=== PATIENT | female | born 1935 | race Caucasian/White ===

== ENCOUNTER 2018-06-03 15:56 | Inpatient (IN) | payer MEDICARE, OTHER ==
[2018-06-03] MEDS ORDERED: SODIUM CHLORIDE 0.9% 1,000 ML IV ONE (17:23)
[2018-06-03] MEDS ORDERED: LEVOFLOXACIN 750MG-D5W PMX 750 MG in DEXTROSE/WATER 1 150ML.BAG IVPB STA (17:23)
[2018-06-03] MEDS ORDERED: VANCOMYCIN IV PER PHARMACY 1 EACH MISC MISCELLANE PRN (17:25)
--- NOTE | 2018-06-03 17:30 | ED ---
Lower Extremity Injury HPI - General Chief Complaint: Extremity Injury, Lower Stated Complaint: L Leg Pain Time Seen by Provider: 06/03/18 17:05 Source: patient, RN notes reviewed, old records reviewed Mode of arrival: wheelchair Limitations: no limitations - History of Present Illness Initial Comments: Patient is an 8-year-old female with history of diabetes, hypertension, heart failure and previous DVT with a left lower extremity. Patient presents emergency department today with chief complaint of increased redness and swelling over the past week over her left leg. Patient was sent by her PCP for concern for overlying cellulitis. Patient reports she's had chills but no specific fever. No recent antibiotic use. Patient reports that she has a wound developing over the lateral aspect of the lower extremity, and has had increased drainage from the entire leg. Patient reports that she has had no chest pain or shortness breath. She denies any abdominal pain or changes in appetite. - Related Data Home Medications Medication Instructions Recorded Confirmed Cholecalciferol [Vitamin D3] 1,000 unit PO DAILY 06/03/18 06/03/18 Furosemide [Lasix] 20 mg PO BID 06/03/18 06/03/18 Lactulose [Constulose] 10 gm PO Q12HR 06/03/18 06/03/18 SILVER sulfADIAZINE CREAM 1 dose TOPICAL DAILY 06/03/18 06/03/18 [Silvadene Cream] Triamcinolone 0.1% Ointment 1 applic TOPICAL DAILY 06/03/18 06/03/18 [Kenalog 0.1% Ointment] Warfarin [Coumadin] 5 mg PO DAILY 06/03/18 06/03/18 Allergies Allergy/AdvReac Type Severity Reaction Status Date / Time cephalexin [From Keflex] Allergy Rash/Hives Verified 06/03/18 17:34 Penicillins Allergy Rash/Hives Verified 06/03/18 17:34 sulfamethoxazole Allergy Rash/Hives Verified 06/03/18 17:34 [From Bactrim] trimethoprim [From Bactrim] Allergy Rash/Hives Verified 06/03/18 17:34 Review of Systems ROS Statement: Those systems with pertinent positive or pertinent negative responses have been documented in the HPI. ROS Other: All systems not noted in ROS Statement are negative. Past Medical History Past Medical History: Diabetes Mellitus, Deep Vein Thrombosis (DVT), Renal Disease History of Any Multi-Drug Resistant Organisms: None Reported Past Surgical History: Appendectomy, Orthopedic Surgery Additional Past Surgical History / Comment(s): venous ligation of the left leg, right ear surgery. 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 Past Psychological History: No Psychological Hx Reported Smoking Status: Former smoker Past Alcohol Use History: None Reported Past Drug Use History: None Reported General Exam - General Exam Comments Initial Comments: Patient is an 82-year-old female. Patient appears somewhat weak. Limitations: no limitations General appearance: alert, in no apparent distress Head exam: Present: atraumatic, normocephalic, normal inspection Eye exam: Present: normal appearance, PERRL, EOMI. Absent: scleral icterus, conjunctival injection, periorbital swelling ENT exam: Present: normal exam, mucous membranes moist Neck exam: Present: normal inspection. Absent: tenderness, meningismus, lymphadenopathy Respiratory exam: Present: normal lung sounds bilaterally. Absent: respiratory distress, wheezes, rales, rhonchi, stridor Cardiovascular Exam: Present: regular rate, normal rhythm, normal heart sounds. Absent: systolic murmur, diastolic murmur, rubs, gallop, clicks GI/Abdominal exam: Present: soft, normal bowel sounds. Absent: distended, tenderness, guarding, rebound, rigid Extremities exam: Present: full ROM, normal capillary refill, other (normal dorsalis pedis pulse ). Absent: normal inspection, tenderness, pedal edema, joint swelling, calf tenderness Left Lower Leg exam: Present: full ROM, tenderness, swelling (4+ pitting edema and overlying erythema over the lower cavity. Evidence of a wound measuring 5 cm x 6 cm over the lateral aspect of the lower extremity above the lateral malleolus. ). Absent: normal inspection Ankle exam: Present: full ROM, tenderness, swelling, erythema. Absent: normal inspection Foot/Toe exam: Present: normal inspection, full ROM Gait: observed and limited by pain Back exam: Present: normal inspection Neurological exam: Present: alert, oriented X3, CN II-XII intact Psychiatric exam: Present: normal affect, normal mood Course Vital Signs 06/03/18 06/03/18 16:10 19:18 Temperature 98.2 F 98.2 F Pulse Rate 105 H 119 H Respiratory 20 18 Rate Blood Pressure 166/76 187/93 O2 Sat by Pulse 99 97 Oximetry Medical Decision Making - Medical Decision Making Ensure female with coronary disease presents emergency room today with significant cellulitis over the left larger main ulceration over the lateral aspect of the leg. Wound culture was obtained. Patient was started on IV fluids and antibiotics, will Levaquin and vancomycin. Levaquin due to patient' s ALLERGIES. We did obtain an aerobic wound culture. Patient's ultrasound at this time is negative for DVT. Blood work was relatively unremarkable. At this time we will admit the Patient for continued IV antibiotics, consult to infectious disease. - Lab Data Result diagrams: 06/03/18 17:45 06/03/18 17:45 Lab Results 06/03/18 06/03/18 06/03/18 Range/Units 17:45 17:45 17:45 WBC 9.6 (3.8-10.6) k/uL RBC 3.69 L (3.80-5.40) m/uL Hgb 11.0 L (11.4-16.0) gm/dL Hct 34.5 (34.0-46.0) % MCV 93.6 (80.0-100.0) fL MCH 30.0 (25.0-35.0) pg MCHC 32.0 (31.0-37.0) g/dL RDW 14.3 (11.5-15.5) % Plt Count 255 (150-450) k/uL Neutrophils % 75 % Lymphocytes % 14 % Monocytes % 5 % Eosinophils % 1 % Basophils % 1 % Neutrophils # 7.2 (1.3-7.7) k/uL Lymphocytes # 1.4 (1.0-4.8) k/uL Monocytes # 0.5 (0-1.0) k/uL Eosinophils # 0.1 (0-0.7) k/uL Basophils # 0.1 (0-0.2) k/uL PT (9.0-12.0) sec INR (<1.2) APTT (22.0-30.0) sec Sodium 140 (137-145) mmol/L Potassium 4.6 (3.5-5.1) mmol/L Chloride 106 (98-107) mmol/L Carbon Dioxide 25 (22-30) mmol/L Anion Gap 9 mmol/L BUN 34 H (7-17) mg/dL Creatinine 1.35 H (0.52-1.04) mg/dL Est GFR (CKD-EPI)AfAm 42 (>60 ml/min/1.73 sqM) Est GFR (CKD-EPI)NonAf 37 (>60 ml/min/1.73 sqM) Glucose 110 H (74-99) mg/dL Plasma Lactic Acid Zoran 1.1 (0.7-2.0) mmol/L Calcium 9.4 (8.4-10.2) mg/dL Total Bilirubin 0.4 (0.2-1.3) mg/dL AST 23 (14-36) U/L ALT 22 (9-52) U/L Alkaline Phosphatase 112 (38-126) U/L C-Reactive Protein 17.5 H (<10.0) mg/L NT-Pro-B Natriuret Pep pg/mL Total Protein 7.9 (6.3-8.2) g/dL Albumin 4.0 (3.5-5.0) g/dL 06/03/18 06/03/18 Range/Units 17:45 17:45 WBC (3.8-10.6) k/uL RBC (3.80-5.40) m/uL Hgb (11.4-16.0) gm/dL Hct (34.0-46.0) % MCV (80.0-100.0) fL MCH (25.0-35.0) pg MCHC (31.0-37.0) g/dL RDW (11.5-15.5) % Plt Count (150-450) k/uL Neutrophils % % Lymphocytes % % Monocytes % % Eosinophils % % Basophils % % Neutrophils # (1.3-7.7) k/uL Lymphocytes # (1.0-4.8) k/uL Monocytes # (0-1.0) k/uL Eosinophils # (0-0.7) k/uL Basophils # (0-0.2) k/uL PT 17.4 H (9.0-12.0) sec INR 1.9 H (<1.2) APTT 30.3 H (22.0-30.0) sec Sodium (137-145) mmol/L Potassium (3.5-5.1) mmol/L Chloride (98-107) mmol/L Carbon Dioxide (22-30) mmol/L Anion Gap mmol/L BUN (7-17) mg/dL Creatinine (0.52-1.04) mg/dL Est GFR (CKD-EPI)AfAm (>60 ml/min/1.73 sqM) Est GFR (CKD-EPI)NonAf (>60 ml/min/1.73 sqM) Glucose (74-99) mg/dL Plasma Lactic Acid Zoran (0.7-2.0) mmol/L Calcium (8.4-10.2) mg/dL Total Bilirubin (0.2-1.3) mg/dL AST (14-36) U/L ALT (9-52) U/L Alkaline Phosphatase (38-126) U/L C-Reactive Protein (<10.0) mg/L NT-Pro-B Natriuret Pep 239 pg/mL Total Protein (6.3-8.2) g/dL Albumin (3.5-5.0) g/dL 06/03/18 18:05 EKG shows sinus tachycardia, anterior infarct age undetermined. Ventricular rate of [address] interval is 176 ms. QRS duration is 74 ms. QT QTc is 3:30 /446 ms. - Radiology Data Radiology results: report reviewed Ultrasound is negative for DVT. Limited compression due to pitting edema. Some decreased flow in the distal femoral vein. Chest x-ray shows mild cardiac megaly. No active cardio menses. Clearing of most atelectasis at the lung bases compared old exam. Disposition Clinical Impression: Left leg cellulitis, Diabetes, Leg ulcer, left, HTN (hypertension) Disposition: ADMITTED IP TO THIS HOSP Condition: Stable Is patient prescribed a controlled substance at d/c from ED?: No Referrals: Darin Castro DO [Primary Care Provider] - 1-2 days Time of Disposition: 19:54
[2018-06-03] MEDS ORDERED: VANCOMYCIN 1,500 MG in SODIUM CHLORIDE 0.9% 250 ML IVPB ONE (18:00)
[2018-06-03] MEDS: SODIUM CHLORIDE 0.9% 1,000 ML IV SCH (18:02)
[2018-06-03 18:03] LABS: Basophils # (A) 0.1 k/uL (0-0.2); Basophils % (A) 1 %; Eosinophils # (A) 0.1 k/uL (0-0.7); Eosinophils % (A) 1 %; HCT 34.5 % (34.0-46.0); Lymphocytes # (A) 1.4 k/uL (1.0-4.8); Lymphocytes % (A) 14 %; MCV 93.6 fL (80.0-100.0); Mean Platelet Volume 6.5; Monocytes # (A) 0.5 k/uL (0-1.0); Monocytes % (A) 5 %; Neutrophils # (A) 7.2 k/uL (1.3-7.7); Neutrophils % (A) 75 %; Platelet Count 255 k/uL (150-450); RBC 3.69 m/uL (3.80-5.40); RDW 14.3 % (11.5-15.5); WBC 9.6 k/uL (3.8-10.6)
[2018-06-03 18:13] LABS: INR 1.9 (<1.2); Partial Thromboplastin Time 30.3 sec (22.0-30.0); Prothrombin Time 17.4 sec (9.0-12.0)
[2018-06-03 18:15] LABS: C Reactive Protein 17.5 mg/L (<10.0); Calcium 9.4 mg/dL (8.4-10.2); Potassium 4.6 mmol/L (3.5-5.1); Total Bilirubin 0.4 mg/dL (0.2-1.3); Total Protein 7.9 g/dL (6.3-8.2)
[2018-06-03] MEDS ORDERED: MORPHINE SULFATE 4 MG/ML SYRINGE IVP STA (18:19)
--- NOTE | 2018-06-03 18:28 | XR ---
EXAMINATION TYPE: XR chest 2V DATE OF EXAM: 06/03/2018 COMPARISON: 06/02/1713 HISTORY: Cough. Chest pain TECHNIQUE: Frontal and lateral views of the chest are obtained. FINDINGS: There is no heart failure nor confluent pneumonic infiltrate. Costophrenic angles are pdamini r. There is thoracolumbar kyphotic deformity. I see no acute fracture. There is no pleural effusion. IMPRESSION: Mild cardiomegaly. No active cardiopulmonary disease. There is clearing of most of the a telectasis at the lung bases compared to old exam.
--- NOTE | 2018-06-03 19:35 | US ---
EXAMINATION TYPE: US venous doppler duplex LE LT DATE OF EXAM: 06/03/2018 7:12 PM COMPARISON: NONE CLINICAL HISTORY: Pain. Left leg pain and swelling. Patient on blood thinners. SIDE PERFORMED: Left TECHNIQUE: The lower extremity deep venous system is examined utilizing real time linear array sonog tawana with graded compression, doppler sonography and color-flow sonography. VESSELS IMAGED: External Iliac Vein (EIV) Common Femoral Vein Deep Femoral Vein Greater Saphenous Vein * Femoral Vein Popliteal Vein Small Saphenous Vein * Proximal Calf Veins (* superficial vessels) Left Leg: Appears negative for DVT. Limitations of compression due to pitting edema. Some decreased flow in distal femoral vein. IMPRESSION: Exam fails to show evidence of deep venous thrombosis in the left leg.
[2018-06-03] MEDS ORDERED: NALOXONE 0.4 MG/ML 1 ML VIAL IV PRN (19:55)
[2018-06-03] MEDS ORDERED: HYDROmorphone 1 MG/ML 1 ML SYRINGE IVP PRN (19:55)
[2018-06-03] MEDS ORDERED: IBUPROFEN 400 MG TAB PO PRN (19:55)
[2018-06-03] MEDS ORDERED: ACETAMINOPHEN TAB 325 MG TAB PO PRN (19:55)
[2018-06-03] MEDS ORDERED: ONDANSETRON 4 MG/2 ML VIAL IVP PRN (19:55)
--- NOTE | 2018-06-03 20:52 | XR ---
EXAMINATION TYPE: XR tibia fibula LT DATE OF EXAM: 06/03/2018 COMPARISON: 05/10/2011 HISTORY: Multiple nonhealing wounds TECHNIQUE: 4 views FINDINGS: There is some subcutaneous edema around the left lower leg. The tibia and fibula appear int act. I see no fracture. I see no bony destructive process. IMPRESSION: Subcutaneous edema that is increased compared to old exam. No evidence of osteomyelitis.
[2018-06-03] MEDS ORDERED: ALPRAZolam 0.25 MG TAB PO PRN (21:26)
[2018-06-03] MEDS ORDERED: MELATONIN 3 MG TABLET PO PRN (21:26)
[2018-06-03] MEDS: LACTULOSE 20 GM/30 ML CUP PO SCH (21:32)
[2018-06-03 21:37] LABS: Glucose,Whole Blood 112 mg/dL (75-99)
[2018-06-03] MEDS ORDERED: IPRATROPIUM-ALBUTEROL 3 ML NEB INHALATION PRN (22:14)
--- NOTE | 2018-06-03 22:46 | HP ---
HISTORY AND PHYSICAL CHIEF COMPLAINTS: Pain and swelling of the left leg. HISTORY OF PRESENT ILLNESS: This 82-year-old woman with a past medical history of multiple medical problems, including history of DVT, history of diabetes mellitus, type 2, history of renal disease, being followed by Dr. Castro in the outpatient setting, was noted to have redness and swelling of the left leg for some time. The patient apparently did not seek any medical attention at that point, but her daughter took the patient to Dr. Castro today and the patient was sent for direct admission at this time. A repeat ultrasound did not show any evidence of DVT. Creatinine is 1.35. There is no history of any fever, rigor or chills. No history of headache, loss of consciousness, seizures. PAST MEDICAL HISTORY: 1. History of DVT. 2. History of diabetes mellitus, type 2. 3. History of appendectomy. HOME MEDICATIONS: 1. Kenalog 0.1 ointment one topically daily. 2. Silvadene 1 dose daily. 3. Lasix 20 mg b.i.d. 4. Lactulose 10 grams b.i.d. 5. Vitamin D3 1000 daily. 6. Coumadin 5 mg p.o. daily. ALLERGIES: 1. KEFLEX. 2. PENICILLIN. 3. BACTRIM. FAMILY HISTORY: No history of heart disease or strokes in the family. SOCIAL HISTORY: Previous history of smoking. REVIEW OF SYSTEMS: ENT: No diminished hearing. No diminished vision. CARDIOVASCULAR SYSTEM: No angina, palpitations. RESPIRATORY SYSTEM: No cough, hemoptysis. GI: No nausea, vomiting. : No dysuria or retention. NERVOUS SYSTEM: No numbness, weakness. ALLERGY/IMMUNOLOGY: No asthma, hayfever. MUSCULOSKELETAL: As mentioned earlier. HEMATOLOGY/ONCOLOGY: As mentioned earlier. ENDOCRINE: Diabetes mellitus CONSTITUTIONAL: As mentioned earlier. DERMATOLOGY: Negative. RHEUMATOLOGY: Negative. PSYCHIATRY: As mentioned earlier. PHYSICAL EXAMINATION: Patient alert and oriented x3. Pulse is 110, blood pressure 150/90, respiration 19, temperature 97.7, pulse ox 99% on room air. HEENT: Conjunctivae normal. Oral mucosa moist. NECK: No jugular venous distention. No carotid bruit. No lymph node enlargement. CARDIOVASCULAR SYSTEM: S1, S2 muffled. RESPIRATORY SYSTEM: Breath sounds diminished at the bases. A few scattered rhonchi and crackles. ABDOMEN: Soft, non-tender. No mass palpable. LEGS: Left leg erythema and cellulitis present. NERVOUS SYSTEM: Higher functions as mentioned earlier. Moves all 4 limbs. No focal motor or sensory deficit. LYMPHATICS: No lymph node palpable in neck, axillae or groin. SKIN: No ulcer, rash, bleeding. LABS: WBC 9.6, hemoglobin 11. INR is 1.9. Creatinine is 1.35. ASSESSMENT: 1. Acute left leg cellulitis. 2. History of deep vein thrombosis. 3. Increased creatinine; chronic kidney disease, stage III. 4. History of diabetes mellitus, type 2. 5. Appendectomy. 6. History of degenerative joint disease. 7. Remote history of nicotine dependence. RECOMMENDATIONS AND DISCUSSION: In this 82-year-old woman who presented with multiple complex medical issues, we will monitor the patient closely, continue the current medications, continue symptomatic treatment. We will initiate IV antibiotics. Will also consult Infectious Disease. Local treatment. Guarded prognosis because of multiple complex medical issues.. Will monitor blood sugars closely. Further recommendations to follow. A copy of this dictation is being forwarded to Dr. Castro, who is the primary physician. Resume the home medications. MMODL / IJN: [id number] / MTDParisa
[2018-06-03] MEDS: LORATADINE 10 MG TAB PO SCH (23:05)
[2018-06-03] MEDS: methylPREDNISolone SOD SUCCI 40 MG/ML 1 ML VIAL IV SCH (23:42)
[2018-06-04] MEDS: SODIUM CHLORIDE 0.9% 1,000 ML IV SCH ×2 (03:32→14:31)
[2018-06-04] MEDS: MORPHINE SULFATE 4 MG/ML SYRINGE IV PRN ×2 (05:47→16:32)
[2018-06-04] MEDS: IPRATROPIUM-ALBUTEROL 3 ML NEB INHALATION SCH ×4 (07:04→19:39)
[2018-06-04 07:31] LABS: Glucose,Whole Blood 131 mg/dL (75-99)
[2018-06-04] MEDS: INSULIN ASPART 100 UNIT/ML 1 ML 10 ML VIAL SQ SCH ×4 (07:33→21:11)
[2018-06-04] MEDS: LACTULOSE 20 GM/30 ML CUP PO SCH ×2 (07:37→21:15)
[2018-06-04] MEDS: FUROSEMIDE 20 MG TAB PO SCH ×2 (07:37→15:27)
[2018-06-04] MEDS: CHOLECALCIFEROL 1,000 UNIT TAB PO SCH (07:38)
[2018-06-04] MEDS: methylPREDNISolone SOD SUCCI 40 MG/ML 1 ML VIAL IV SCH ×2 (07:43→15:27)
[2018-06-04] MEDS ORDERED: TRIAMCINOLONE 0.1% TOPICAL SCH (09:00)
[2018-06-04 09:14] LABS: Amorphous Sediment,Urine Rare /hpf; Appearance,Urine Cloudy (Clear); Bacteria,Urine Many /hpf; Bilirubin,Urine Negative (Negative); Blood,Urine Negative (Negative); Color,Urine Light Yellow; Glucose,Urine (UA) Negative (Negative); Ketones,Urine Negative (Negative); Leukocyte Esterase,Urine Large (Negative); Mucus,Urine Rare /hpf; Nitrite,Urine Positive (Negative); Protein,Urine Negative (Negative); RBC,Urine 8 /hpf (0-5); Specific Gravity,Urine 1.013 (1.001-1.035); Squamous Epithelial Cell,Urine 3 /hpf (0-4); Urobilinogen,Urine <2.0 mg/dL (<2.0); WBC,Urine 46 /hpf (0-5)
[2018-06-04 10:27] LABS: Basophils % (A) 1 %; Eosinophils # (A) 0.1 k/uL (0-0.7); Eosinophils % (A) 1 %; HCT 30.9 % (34.0-46.0); HGB 9.9 gm/dL (11.4-16.0); Lymphocytes # (A) 0.9 k/uL (1.0-4.8); Lymphocytes % (A) 14 %; MCH 30.3 pg (25.0-35.0); MCHC 32.1 g/dL (31.0-37.0); MCV 94.3 fL (80.0-100.0); Mean Platelet Volume 7.4; Monocytes # (A) 0.3 k/uL (0-1.0); Monocytes % (A) 5 %; Neutrophils # (A) 4.9 k/uL (1.3-7.7); Neutrophils % (A) 78 %; Platelet Count 206 k/uL (150-450); RBC 3.28 m/uL (3.80-5.40); RDW 14.4 % (11.5-15.5); WBC 6.3 k/uL (3.8-10.6)
[2018-06-04 10:38] LABS: INR 2.5 (<1.2); Prothrombin Time 22.3 sec (9.0-12.0)
[2018-06-04 10:49] LABS: Calcium 8.8 mg/dL (8.4-10.2); Potassium 4.8 mmol/L (3.5-5.1)
[2018-06-04 10:54] LABS: Vancomycin,Random 7.1 ug/mL
[2018-06-04 11:53] LABS: Glucose,Whole Blood 143 mg/dL (75-99)
[2018-06-04 12:27] VITALS: BMI 31.1
[2018-06-04] MEDS ORDERED: VANCOMYCIN 1,500 MG in SODIUM CHLORIDE 0.9% 250 ML IVPB SCH (14:00)
[2018-06-04 17:08] LABS: Glucose,Whole Blood 114 mg/dL (75-99)
[2018-06-04] MEDS: WARFARIN 5 MG TAB PO SCH (17:31)
[2018-06-04 20:35] LABS: Glucose,Whole Blood 117 mg/dL (75-99)
--- NOTE | 2018-06-04 23:45 | PN ---
PROGRESS NOTE DATE OF SERVICE: 06/04/2018 This 88-year-old woman was admitted after bilateral leg swelling and cellulitis. Also, history of DVT. No chest pain. No palpitations. No fever. Patient on broad spectrum IV antibiotics. EXAM: Alert and oriented. Pulse 95, blood pressure 150/70, respiration 18, temperature 97.1, pulse ox 100 on room air. HEENT: Conjunctivae normal. Oral mucosa. NECK: No jugular venous distention. No lymph node enlargement. CARDIOVASCULAR: S1, S2. RESPIRATORY: Diminished breath sounds at the bases. No rhonchi, no crackles. ABDOMEN: Soft, nontender. LEGS: Left leg cellulitis. NERVOUS SYSTEM: No focal deficits. LABS: WBC 6.9, hemoglobin 9.3, INR 2.5, creatinine 1.16. UA noted possibly UTI. ASSESSMENT: 1. Acute left leg cellulitis. 2. Acute urinary tract infection. 3. History of deep vein thrombosis. 4. Increased creatinine, chronic kidney disease stage III. 5. History of diabetes type 2. 6. History of appendectomy. 7. History of degenerative joint disease. 8. Remote history of nicotine dependence. RECOMMENDATIONS AND DISCUSSION: Continue current medications, management and symptomatic treatment. Otherwise, at this time the patient is on IV daptomycin. Infectious Disease has been consulted. Continue to monitor. Guarded prognosis. Further recommendations to follow. MMODL / IJN: [id number] /
[2018-06-05] MEDS: SODIUM CHLORIDE 0.9% 1,000 ML IV SCH ×2 (06:28→10:44)
[2018-06-05] MEDS: IPRATROPIUM-ALBUTEROL 3 ML NEB INHALATION SCH ×4 (06:53→18:59)
[2018-06-05 07:22] LABS: Glucose,Whole Blood 116 mg/dL (75-99)
[2018-06-05] MEDS: INSULIN ASPART 100 UNIT/ML 1 ML 10 ML VIAL SQ SCH ×4 (07:55→21:25)
[2018-06-05] MEDS: LACTULOSE 20 GM/30 ML CUP PO SCH ×2 (07:56→21:25)
[2018-06-05] MEDS: FUROSEMIDE 20 MG TAB PO SCH ×2 (07:56→16:06)
[2018-06-05] MEDS: LORATADINE 10 MG TAB PO SCH ×2 (07:56→11:48)
[2018-06-05] MEDS: CHOLECALCIFEROL 1,000 UNIT TAB PO SCH (07:56)
[2018-06-05 09:48] LABS: Basophils % (A) 0 %; Eosinophils # (A) 0.2 k/uL (0-0.7); Eosinophils % (A) 2 %; HCT 29.2 % (34.0-46.0); HGB 9.2 gm/dL (11.4-16.0); Hypochromasia Slight; Lymphocytes # (A) 0.9 k/uL (1.0-4.8); Lymphocytes % (A) 11 %; MCH 30.7 pg (25.0-35.0); MCHC 31.4 g/dL (31.0-37.0); MCV 97.9 fL (80.0-100.0); Mean Platelet Volume 6.7; Monocytes # (A) 0.3 k/uL (0-1.0); Monocytes % (A) 4 %; Neutrophils # (A) 6.2 k/uL (1.3-7.7); Neutrophils % (A) 80 %; Platelet Count 204 k/uL (150-450); RBC 2.99 m/uL (3.80-5.40); RDW 14.3 % (11.5-15.5); WBC 7.7 k/uL (3.8-10.6)
[2018-06-05 09:58] LABS: INR 2.8 (<1.2); Prothrombin Time 24.9 sec (9.0-12.0)
[2018-06-05] MEDS: MORPHINE SULFATE 4 MG/ML SYRINGE IV PRN ×2 (09:58→23:18)
[2018-06-05 10:06] LABS: Calcium 8.5 mg/dL (8.4-10.2); Potassium 4.1 mmol/L (3.5-5.1)
--- NOTE | 2018-06-05 11:13 | CONS ---
CONSULTATION DATE OF SERVICE: 06/04/2018. REASON FOR CONSULTATION: Bilateral lower extremity wound and cellulitis. HISTORY OF PRESENT ILLNESS: The patient is an 82-year-old, female presenting to the ER at [facility] with increasing pain, swelling, redness to her legs, left more than right leg. The patient's symptom have been going on for 2-3 days before presenting to the hospital. She did notice more swelling and redness especially to the left leg for the last few days that has been progressively getting worse. The pain described to be more of a throbbing in nature, 6 to 7/10, and no radiation. She did have some but no drainage from it. The patient complaining of some chills. The patient does have MULTIPLE ANTIBIOTIC ALLERGIES TO AMOXICILLIN WELL KEFLEX. She was advised vancomycin by the ER physician last night however the dose. Apparently the patient's sinuses were closed she could not breathe and she refused any further IV vancomycin. Hence, Infectious Disease was consulted for further recommendations regarding antibiotic therapy. REVIEW OF SYSTEMS: CONSTITUTIONAL: Positive for weakness and chills. EYES no complaint. ENT no complaint. Respiratory no complaint. Cardiovascular: No complaint. Genitourinary no complaint. Gastrointestinal: No complaint. Musculoskeletal no complaint. Integumentary as per HPI. Psychological no complaint. Endocrine no complaint. Neurologic no complaint. PAST MEDICAL HISTORY: Diabetes mellitus, DVT, renal insufficiency, venous stasis ulcer. 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 SOCIAL HISTORY: Remote history of smoking. No drinking or drug use. FAMILY HISTORY: No pertinent findings noticed. ALLERGIES: TO PENICILLIN, CEPHALEXIN, SULFAMETHOXAZOLE. MEDICATIONS: The patient is currently on Tylenol, DuoNeb, Xanax, vitamin D3, Lasix, Dilaudid, Motrin, NovoLog, lactulose, Claritin, melatonin, Narcan, Zofran, and Coumadin. EXAMINATION: Blood pressure is 166/72, with a pulse of 100, temperature is 97.3. She is 99% on 2 L nasal cannula. General description is an elderly female lying in bed in no distress. No tachypnea or accessory muscles of respiration use. HEENT: Shows pallor. No scleral icterus. Oral mucous membranes dry. No pharyngeal erythema or thrush. Neck: Trachea central. No thyromegaly. Lungs unlabored breathing. Clear to auscultation anteriorly. No wheeze or crackles. Heart S1, S2. Regular rate and rhythm. ABDOMEN: Soft, no tenderness. No guarding or rigidity. Extremities with a significant swelling and redness mostly on the left leg, did have some venous stasis ulcer. Minimal purulence was noticed, which was cultured. NEUROLOGICAL: Patient is awake, alert, oriented x3. Mood and affect normal. LABS: Hemoglobin is 9.9, white count 6.3, BUN of 24, creatinine is 1.16. UA has been positive and 7.1. Left leg culture currently showing group D Enterococcus. DIAGNOSTIC IMPRESSION AND PLAN: 1. Patient with left leg venous stasis ulcer with secondary cellulitis likely from a gram-positive such as Staph and strep, less likely gram-negative infection. 2. The patient does have MULTIPLE ANTIBIOTIC ALLERGIES that limit the number of antibiotics that could be safely used. PLAN: 1. The patient was started on daptomycin 4 mg/kg. 2. Aquacel Silver dressing to the open wound followed by an Aly wrap from just above to below the knee. 3. Crow the area of redness. 4. We will follow up on clinical condition and culture to further adjust medication if needed. Thank you for this consultation. We will follow this patient along with you. MMODL / IJN: [id number] /
[2018-06-05 11:58] LABS: Glucose,Whole Blood 123 mg/dL (75-99)
[2018-06-05 17:19] LABS: Glucose,Whole Blood 149 mg/dL (75-99)
--- NOTE | 2018-06-05 17:25 | PN ---
PROGRESS NOTE DATE OF SERVICE: 06/05/2018 This 82-year-old woman who was admitted with diffuse cellulitis is on IV antibiotics. The cultures are showing gram-negative bacilli and group D enterococcus. No chest pain. No palpitations. No fever. The patient is also complaining of allergy symptoms. On exam, alert and oriented x3. Pulse is 95, blood pressure 127/63, respiration 18, temperature 97.2, pulse ox 98% on room air. HEENT: Conjunctivae normal. Oral mucosa moist. NECK: No jugular venous distention. No carotid bruit. No lymph node enlargement. CARDIOVASCULAR SYSTEM: S1, S2 muffled. RESPIRATORY SYSTEM: Breath sounds diminished at the bases. A few scattered rhonchi and crackles. ABDOMEN: Soft, non-tender. LEGS: Left leg cellulitis. NERVOUS SYSTEM: No focal deficit. LABS: WBC 7.6, hemoglobin 9.2, INR 2.3. Creatinine is 1.5. Accu-Cheks are noted. ASSESSMENT: 1. Acute left leg cellulitis with possibly gram-negative bacilli and group D enterococcus. 2. Acute urinary tract infection. 3. History of deep venous thrombosis. 4. Increased creatinine; chronic kidney disease, stage III. 5. History of diabetes mellitus, type 2. 6. History of appendectomy. 7. History of degenerative joint disease. 8. Remote history of nicotine dependence. RECOMMENDATIONS AND DISCUSSION: I recommend to continue current medications, continue the IV antibiotics. We will continue to monitor the identification of the organisms. Continue the current antibiotics. Closely follow with Infectious Disease. Guarded prognosis. Further recommendations to follow. MMODL / IJN: [id number] /
[2018-06-05] MEDS: WARFARIN 5 MG TAB PO SCH (17:56)
[2018-06-05 20:37] LABS: Glucose,Whole Blood 125 mg/dL (75-99)
[2018-06-06] MEDS: SODIUM CHLORIDE 0.9% 1,000 ML IV SCH ×3 (00:48→16:09)
--- NOTE | 2018-06-06 02:28 | PN ---
PROGRESS NOTE DATE OF SERVICE: 06/05/2018. REASON FOR FOLLOWUP: Left leg venous stasis ulcer and cellulitis. INTERVAL HISTORY: The patient is currently afebrile. She has been breathing comfortably. Denies having any chest pain, cough. No abdominal pain or any worsening pain in the left leg area. EXAMINATION: Blood pressure 164/74 with a pulse of 99, temperature 98.3. She is 96% on room air. General description is an elderly female lying in bed in no distress. Respiratory system: Unlabored breathing, clear to auscultation anteriorly. Heart S1, S2 regular rate and rhythm. Abdomen is soft. No tenderness. Left leg swelling and redness mildly decreased. Still has slight drainage on the dressing. LABS: Hemoglobin is 9.2 with white count 7.7, BUN of 19, creatinine is 1.14. DIAGNOSTIC IMPRESSION AND PLAN: Patient with left leg venous stasis ulcer and cellulitis. Culture showed Enterococcus. The patient did have MULTIPLE ANTIBIOTIC ALLERGIES TO PENICILLIN, CEPHALEXIN AND VANCO. Currently on daptomycin. will continue to continue with Aquacel Silver dressing and Aly wrap and we will reevaluate the wound tomorrow. Continue supportive care. MMODL / IJN: [id number] /
[2018-06-06] MEDS: MORPHINE SULFATE 4 MG/ML SYRINGE IV PRN ×3 (04:13→22:15)
[2018-06-06 06:59] LABS: Glucose,Whole Blood 106 mg/dL (75-99)
[2018-06-06] MEDS: IPRATROPIUM-ALBUTEROL 3 ML NEB INHALATION SCH ×4 (08:18→19:50)
[2018-06-06] MEDS: LORATADINE 10 MG TAB PO SCH (08:39)
[2018-06-06] MEDS: FUROSEMIDE 20 MG TAB PO SCH ×2 (08:39→18:07)
[2018-06-06] MEDS: INSULIN ASPART 100 UNIT/ML 1 ML 10 ML VIAL SQ SCH ×4 (08:40→22:20)
[2018-06-06] MEDS: CHOLECALCIFEROL 1,000 UNIT TAB PO SCH (08:40)
[2018-06-06] MEDS: LACTULOSE 20 GM/30 ML CUP PO SCH ×2 (08:40→22:15)
[2018-06-06] MEDS ORDERED: AZTREONAM 2 GM in SODIUM CHLORIDE 0.9% 100 ML IVPB SCH (09:00)
[2018-06-06 10:02] LABS: INR 2.9 (<1.2); Prothrombin Time 25.7 sec (9.0-12.0)
[2018-06-06 10:05] LABS: Basophils % (A) 0 %; Eosinophils # (A) 0.2 k/uL (0-0.7); Eosinophils % (A) 3 %; HCT 29.6 % (34.0-46.0); HGB 9.6 gm/dL (11.4-16.0); Lymphocytes # (A) 1.2 k/uL (1.0-4.8); Lymphocytes % (A) 21 %; MCH 30.2 pg (25.0-35.0); MCHC 32.3 g/dL (31.0-37.0); MCV 93.7 fL (80.0-100.0); Mean Platelet Volume 6.8; Monocytes # (A) 0.3 k/uL (0-1.0); Monocytes % (A) 5 %; Neutrophils # (A) 3.9 k/uL (1.3-7.7); Neutrophils % (A) 69 %; Platelet Count 182 k/uL (150-450); RBC 3.16 m/uL (3.80-5.40); RDW 14.4 % (11.5-15.5); WBC 5.6 k/uL (3.8-10.6)
[2018-06-06 10:34] LABS: Calcium 8.5 mg/dL (8.4-10.2); Potassium 3.6 mmol/L (3.5-5.1)
[2018-06-06 12:13] LABS: Glucose,Whole Blood 164 mg/dL (75-99)
--- NOTE | 2018-06-06 16:26 | PN ---
PROGRESS NOTE DATE OF SERVICE: 06/06/2018 This 82-year-old woman was admitted with significant cellulitis on IV antibiotics. The patient has group D Enterococcus and as well as gram-negative bacilli grown from the culture. No chest pain. No palpitations. No fever. Dr. Diego is following the patient closely. EXAM: Alert and oriented x3. Pulse 84, blood pressure 138/70, respiration 16, temperature 97 degrees, pulse ox 98% on room air. HEENT: Conjunctivae normal. Oral mucosa is moist. Neck is no jugular venous distention. No carotid bruit. No lymph node enlargement. CARDIOVASCULAR: S1, S2. RESPIRATORY: Breath sounds diminished in the bases. No rhonchi, no crackles. ABDOMEN: Soft, nontender. LEGS: cellulitis. NERVOUS SYSTEM: No focal deficits. LAB STUDIES: WBC 5.6, hemoglobin 9.6. INR is 2.9. ASSESSMENT: 1. Acute left leg cellulitis with possibly gram-negative bacilli and as well as group D Enterococcus. 2. Acute urinary tract infection. 3. History of deep vein thrombosis. 4. Increased creatinine, chronic kidney stage III. 5. History of diabetes mellitus type 2. 6. History of appendectomy. 7. History of degenerative joint disease. 8. Remote history of nicotine dependence. RECOMMENDATIONS AND DISCUSSION: I recommend to continue current management, continue monitoring and symptomatic treatment. Continue with the antibiotics, local treatment. Closely monitor. Increase ambulation. Further recommendations to follow. MMODL / IJN: [id number] / MTDD
[2018-06-06 17:35] LABS: Glucose,Whole Blood 203 mg/dL (75-99)
[2018-06-06] MEDS: WARFARIN 5 MG TAB PO SCH (18:07)
[2018-06-06 20:12] LABS: Glucose,Whole Blood 136 mg/dL (75-99)
[2018-06-06] MEDS: AZTREONAM 1 GM in SODIUM CHLORIDE 0.9% 50 ML IVPB SCH (22:15)
[2018-06-07] MEDS: SODIUM CHLORIDE 0.9% 1,000 ML IV SCH ×3 (03:05→21:27)
[2018-06-07] MEDS: MORPHINE SULFATE 4 MG/ML SYRINGE IV PRN ×2 (06:26→15:36)
--- NOTE | 2018-06-07 07:00 | PN ---
PROGRESS NOTE DATE OF SERVICE: 06/06/2018 REASON FOR FOLLOWUP: Left leg venostasis ulcer with secondary cellulitis. INTERVAL HISTORY: The patient is currently afebrile. She is breathing comfortably. Denies having any chest pain, shortness of breath or cough. No abdominal pain. Pain to the left leg is currently controlled. EXAMINATION: Blood pressure 147/75 with a pulse of 106, temperature 98.4. She is 97% on room air. General description is an elderly female lying in bed in no distress. Respiratory System: Unlabored breathing, clear to auscultation anteriorly. Heart: S1, S2. Regular rate and rhythm. Extremities: Left leg swelling and redness has improved. The lateral leg with mostly ( ) tissue. LABS: Hemoglobin 9.2, white count 4.6, BUN of 17, creatinine 1.11. DIAGNOSTIC IMPRESSION AND PLAN: Patient with left leg venostasis ulcer with secondary cellulitis. Wound culture now showing Pseudomonas Enterococcus faecalis. Patient is currently covered with Azactam and daptomycin. The patient currently refuses to go to [facility] for IV antibiotic therapy. ( ) multiple antibiotic allergies. We will discuss further with correctional casework specialist tomorrow. Local wound care to the left lateral leg wound will be changed to Medihoney. Continue with Aquacel Silver dressing to the medial wound. Continue supportive care. MMODL / IJN: [id number] /
[2018-06-07] MEDS: IPRATROPIUM-ALBUTEROL 3 ML NEB INHALATION SCH ×4 (07:20→22:31)
[2018-06-07 07:32] LABS: Glucose,Whole Blood 173 mg/dL (75-99)
[2018-06-07] MEDS: CHOLECALCIFEROL 1,000 UNIT TAB PO SCH (08:55)
[2018-06-07] MEDS: LACTULOSE 20 GM/30 ML CUP PO SCH ×2 (08:55→21:27)
[2018-06-07] MEDS: FUROSEMIDE 20 MG TAB PO SCH ×2 (08:55→16:54)
[2018-06-07] MEDS: AZTREONAM 1 GM in SODIUM CHLORIDE 0.9% 50 ML IVPB SCH ×2 (08:56→21:26)
[2018-06-07] MEDS: LORATADINE 10 MG TAB PO SCH (08:56)
[2018-06-07] MEDS: INSULIN ASPART 100 UNIT/ML 1 ML 10 ML VIAL SQ SCH ×4 (08:57→21:26)
[2018-06-07 09:02] LABS: Basophils % (A) 1 %; Eosinophils # (A) 0.2 k/uL (0-0.7); Eosinophils % (A) 3 %; HCT 29.9 % (34.0-46.0); HGB 9.6 gm/dL (11.4-16.0); Lymphocytes # (A) 1.3 k/uL (1.0-4.8); Lymphocytes % (A) 19 %; MCH 30.3 pg (25.0-35.0); MCHC 32.2 g/dL (31.0-37.0); MCV 94.1 fL (80.0-100.0); Mean Platelet Volume 6.8; Monocytes # (A) 0.4 k/uL (0-1.0); Monocytes % (A) 6 %; Neutrophils # (A) 4.9 k/uL (1.3-7.7); Neutrophils % (A) 68 %; Platelet Count 210 k/uL (150-450); RBC 3.18 m/uL (3.80-5.40); RDW 14.1 % (11.5-15.5); WBC 7.1 k/uL (3.8-10.6)
[2018-06-07 09:06] LABS: INR 3.9 (<1.2); Prothrombin Time 35.3 sec (9.0-12.0)
[2018-06-07 09:19] LABS: Calcium 8.6 mg/dL (8.4-10.2); Potassium 4.3 mmol/L (3.5-5.1)
[2018-06-07 11:48] LABS: Glucose,Whole Blood 133 mg/dL (75-99)
[2018-06-07 17:21] LABS: Glucose,Whole Blood 179 mg/dL (75-99)
[2018-06-07] MEDS: WARFARIN 5 MG TAB PO SCH (18:08)
--- NOTE | 2018-06-07 19:09 | PN ---
PROGRESS NOTE DATE OF SERVICE: 06/07/2018 This 82-year-old woman who was admitted with multiple medical issues including acute left leg cellulitis also had Pseudomonas grown from the culture. The patient had Group D enterococcus and anaerobic gram positive also. Infectious Disease following the patient closely. The patient is on aztreonam at this time. PAST MEDICAL HISTORY: Reviewed. REVIEW OF SYSTEMS: CARDIOVASCULAR: No angina or palpitations. Respirations: As mentioned earlier. GI: No nausea or vomiting. no dysuria. Nervous System: No numbness or weakness. CURRENT MEDICATIONS ARE: Reviewed and include: 1. Tylenol p.r.n. 2. DuoNeb q.i.d. and p.r.n. 3. Xanax 0.5 t.i.d. 4. Aztreonam 1 g IV b.i.d. 5. Vitamin D3 daily. 6. Daptomycin 300 mg b.i.d. 7. Lasix 20 mg b.i.d. 8. Dilaudid. 9. Motrin. 10.NovoLog. 11.Cephulac. 12.Melatonin. 13.Morphine sulfate p.r.n. 14.Zofran. 15.Silvadene. 16.Coumadin daily. PHYSICAL EXAM: Patient is alert, oriented times three. Pulse is 96, blood pressure 150/82, respirations 16, temperature 98.4, pulse ox 94% on room air. HEENT: Conjunctivae normal. Oral mucosa moist. Neck is no jugular venous distention. No carotid bruit. No lymph node enlargement. Cardiovascular: S1, S2 muffled. Respirations: Breath sounds diminished in the bases. A few scattered rhonchi and crackles. ABDOMEN: Soft, nontender. Legs: Significant infection of the left leg. Exam of the left leg pain significant ulceration present on the lateral part. LABORATORY DATA: Cultures growing anaerobic gram negative bacilli, Group D Enterococcus and Pseudomonas aeruginosa on multiple cultures, which is positive. Other labs are WBC 7.2, hemoglobin 9.2, INR is 3.9. ASSESSMENT: 1. Acute left leg cellulitis with Pseudomonas and as well as group D Enterococcus. 2. Group D Enterococcus which is vancomycin sensitive. 3. Acute urinary tract infection. 4. History of deep vein thrombosis. 5. Coumadin coagulopathy. 6. Coumadin monitoring. 7. Increased creatinine, chronic kidney disease stage III. 8. Diabetes mellitus type 2. 9. Appendectomy. 10.Gait dysfunction. 11.Degenerative joint disease. 12.Remote history of nicotine dependence. RECOMMENDATIONS AND DISCUSSION: In this 82-year-old woman who presented with multiple complex medical issues, we will monitor the patient closely, continue the current medications, management and symptomatic treatment. Patient is on a combination of aztreonam, daptomycin, continue to monitor. The patient has severe infection of the wound. We will continue to monitor with Infectious Disease. Increase ambulation. PT, OT evaluation, possible ECF rehab. Hold the Coumadin today and monitor PT, INR, and repeat labs will be ordered. Guarded prognosis. Further recommendations to follow. MMODL / IJN: [id number] /
[2018-06-07 21:10] LABS: Glucose,Whole Blood 101 mg/dL (75-99)
--- NOTE | 2018-06-08 | PN ---
PROGRESS NOTE DATE OF SERVICE: 06/07/2018. REASON FOR FOLLOWUP: Left leg venous stasis ulcer and cellulitis. INTERVAL HISTORY: The patient is afebrile. She is breathing comfortably. Denies significant chest pain. No shortness of breath, cough or abdominal pain. Pain to the left leg slightly decreased intensity with some drainage. EXAMINATION: Blood pressure 158/78 with a pulse of 90, temperature of 98.6. She is 98% on room air. General description is an elderly female lying in bed in no distress. Respiratory system: Unlabored breathing. Clear to auscultation anteriorly. Heart S1, S2. Regular rate and rhythm. Abdomen soft, no tenderness. LABS: Hemoglobin 9.3, white count 7.1. BUN of 12, creatinine 1.4. DIAGNOSTIC IMPRESSION AND PLAN: Patient with left leg venous stasis ulcer secondary to cellulitis. Culture positive Coxsackie faecalis and Pseudomonas aeruginosa. The patient has been switched to penicillin and cephalexin and vancomycin, currently being covered with daptomycin, and Azactam. Plan to finish therapy with daptomycin for a week with oral Cipro. Local care with Medihoney to the and Aquacel silver to the right-side and follow [facility] 1 week. Continue supportive care. MMODL / IJN: [id number] /
[2018-06-08] MEDS: MORPHINE SULFATE 4 MG/ML SYRINGE IV PRN ×4 (01:55→23:34)
[2018-06-08 07:00] LABS: Glucose,Whole Blood 168 mg/dL (75-99)
[2018-06-08] MEDS: LACTULOSE 20 GM/30 ML CUP PO SCH ×2 (07:58→19:49)
[2018-06-08] MEDS: AZTREONAM 1 GM in SODIUM CHLORIDE 0.9% 50 ML IVPB SCH ×2 (07:58→21:13)
[2018-06-08] MEDS: FUROSEMIDE 20 MG TAB PO SCH ×2 (07:59→15:23)
[2018-06-08] MEDS: CHOLECALCIFEROL 1,000 UNIT TAB PO SCH (07:59)
[2018-06-08] MEDS: LORATADINE 10 MG TAB PO SCH (07:59)
[2018-06-08] MEDS: INSULIN ASPART 100 UNIT/ML 1 ML 10 ML VIAL SQ SCH ×4 (08:06→22:03)
[2018-06-08] MEDS: SODIUM CHLORIDE 0.9% 1,000 ML IV SCH ×2 (08:09→17:10)
[2018-06-08] MEDS: IPRATROPIUM-ALBUTEROL 3 ML NEB INHALATION SCH ×4 (08:17→21:24)
[2018-06-08 09:34] LABS: Basophils % (A) 0 %; Eosinophils # (A) 0.2 k/uL (0-0.7); Eosinophils % (A) 3 %; HCT 32.1 % (34.0-46.0); HGB 10.7 gm/dL (11.4-16.0); Lymphocytes # (A) 0.9 k/uL (1.0-4.8); Lymphocytes % (A) 13 %; MCH 31.2 pg (25.0-35.0); MCHC 33.5 g/dL (31.0-37.0); MCV 93.2 fL (80.0-100.0); Mean Platelet Volume 6.7; Monocytes # (A) 0.3 k/uL (0-1.0); Monocytes % (A) 4 %; Neutrophils # (A) 5.3 k/uL (1.3-7.7); Neutrophils % (A) 76 %; Platelet Count 212 k/uL (150-450); RBC 3.44 m/uL (3.80-5.40); RDW 14.3 % (11.5-15.5)
[2018-06-08 09:38] LABS: INR 3.4 (<1.2); Prothrombin Time 30.2 sec (9.0-12.0)
[2018-06-08 09:48] LABS: Calcium 8.9 mg/dL (8.4-10.2)
[2018-06-08 09:51] LABS: Potassium 3.8 mmol/L (3.5-5.1)
[2018-06-08 12:06] LABS: Glucose,Whole Blood 119 mg/dL (75-99)
[2018-06-08 16:41] LABS: Glucose,Whole Blood 112 mg/dL (75-99)
[2018-06-08] MEDS: WARFARIN 5 MG TAB PO SCH (17:11)
[2018-06-08] MEDS ORDERED: WARFARIN 1 MG TAB PO ONE (18:00)
[2018-06-08 21:13] LABS: Glucose,Whole Blood 178 mg/dL (75-99)
--- NOTE | 2018-06-08 21:15 | PN ---
PROGRESS NOTE DATE OF SERVICE: 06/08/2018. REASON FOR FOLLOWUP: Left leg venous stasis ulcer and secondary cellulitis. INTERVAL HISTORY: The patient is afebrile. She has been breathing comfortably. Denies having any chest pain, shortness of breath or cough. No abdominal pain and worsening pain in the left leg area. EXAMINATION: Blood pressure 139/60 with a pulse of 96, temperature 98.4. She is 97% on room air. General description is an elderly female, lying in bed in no distress. Respiratory system unlabored breathing. Clear to auscultation anteriorly. Heart S1, S2. Regular rate and rhythm. Abdomen soft, no tenderness. The left leg lateral leg slough has resolved. Redness has decreased. LABS: Hemoglobin is 10.7, white count 7.0, BUN of 11, creatinine 0.98. DIAGNOSTIC IMPRESSION AND PLAN: Patient with left leg venous stasis ulcer secondary to cellulitis, culture positive for . Patient is currently covered with daptomycin because of multiple antibiotic allergy and Fortaz. Plan for daptomycin and Cipro on discharge. Local wound care with Aquacel Silver dressing to the wound followed by an Aly wrap and follow up in the [facility] next week. Prescription has been been sent for the patient awaiting midline placement. Continue supportive care. MMODL / IJN: [id number] /
[2018-06-09] MEDS: SODIUM CHLORIDE 0.9% 1,000 ML IV SCH ×2 (04:22→14:44)
--- NOTE | 2018-06-09 06:26 | PN ---
PROGRESS NOTE DATE OF SERVICE: 06/08/2018 PRESENTING COMPLAINT: Left leg wound. INTERVAL HISTORY: This patient was seen by me yesterday on 06/08/2018. On IV antibiotics. Tolerating a diet. Did have a bowel movement yesterday in bed. No new issues. REVIEW OF SYSTEMS: Done for constitutional, cardiovascular, GI, pulmonary; relevant findings as above. CURRENT MEDICATIONS: Current medications are reviewed that include IV aztreonam, IV daptomycin, IV fluids. PHYSICAL EXAMINATION: On examination, temperature 98.4, pulse 96, respirations 16, blood pressure 139/68, pulse ox 97% on room air. GENERAL APPEARANCE: BMI 31.1. Lying in bed, awake. EYES: Pupils equal. Conjunctivae normal. HENT: External appearance of nose and ears normal. Oral cavity normal. NECK: JVD unable to assess. RESPIRATORY: Effort normal. LUNGS: Fair entry. CARDIOVASCULAR: First and second sounds normal. No edema. ABDOMEN: Soft, nontender. Liver and spleen not palpable. PSYCHIATRY: Alert and oriented x3. Mood and affect normal. Left leg in a dressing. INVESTIGATIONS: White count 7, hemoglobin 10.7. Potassium 3.8. INR 3.4. ASSESSMENT: 1. Left leg venous ulcers with cultures positive with multiple organisms. 2. Acute renal failure likely prerenal with creatinine normalized. The patient probably does not have chronic kidney disease. 3. Obesity, body mass index 31.1. 4. Coumadin monitoring. 5. Chronic deep venous thrombosis for which patient is on Coumadin. 6. Chronic normocytic anemia, cause unknown. PLAN: Current antibiotics as per Dr. Diego. Other medications are to continue. Care was discussed with the patient. Will follow. MMODL / IJN: [id number] /
[2018-06-09] MEDS: IPRATROPIUM-ALBUTEROL 3 ML NEB INHALATION SCH ×4 (07:06→20:08)
[2018-06-09 07:33] LABS: Glucose,Whole Blood 167 mg/dL (75-99)
[2018-06-09] MEDS: AZTREONAM 1 GM in SODIUM CHLORIDE 0.9% 50 ML IVPB SCH ×2 (08:06→19:48)
[2018-06-09] MEDS: INSULIN ASPART 100 UNIT/ML 1 ML 10 ML VIAL SQ SCH ×4 (08:06→21:18)
[2018-06-09] MEDS: CHOLECALCIFEROL 1,000 UNIT TAB PO SCH (08:07)
[2018-06-09] MEDS: FUROSEMIDE 20 MG TAB PO SCH ×2 (08:07→15:42)
[2018-06-09] MEDS: LACTULOSE 20 GM/30 ML CUP PO SCH ×2 (08:07→19:48)
[2018-06-09] MEDS: LORATADINE 10 MG TAB PO SCH (08:08)
[2018-06-09 08:55] LABS: Prothrombin Time 26.7 sec (9.0-12.0)
[2018-06-09 09:00] LABS: Basophils % (A) 1 %; Eosinophils # (A) 0.3 k/uL (0-0.7); Eosinophils % (A) 5 %; HCT 28.4 % (34.0-46.0); Lymphocytes # (A) 1.1 k/uL (1.0-4.8); Lymphocytes % (A) 20 %; MCH 30.1 pg (25.0-35.0); MCHC 32.3 g/dL (31.0-37.0); MCV 93.1 fL (80.0-100.0); Mean Platelet Volume 6.9; Monocytes # (A) 0.2 k/uL (0-1.0); Monocytes % (A) 3 %; Neutrophils % (A) 68 %; Platelet Count 209 k/uL (150-450); RBC 3.05 m/uL (3.80-5.40); RDW 14.1 % (11.5-15.5); WBC 5.8 k/uL (3.8-10.6)
[2018-06-09 09:08] LABS: HGB 9.2 gm/dL (11.4-16.0)
[2018-06-09 10:50] LABS: Calcium 8.5 mg/dL (8.4-10.2)
[2018-06-09] MEDS: MORPHINE SULFATE 4 MG/ML SYRINGE IV PRN ×3 (11:26→23:56)
[2018-06-09 12:11] LABS: Glucose,Whole Blood 109 mg/dL (75-99)
[2018-06-09 17:10] LABS: Glucose,Whole Blood 260 mg/dL (75-99)
[2018-06-09] MEDS ORDERED: WARFARIN 1 MG TAB PO ONE (18:00)
[2018-06-09 21:01] LABS: Glucose,Whole Blood 82 mg/dL (75-99)
--- NOTE | 2018-06-09 23:47 | PN ---
PROGRESS NOTE DATE OF SERVICE: 06/09/2018. PRESENTING COMPLAINT: Left leg wound. INTERVAL HISTORY: This is a patient presented with left leg venous ulcer with positive cultures, on IV antibiotics. Tolerating a diet. Had a bowel movement. Did sit up in a chair. Family at the bedside. Getting IV antibiotics. Wound dressing in place. REVIEW OF SYSTEMS: Done for constitutional, cardiovascular, GI, pulmonary; relevant findings as above. CURRENT MEDICATIONS: Reviewed, that include IV aztreonam, IV daptomycin. PHYSICAL EXAMINATION: Temperature 98.8, pulse 87, respiratory rate 18, blood pressure 133/79, pulse ox 99% on room air. GENERAL APPEARANCE: Lying in bed, awake. EYES: Pupils equal. Conjunctivae normal. NECK: JVD unable to assess. Has got a collar in place. Respiratory effort normal. LUNGS: Fair air entry. CARDIOVASCULAR: First and second sounds normal. No edema. ABDOMEN: Soft, nontender. Liver and spleen not palpable. PSYCHIATRY: Alert, oriented x3. Mood and affect normal. EXTREMITIES: Left leg in a dressing. INVESTIGATIONS: White count 5.8, hemoglobin 9.2, INR 3, potassium 4, BUN 13, creatinine 1.12. ASSESSMENT: 1. Left leg venous ulcer with cultures positive for multiple organisms. 2. Acute renal failure, prerenal, with creatinine normalized. 3. Patient probably does not have chronic kidney disease. 4. Obesity; BMI 31.1. 5. Coumadin monitoring. 6. Chronic deep venous thrombosis for which patient takes Coumadin. 7. Chronic normocytic anemia, cause unclear. PLAN: Continue current medication and treatment plan. Care was discussed with the patient and family at the bedside. Antibiotics per Dr. Diego. MMODL / IJN: [id number] /
--- NOTE | 2018-06-10 00:02 | PN ---
PROGRESS NOTE DATE OF SERVICE: 06/09/2018 REASON FOR FOLLOWUP: Left leg venostasis ulcer with secondary cellulitis. INTERVAL HISTORY: The patient is currently afebrile. She is waiting for placement. Denies having any chest pain or shortness of breath or cough. No abdominal pain or any worsening pain in the left leg area. PHYSICAL EXAMINATION: Blood pressure 133/79 with a pulse of 87, temperature 98.8. She is 99% on room air. General description is an elderly female lying in bed in no distress. RESPIRATORY SYSTEM: Unlabored breathing. Clear to auscultation anteriorly. HEART: S1, S2. Regular rate and rhythm. ABDOMEN: Soft. No tenderness. Left leg dressed up. Minimal drainage on the dressing. LABS: Hemoglobin 9.2, white count 5.8 with a BUN of 13, creatinine 1.12. DIAGNOSTIC IMPRESSION AND PLAN: Patient with left leg venostasis ulcer with secondary cellulitis. Cultures are positive for gram-negative cocci with Pseudomonas aeruginosa. Patient at this time is on Azactam and the daptomycin because of multiple antibiotic allergies. She will continue on daptomycin as outpatient for about a week along with oral Cipro, monitoring her INR closely. Local care to continue with Aquacel Silver dressing. Continue with supportive care. MMODL / IJN: [id number] /
[2018-06-10] MEDS: MORPHINE SULFATE 4 MG/ML SYRINGE IV PRN ×4 (05:26→22:28)
[2018-06-10] MEDS: SODIUM CHLORIDE 0.9% 1,000 ML IV SCH ×3 (05:27→20:28)
[2018-06-10 07:03] LABS: Glucose,Whole Blood 132 mg/dL (75-99)
[2018-06-10] MEDS: IPRATROPIUM-ALBUTEROL 3 ML NEB INHALATION SCH ×4 (07:05→19:27)
[2018-06-10] MEDS: INSULIN ASPART 100 UNIT/ML 1 ML 10 ML VIAL SQ SCH ×4 (07:39→21:41)
[2018-06-10] MEDS: AZTREONAM 1 GM in SODIUM CHLORIDE 0.9% 50 ML IVPB SCH ×2 (07:39→20:26)
[2018-06-10] MEDS: FUROSEMIDE 20 MG TAB PO SCH ×2 (07:40→17:07)
[2018-06-10] MEDS: CHOLECALCIFEROL 1,000 UNIT TAB PO SCH (07:40)
[2018-06-10] MEDS: LORATADINE 10 MG TAB PO SCH (07:40)
[2018-06-10 09:00] LABS: Basophils % (A) 1 %; Eosinophils # (A) 0.3 k/uL (0-0.7); Eosinophils % (A) 4 %; HCT 28.7 % (34.0-46.0); HGB 9.4 gm/dL (11.4-16.0); INR 1.8 (<1.2); Lymphocytes % (A) 17 %; MCH 30.8 pg (25.0-35.0); MCHC 32.8 g/dL (31.0-37.0); MCV 93.7 fL (80.0-100.0); Mean Platelet Volume 6.9; Monocytes # (A) 0.2 k/uL (0-1.0); Monocytes % (A) 4 %; Neutrophils # (A) 4.1 k/uL (1.3-7.7); Neutrophils % (A) 70 %; Platelet Count 222 k/uL (150-450); Prothrombin Time 16.1 sec (9.0-12.0); RBC 3.06 m/uL (3.80-5.40); RDW 14.1 % (11.5-15.5); WBC 5.9 k/uL (3.8-10.6)
[2018-06-10 09:12] LABS: Calcium 8.6 mg/dL (8.4-10.2); Potassium 4.3 mmol/L (3.5-5.1)
[2018-06-10] MEDS: LACTULOSE 20 GM/30 ML CUP PO SCH ×2 (10:35→20:25)
[2018-06-10 11:44] LABS: Glucose,Whole Blood 164 mg/dL (75-99)
[2018-06-10 17:24] LABS: Glucose,Whole Blood 106 mg/dL (75-99)
--- NOTE | 2018-06-10 17:57 | PN ---
PROGRESS NOTE DATE OF SERVICE: 06/10/2018. REASON FOR FOLLOWUP: Left leg venous status ulcer with secondary cellulitis. INTERVAL HISTORY: The patient is currently afebrile. She is waiting for discharge and outpatient antibiotic arrangement. Denies any chest pain. No shortness of breath. No cough. No abdominal pain. No diarrhea. EXAMINATION: Blood pressure 135/57, pulse of 82, temperature 99.3. She is 98% on room air. General description is an elderly female, lying in bed in no distress. Respiratory system: Unlabored breathing. Clear to auscultation anteriorly. Heart S1, S2. Regular rate and rhythm. Abdomen soft. No tenderness. Left leg is , redness decreased. Minimal drainage on the dressing. LABS: Hemoglobin 9.4, white count 5.9, BUN 15, creatinine 1.14. DIAGNOSTIC IMPRESSION AND PLAN: Patient with left leg venous stasis ulcer secondary to cellulitis, aeruginosa in this patient who has been ALLERGIC TO PENICILLIN AND CEFAZOLIN and BACTRIM WELL VANCO. She is on daptomycin 3 mg daily in addition to the that will be transition to oral Cipro for about a week. Local wound care with Aquacel silver dressing. Will follow up in the [facility]. INR needs to be monitored closely while the patient is on antibiotic. Continue supportive care. MMODL / IJN: [id number] /
[2018-06-10] MEDS ORDERED: WARFARIN 5 MG TAB PO ONE (18:00)
[2018-06-10 20:52] LABS: Glucose,Whole Blood 167 mg/dL (75-99)
--- NOTE | 2018-06-10 21:18 | PN ---
PROGRESS NOTE DATE OF SERVICE: 06/10/2018. PRESENTING COMPLAINT: Left leg wound. INTERVAL HISTORY: The patient presented with left leg venous ulcer with positive cultures, on IV antibiotics. Tolerating a diet. Had a bowel movement. No new issues. The patient has got a midline in place. Plan was the patient to go home today with home IV antibiotics. Patient's sister will give the antibiotics. REVIEW OF SYSTEMS: Done for constitutional, cardiovascular, GI, pulmonary and relevant findings as above. CURRENT MEDICATIONS: Reviewed that include IV daptomycin. PHYSICAL EXAMINATION: VITAL SIGNS: Temperature 99.7, pulse 87, respiratory 18, blood pressure 139/68, pulse ox 99% on room air. GENERAL APPEARANCE: Propped up in bed, awake, comfortable. EYES: Pupils equal. Conjunctivae normal. NECK: JVD unable to assess. Mass not palpable. RESPIRATORY: Effort normal. LUNGS: Fair air entry. CARDIOVASCULAR: First and second sounds normal. No edema. ABDOMEN: Soft, nontender. Liver and spleen not palpable. PSYCHIATRY: Alert and oriented times three. Mood and affect normal. EXTREMITIES: Left leg in a dressing. INVESTIGATIONS: White count 5.9, hemoglobin 9.4, INR 1.8, potassium 4.3, BUN 15, creatinine 1.14. ASSESSMENT: 1. Left leg venous ulcers with cultures positive for multiple organism clinically improving. 2. Acute renal failure, prerenal with creatinine normalized. 3. The patient probably does not have chronic kidney disease. 4. Obesity; BMI 31.1. 5. Coumadin monitoring. 6. Chronic deep venous thrombosis for which patient takes Coumadin. 7. Chronic normocytic anemia, cause unclear. PLAN: I spoke to the director of casework, Dionna. The patient all set to go home with IV antibiotics. Also spoke to Dr. Diego from Infectious Disease. Later I got a call from the floor that the patient wanted to contest the discharge. I told the nurse to get hold of the social services director and hold the patient back. In the meantime, continue current medication and treatment plan. Otherwise, patient appears to be medically stable to be discharged. MMODL / IJN: [id number] /
[2018-06-10] MEDS: CIPROFLOXACIN HCL 500 MG TAB PO SCH (21:41)
--- NOTE | 2018-06-11 06:34 | P.CONS ---
History of Present Illness - Chief Complaint Debility - History of Present Illness I had the opportunity to see patient for inpatient rehab consultation with regard to medical debility. She was admitted to [facility] June 03 left leg cellulitis. Chest x-ray demonstrates only mild cardiomegaly and atelectasis. Left leg Doppler negative for DVT. Left leg tib-fib with subacute edema but negative for osteomyelitis. PT reports minimal assistance for bed mobility and sitting. OT reports supervision for upper dressing and toileting and minimal assistance for lower dressing, bathing and transfers. Previous functional history as elicited from patient: 82-year-old ambidextrous but right more than left white female who is lives in a first-floor apartment alone. Retired. Daughter does the laundry and driving. Patient independent with her own cooking, sponge bath and mobility with roller walker or wheelchair. Dr. Castro is regular doctor. Denies tobacco or alcohol. Family history mother with cancer. Review of Systems Review of systems: ENT: Denies sneezes or discharge. Eyes: Denies discharge or photophobia. Cardiac: Denies chest pain or palpitation. Pulmonary: Denies cough or shortness of breath. Breast: Denies discharge or lumps. Gastrointestinal: Denies nausea, emesis, constipation, diarrhea. Genitourinary: Denies discharge or frequency. Musculoskeletal: Discomfort and legs with attempts to examine. Neurologic: Reports leg weakness of 5 months. Endocrine: Denies shakes or sweats. Oncology: Denies cancers. Dermatologic: Denies rash, itching, pruritus. ALLERGY/immunology: Denies sneezes, rashes. Past Medical History Past Medical History: Diabetes Mellitus, Deep Vein Thrombosis (DVT), Renal Disease History of Any Multi-Drug Resistant Organisms: None Reported Past Surgical History: Appendectomy, Orthopedic Surgery Additional Past Surgical History / Comment(s): venous ligation of the left leg, right ear surgery. 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 Additional Past Anesthesia/Blood Transfusion Reaction / Comm: extra sensative and hard to awakens Past Psychological History: No Psychological Hx Reported Smoking Status: Never smoker Past Alcohol Use History: None Reported Past Drug Use History: None Reported - Past Family History Mother Family Medical History: Cancer, Diabetes Mellitus, Eye Disorder Medications and Allergies Home Medications Medication Instructions Recorded Confirmed Type Cholecalciferol [Vitamin D3] 1,000 unit PO DAILY 06/03/18 06/03/18 History Furosemide [Lasix] 20 mg PO BID 06/03/18 06/03/18 History Lactulose [Constulose] 10 gm PO Q12HR 06/03/18 06/03/18 History Triamcinolone 0.1% Ointment 1 applic TOPICAL DAILY 06/03/18 06/03/18 History [Kenalog 0.1% Ointment] Warfarin [Coumadin] 5 mg PO DAILY 06/03/18 06/03/18 History Ciprofloxacin HCl [Cipro] 500 mg PO Q12HR #14 tablet 06/08/18 Rx DAPTOmycin [Daptomycin] 300 mg IV DAILY #7 vial 06/08/18 Rx Allergies Allergy/AdvReac Type Severity Reaction Status Date / Time cephalexin [From Keflex] Allergy Rash/Hives Verified 06/03/18 17:34 Penicillins Allergy Rash/Hives Verified 06/03/18 17:34 sulfamethoxazole Allergy Rash/Hives Verified 06/03/18 17:34 [From Bactrim] trimethoprim [From Bactrim] Allergy Rash/Hives Verified 06/03/18 17:34 vancomycin Allergy Dyspnea Verified 06/04/18 14:16 Physical Exam Vitals: Vital Signs Temp Pulse Resp BP Pulse Ox 06/10/18 23:00 98.4 F 84 18 114/64 97 06/10/18 14:57 99.3 F 82 17 135/57 98 06/10/18 12:44 99.7 F H 87 18 139/68 99 Intake and Output 06/10/18 06/10/18 06/11/18 14:59 22:59 06:59 Intake Total 850 Balance 850 Intake: Oral 850 Other: Voiding Method Incontinent # Voids 1 3 2 Skin: Atrophic, intact. General: Medium build and comfortable appearance. Head: Normocephalic, atraumatic. Eyes: Symmetric. Pupils equal round. Ears: Symmetric. Hearing within normal limits. Mouth: Clear. Neck: Supple. Carotid without bruit. Cardiac: Regular rate and rhythm. Lungs: Clear anteriorly and posteriorly. Abdomen: Soft active nontender. Extremities: Normal tone. Neurological: Mental status: Alert, cooperative, pleasant. Cranial nerves: Symmetric facial tone and trapezius. Motor: Elevate arms off the bed but not legs. Sensation: Intact throughout. DTRs: Symmetric and equal throughout. Mobility: Minimal assistance for bed mobility but is uncomfortable to her. Results CBC & Chem 7: 06/10/18 08:21 06/10/18 08:21 Labs: Abnormal Lab Results - Last 24 Hours (Table) 06/10/18 06/10/18 06/10/18 Range/Units 07:00 08:21 08:21 RBC 3.06 L (3.80-5.40) m/uL Hgb 9.4 L (11.4-16.0) gm/dL Hct 28.7 L (34.0-46.0) % PT 16.1 H (9.0-12.0) sec INR 1.8 H (<1.2) Carbon Dioxide (22-30) mmol/L Creatinine (0.52-1.04) mg/dL Glucose (74-99) mg/dL POC Glucose (mg/dL) 132 H (75-99) mg/dL 06/10/18 06/10/18 06/10/18 Range/Units 08:21 11:41 17:22 RBC (3.80-5.40) m/uL Hgb (11.4-16.0) gm/dL Hct (34.0-46.0) % PT (9.0-12.0) sec INR (<1.2) Carbon Dioxide 31 H (22-30) mmol/L Creatinine 1.14 H (0.52-1.04) mg/dL Glucose 162 H (74-99) mg/dL POC Glucose (mg/dL) 164 H 106 H (75-99) mg/dL 06/10/18 Range/Units 20:50 RBC (3.80-5.40) m/uL Hgb (11.4-16.0) gm/dL Hct (34.0-46.0) % PT (9.0-12.0) sec INR (<1.2) Carbon Dioxide (22-30) mmol/L Creatinine (0.52-1.04) mg/dL Glucose (74-99) mg/dL POC Glucose (mg/dL) 167 H (75-99) mg/dL Assessment and Plan (1) Left leg cellulitis Current Visit: Yes Status: Acute Code(s): L03.116 - CELLULITIS OF LEFT LOWER LIMB SNOMED Code(s): 111743368 Plan: Impression: 1. Medical debility. 2. Left leg cellulitis. 3. Diabetes. 4. Hypertension. 5. Chronic kidney disease. Comments and plan: Patient decline therapy yesterday but participated with therapy today before. Safety concerns noted. Must determine patient and daughter discharge plan and goals for possible inpatient rehab admission.
[2018-06-11 07:02] LABS: Glucose,Whole Blood 97 mg/dL (75-99)
[2018-06-11] MEDS: IPRATROPIUM-ALBUTEROL 3 ML NEB INHALATION SCH ×4 (07:16→20:52)
[2018-06-11] MEDS: INSULIN ASPART 100 UNIT/ML 1 ML 10 ML VIAL SQ SCH ×4 (07:29→21:14)
[2018-06-11] MEDS: LORATADINE 10 MG TAB PO SCH (08:49)
[2018-06-11] MEDS: CHOLECALCIFEROL 1,000 UNIT TAB PO SCH (08:49)
[2018-06-11] MEDS: CIPROFLOXACIN HCL 500 MG TAB PO SCH ×2 (08:50→19:49)
[2018-06-11] MEDS: LACTULOSE 20 GM/30 ML CUP PO SCH ×2 (08:50→19:49)
[2018-06-11] MEDS: FUROSEMIDE 20 MG TAB PO SCH ×2 (08:50→16:29)
[2018-06-11] MEDS: MORPHINE SULFATE 4 MG/ML SYRINGE IV PRN ×3 (08:58→21:14)
[2018-06-11 10:41] LABS: INR 1.5 (<1.2); Prothrombin Time 14.2 sec (9.0-12.0)
[2018-06-11 12:21] LABS: Glucose,Whole Blood 126 mg/dL (75-99)
[2018-06-11 17:25] LABS: Glucose,Whole Blood 165 mg/dL (75-99)
--- NOTE | 2018-06-11 17:43 | PN ---
PROGRESS NOTE DATE OF SERVICE: 06/11/2018 REASON FOR FOLLOWUP: Left leg venostasis ulcer with secondary cellulitis. INTERVAL HISTORY: The patient is currently afebrile. She is breathing comfortably. Denies having any chest pain. No shortness of breath or cough. No abdominal pain or worsening pain in the left leg area. PHYSICAL EXAMINATION: Her blood pressure is 136/76, pulse of 78, temperature 98.8. She is 96% on room air. General description is an elderly female lying in bed in no distress. RESPIRATORY SYSTEM: Unlabored breathing. Clear to auscultation anteriorly. HEART: S1, S2. Regular rate and rhythm. ABDOMEN: Soft. Left leg is currently dressed up. Swelling has decreased. No drainage. LABS: Creatinine is 1.14. DIAGNOSTIC IMPRESSION AND PLAN: Patient with left leg wound with secondary cellulitis, culture positive for Enterococcus faecalis and Pseudomonas aeruginosa in this patient who has multiple antibiotic allergies. The patient is currently covered with Fortaz and the daptomycin. That will be transitioned to daptomycin and oral Cipro for one week. Local wound care with Aquacel Silver dressing and close outpatient followup. MMODL / IJN: [id number] /
[2018-06-11] MEDS ORDERED: WARFARIN 5 MG TAB PO ONE (18:00)
[2018-06-11 20:38] LABS: Glucose,Whole Blood 182 mg/dL (75-99)
--- NOTE | 2018-06-11 23:34 | PN ---
PROGRESS NOTE DATE OF SERVICE: 06/11/2018 PRESENT COMPLAINT: Left leg wound. INTERVAL HISTORY: Patient presented with left leg venous ulcers with positive cultures on IV antibiotics. Tolerating a diet, comfortable. The patient did do Medicare refusal of discharge contesting the discharge. Daughter at the bedside. Pain is controlled. The patient wants to stay in the hospital until antibiotics are done. REVIEW OF SYSTEMS: Done for constitutional, cardiovascular, GI, pulmonary, dermatological; relevant findings as above. CURRENT MEDICATIONS: Reviewed that include IV daptomycin and Cipro. PHYSICAL EXAMINATION: VITAL SIGNS: Temperature 97.9, pulse 98, respiratory rate 16, blood pressure 130/88, pulse ox 99% on room air. GENERAL APPEARANCE: Lying in bed, comfortable, awake. EYES: Pupils equal. Conjunctivae normal. NECK: JVD not raised. Mass not palpable. RESPIRATORY: Effort normal. LUNGS are clear. CARDIOVASCULAR: 1st and 2nd sounds, no edema. ABDOMEN: Soft, nontender. Liver and spleen not palpable. PSYCHIATRY: Alert and oriented times three. Mood and affect normal. EXTREMITIES: Left leg in a dressing. INVESTIGATIONS: INR 1.5. ASSESSMENT: 1. Left leg venous ulcers with cultures positive for multiple organisms. Clinically stable. 2. Acute renal failure prerenal with creatinine normalized. 3. Patient does not have chronic kidney disease. 4. Obesity; BMI 31.1. 5. Coumadin monitoring. 6. Chronic deep venous thrombosis for which patient takes Coumadin. 7. Chronic normocytic anemia, cause unclear. PLAN: Continue current medication and treatment plan. management accounts manager/ social sciences instructor is involved in discharge planning. MMODL / IJN: [id number] /
[2018-06-12] MEDS: MORPHINE SULFATE 4 MG/ML SYRINGE IV PRN (04:46)
[2018-06-12 07:15] LABS: Glucose,Whole Blood 116 mg/dL (75-99)
[2018-06-12] MEDS: INSULIN ASPART 100 UNIT/ML 1 ML 10 ML VIAL SQ SCH ×4 (07:19→23:10)
[2018-06-12] MEDS: IPRATROPIUM-ALBUTEROL 3 ML NEB INHALATION SCH ×4 (07:46→19:20)
[2018-06-12] MEDS: LACTULOSE 20 GM/30 ML CUP PO SCH ×2 (07:51→20:07)
[2018-06-12] MEDS: FUROSEMIDE 20 MG TAB PO SCH ×2 (07:52→15:18)
[2018-06-12] MEDS: CIPROFLOXACIN HCL 500 MG TAB PO SCH ×2 (07:52→20:02)
[2018-06-12] MEDS: LORATADINE 10 MG TAB PO SCH (07:52)
[2018-06-12] MEDS: CHOLECALCIFEROL 1,000 UNIT TAB PO SCH (07:52)
[2018-06-12 09:41] LABS: INR 1.5 (<1.2); Prothrombin Time 13.9 sec (9.0-12.0)
[2018-06-12 12:45] LABS: Glucose,Whole Blood 95 mg/dL (75-99)
[2018-06-12 17:07] LABS: Glucose,Whole Blood 104 mg/dL (75-99)
[2018-06-12] MEDS: NAPROXEN 250 MG TAB PO SCH ×2 (17:20→20:02)
[2018-06-12] MEDS ORDERED: WARFARIN 7.5 MG TAB PO ONE (18:00)
[2018-06-12] MEDS: FAMOTIDINE 20 MG TAB PO SCH (20:13)
[2018-06-12 20:41] LABS: Glucose,Whole Blood 172 mg/dL (75-99)
--- NOTE | 2018-06-12 23:23 | PN ---
PROGRESS NOTE DATE OF SERVICE: 06/12/2018 REASON FOR FOLLOWUP: Left leg venostasis ulcer with skin cellulitis. INTERVAL HISTORY: The patient is afebrile. She has been breathing comfortably. Denies having any chest pain, shortness of breath, cough, abdominal pain, or any worsening pain in the left leg area. EXAMINATION: Blood pressure is 145/65 with a pulse of 80, temperature 98.1, she is 96% on room air. GENERAL DESCRIPTION: An elderly female, lying in bed in no distress. RESPIRATORY SYSTEM: Unlabored breathing. Clear to auscultation anteriorly. HEART: S1, S2. Regular rate and rhythm. ABDOMEN: Soft, no tenderness. EXTREMITIES: Left leg swelling and redness has decreased, no drainage. LABS: No new labs have been obtained today. DIAGNOSTIC IMPRESSION AND PLAN: Patient with left leg venostasis ulcer with secondary cellulitis. The patient does have multiple antibiotic allergies. The patient is currently on daptomycin and Fortaz and is finishing therapy with daptomycin and Cipro for a week. Local care to continue with Aquacel Silver dressing. Close outpatient followup. MMODL / IJN: [id number] /
--- NOTE | 2018-06-13 01:14 | PN ---
PROGRESS NOTE DATE OF SERVICE: June 12, 2018. PRESENTING COMPLAINT: Left leg wound. INTERVAL HISTORY: The patient presented with left leg venous ulcers with positive cultures on IV antibiotics. The patient is tolerating a diet. Otherwise comfortable. Pain is controlled. Started on NSAIDs. No indication for Dilaudid. Had a talk with the patient about the same. REVIEW OF SYSTEMS: Done for constitutional, cardiovascular, GI, pulmonary; relevant findings as above. CURRENT MEDICATIONS: Include IV daptomycin, ciprofloxacin. PHYSICAL EXAMINATION: VITAL SIGNS: Temperature 98.1, pulse 88, respiration 20, blood pressure 145/65, pulse ox 99% on room air. GENERAL APPEARANCE: Lying in bed comfortable. EYES: Pupils equal. Conjunctivae normal. NECK: JVD not raised. Mass not palpable. RESPIRATORY: Effort normal. LUNGS are fair. CARDIOVASCULAR: 1st and 2nd sounds normal. No edema. ABDOMEN: Soft, nontender. Liver and spleen not palpable. PSYCHIATRY: Alert and oriented x3. Mood and affect normal. INVESTIGATIONS: Accu-Cheks are noted. ASSESSMENT: 1. Left leg venous ulcers with cultures positive multiple organism, stable. 2. Acute renal failure prerenal with creatinine normalized. 3. The patient does not have chronic kidney disease. 4. Obesity; BMI 31.1. 5. Coumadin monitoring. 6. Chronic deep venous thrombosis for which patient takes Coumadin. 7. Chronic normocytic anemia, cause unclear. PLAN: Patient will be put on naproxen. Care was discussed with the patient. tannery worker is dealing with discharge planning. Follow. MMODL / IJN: [id number] /
[2018-06-13] MEDS: IPRATROPIUM-ALBUTEROL 3 ML NEB INHALATION SCH ×2 (07:08→21:04)
[2018-06-13 07:12] LABS: Glucose,Whole Blood 117 mg/dL (75-99)
[2018-06-13] MEDS: INSULIN ASPART 100 UNIT/ML 1 ML 10 ML VIAL SQ SCH ×4 (07:13→22:19)
[2018-06-13] MEDS: FUROSEMIDE 20 MG TAB PO SCH ×2 (07:39→15:34)
[2018-06-13] MEDS: LORATADINE 10 MG TAB PO SCH (07:40)
[2018-06-13] MEDS: LACTULOSE 20 GM/30 ML CUP PO SCH ×2 (07:40→22:40)
[2018-06-13] MEDS: CHOLECALCIFEROL 1,000 UNIT TAB PO SCH (07:40)
[2018-06-13] MEDS: CIPROFLOXACIN HCL 500 MG TAB PO SCH ×2 (07:40→22:18)
[2018-06-13] MEDS: NAPROXEN 250 MG TAB PO SCH ×2 (07:40→22:18)
[2018-06-13 08:11] LABS: INR 1.7 (<1.2); Prothrombin Time 15.7 sec (9.0-12.0)
[2018-06-13 11:42] LABS: Glucose,Whole Blood 124 mg/dL (75-99)
[2018-06-13 16:58] LABS: Glucose,Whole Blood 148 mg/dL (75-99)
[2018-06-13] MEDS ORDERED: WARFARIN 7.5 MG TAB PO ONE (18:00)
[2018-06-13 21:39] LABS: Glucose,Whole Blood 155 mg/dL (75-99)
[2018-06-13] MEDS: FAMOTIDINE 20 MG TAB PO SCH (22:18)
[2018-06-14] MEDS: CHOLECALCIFEROL 1,000 UNIT TAB PO SCH (07:30)
[2018-06-14] MEDS: LORATADINE 10 MG TAB PO SCH (07:30)
[2018-06-14] MEDS: CIPROFLOXACIN HCL 500 MG TAB PO SCH ×2 (07:30→22:47)
[2018-06-14] MEDS: NAPROXEN 250 MG TAB PO SCH ×2 (07:30→22:44)
[2018-06-14] MEDS: LACTULOSE 20 GM/30 ML CUP PO SCH ×2 (07:31→22:46)
[2018-06-14] MEDS: FUROSEMIDE 20 MG TAB PO SCH ×2 (07:31→15:31)
[2018-06-14 07:35] LABS: Glucose,Whole Blood 107 mg/dL (75-99)
[2018-06-14] MEDS: INSULIN ASPART 100 UNIT/ML 1 ML 10 ML VIAL SQ SCH ×4 (07:35→22:47)
[2018-06-14 08:22] LABS: Prothrombin Time 17.9 sec (9.0-12.0)
[2018-06-14 11:50] LABS: Glucose,Whole Blood 121 mg/dL (75-99)
[2018-06-14 17:06] LABS: Glucose,Whole Blood 126 mg/dL (75-99)
[2018-06-14] MEDS ORDERED: WARFARIN 5 MG TAB PO SCH (18:00)
[2018-06-14 21:31] LABS: Glucose,Whole Blood 131 mg/dL (75-99)
--- NOTE | 2018-06-14 22:04 | PN ---
PROGRESS NOTE DATE OF SERVICE: 06/14/2018. PRESENTING COMPLAINT: Left leg wound. INTERVAL HISTORY: Patient with left leg venous ulcer with positive cultures on IV antibiotics. Healing well. Pain is controlled. Tolerating a diet. No new issues. REVIEW OF SYSTEMS: Done for constitutional, cardiovascular, GI, pulmonary; relevant findings as above. CURRENT MEDICATIONS: Reviewed include IV daptomycin and ciprofloxacin. PHYSICAL EXAMINATION: Temperature 97.3, pulse 62, respirations 20, blood pressure 120/64, pulse ox 98% on room air. GENERAL APPEARANCE: Lying in bed comfortable. EYES: Pupils are equal. Conjunctivae normal. NECK: JVD not raised. Mass not palpable. Respiratory effort normal. LUNGS: Clear. CARDIOVASCULAR: 1st and 2nd heart sounds. No edema. ABDOMEN: Soft, nontender. Liver and spleen not palpable. PSYCHIATRY: Alert and oriented x3. Mood and affect normal. INVESTIGATIONS: INR 2. Accu-Cheks are noted. ASSESSMENT: 1. Left leg venous ulcers with cultures positive multiple organisms. Continues to improve well. 2. Acute renal failure, prerenal, resolved. 3. The patient does not have chronic kidney disease. 4. Obesity; BMI 31.1. 5. Coumadin monitoring. 6. Chronic deep venous thrombosis for which patient takes Coumadin. 7. Chronic normocytic anemia, cause unknown. PLAN: Discussed with Dr. Diego from ID. The patient will get antibiotic tomorrow and that can be discontinued. egg factory worker is dealing with the discharge planning. MMODL / IJN: [id number] /
--- NOTE | 2018-06-14 22:04 | PN ---
PROGRESS NOTE DATE OF SERVICE: 06/13/2018 PRESENTING COMPLAINT: Left leg wound. INTERVAL HISTORY: This patient was seen by me yesterday on 06/13/2018. Left leg venous ulcer with positive cultures, IV antibiotics. The patient has lost appeal to Medicare and made a 2nd appeal today where she was supposed to go home and hence patient has been staying back. The patient is comfortable, tolerating a diet. Pain is controlled. No new issues. REVIEW OF SYSTEMS: Done for constitutional, cardiovascular, GI, pulmonary relevant findings as above. CURRENT MEDICATIONS: Reviewed that include IV daptomycin and ciprofloxacin. PHYSICAL EXAMINATION: VITAL SIGNS: Temperature 98.7, pulse 79, respiratory rate 16, blood pressure 106/58, pulse ox 96% on room air. GENERAL APPEARANCE: Lying in bed, comfortable. EYES: Pupils equal. Conjunctivae normal. NECK: JVD not raised. Mass not palpable. RESPIRATORY: Effort. LUNGS are clear. CARDIOVASCULAR: 1st and 2nd sounds normal. No edema. ABDOMEN: Soft and nontender. Liver and spleen not palpable. PSYCHIATRY: Alert and oriented times three. Mood and affect normal. INVESTIGATIONS: INR 1.7. ASSESSMENT: 1. Left leg venous ulcers. Cultures positive for multiple organisms, improving well. 2. Acute renal failure, prerenal with creatinine normalized. 3. Patient does not have chronic kidney disease. 4. Obesity; BMI 31.1. 5. Coumadin monitoring. 6. Chronic deep venous thrombosis for which patient takes Coumadin. 7. Chronic normocytic anemia, cause unclear. PLAN: Patient is again contesting the Medicare decision. Hence patient is going to stay back in the hospital. Continue with antibiotics. family service caseworker is involved. MMODL / IJN: [id number] /
--- NOTE | 2018-06-14 22:28 | PN ---
PROGRESS NOTE DATE OF SERVICE: 06/14/2018. REASON FOR FOLLOWUP: Left leg venous stasis ulcers and cellulitis. INTERVAL HISTORY: The patient is currently afebrile. She has been breathing comfortably. The patient denies having any chest pain. No cough. No abdominal pain or any pain to the left leg area. EXAMINATION: Blood pressure 111/56, pulse of 73, temperature 98.8. She is 98% on room air. General description is an elderly female lying in bed in no distress. Respiratory system: Unlabored breathing. Clear to auscultation anteriorly. Heart S1, S2. Regular rate and rhythm. Abdomen soft, no tenderness. Left leg swelling that is much improved with no slough tissue. LABS: No new labs have been obtained today. DIAGNOSTIC IMPRESSION AND PLAN: Patient with left leg venous stasis ulcer with cellulitis. Culture positive for Enterococcus and Pseudomonas aeruginosa. The patient did have MULTIPLE ANTIBIOTIC ALLERGIES. Currently on daptomycin and Cipro, underlying cellulitis has been adequately treated. Recommended antibiotic after tomorrow's dose and local wound care with Aquacel Silver dressing and an Aly wrap and continue supportive care. Plan of care discussed with the admitting physician. MMODL / IJN: [id number] /
[2018-06-14] MEDS: FAMOTIDINE 20 MG TAB PO SCH (22:46)
[2018-06-15 06:57] LABS: Glucose,Whole Blood 108 mg/dL (75-99)
[2018-06-15] MEDS: INSULIN ASPART 100 UNIT/ML 1 ML 10 ML VIAL SQ SCH ×2 (09:37→12:28)
[2018-06-15] MEDS: CHOLECALCIFEROL 1,000 UNIT TAB PO SCH (09:40)
[2018-06-15] MEDS: LORATADINE 10 MG TAB PO SCH (09:40)
[2018-06-15] MEDS: CIPROFLOXACIN HCL 500 MG TAB PO SCH (09:40)
[2018-06-15] MEDS: FUROSEMIDE 20 MG TAB PO SCH ×2 (09:40→15:42)
[2018-06-15] MEDS: NAPROXEN 250 MG TAB PO SCH (09:40)
[2018-06-15] MEDS: LACTULOSE 20 GM/30 ML CUP PO SCH (09:40)
[2018-06-15 11:29] LABS: INR 2.3 (<1.2); Prothrombin Time 20.9 sec (9.0-12.0)
[2018-06-15 12:23] LABS: Glucose,Whole Blood 100 mg/dL (75-99)
[2018-06-15 14:06] VITALS: BP 131/65; PULSE 66; RESP 16; TEMP 98.2
--- NOTE | 2018-06-15 20:07 | PN ---
PROGRESS NOTE DATE OF SERVICE: 06/15/2018. REASON FOR FOLLOWUP: Left leg wound and cellulitis. INTERVAL HISTORY: The patient is currently afebrile. She is breathing comfortably. Denies having any chest pain or shortness of breath. No cough. No abdominal pain or any worsening pain in the left leg area. EXAMINATION: Blood pressure 131/65, pulse of 66, temperature 98.2. She is 97% on room air. General description is an elderly female lying in bed in no distress. RESPIRATORY SYSTEM: Unlabored breathing. Clear to auscultation anteriorly. HEART: S1, S2. Regular rate and rhythm. ABDOMEN: Soft, no tenderness. LEFT LEG: Swelling and redness has improved. No drainage. DIAGNOSTIC IMPRESSION AND PLAN: Patient with left leg wound with secondary cellulitis. The patient has received adequate antibiotic therapy of about 12 days and that should be more than for the cellulitis. Recommend to discontinue antibiotics after today's dose. Local wound care to continue with Aquacel Silver dressing and mild compression dressing and [facility]. Continue supportive care. MMODL / IJN: [id number] /
--- NOTE | 2018-06-16 06:27 | DS ---
DISCHARGE SUMMARY DATE OF ADMISSION: 06/03/2018 DATE OF DISCHARGE: 06/15/2018 FINAL DIAGNOSES: 1. Left leg venous ulcer with cultures positive for multiple organisms, completed course of antibiotic. 2. Acute renal failure, prerenal, resolved. 3. The patient does not have chronic kidney disease. 4. Obesity; body mass index 31.1. 5. Coumadin monitoring. 6. Chronic deep venous thrombosis for which patient takes Coumadin. 7. Chronic normocytic anemia, cause unknown. HOSPITAL COURSE: This is a patient who presented with venous ulcer infected growing multiple organisms, was treated with IV antibiotics including daptomycin and Cipro. The patient did finish a course of antibiotics here in the hospital. Discussed with Dr. Diego. PHYSICAL EXAMINATION: On examination, temperature 98.2, pulse 66, respirations 16, blood pressure 131/65, pulse ox 97% on room air. Left leg wound is healing well. INVESTIGATIONS: INR is 2.3. CONSULTATION: Dr. Diego from Infectious Disease; Dr. De La Cruz from inpatient rehab. DISCHARGE MEDICATIONS: 1. Vitamin D3, 1000 units p.o. daily. 2. Lasix 20 mg p.o. b.i.d. 3. Lactulose 10 grams p.o. q.12. 4. Kenalog 0.1% topical daily. 5. Coumadin 5 mg p.o. daily. 6. Pepcid 20 mg b.i.d. 7. Naproxen 250 mg b.i.d. p.r.n. Follow up with Dr. Castro in 2 days. Follow up with Dr. Diego on 06/22/2018. [facility] to follow. TheraHoney sheet to the left leg wounds, change daily. Care was discussed with the patient and family at the bedside. MMODL / IJN: [id number] /
--- NOTE | 2018-06-16 13:41 | CDI ---
Last Revision, June 2017 Documentation Clarification Form Date: 06/16/2018 1:07:18 PM From: Sybil Leyva Phone: If you have a question about this query, please contact Emily Vaca Club Room Attendant at [phone] between 8am and 5pm. Admit Date: 06/03/2018 7:54:00 PM Patient Name: Patrizia Davalos Visit Number: [id number] Discharge Date:06/15/18 ATTENTION: The Clinical Documentation Specialists (CDI) and [facility] Coding Staff appreciate your assistance in clarifying documentation. Please respond to the clarification below the line at the bottom and electronically sign. The CDI & [facility] Coding staff will review the response and follow-up if needed. Please note: Queries are made part of the Legal Health Record. If you have any questions, please contact the author of this message via ITS. Porfirio Galindo MD Your patient has the documented diagnosis of stasis left leg ulcer, cellulitis and diabetes Type II, throughout chart. A relationship between diagnoses cannot be assumed unless documented as such by the attending physician. In order to capture the severity of condition; please document the relationship, if any, between these diagnoses. Diabetes Type II Venous lt. leg ulcer with multiple organisms Cellulitis History/Risk Factors: history of DVT, DM, swelling and redness of left leg for some Treatment: IV abx., Consult ID for local treatment and monitor blood sugars closely Please clarify if there is a link between the diabetes, leg ulcers and secondary cellulitis. Other explanation of clinical findings (please specify) Unable to determine (no explanation for clinical findings) __left leg venous ulcers from venous insifficieny with cellulitis. MTDD
== END 2018-06-15 16:53 | disposition home health service (06) | DRG 603 ==
LOC: EC 15:56 → 4MS4W 19:54
PROVIDERS: ADMIT Hospitalist; ATTEND Hospitalist
PROC: 05HC33Z Insertion of Infusion Device into Left Basilic Vein, Percutaneous Approach (ICD-10-PCS; principal; 2018-06-08 12:50)
PROC: 3E03329 Introduction of Other Anti-infective into Peripheral Vein, Percutaneous Approach (ICD-10-PCS; principal; 2018-06-08 12:50)
PROC: B54NZZA Ultrasonography of Left Upper Extremity Veins, Guidance (ICD-10-PCS; principal; 2018-06-08 12:50)
DX: L03.116 Cellulitis of left lower limb (principal); N17.9 Acute kidney failure, unspecified; J98.11 Atelectasis; L97.929 Non-pressure chronic ulcer of unspecified part of left lower leg with unspecified severity; N39.0 Urinary tract infection, site not specified; I87.8 Other specified disorders of veins; I87.2 Venous insufficiency (chronic) (peripheral); B95.2 Enterococcus as the cause of diseases classified elsewhere; B96.5 Pseudomonas (aeruginosa) (mallei) (pseudomallei) as the cause of diseases classified elsewhere; I11.0 Hypertensive heart disease with heart failure; I50.9 Heart failure, unspecified; M19.90 Unspecified osteoarthritis, unspecified site; R79.1 Abnormal coagulation profile; T45.515A Adverse effect of anticoagulants, initial encounter; E66.9 Obesity, unspecified; Z68.31 Body mass index [BMI] 31.0-31.9, adult; D64.9 Anemia, unspecified; Z79.01 Long term (current) use of anticoagulants; Z80.9 Family history of malignant neoplasm, unspecified; Z83.3 Family history of diabetes mellitus; Z86.718 Personal history of other venous thrombosis and embolism; Z87.891 Personal history of nicotine dependence; Z88.0 Allergy status to penicillin; Z88.1 Allergy status to other antibiotic agents; Z88.2 Allergy status to sulfonamides; Z90.49 Acquired absence of other specified parts of digestive tract; Z60.2 Problems related to living alone; Z96.7 Presence of other bone and tendon implants
CPT/HCPCS: 36415; 36569; 71046; 76937; 80048; 80053; 80202; 81001; 83036; 83605; 83880; 85025; 85610; 85730; 86140; 87040; 87070; 87075; 87077; 87086; 87186; 87205; 93005; 94640; 94760; 96365; 96366; 96367; 96375; 99285

== ENCOUNTER 2018-10-06 11:45 | Emergency (ER) | payer MEDICARE, OTHER ==
[2018-10-06 11:59] VITALS: RESP 18; TEMP 98.4
--- NOTE | 2018-10-06 12:26 | ED ---
General Adult HPI - General Chief complaint: Fall Stated complaint: Fell/arm hip injury Time Seen by Provider: 10/06/18 11:53 Source: patient, EMS, RN notes reviewed Mode of arrival: EMS Limitations: no limitations - History of Present Illness Initial comments: Patient is a pleasant 83-year-old female presenting to the emergency Department with complaints of fall. Fall occurred just prior to arrival. Patient was getting up out of her wheelchair when it slipped and collapsed on her. Patient did not strike her head. Patient complains of some discomfort of her right elbow, more so of the left hip region. Patient was able to crawl around however had difficulty attempting to walk. Patient normally is only able to walk a couple of steps even with assistance. This is secondary to chronic neck problems including previous left trochanteric fracture. 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 Patient does have history of DVT and is on Coumadin. - Related Data Home Medications Medication Instructions Recorded Confirmed Cholecalciferol [Vitamin D3] 1,000 unit PO DAILY 06/03/18 10/06/18 Furosemide [Lasix] 20 mg PO BID 06/03/18 10/06/18 Warfarin [Coumadin] 5 mg PO MOTUWEFR 06/03/18 10/06/18 Loratadine [Claritin] 10 mg PO BID 10/06/18 10/06/18 Warfarin [Coumadin] 7.5 mg PO SUTHSA 10/06/18 10/06/18 Previous Rx's Medication Instructions Recorded Famotidine [Pepcid] 20 mg PO BID #60 tab 06/13/18 Allergies Allergy/AdvReac Type Severity Reaction Status Date / Time cephalexin [From Keflex] Allergy Rash/Hives Verified 10/06/18 12:12 Penicillins Allergy Rash/Hives Verified 10/06/18 12:12 sulfamethoxazole Allergy Rash/Hives Verified 10/06/18 12:12 [From Bactrim] trimethoprim [From Bactrim] Allergy Rash/Hives Verified 10/06/18 12:12 vancomycin Allergy Dyspnea Verified 10/06/18 12:12 Review of Systems ROS Statement: Those systems with pertinent positive or pertinent negative responses have been documented in the HPI. ROS Other: All systems not noted in ROS Statement are negative. Constitutional: Denies: fever Eyes: Denies: eye pain ENT: Denies: ear pain Respiratory: Denies: cough Cardiovascular: Denies: chest pain Endocrine: Denies: fatigue Gastrointestinal: Denies: abdominal pain Genitourinary: Denies: dysuria Musculoskeletal: Denies: back pain Skin: Denies: rash Neurological: Denies: headache, weakness, confusion Past Medical History Past Medical History: Deep Vein Thrombosis (DVT), Renal Disease History of Any Multi-Drug Resistant Organisms: None Reported Past Surgical History: Adenoidectomy, Appendectomy, Orthopedic Surgery, Tonsillectomy Additional Past Surgical History / Comment(s): venous ligation of the left leg, right ear surgery. 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 Additional Past Anesthesia/Blood Transfusion Reaction / Comment(s): extra sensative and hard to awakens Past Psychological History: No Psychological Hx Reported Smoking Status: Former smoker Past Alcohol Use History: None Reported Past Drug Use History: None Reported - Past Family History Mother Family Medical History: Cancer, Diabetes Mellitus, Eye Disorder General Exam Limitations: no limitations General appearance: alert, in no apparent distress Head exam: Present: atraumatic Eye exam: Present: normal appearance, PERRL ENT exam: Present: normal oropharynx Neck exam: Present: normal inspection. Absent: tenderness Respiratory exam: Present: normal lung sounds bilaterally Cardiovascular Exam: Present: regular rate, normal rhythm Expanded Peripheral pulses: 2+: Dorsalis Pedis (R), Dorsalis Pedis (L) GI/Abdominal exam: Present: soft. Absent: tenderness Extremities exam: Present: tenderness (tenderness left anterior hip. Slight decreased range of motion secondary to discomfort. Distally extremity is neurovascular intact. Patient has mild tenderness with ecchymosis right elbow. Full range of motion and distally neurovascularly intact.), other (Left leg edema which patient states has been chronic for over a year.) Back exam: Present: normal inspection. Absent: vertebral tenderness Neurological exam: Present: alert, CN II-XII intact. Absent: motor sensory deficit Psychiatric exam: Present: normal affect, normal mood Skin exam: Present: other (Right elbow ecchymosis) Course Vital Signs 10/06/18 11:54 Temperature 98.4 F Pulse Rate 71 Respiratory 18 Rate Blood Pressure 127/91 O2 Sat by Pulse 98 Oximetry - Reevaluation(s) Reevaluation #1: 10/06/18 12:19 Patient refuses pain medication at this time Medical Decision Making - Medical Decision Making Patient reevaluated and resting comfortably in bed. Patient and family updated on results. Patient states had problems are chronic and she does seem Dr. Craft for this. - Radiology Data Radiology results: image reviewed (Right elbow x-ray reveals no acute process. Left hip and pelvis x-ray shows no acute fracture or dislocation. Severe left femoral acetabular arthropathy.) Disposition Clinical Impression: Fall, Contusion, hip Disposition: HOME SELF-CARE Condition: Stable Instructions (If sedation given, give patient instructions): Fall Prevention for Older Adults (ED), Hip Contusion (ED) Additional Instructions: Please follow-up with primary care physician as well as Dr. Craft in the next couple days for recheck. Return for increased pain, worsening or change in symptoms, or any other concerns. Is patient prescribed a controlled substance at d/c from ED?: No Referrals: Darin Castro DO [Primary Care Provider] - 1-2 days Paul Craft DO [Doctor of Osteopathic Medicine] - 1-2 days Time of Disposition: 14:23
--- NOTE | 2018-10-06 13:35 | XR ---
EXAMINATION TYPE: XR elbow complete RT DATE OF EXAM: 10/06/2018 COMPARISON: NONE HISTORY: Pain FINDINGS: Three views of the elbow demonstrate no pathologic joint effusion. The osseous structures are intact . There is no acute fracture or dislocation. Mild diffuse osteopenia. IMPRESSION: 1. No acute fracture or dislocation. If symptoms persist follow-up study in 7 to 10 days could be ob tained.
--- NOTE | 2018-10-06 13:39 | XR ---
EXAMINATION TYPE: XR Hip LT and AP Pelvis DATE OF EXAM: 10/06/2018 COMPARISON: NONE HISTORY: Left hip pain and pelvic pain. TECHNIQUE: A single AP view of the pelvis is obtained. Two views of the left hip are obtained. FINDINGS: There is flattening of the left femoral head and subchondral collapse with serpiginous area s of lucency and sclerosis. There is [id number] articulation of the left femur with the superior ac etabulum and remodeling of the acetabulum. Marginal osteophytes are also seen. Right femoral arthropl asty is present. Surgical clips overlie the left para midline pelvis. No dilated bowel. No acute frac ture or malalignment in the pelvis. Sacroiliac joint spaces are symmetric. IMPRESSION: There is no acute fracture or dislocation in the pelvis or left hip. However there is se arcelia left femoral acetabular arthropathy with subchondral collapse of the left femoral head and findi ngs that could also relate to avascular necrosis. This could be further evaluated with MRI.
[2018-10-06] MEDS ORDERED: NAPROXEN 250 MG TAB PO STA (14:21)
[2018-10-06 17:11] VITALS: BP 189/82; PULSE 99
== END 2018-10-06 17:11 | disposition home or self-care (01) ==
LOC: EC 11:45
DX: S70.02XA Contusion of left hip, initial encounter (principal); M12.852 Other specific arthropathies, not elsewhere classified, left hip; S50.01XA Contusion of right elbow, initial encounter; R60.0 Localized edema; Z87.891 Personal history of nicotine dependence; Z88.0 Allergy status to penicillin; Z88.1 Allergy status to other antibiotic agents; Z88.2 Allergy status to sulfonamides; Z79.01 Long term (current) use of anticoagulants; Z79.899 Other long term (current) drug therapy; Z86.718 Personal history of other venous thrombosis and embolism; Z96.641 Presence of right artificial hip joint; W01.0XXA Fall on same level from slipping, tripping and stumbling without subsequent striking against object, initial encounter; Y93.89 Activity, other specified; Y92.009 Unspecified place in unspecified non-institutional (private) residence as the place of occurrence of the external cause
CPT/HCPCS: 73502; 99284

== ENCOUNTER 2019-05-13 14:20 | Inpatient (IN) | payer MEDICARE, OTHER ==
[2019-05-13] MEDS ORDERED: SODIUM CHLORIDE 0.9% 1,000 ML IV STA (14:56)
[2019-05-13] MEDS ORDERED: PANTOPRAZOLE 40 MG/10 ML VIAL IVP STA (14:56)
[2019-05-13] MEDS ORDERED: POTASSIUM CHLORIDE ER 20 MEQ TAB.ER PO STA (14:57)
[2019-05-13] MEDS ORDERED: Potassium Replacement Protocol 1 EACH MISC MISCELLANE PRN (14:58)
[2019-05-13 15:18] LABS: Basophils % (A) 0 %; Eosinophils # (A) 0.1 k/uL (0-0.7); Eosinophils % (A) 1 %; HCT 23.1 % (34.0-46.0); HGB 7.8 gm/dL (11.4-16.0); Lymphocytes # (A) 1.7 k/uL (1.0-4.8); Lymphocytes % (A) 23 %; MCH 30.7 pg (25.0-35.0); MCHC 33.5 g/dL (31.0-37.0); MCV 91.5 fL (80.0-100.0); Mean Platelet Volume 6.5; Monocytes # (A) 0.2 k/uL (0-1.0); Monocytes % (A) 3 %; Neutrophils # (A) 4.9 k/uL (1.3-7.7); Neutrophils % (A) 69 %; Platelet Count 257 k/uL (150-450); RBC 2.53 m/uL (3.80-5.40); RDW 15.5 % (11.5-15.5); WBC 7.1 k/uL (3.8-10.6)
[2019-05-13 15:23] LABS: INR 2.9 (<1.2); Prothrombin Time 27.8 sec (9.0-12.0)
[2019-05-13 15:28] LABS: Albumin 2.7 g/dL (3.5-5.0); Calcium 7.7 mg/dL (8.4-10.2); Total Bilirubin 0.2 mg/dL (0.2-1.3); Total Protein 5.6 g/dL (6.3-8.2)
--- NOTE | 2019-05-13 15:40 | ED ---
General Adult HPI - General Chief complaint: Recheck/Abnormal Lab/Rx Stated complaint: ABNORMAL LABS Time Seen by Provider: 05/13/19 14:28 Source: patient, EMS, RN notes reviewed, old records reviewed Mode of arrival: EMS Limitations: no limitations - History of Present Illness Initial comments: Patient is a 83-year-old female presents risk from [facility] for [facility]. She was hospitalized at [facility] for urinary tract infection and sepsis. She was then placed on doxycycline and Levaquin. She's been taking his antibiotics. She reports that last night she had episodes of nausea and vomiting and has been having some diarrhea. She reports that the stool is now more formed than previously. She had some labs obtained today that she was not feeling well. There is critical value communicated with a low hemoglobin of 6.7 a low potassium of 2.9. She denies any bloody dark tarry stools. Patient states that she has no significant pain at this time. She is passing gas normally. Has had no further vomiting. Patient states that she's had no specific fevers or chills. - Related Data Home Medications Medication Instructions Recorded Confirmed Furosemide [Lasix] 20 mg PO DAILY 06/03/18 05/13/19 Warfarin [Coumadin] 5 mg PO HS 06/03/18 05/13/19 Cetirizine HCl [Zyrtec] 10 mg PO DAILY PRN 05/13/19 05/13/19 Doxycycline Monohydrate [Monodox] 100 mg PO BID 05/13/19 05/13/19 Famotidine [Pepcid] 20 mg PO HS 05/13/19 05/13/19 Nystatin 100,000Unit/gm Cream 1 applic TOPICAL BID 05/13/19 05/13/19 [Mycostatin Cream] traMADol HCL 25 mg PO Q6H PRN 05/13/19 05/13/19 Allergies Allergy/AdvReac Type Severity Reaction Status Date / Time acetaminophen [From Tylenol] Allergy Unknown Verified 05/13/19 14:43 aspirin Allergy Unknown Verified 05/13/19 14:43 cephalexin [From Keflex] Allergy Rash/Hives Verified 05/13/19 14:43 codeine Allergy Unknown Verified 05/13/19 14:43 iodine Allergy Unknown Verified 05/13/19 14:43 iron Allergy Unknown Verified 05/13/19 14:43 lanolin Allergy Unknown Verified 05/13/19 14:43 latex Allergy Unknown Verified 05/13/19 14:43 Penicillins Allergy Rash/Hives Verified 05/13/19 14:43 propoxyphene [From Darvon] Allergy Unknown Verified 05/13/19 14:43 silicone Allergy Unknown Verified 05/13/19 14:43 Ndvqbcy-[id number]-Sdq Reductase Allergy Unknown Verified 05/13/19 14:43 Inhibitor sulfamethoxazole Allergy Rash/Hives Verified 05/13/19 14:43 [From Bactrim] trimethoprim [From Bactrim] Allergy Rash/Hives Verified 05/13/19 14:43 vancomycin AdvReac Dyspnea Verified 05/13/19 14:43 LAC BOVIS Allergy Unknown Uncoded 05/13/19 14:43 Review of Systems ROS Statement: Those systems with pertinent positive or pertinent negative responses have been documented in the HPI. ROS Other: All systems not noted in ROS Statement are negative. Past Medical History Past Medical History: Deep Vein Thrombosis (DVT), Renal Disease Additional Past Medical History / Comment(s): dvt to jonathan legs History of Any Multi-Drug Resistant Organisms: None Reported Past Surgical History: Adenoidectomy, Appendectomy, Orthopedic Surgery, Tonsillectomy Additional Past Surgical History / Comment(s): venous ligation of the left leg, right ear surgery. 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 Additional Past Anesthesia/Blood Transfusion Reaction / Comment(s): extra sensative and hard to awakens Past Psychological History: No Psychological Hx Reported Smoking Status: Former smoker Past Alcohol Use History: None Reported Past Drug Use History: None Reported - Past Family History Mother Family Medical History: Cancer, Diabetes Mellitus, Eye Disorder General Exam - General Exam Comments Initial Comments: 83 year old female. Alert and oriented 3. No significant distress. General: Well appearing, well nourished, in no distress. Oriented x 3, normal mood and affect . Ambulating without difficulty. Skin: Good turgor, no rash, unusual bruising or prominent lesions Hair: Normal texture and distribution. HEENT: Head: Normocephalic, atraumatic, no visible or palpable masses, depressions, or scaring. Mouth: Mucous membranes dry. Teeth/Gums: No obvious caries or periodontal disease. No gingival inflammation or significant resorption. Pharynx: Mucosa non-inflamed, no tonsillar hypertrophy or exudate Neck: Supple, without lesions, bruits, or adenopathy, thyroid non-enlarged and non-tender Heart: No cardiomegaly or thrills; regular rate and rhythm, no murmur or gallop Lungs: Clear to auscultation and percussion Abdomen: Bowel sounds normal, no tenderness, organomegaly, masses, or hernia Extremities: No amputations or deformities. erythema of bilateral lower extremity. Patient has ulcer that is dressed on L leg. Family reports that it is doing well and healing. Musculoskeletal: Normal gait and station. No misalignment, asymmetry, crepitation, defects, tenderness, masses, effusions, decreased range of motion, instability, atrophy or abnormal strength or tone in the head, neck, spine, ribs, pelvis or extremities. Neurologic: CN 2-12 normal. Sensation to pain, touch, and proprioception normal. DTRs normal in upper and lower extremities. No pathologic reflexes. Psychiatric: Oriented X3, intact recent and remote memory, judgment and insight, normal mood and affect. Rectal: Normal sphincter tone, positive hemorrhoids. Limitations: no limitations Course Vital Signs 05/13/19 05/13/19 05/13/19 14:22 15:03 15:47 Temperature 99.1 F Pulse Rate 85 82 82 Respiratory 16 18 18 Rate Blood Pressure 125/68 125/68 142/76 O2 Sat by Pulse 99 99 97 Oximetry Medical Decision Making - Medical Decision Making 83-year-old female presents today for abnormal lab values from F. She was found have a low hemoglobin low potassium. She had some episodes of nausea and vomiting today. No abdominal tenderness or complaints of pain at this time. Patient had lab values 3 obtained. Hemoglobin is stable at 7.8 this is a drop from previous. Her occult is positive however no gross blood noted on exam. She's had no stools while in the ED. Patient was given potassium replacement of oral K-Dur 40 mg and IV potassium. Magnesium was found to be low as well as magnesium sulfate ordered. Patient's case was discussed with Dr. Godinez who will admit the Patient to Dr. galindo. We'll repeat CBCs every 6 hours to ensure no further drops in hemoglobin. She was given IV Protonix. - Lab Data Result diagrams: 05/13/19 15:00 05/13/19 15:00 Lab Results 05/13/19 05/13/19 05/13/19 Range/Units 15:00 15:00 15:00 WBC 7.1 (3.8-10.6) k/uL RBC 2.53 L (3.80-5.40) m/uL Hgb 7.8 L (11.4-16.0) gm/dL Hct 23.1 L (34.0-46.0) % MCV 91.5 (80.0-100.0) fL MCH 30.7 (25.0-35.0) pg MCHC 33.5 (31.0-37.0) g/dL RDW 15.5 (11.5-15.5) % Plt Count 257 (150-450) k/uL Neutrophils % 69 % Lymphocytes % 23 % Monocytes % 3 % Eosinophils % 1 % Basophils % 0 % Neutrophils # 4.9 (1.3-7.7) k/uL Lymphocytes # 1.7 (1.0-4.8) k/uL Monocytes # 0.2 (0-1.0) k/uL Eosinophils # 0.1 (0-0.7) k/uL Basophils # 0.0 (0-0.2) k/uL PT 27.8 H (9.0-12.0) sec INR 2.9 H (<1.2) APTT 40.0 H (22.0-30.0) sec Sodium 140 (137-145) mmol/L Potassium 3.0 L (3.5-5.1) mmol/L Chloride 109 H (98-107) mmol/L Carbon Dioxide 23 (22-30) mmol/L Anion Gap 8 mmol/L BUN 20 H (7-17) mg/dL Creatinine 1.08 H (0.52-1.04) mg/dL Est GFR (CKD-EPI)AfAm 55 (>60 ml/min/1.73 sqM) Est GFR (CKD-EPI)NonAf 48 (>60 ml/min/1.73 sqM) Glucose 171 H (74-99) mg/dL Calcium 7.7 L (8.4-10.2) mg/dL Magnesium (1.6-2.3) mg/dL Total Bilirubin 0.2 (0.2-1.3) mg/dL AST 31 (14-36) U/L ALT 31 (9-52) U/L Alkaline Phosphatase 73 (38-126) U/L Total Protein 5.6 L (6.3-8.2) g/dL Albumin 2.7 L (3.5-5.0) g/dL Amylase 71 (30-110) U/L Lipase 243 (23-300) U/L Urine Color Urine Appearance (Clear) Urine pH (5.0-8.0) Ur Specific [place] (1.001-1.035) Urine Protein (Negative) Urine Glucose (UA) (Negative) Urine Ketones (Negative) Urine Blood (Negative) Urine Nitrite (Negative) Urine Bilirubin (Negative) Urine Urobilinogen (<2.0) mg/dL Ur Leukocyte Esterase (Negative) Urine RBC (0-5) /hpf Urine WBC (0-5) /hpf Urine Mucus (None) /hpf Stool Occult Blood (Negative) Blood Type Blood Type Confirm Blood Type Recheck Bld Type Recheck Status Antibody Screen Spec Expiration Date 05/13/19 05/13/19 05/13/19 Range/Units 15:00 15:00 15:05 WBC (3.8-10.6) k/uL RBC (3.80-5.40) m/uL Hgb (11.4-16.0) gm/dL Hct (34.0-46.0) % MCV (80.0-100.0) fL MCH (25.0-35.0) pg MCHC (31.0-37.0) g/dL RDW (11.5-15.5) % Plt Count (150-450) k/uL Neutrophils % % Lymphocytes % % Monocytes % % Eosinophils % % Basophils % % Neutrophils # (1.3-7.7) k/uL Lymphocytes # (1.0-4.8) k/uL Monocytes # (0-1.0) k/uL Eosinophils # (0-0.7) k/uL Basophils # (0-0.2) k/uL PT (9.0-12.0) sec INR (<1.2) APTT (22.0-30.0) sec Sodium (137-145) mmol/L Potassium (3.5-5.1) mmol/L Chloride (98-107) mmol/L Carbon Dioxide (22-30) mmol/L Anion Gap mmol/L BUN (7-17) mg/dL Creatinine (0.52-1.04) mg/dL Est GFR (CKD-EPI)AfAm (>60 ml/min/1.73 sqM) Est GFR (CKD-EPI)NonAf (>60 ml/min/1.73 sqM) Glucose (74-99) mg/dL Calcium (8.4-10.2) mg/dL Magnesium 1.3 L (1.6-2.3) mg/dL Total Bilirubin (0.2-1.3) mg/dL AST (14-36) U/L ALT (9-52) U/L Alkaline Phosphatase (38-126) U/L Total Protein (6.3-8.2) g/dL Albumin (3.5-5.0) g/dL Amylase (30-110) U/L Lipase (23-300) U/L Urine Color Urine Appearance (Clear) Urine pH (5.0-8.0) Ur Specific [place] (1.001-1.035) Urine Protein (Negative) Urine Glucose (UA) (Negative) Urine Ketones (Negative) Urine Blood (Negative) Urine Nitrite (Negative) Urine Bilirubin (Negative) Urine Urobilinogen (<2.0) mg/dL Ur Leukocyte Esterase (Negative) Urine RBC (0-5) /hpf Urine WBC (0-5) /hpf Urine Mucus (None) /hpf Stool Occult Blood (Negative) Blood Type O Positive Blood Type Confirm O Positive Blood Type Recheck No Previous Record Bld Type Recheck Status CABO Indicated Antibody Screen NEGATIVE Spec Expiration Date 05/16/2019 - 229905/13/19 05/13/19 Range/Units 15:41 16:05 WBC (3.8-10.6) k/uL RBC (3.80-5.40) m/uL Hgb (11.4-16.0) gm/dL Hct (34.0-46.0) % MCV (80.0-100.0) fL MCH (25.0-35.0) pg MCHC (31.0-37.0) g/dL RDW (11.5-15.5) % Plt Count (150-450) k/uL Neutrophils % % Lymphocytes % % Monocytes % % Eosinophils % % Basophils % % Neutrophils # (1.3-7.7) k/uL Lymphocytes # (1.0-4.8) k/uL Monocytes # (0-1.0) k/uL Eosinophils # (0-0.7) k/uL Basophils # (0-0.2) k/uL PT (9.0-12.0) sec INR (<1.2) APTT (22.0-30.0) sec Sodium (137-145) mmol/L Potassium (3.5-5.1) mmol/L Chloride (98-107) mmol/L Carbon Dioxide (22-30) mmol/L Anion Gap mmol/L BUN (7-17) mg/dL Creatinine (0.52-1.04) mg/dL Est GFR (CKD-EPI)AfAm (>60 ml/min/1.73 sqM) Est GFR (CKD-EPI)NonAf (>60 ml/min/1.73 sqM) Glucose (74-99) mg/dL Calcium (8.4-10.2) mg/dL Magnesium (1.6-2.3) mg/dL Total Bilirubin (0.2-1.3) mg/dL AST (14-36) U/L ALT (9-52) U/L Alkaline Phosphatase (38-126) U/L Total Protein (6.3-8.2) g/dL Albumin (3.5-5.0) g/dL Amylase (30-110) U/L Lipase (23-300) U/L Urine Color Yellow Urine Appearance Clear (Clear) Urine pH 5.5 (5.0-8.0) Ur Specific [place] 1.017 (1.001-1.035) Urine Protein Trace H (Negative) Urine Glucose (UA) Negative (Negative) Urine Ketones Negative (Negative) Urine Blood Trace H (Negative) Urine Nitrite Negative (Negative) Urine Bilirubin Negative (Negative) Urine Urobilinogen <2.0 (<2.0) mg/dL Ur Leukocyte Esterase Trace H (Negative) Urine RBC 15 H (0-5) /hpf Urine WBC 5 (0-5) /hpf Urine Mucus Rare H (None) /hpf Stool Occult Blood Positive H (Negative) Blood Type Blood Type Confirm Blood Type Recheck Bld Type Recheck Status Antibody Screen Spec Expiration Date - Radiology Data Radiology results: report reviewed EKG shows sinus rhythm with premature supraventricular complex is. Otherwise normal EKG. Ventricular rate of 82 bpm. AL interval is 160 ms. QS duration is 72 ms. QT QTc is 382/446 ms. Disposition Clinical Impression: Hypomagnesemia, Nausea & vomiting, Hypokalemia, Fecal occult blood test positive Disposition: ADMITTED IP TO THIS HOSP Condition: Stable Is patient prescribed a controlled substance at d/c from ED?: No Referrals: Darin Castro DO [Primary Care Provider] - 1-2 days Time of Disposition: 17:23
[2019-05-13 16:12] LABS: Appearance,Urine Clear (Clear); Bilirubin,Urine Negative (Negative); Blood,Urine Trace (Negative); Color,Urine Yellow; Glucose,Urine (UA) Negative (Negative); Ketones,Urine Negative (Negative); Leukocyte Esterase,Urine Trace (Negative); Mucus,Urine Rare /hpf; Nitrite,Urine Negative (Negative); PH, Urine 5.5 (5.0-8.0); Protein,Urine Trace (Negative); RBC,Urine 15 /hpf (0-5); Specific Gravity,Urine 1.017 (1.001-1.035); Urobilinogen,Urine <2.0 mg/dL (<2.0)
[2019-05-13] MEDS ORDERED: MAGNESIUM SULFATE-D5W PMX 1 GM in DEXTROSE/WATER 1 100ML.BAG IVPB ONE (16:42)
--- NOTE | 2019-05-13 17:11 | XR ---
EXAMINATION TYPE: XR KUB DATE OF EXAM: 05/13/2019 COMPARISON: NONE HISTORY: Nausea and vomiting TECHNIQUE: 2 views supine FINDINGS: There is right hip prosthesis. 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 There is no sign of intestinal obstruction or pneumoperitoneum. Fecal pattern is normal. There are no pathologic calcifications over the kidneys. IMPRESSION: Nonacute abdomen.
--- NOTE | 2019-05-13 17:12 | XR ---
EXAMINATION TYPE: XR chest 2V DATE OF EXAM: 05/13/2019 COMPARISON: 06/03/2018 HISTORY: Chest pain TECHNIQUE: Frontal and lateral views of the chest are obtained. FINDINGS: Heart is enlarged. There is no heart failure. There is coarse linear density at the lung b ases. There is some blunting of the costophrenic angles more on the right side. There are chest leads . IMPRESSION: Cardiomegaly. Scarring or atelectasis at the lung bases. There is increased pleural thic kening right lung base compared to old exam. No heart failure seen.
[2019-05-13] MEDS: POTASSIUM CHLORIDE 10 MEQ in WATER FOR INJECTION 1 100ML.BAG IVPB SCH ×3 (17:14→18:54)
[2019-05-13] MEDS ORDERED: ACETAMINOPHEN TAB 325 MG TAB PO PRN (17:23)
[2019-05-13] MEDS ORDERED: ONDANSETRON 4 MG/2 ML VIAL IVP PRN (17:23)
[2019-05-13] MEDS ORDERED: MORPHINE SULFATE 4 MG/ML SYRINGE IV PRN (17:23)
[2019-05-13] MEDS ORDERED: NALOXONE 0.4 MG/ML 1 ML VIAL IV PRN (17:23)
[2019-05-13] MEDS ORDERED: IBUPROFEN 400 MG TAB PO PRN (17:23)
[2019-05-13] MEDS ORDERED: traMADol 50 MG TAB PO PRN (17:25)
[2019-05-13] MEDS ORDERED: LORATADINE 10 MG TAB PO PRN (17:25)
[2019-05-13] MEDS: SODIUM CHLORIDE 0.9% 1,000 ML IV SCH (18:56)
[2019-05-13] MEDS ORDERED: DOXYCYCLINE 100 MG CAP PO SCH (21:00)
[2019-05-13] MEDS ORDERED: WARFARIN 5 MG TAB PO SCH (21:00)
[2019-05-13] MEDS: NYSTATIN 100,000UNIT/GM CREAM 30 GM TUBE TOPICAL SCH (22:00)
[2019-05-13] MEDS: FAMOTIDINE 20 MG TAB PO SCH (22:00)
[2019-05-13 22:47] LABS: HCT 21.5 % (34.0-46.0); HGB 7.1 gm/dL (11.4-16.0); Hypochromasia Slight; MCH 30.6 pg (25.0-35.0); MCHC 32.9 g/dL (31.0-37.0); MCV 93.1 fL (80.0-100.0); Mean Platelet Volume 6.1; Platelet Count 253 k/uL (150-450); RBC 2.31 m/uL (3.80-5.40); RDW 15.7 % (11.5-15.5); WBC 5.7 k/uL (3.8-10.6)
[2019-05-13 23:50] LABS: Band Neutrophils % 3 %; Eosinophils # (M) 0.06 k/uL (0-0.7); Lymphocytes # (M) 1.54 k/uL (1.0-4.8); Monocytes # (M) 0.11 k/uL (0-1.0); Neutrophils % (M) 67 %; Nucleated Red Blood Cells 0 /100 WBC (0-0); Total Cells Counted 100
[2019-05-13 23:51] LABS: Anisocytosis (M) Present; Polychromasia Present
[2019-05-13 23:52] LABS: Poikilocytosis (M) Present
[2019-05-14] MEDS: DOXYCYCLINE 100 MG CAP PO SCH ×2 (06:12→17:25)
[2019-05-14 08:05] LABS: HCT 20.9 % (34.0-46.0); MCH 30.3 pg (25.0-35.0); MCHC 33.6 g/dL (31.0-37.0); Mean Platelet Volume 7.2; Platelet Count 252 k/uL (150-450); RBC 2.32 m/uL (3.80-5.40); WBC 5.1 k/uL (3.8-10.6)
[2019-05-14 08:14] LABS: Calcium 7.5 mg/dL (8.4-10.2); Magnesium 1.7 mg/dL (1.6-2.3); Potassium 3.4 mmol/L (3.5-5.1)
[2019-05-14 08:47] LABS: Eosinophils # (M) 0.15 k/uL (0-0.7); Lymphocytes # (M) 1.12 k/uL (1.0-4.8); Neutrophils % (M) 71 %; Nucleated Red Blood Cells 0 /100 WBC (0-0); Total Cells Counted 100
[2019-05-14 08:50] LABS: Poikilocytosis (M) Present
[2019-05-14] MEDS ORDERED: PANTOPRAZOLE 40 MG/10 ML VIAL IV SCH (09:00)
[2019-05-14] MEDS ORDERED: FUROSEMIDE 20 MG TAB PO SCH (09:00)
[2019-05-14] MEDS ORDERED: Potassium Replacement Protocol 1 EACH MISC MISCELLANE PRN (09:54)
[2019-05-14] MEDS ORDERED: Magnesium Replacement Protocol 1 EACH MISC MISCELLANE PRN (09:57)
[2019-05-14] MEDS: MAGNESIUM SULFATE-D5W PMX 1 GM in DEXTROSE/WATER 1 100ML.BAG IVPB SCH ×2 (11:00→11:01)
[2019-05-14 11:21] VITALS: BMI 32.5
[2019-05-14] MEDS: NYSTATIN 100,000UNIT/GM CREAM 30 GM TUBE TOPICAL SCH ×2 (11:51→20:26)
[2019-05-14] MEDS: POTASSIUM CHLORIDE ER 20 MEQ TAB.ER PO SCH ×3 (11:54→12:03)
[2019-05-14] MEDS: MAGNESIUM OXIDE 400 MG TAB PO SCH ×2 (11:54→20:24)
[2019-05-14] MEDS: PSYLLIUM HUSK 100% 6 GM PACKET PO SCH (11:55)
[2019-05-14] MEDS: SODIUM CHLORIDE 0.9% 1,000 ML IV SCH (12:19)
--- NOTE | 2019-05-14 18:26 | P.HPIM ---
History of Present Illness H&P Date: 05/14/19 Chief Complaint: Nausea vomiting diarrhea History of presenting complaint: This is a 83-year-old patient of Dr. Castro, who is a resident of [facility] off [facility]. She was recently admitted to [facility] for UTI and sepsis. She was on doxycycline and Levaquin. Evening prior to presentation here she started having nausea vomiting and had been having some loose stools. Started feeling weak tired rundown. The labs done at the rehab place showed a potassium of 2.9, hemoglobin of 6.7. No fever no chills. No DOC stools. No blood. Patient has been incontinent of urine for some time. I'll recently she began having about 2 bowel movements a day rather loose. Appetite is not good. Weak tired rundown. Had been using a walker. Afraid more tired since using a wheelchair. Review of systems: GEN.: Weak tired decreased appetite EYES: None HEENT: None NECK: None RESPIRATORY: None CARDIOVASCULAR: None GASTROINTESTINAL: As above GENITOURINARY: Urinary incontinence MUSCULOSKELETAL: [Joint pains LYMPHATICS: None HEMATOLOGICAL: None PSYCHIATRY: None NEUROLOGICAL: None Past medical history to include: DVT, hypertension, osteoarthritis, brain tumor removed several years ago with metal plates, urinary incontinence, chronic pain, constipation, GERD with esophagitis. Social history: Patient does smoke in the past. No alcohol. Currently a resident of [facility] off [address] Physical examination: VITAL SIGNS: 100, 72, 16, 100/89, 98% room air GENERAL: BMI 32.6, sitting up in a chair a bit tired. EYES: [Pupils equal. Conjunctiva pale l. HEENT: External appearance of nose and ears normal, oral cavity grossly normal. NECK: JVD not raised; masses not palpable. HEART: First and second heart sounds are normal; no edema. LUNGS: Respiratory rate normal; clear to auscultation. ABDOMEN: Soft, nontender, liver spleen not palpable, no masses palpable. PSYCH: [Alert and oriented x3; mood and affect tired. NEUROLOGICAL: Cranial nerves grossly intact; no facial asymmetry, power and sensation grossly intact. LYMPHATICS: No lymph nodes palpable in the axilla and neck MUSCULOSKELETAL: Evidence of OA especially in the hands INVESTIGATIONS, reviewed in the clinical context: White count 7.1 hemoglobin 7. 8 repeat 7 platelets 257 Potassium 3 repeat 3.4 BUN 20 creatinine 1.08 albumin 2.7 UA showing trace leukoesterase Assessment: -Symptomatic anemia. Patient's hemoglobin is 7. Patient is weak tired rundown. Will need unit of blood. -Antibiotic associated diarrhea -Obesity BMI 32.6 -Essential hypertension -Primary osteoarthritis -Chronic urinary stress incontinence severe - GERD -Chronic gait dysfunction uses a walker at baseline -Medical debility now using a wheelchair for last 2 weeks -Hypokalemia -Clinical dehydration -White protein calorie malnutrition from decreased oral intake Plan: -Care was discussed at length with the patient. Patient is put on a clear liquid diet. Gastritis tolerated. Patient is rather weak tired at hemoglobin of 7 which is borderline has forgotten give unit of blood. Other home medi cations are renewed. Getting IV fluids. Past Medical History Past Medical History: Deep Vein Thrombosis (DVT), Hypertension, Osteoarthritis (OA), Renal Disease Additional Past Medical History / Comment(s): DVT to bilateral legs in past,. 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 Additional Past Anesthesia/Blood Transfusion Reaction / Comment(s): Extra sensative and hard to awakens Past Psychological History: No Psychological Hx Reported Additional Psychological History / Comment(s): Patient lives at [facility] not [facility]. [facility]. Patient was walking with a walker but hasn't been able to and has been W/C bound. Smoking Status: Former smoker Past Alcohol Use History: None Reported Past Drug Use History: None Reported - Past Family History Mother Family Medical History: Cancer, Diabetes Mellitus, Eye Disorder Medications and Allergies Home Medications Medication Instructions Recorded Confirmed Type Furosemide [Lasix] 20 mg PO DAILY 06/03/18 05/13/19 History Warfarin [Coumadin] 5 mg PO HS 06/03/18 05/13/19 History Cetirizine HCl [Zyrtec] 10 mg PO DAILY PRN 05/13/19 05/13/19 History Doxycycline Monohydrate [Monodox] 100 mg PO BID 05/13/19 05/13/19 History Famotidine [Pepcid] 20 mg PO HS 05/13/19 05/13/19 History Nystatin 100,000Unit/gm Cream 1 applic TOPICAL BID 05/13/19 05/13/19 History [Mycostatin Cream] traMADol HCL 25 mg PO Q6H PRN 05/13/19 05/13/19 History Allergies Allergy/AdvReac Type Severity Reaction Status Date / Time latex Allergy Severe Rash/Hives Verified 05/13/19 22:38 propoxyphene [From Darvon] Allergy Severe Nausea & Verified 05/13/19 22:38 Vomiting aspirin Allergy Unknown Verified 05/13/19 14:43 cephalexin [From Keflex] Allergy Rash/Hives Verified 05/13/19 14:43 Penicillins Allergy Rash/Hives Verified 05/13/19 22:38 Iabtnnu-Ixd-Sha Reductase Allergy Unknown Verified 05/13/19 14:43 Inhibitor sulfamethoxazole Allergy Rash/Hives Verified 05/13/19 14:43 [From Bactrim] trimethoprim [From Bactrim] Allergy Rash/Hives Verified 05/13/19 14:43 acetaminophen [From Tylenol] AdvReac Mild Nausea & Verified 05/13/19 22:38 Vomiting codeine AdvReac Mild Nausea & Verified 05/13/19 22:38 Vomiting iodine AdvReac Mild Nausea & Verified 05/13/19 22:38 Vomiting iron AdvReac Mild Nausea & Verified 05/13/19 22:38 Vomiting silicone AdvReac Mild Itching Verified 05/13/19 22:38 vancomycin AdvReac Dyspnea Verified 05/13/19 14:43 LAC BOVIS Allergy Unknown Uncoded 05/13/19 14:43 Physical Exam Vitals: Vital Signs Temp Pulse Pulse Pulse Pulse Resp BP 05/14/19 07:45 64 14 05/14/19 07:04 98.2 F 82 16 05/14/19 05:06 98.2 F 74 18 05/13/19 22:04 97.1 F L 84 16 05/13/19 19:00 99.9 F H 72 18 137/58 05/13/19 18:00 74 18 140/64 05/13/19 17:00 100.0 F H 72 16 100/89 05/13/19 15:47 82 18 142/76 05/13/19 15:03 82 18 125/68 05/13/19 14:22 99.1 F 85 16 125/68 BP Pulse Ox 05/14/19 07:45 05/14/19 07:04 121/59 99 05/14/19 05:06 105/53 97 05/13/19 22:04 130/61 97 05/13/19 19:00 98 05/13/19 18:00 98 05/13/19 17:00 98 05/13/19 15:47 97 05/13/19 15:03 99 05/13/19 14:22 99 Intake and Output 05/13/19 05/14/19 05/14/19 22:59 06:59 14:59 Intake Total 560 Balance 560 Intake: Intake, IV Titration 80 Amount Sodium Chloride 0.9% 1, 80 000 ml @ 20 mls/hr IV . Q24H [facility] Rx#:[id number] Oral 480 Other: Voiding Method Diaper Bedpan Incontinent Diaper # Voids 1 2 # Bowel Movements 1 1 Results CBC & Chem 7: 05/14/19 07:03 05/14/19 07:03 Labs: Abnormal Lab Results - Last 24 Hours (Table) 05/13/19 05/13/19 05/13/19 Range/Units 15:00 15:00 15:00 RBC 2.53 L (3.80-5.40) m/uL Hgb 7.8 L (11.4-16.0) gm/dL Hct 23.1 L (34.0-46.0) % RDW (11.5-15.5) % PT 27.8 H (9.0-12.0) sec INR 2.9 H (<1.2) APTT 40.0 H (22.0-30.0) sec Potassium 3.0 L (3.5-5.1) mmol/L Chloride 109 H (98-107) mmol/L BUN 20 H (7-17) mg/dL Creatinine 1.08 H (0.52-1.04) mg/dL Glucose 171 H (74-99) mg/dL Calcium 7.7 L (8.4-10.2) mg/dL Magnesium (1.6-2.3) mg/dL Total Protein 5.6 L (6.3-8.2) g/dL Albumin 2.7 L (3.5-5.0) g/dL Urine Protein (Negative) Urine Blood (Negative) Ur Leukocyte Esterase (Negative) Urine RBC (0-5) /hpf Urine Mucus (None) /hpf Stool Occult Blood (Negative) 05/13/19 05/13/19 05/13/19 Range/Units 15:00 15:41 16:05 RBC (3.80-5.40) m/uL Hgb (11.4-16.0) gm/dL Hct (34.0-46.0) % RDW (11.5-15.5) % PT (9.0-12.0) sec INR (<1.2) APTT (22.0-30.0) sec Potassium (3.5-5.1) mmol/L Chloride (98-107) mmol/L BUN (7-17) mg/dL Creatinine (0.52-1.04) mg/dL Glucose (74-99) mg/dL Calcium (8.4-10.2) mg/dL Magnesium 1.3 L (1.6-2.3) mg/dL Total Protein (6.3-8.2) g/dL Albumin (3.5-5.0) g/dL Urine Protein Trace H (Negative) Urine Blood Trace H (Negative) Ur Leukocyte Esterase Trace H (Negative) Urine RBC 15 H (0-5) /hpf Urine Mucus Rare H (None) /hpf Stool Occult Blood Positive H (Negative) 05/13/19 05/14/19 05/14/19 Range/Units 22:11 07:03 07:03 RBC 2.31 L 2.32 L (3.80-5.40) m/uL Hgb 7.1 L 7.0 L (11.4-16.0) gm/dL Hct 21.5 L 20.9 L (34.0-46.0) % RDW 15.7 H 16.0 H (11.5-15.5) % PT (9.0-12.0) sec INR (<1.2) APTT (22.0-30.0) sec Potassium 3.4 L (3.5-5.1) mmol/L Chloride 113 H (98-107) mmol/L BUN (7-17) mg/dL Creatinine (0.52-1.04) mg/dL Glucose 101 H (74-99) mg/dL Calcium 7.5 L (8.4-10.2) mg/dL Magnesium (1.6-2.3) mg/dL Total Protein (6.3-8.2) g/dL Albumin (3.5-5.0) g/dL Urine Protein (Negative) Urine Blood (Negative) Ur Leukocyte Esterase (Negative) Urine RBC (0-5) /hpf Urine Mucus (None) /hpf Stool Occult Blood (Negative) Microbiology - Last 24 Hours (Table) 05/13/19 16:05 Urine Culture - Preliminary Urine,Clean Catch Thrombosis Risk Factor Assmnt - Choose All That Apply Each Factor Represents 1 point: Obesity (BMI >25) Other Risk Factors: Yes Each Risk Factor Represents 3 Points: Age 75 years or older, History of DVT/PE Other congenital or acquired thrombophilia - If yes, enter type in comment: No Thrombosis Risk Factor Assessment Total Risk Factor Score: 7 Thrombosis Risk Factor Assessment Level: High Risk
[2019-05-14] MEDS: FAMOTIDINE 20 MG TAB PO SCH (20:24)
[2019-05-14] MEDS: ENOXAPARIN 40 MG/0.4 ML SYRINGE SQ SCH ×2 (20:25→20:29)
[2019-05-15 05:39] VITALS: RESP 16; TEMP 97.9
[2019-05-15] MEDS: DOXYCYCLINE 100 MG CAP PO SCH (06:04)
[2019-05-15] MEDS: ENOXAPARIN 40 MG/0.4 ML SYRINGE SQ SCH (07:53)
[2019-05-15] MEDS: PSYLLIUM HUSK 100% 6 GM PACKET PO SCH (07:54)
[2019-05-15] MEDS: MAGNESIUM OXIDE 400 MG TAB PO SCH (07:57)
[2019-05-15] MEDS: NYSTATIN 100,000UNIT/GM CREAM 30 GM TUBE TOPICAL SCH (07:57)
[2019-05-15 11:35] LABS: Calcium 7.8 mg/dL (8.4-10.2)
[2019-05-15 11:44] LABS: Anisocytosis Slight; HGB 7.7 gm/dL (11.4-16.0); Hypochromasia Slight; MCHC 31.8 g/dL (31.0-37.0); MCV 94.3 fL (80.0-100.0); Platelet Count 279 k/uL (150-450); RBC 2.55 m/uL (3.80-5.40); RDW 16.2 % (11.5-15.5); WBC 5.3 k/uL (3.8-10.6)
[2019-05-15 12:09] VITALS: BP 135/61; PULSE 59
[2019-05-15] MEDS ORDERED: POTASSIUM CHLORIDE ER 20 MEQ TAB.ER PO STA (12:14)
--- NOTE | 2019-05-15 12:14 | P.DS ---
Providers Date of admission: 05/13/19 17:42 Expected date of discharge: 05/15/19 Attending physician: Porfirio Lemus Primary care physician: Darin Castro [facility] Course: Chief Complaint: Nausea vomiting diarrhea Hospital course: This is a 83-year-old patient of Dr. Castro, who is a resident of [facility]. She was recently admitted to [facility] for UTI and sepsis. She was on doxycycline and Levaquin. Evening prior to presentation here she started having nausea vomiting and had been having some loose stools. Started feeling weak tired rundown. The labs done at the rehab place showed a potassium of 2.9, hemoglobin of 6.7. No fever no chills. No blood in stools. Patient has been incontinent of urine for some time. recently she began having about 2 bowel movements a day rather loose. Appetite is not good. Weak tired rundown. Had been using a walker. Afraid more tired since using a wheelchair. Issues. Symptomatic anemia. Hemoglobin was 7. Discussed with the patient at length about blood transfusion. She does not want to take blood products. And was pretty firm of the same.. Her wishes were respected. Did well with IV fluids. Doing much better. Tolerating a diet. No further diarrhea. Today potassium is being replaced. Physical examination: VITAL SIGNS: 97.9, 59, 16, 135/61, 97% room air GENERAL: Laying in bed, comfortable smiling EYES: [Pupils equal. Conjunctiva pale HEENT: External appearance of nose and ears normal, oral cavity grossly normal. NECK: JVD not raised; masses not palpable. HEART: First and second heart sounds are normal; no edema. LUNGS: Respiratory rate normal; clear to auscultation. ABDOMEN: Soft, nontender, liver spleen not palpable, no masses palpable. PSYCH: Alert and oriented x3; mood and affect normal MUSCULOSKELETAL: Evidence of OA especially in the hands INVESTIGATIONS, reviewed in the clinical context: Hemoglobin 7.7 potassium 3 crit 1.13 Previous testing White count 7.1 hemoglobin 7. 8 repeat 7 platelets 257 Potassium 3 repeat 3.4 BUN 20 creatinine 1.08 albumin 2.7 UA showing trace leukoesterase Assessment: -Symptomatic anemia. Patient's hemoglobin is 7. Patient is weak tired rundown. Patient is declining any blood transfusion.. -Antibiotic associated diarrhea, improved -Obesity BMI 32.6 -Essential hypertension -Primary osteoarthritis -Chronic urinary stress incontinence severe - GERD -Chronic gait dysfunction uses a walker at baseline -Medical debility now using a wheelchair for last 2 weeks -Hypokalemia -Clinical dehydration -Mild protein calorie malnutrition from decreased oral intake Disposition: [facility] [address] Patient Condition at Discharge: Stable Plan - Discharge Summary Discharge Rx Participant: No New Discharge Prescriptions: No Action Furosemide [Lasix] 20 mg PO DAILY Warfarin [Coumadin] 5 mg PO HS Famotidine [Pepcid] 20 mg PO HS Doxycycline Monohydrate [Monodox] 100 mg PO BID Nystatin 100,000Unit/gm Cream [Mycostatin Cream] 1 applic TOPICAL BID traMADol HCL 25 mg PO Q6H PRN PRN Reason: Pain Cetirizine HCl [Zyrtec] 10 mg PO DAILY PRN PRN Reason: Allergic Reaction Discharge Medication List Furosemide [Lasix] 20 mg PO DAILY 06/03/18 [History] Warfarin [Coumadin] 5 mg PO HS 06/03/18 [History] Cetirizine HCl [Zyrtec] 10 mg PO DAILY PRN 05/13/19 [History] Doxycycline Monohydrate [Monodox] 100 mg PO BID 05/13/19 [History] Famotidine [Pepcid] 20 mg PO HS 05/13/19 [History] Nystatin 100,000Unit/gm Cream [Mycostatin Cream] 1 applic TOPICAL BID 05/13/19 [History] traMADol HCL 25 mg PO Q6H PRN 05/13/19 [History] Follow up Appointment(s)/Referral(s): Darin Castro DO [Primary Care Provider] - 1-2 days
== END 2019-05-15 15:31 | DRG 641 ==
LOC: EC 14:20 → 3NMEDONC 17:42
PROVIDERS: ADMIT Hospitalist; ATTEND Hospitalist
DX: E87.6 Hypokalemia (principal); E44.1 Mild protein-calorie malnutrition; K52.1 Toxic gastroenteritis and colitis; D64.9 Anemia, unspecified; E66.9 Obesity, unspecified; E83.42 Hypomagnesemia; E86.0 Dehydration; I12.9 Hypertensive chronic kidney disease with stage 1 through stage 4 chronic kidney disease, or unspecified chronic kidney disease; K21.9 Gastro-esophageal reflux disease without esophagitis; M19.91 Primary osteoarthritis, unspecified site; N18.3 Chronic kidney disease, stage 3 (moderate); N39.3 Stress incontinence (female) (male); T36.95XA Adverse effect of unspecified systemic antibiotic, initial encounter; Z68.32 Body mass index [BMI] 32.0-32.9, adult; Z79.01 Long term (current) use of anticoagulants; Z79.899 Other long term (current) drug therapy; Z83.3 Family history of diabetes mellitus; Z87.891 Personal history of nicotine dependence; Z96.651 Presence of right artificial knee joint; Z88.6 Allergy status to analgesic agent; Z88.1 Allergy status to other antibiotic agents; Z88.5 Allergy status to narcotic agent; Z88.0 Allergy status to penicillin; Z88.8 Allergy status to other drugs, medicaments and biological substances; Z91.048 Other nonmedicinal substance allergy status
CPT/HCPCS: 36415; 71046; 74018; 80048; 80053; 81001; 82150; 82272; 83690; 83735; 85025; 85027; 85610; 85730; 86850; 86900; 86901; 86920; 87040; 87086; 93005; 96361; 96365; 96366; 96368; 96375; 99285

== ENCOUNTER 2019-11-05 14:02 | Inpatient (IN) | payer MEDICARE ==
[2019-11-05] MEDS ORDERED: SODIUM CHLORIDE 0.9% 1,000 ML IV STA ×4 (15:13→16:57)
[2019-11-05 15:34] LABS: Anisocytosis Slight; Basophils % (A) 0 %; Eosinophils % (A) 0 %; HCT 35.2 % (34.0-46.0); HGB 11.4 gm/dL (11.4-16.0); Lymphocytes # (A) 0.5 k/uL (1.0-4.8); Lymphocytes % (A) 3 %; MCH 28.1 pg (25.0-35.0); MCHC 32.4 g/dL (31.0-37.0); MCV 86.7 fL (80.0-100.0); Mean Platelet Volume 7.2; Monocytes # (A) 1.2 k/uL (0-1.0); Monocytes % (A) 6 %; Neutrophils # (A) 19.6 k/uL (1.3-7.7); Neutrophils % (A) 91 %; Platelet Count 416 k/uL (150-450); RBC 4.07 m/uL (3.80-5.40); RDW 17.6 % (11.5-15.5); WBC 21.6 k/uL (3.8-10.6)
[2019-11-05 16:08] LABS: Prothrombin Time >130.0 sec (9.0-12.0)
[2019-11-05 16:10] LABS: INR >10.0 (<1.2); Partial Thromboplastin Time 86.4 sec (22.0-30.0)
[2019-11-05 16:11] LABS: C Reactive Protein 85.7 mg/L (<10.0); Total Bilirubin 0.7 mg/dL (0.2-1.3); Total Protein 7.9 g/dL (6.3-8.2)
[2019-11-05 16:22] LABS: Potassium 6.6 mmol/L (3.5-5.1)
[2019-11-05] MEDS ORDERED: LEVOFLOXACIN 750MG-D5W PMX 750 MG in DEXTROSE/WATER 1 150ML.BAG IVPB STA (16:27)
[2019-11-05] MEDS ORDERED: DEXTROSE 50% SYRINGE 50 ML IVP ONE (16:33)
[2019-11-05] MEDS ORDERED: SODIUM BICARB 8.4% 50 ML SYR (1 MEQ/ML) IV ONE (16:33)
[2019-11-05] MEDS ORDERED: INSULIN REGULAR 100 UNIT/ML VIAL IV ONE (16:33)
[2019-11-05] MEDS ORDERED: ALBUTEROL NEB (CONC) 2.5 MG/0.5 ML INHALATION ONE (16:33)
--- NOTE | 2019-11-05 16:48 | ED ---
Nausea/Vomiting/Diarrhea HPI - General Source: patient Mode of arrival: EMS Limitations: no limitations <Sarah Garza - Last Filed: 11/05/19 18:20> <Donte Boyd - Last Filed: 11/05/19 22:12> - General Chief complaint: Nausea/Vomiting/Diarrhea Stated complaint: nausea/vomiting Time Seen by Provider: 11/05/19 14:55 - History of Present Illness Initial comments: Patient is an 84-year-old female, with history of DVT, hypertension, kidney disease, presenting to the emergency Department with complaints of nausea and vomiting 1 week as well as bilateral lower leg soreness. Patient's daughter is here with her now. Patient lives alone. The daughter states that she went to visit her today and noticed she was hunched over and states she had been vomiting for the past few days. She also noticed that her legs looked infected. Patient states she has not been eating or drinking very much. She is complaining of pain in her left lower leg. She denies having a fever, chills, cough, shortness of breath. Denies dysuria. She has no other complaints at this time. On arrival to the ER, temperature is 96.2, pulse is 15, BP is 113/50, 98% on room air. (Sarah Garza) - Related Data Home Medications Medication Instructions Recorded Confirmed Cholecalciferol [Vitamin D3 (25 1,000 unit PO DAILY 11/05/19 11/05/19 Mcg = 1000 Iu)] Furosemide [Lasix] 20 mg PO DAILY 11/05/19 11/05/19 Loratadine [Claritin] 10 mg PO DAILY 11/05/19 11/05/19 Naproxen Sodium [Aleve] 220 mg PO DAILY PRN 11/05/19 11/05/19 Warfarin [Coumadin] 2.5 mg PO DAILY 11/05/19 11/05/19 hydrOXYzine HCL 10 mg PO TID PRN 11/05/19 11/05/19 Allergies Allergy/AdvReac Type Severity Reaction Status Date / Time latex Allergy Severe Rash/Hives Verified 11/05/19 18:13 propoxyphene [From Darvon] Allergy Severe Nausea & Verified 11/05/19 18:13 Vomiting aspirin Allergy Unknown Verified 11/05/19 18:13 cephalexin [From Keflex] Allergy Rash/Hives Verified 11/05/19 18:13 Penicillins Allergy Rash/Hives Verified 11/05/19 18:13 Cabyksh-Ucs-Pnl Reductase Allergy Unknown Verified 11/05/19 18:13 Inhibitor sulfamethoxazole Allergy Rash/Hives Verified 11/05/19 18:13 [From Bactrim] trimethoprim [From Bactrim] Allergy Rash/Hives Verified 11/05/19 18:13 acetaminophen [From Tylenol] AdvReac Mild Nausea & Verified 11/05/19 18:13 Vomiting codeine AdvReac Mild Nausea & Verified 11/05/19 18:13 Vomiting iodine AdvReac Mild Nausea & Verified 11/05/19 18:13 Vomiting iron AdvReac Mild Nausea & Verified 11/05/19 18:13 Vomiting silicone AdvReac Mild Itching Verified 11/05/19 18:13 vancomycin AdvReac Dyspnea Verified 11/05/19 18:13 LAC BOVIS Allergy Unknown Uncoded 05/13/19 14:43 Review of Systems ROS Other: All systems not noted in ROS Statement are negative. <Sarah Garza - Last Filed: 11/05/19 18:20> ROS Other: All systems not noted in ROS Statement are negative. <Donte Boyd - Last Filed: 11/05/19 22:12> ROS Statement: Those systems with pertinent positive or pertinent negative responses have been documented in the HPI. Past Medical History Past Medical History: Deep Vein Thrombosis (DVT), Hypertension, Osteoarthritis (OA), Renal Disease Additional Past Medical History / Comment(s): DVT to bilateral legs in past,. 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 Additional Past Anesthesia/Blood Transfusion Reaction / Comment(s): Extra sensative and hard to awakens Past Psychological History: No Psychological Hx Reported Smoking Status: Former smoker Past Alcohol Use History: None Reported Past Drug Use History: None Reported - Past Family History Mother Family Medical History: Cancer, Diabetes Mellitus, Eye Disorder <KaylaSarah Christian - Last Filed: 11/05/19 18:20> General Exam Limitations: no limitations <Sarah Garza - Last Filed: 11/05/19 18:20> - General Exam Comments Initial Comments: GENERAL: Looks fatigued, dry, in no acute distress. HEAD: Atraumatic, normocephalic. EYES: Pupils equal round and reactive to light, extraocular movements intact, sclera anicteric, conjunctiva are normal. ENT: TMs normal, nares patent, oropharynx clear without exudates. Dry mucous membranes. NECK: Normal range of motion, supple without lymphadenopathy or JVD. LUNGS: Breath sounds clear to auscultation bilaterally and equal. No wheezes rales or rhonchi. HEART: Slightly tachycardia rate and rhythm without murmurs, rubs or gallops. ABDOMEN: Soft, nontender, normoactive bowel sounds. No guarding, no rebound. No masses appreciated. : Deferred EXTREMITIES: Bilateral lower leg edema, worse on the left lower leg with pitting edema. Left leg has open weeping sores on the lower leg. Bilateral dorsal pedis pulse are normal, equal, confirmed with Doppler. NEUROLOGICAL: Cranial nerves II through XII grossly intact. Normal speech PSYCH: Normal mood, normal affect. SKIN: Warm, Dry, normal turgor, no rashes or lesions noted. (Sarah Garza) Course Vital Signs 11/05/19 11/05/19 11/05/19 14:13 14:38 16:14 Temperature 95.8 F L 96.2 F L 96.9 F L Pulse Rate 105 H 107 H Respiratory 18 18 Rate Blood Pressure 113/50 116/59 O2 Sat by Pulse 98 100 Oximetry 11/05/19 11/05/19 11/05/19 17:14 17:51 17:59 Temperature Pulse Rate 88 123 H 122 H Respiratory 18 Rate Blood Pressure 111/53 O2 Sat by Pulse 98 Oximetry 11/05/19 11/05/19 11/05/19 18:33 19:30 20:00 Temperature Pulse Rate 122 H 118 H 120 H Respiratory 18 18 18 Rate Blood Pressure 101/60 93/58 94/50 O2 Sat by Pulse 99 99 100 Oximetry 11/05/19 20:30 Temperature Pulse Rate 115 H Respiratory 18 Rate Blood Pressure 94/60 O2 Sat by Pulse 96 Oximetry Medical Decision Making - Lab Data Result diagrams: 11/05/19 15:18 11/05/19 15:18 <Sarah Garza - Last Filed: 11/05/19 18:20> - Lab Data Result diagrams: 11/05/19 15:18 11/05/19 17:50 <Donte Boyd - Last Filed: 11/05/19 22:12> - Lab Data Lab Results 11/05/19 11/05/19 11/05/19 Range/Units 15:18 15:18 15:18 WBC 21.6 H (3.8-10.6) k/uL RBC 4.07 (3.80-5.40) m/uL Hgb 11.4 (11.4-16.0) gm/dL Hct 35.2 (34.0-46.0) % MCV 86.7 (80.0-100.0) fL MCH 28.1 (25.0-35.0) pg MCHC 32.4 (31.0-37.0) g/dL RDW 17.6 H (11.5-15.5) % Plt Count 416 (150-450) k/uL Neutrophils % 91 % Lymphocytes % 3 % Monocytes % 6 % Eosinophils % 0 % Basophils % 0 % Neutrophils # 19.6 H (1.3-7.7) k/uL Lymphocytes # 0.5 L (1.0-4.8) k/uL Monocytes # 1.2 H (0-1.0) k/uL Eosinophils # 0.0 (0-0.7) k/uL Basophils # 0.0 (0-0.2) k/uL Anisocytosis Slight ESR (0-20) mm/hr PT >130.0 H (9.0-12.0) sec INR >10.0 H* (<1.2) APTT 86.4 H (22.0-30.0) sec VBG pH (7.31-7.41) VBG pCO2 (37-51) mmHg VBG HCO3 (24-28) mmol/L Sodium 129 L (137-145) mmol/L Potassium 6.6 H* (3.5-5.1) mmol/L Chloride 91 L (98-107) mmol/L Carbon Dioxide 10 L (22-30) mmol/L Anion Gap 28 mmol/L BUN 149 H* (7-17) mg/dL Creatinine 10.21 H* (0.52-1.04) mg/dL Est GFR (CKD-EPI)AfAm 4 (>60 ml/min/1.73 sqM) Est GFR (CKD-EPI)NonAf 3 (>60 ml/min/1.73 sqM) Glucose 158 H (74-99) mg/dL POC Glucose (mg/dL) (75-99) mg/dL POC Glu Optician ID Osmolality (280-301) mosm/kg Plasma Lactic Acid Zoran (0.7-2.0) mmol/L Calcium 9.0 (8.4-10.2) mg/dL Phosphorus (2.5-4.5) mg/dL Magnesium (1.6-2.3) mg/dL Total Bilirubin 0.7 (0.2-1.3) mg/dL AST 78 H (14-36) U/L ALT 24 (4-34) U/L Alkaline Phosphatase 119 (38-126) U/L C-Reactive Protein 85.7 H (<10.0) mg/L Total Protein 7.9 (6.3-8.2) g/dL Albumin 4.0 (3.5-5.0) g/dL Urine Color Urine Appearance (Clear) Urine pH (5.0-8.0) Ur Specific Grandin (1.001-1.035) Urine Protein (Negative) Urine Glucose (UA) (Negative) Urine Ketones (Negative) Urine Blood (Negative) Urine Nitrite (Negative) Urine Bilirubin (Negative) Urine Urobilinogen (<2.0) mg/dL Ur Leukocyte Esterase (Negative) Urine RBC (0-5) /hpf Urine WBC (0-5) /hpf Urine WBC Clumps (None) /hpf Ur Squamous Epith Cells (0-4) /hpf Amorphous Sediment (None) /hpf Urine Bacteria (None) /hpf Urine Osmolality (50-1400) mosm/kg Salicylates mg/dL Acetaminophen ug/mL Coronavirus (PCR) (Not Detectd) 04/24/20 04/24/20 04/24/20 Range/Units 15:18 15:59 17:20 WBC (3.8-10.6) k/uL RBC (3.80-5.40) m/uL Hgb (11.4-16.0) gm/dL Hct (34.0-46.0) % MCV (80.0-100.0) fL MCH (25.0-35.0) pg MCHC (31.0-37.0) g/dL RDW (11.5-15.5) % Plt Count (150-450) k/uL Neutrophils % % Lymphocytes % % Monocytes % % Eosinophils % % Basophils % % Neutrophils # (1.3-7.7) k/uL Lymphocytes # (1.0-4.8) k/uL Monocytes # (0-1.0) k/uL Eosinophils # (0-0.7) k/uL Basophils # (0-0.2) k/uL Anisocytosis ESR 106 H (0-20) mm/hr PT (9.0-12.0) sec INR (<1.2) APTT (22.0-30.0) sec VBG pH (7.31-7.41) VBG pCO2 (37-51) mmHg VBG HCO3 (24-28) mmol/L Sodium (137-145) mmol/L Potassium (3.5-5.1) mmol/L Chloride (98-107) mmol/L Carbon Dioxide (22-30) mmol/L Anion Gap mmol/L BUN (7-17) mg/dL Creatinine (0.52-1.04) mg/dL Est GFR (CKD-EPI)AfAm (>60 ml/min/1.73 sqM) Est GFR (CKD-EPI)NonAf (>60 ml/min/1.73 sqM) Glucose (74-99) mg/dL POC Glucose (mg/dL) (75-99) mg/dL POC Glu Optician ID Osmolality (280-301) mosm/kg Plasma Lactic Acid Zoran 1.7 (0.7-2.0) mmol/L Calcium (8.4-10.2) mg/dL Phosphorus (2.5-4.5) mg/dL Magnesium (1.6-2.3) mg/dL Total Bilirubin (0.2-1.3) mg/dL AST (14-36) U/L ALT (4-34) U/L Alkaline Phosphatase (38-126) U/L C-Reactive Protein (<10.0) mg/L Total Protein (6.3-8.2) g/dL Albumin (3.5-5.0) g/dL Urine Color Urine Appearance (Clear) Urine pH (5.0-8.0) Ur Specific Grandin (1.001-1.035) Urine Protein (Negative) Urine Glucose (UA) (Negative) Urine Ketones (Negative) Urine Blood (Negative) Urine Nitrite (Negative) Urine Bilirubin (Negative) Urine Urobilinogen (<2.0) mg/dL Ur Leukocyte Esterase (Negative) Urine RBC (0-5) /hpf Urine WBC (0-5) /hpf Urine WBC Clumps (None) /hpf Ur Squamous Epith Cells (0-4) /hpf Amorphous Sediment (None) /hpf Urine Bacteria (None) /hpf Urine Osmolality 357 (50-1400) mosm/kg Salicylates mg/dL Acetaminophen ug/mL Coronavirus (PCR) (Not Detectd) 11/05/19 11/05/19 11/05/19 Range/Units 17:20 17:21 17:50 WBC (3.8-10.6) k/uL RBC (3.80-5.40) m/uL Hgb (11.4-16.0) gm/dL Hct (34.0-46.0) % MCV (80.0-100.0) fL MCH (25.0-35.0) pg MCHC (31.0-37.0) g/dL RDW (11.5-15.5) % Plt Count (150-450) k/uL Neutrophils % % Lymphocytes % % Monocytes % % Eosinophils % % Basophils % % Neutrophils # (1.3-7.7) k/uL Lymphocytes # (1.0-4.8) k/uL Monocytes # (0-1.0) k/uL Eosinophils # (0-0.7) k/uL Basophils # (0-0.2) k/uL Anisocytosis ESR (0-20) mm/hr PT (9.0-12.0) sec INR (<1.2) APTT (22.0-30.0) sec VBG pH 7.29 L (7.31-7.41) VBG pCO2 25 L (37-51) mmHg VBG HCO3 12 L (24-28) mmol/L Sodium (137-145) mmol/L Potassium (3.5-5.1) mmol/L Chloride (98-107) mmol/L Carbon Dioxide (22-30) mmol/L Anion Gap mmol/L BUN (7-17) mg/dL Creatinine (0.52-1.04) mg/dL Est GFR (CKD-EPI)AfAm (>60 ml/min/1.73 sqM) Est GFR (CKD-EPI)NonAf (>60 ml/min/1.73 sqM) Glucose (74-99) mg/dL POC Glucose (mg/dL) 152 H (75-99) mg/dL POC Glu Optician ID Abby Hyman Osmolality (280-301) mosm/kg Plasma Lactic Acid Zoran (0.7-2.0) mmol/L Calcium (8.4-10.2) mg/dL Phosphorus (2.5-4.5) mg/dL Magnesium (1.6-2.3) mg/dL Total Bilirubin (0.2-1.3) mg/dL AST (14-36) U/L ALT (4-34) U/L Alkaline Phosphatase (38-126) U/L C-Reactive Protein (<10.0) mg/L Total Protein (6.3-8.2) g/dL Albumin (3.5-5.0) g/dL Urine Color Light Venus Urine Appearance Turbid H (Clear) Urine pH 7.5 (5.0-8.0) Ur Specific Grandin >1.050 H (1.001-1.035) Urine Protein 3+ H (Negative) Urine Glucose (UA) Negative (Negative) Urine Ketones Trace H (Negative) Urine Blood Large (Negative) Urine Nitrite Negative (Negative) Urine Bilirubin Negative (Negative) Urine Urobilinogen <2.0 (<2.0) mg/dL Ur Leukocyte Esterase Large (Negative) Urine RBC >182 H (0-5) /hpf Urine WBC >182 H (0-5) /hpf Urine WBC Clumps Moderate H (None) /hpf Ur Squamous Epith Cells 2 (0-4) /hpf Amorphous Sediment Many H (None) /hpf Urine Bacteria Many H (None) /hpf Urine Osmolality (50-1400) mosm/kg Salicylates mg/dL Acetaminophen ug/mL Coronavirus (PCR) (Not Detectd) 11/05/19 11/05/19 11/05/19 Range/Units 17:50 18:00 18:29 WBC (3.8-10.6) k/uL RBC (3.80-5.40) m/uL Hgb (11.4-16.0) gm/dL Hct (34.0-46.0) % MCV (80.0-100.0) fL MCH (25.0-35.0) pg MCHC (31.0-37.0) g/dL RDW (11.5-15.5) % Plt Count (150-450) k/uL Neutrophils % % Lymphocytes % % Monocytes % % Eosinophils % % Basophils % % Neutrophils # (1.3-7.7) k/uL Lymphocytes # (1.0-4.8) k/uL Monocytes # (0-1.0) k/uL Eosinophils # (0-0.7) k/uL Basophils # (0-0.2) k/uL Anisocytosis ESR (0-20) mm/hr PT (9.0-12.0) sec INR (<1.2) APTT (22.0-30.0) sec VBG pH (7.31-7.41) VBG pCO2 (37-51) mmHg VBG HCO3 (24-28) mmol/L Sodium 129 L (137-145) mmol/L Potassium 5.2 H (3.5-5.1) mmol/L Chloride 100 (98-107) mmol/L Carbon Dioxide 11 L (22-30) mmol/L Anion Gap 18 mmol/L BUN 137 H* (7-17) mg/dL Creatinine 8.85 H* (0.52-1.04) mg/dL Est GFR (CKD-EPI)AfAm 4 (>60 ml/min/1.73 sqM) Est GFR (CKD-EPI)NonAf 4 (>60 ml/min/1.73 sqM) Glucose 272 H (74-99) mg/dL POC Glucose (mg/dL) 238 H (75-99) mg/dL POC Glu Optician ID Abby Hyman Osmolality 334 H* (280-301) mosm/kg Plasma Lactic Acid Zoran (0.7-2.0) mmol/L Calcium 8.2 L (8.4-10.2) mg/dL Phosphorus 9.3 H* (2.5-4.5) mg/dL Magnesium 2.2 (1.6-2.3) mg/dL Total Bilirubin (0.2-1.3) mg/dL AST (14-36) U/L ALT (4-34) U/L Alkaline Phosphatase (38-126) U/L C-Reactive Protein (<10.0) mg/L Total Protein (6.3-8.2) g/dL Albumin (3.5-5.0) g/dL Urine Color Urine Appearance (Clear) Urine pH (5.0-8.0) Ur Specific Grandin (1.001-1.035) Urine Protein (Negative) Urine Glucose (UA) (Negative) Urine Ketones (Negative) Urine Blood (Negative) Urine Nitrite (Negative) Urine Bilirubin (Negative) Urine Urobilinogen (<2.0) mg/dL Ur Leukocyte Esterase (Negative) Urine RBC (0-5) /hpf Urine WBC (0-5) /hpf Urine WBC Clumps (None) /hpf Ur Squamous Epith Cells (0-4) /hpf Amorphous Sediment (None) /hpf Urine Bacteria (None) /hpf Urine Osmolality (50-1400) mosm/kg Salicylates <1.0 mg/dL Acetaminophen <10.0 ug/mL Coronavirus (PCR) Not Detected (Not Detectd) - EKG Data EKG Comments: Ventricular rate 108, P are notable 174, QTC 458. Sinus tachycardia, no signs of acute ischemia. Similar to previous EKG on 05/13/2019. (Sarah Garza) Critical Care Time Critical Care Time: Yes Total Critical Care Time: 35 (Patient presented with nausea and vomiting times one week. Time was used to assess the patient, lab review which showed hyperkalemia 6.6, BUN and creatinine elevated at 149, 10.21. Sodium is 129, INR is elevated at greater than 10. Leukocytosis at 21 with left shift. Patient was started on standard hyperkalemia treatment, antibiotics for bilateral lower leg cellulitis and fluid resuscitation for kidney failure.) <Sarah Garza - Last Filed: 11/05/19 18:20> Disposition <Sarah Garza - Last Filed: 11/05/19 18:20> Is patient prescribed a controlled substance at d/c from ED?: No <Donte Boyd - Last Filed: 11/05/19 22:12> Clinical Impression: Dehydration, Left leg cellulitis, Diabetes, Nausea & vomiting, UTI (urinary tract infection), ARF (acute renal failure), Hypokalemia Disposition: ADMITTED IP TO THIS HOSP Condition: Serious Referrals: Darin Castro DO [Primary Care Provider] - 1-2 days
[2019-11-05] MEDS ORDERED: PHYTONADIONE ORAL 5 MG/5 ML ORAL.SYRG PO STA (16:51)
[2019-11-05] MEDS ORDERED: CALCIUM GLUCONATE 1 GM in SODIUM CHLORIDE 0.9% 100 ML IVPB ONE (17:00)
[2019-11-05] MEDS ORDERED: SODIUM POLYSTYRENE SULFONATE 15 GM/60 ML BOTTLE PO STA (17:03)
[2019-11-05 17:22] LABS: Glucose,Whole Blood 152 mg/dL (75-99)
[2019-11-05 18:02] LABS: Appearance,Urine Turbid (Clear); Color,Urine Light Orange; PH, Urine 7.5 (5.0-8.0); Protein,Urine 3+ (Negative); Specific Gravity,Urine >1.050 (1.001-1.035)
[2019-11-05 18:03] LABS: Bilirubin,Urine Negative (Negative); Blood,Urine Large (Negative); Glucose,Urine (UA) Negative (Negative); Ketones,Urine Trace (Negative); Leukocyte Esterase,Urine Large (Negative); Nitrite,Urine Negative (Negative); Urobilinogen,Urine <2.0 mg/dL (<2.0)
[2019-11-05 18:04] LABS: RBC,Urine >182 /hpf (0-5); WBC,Urine >182 /hpf (0-5)
[2019-11-05 18:05] LABS: VBG PH 7.29 (7.31-7.41)
[2019-11-05 18:05] LABS: Amorphous Sediment,Urine Many /hpf; Bacteria,Urine Many /hpf; Squamous Epithelial Cell,Urine 2 /hpf (0-4)
[2019-11-05 18:30] LABS: Glucose,Whole Blood 238 mg/dL (75-99)
--- NOTE | 2019-11-05 18:38 | XR ---
EXAMINATION TYPE: XR chest 2V DATE OF EXAM: 11/05/2019 COMPARISON: 05/13/2019 INDICATION: Sepsis nausea vomiting 4 weeks TECHNIQUE: Frontal and lateral views of the chest are obtained. FINDINGS: The heart size is normal. The pulmonary vasculature is normal. There is hyperinflation flattening the diaphragms compatible with COPD. Findings appear stable from t he comparison study. IMPRESSION: 1. COPD. 2. No acute pulmonary process.
[2019-11-05 18:50] LABS: Acetaminophen <10.0 ug/mL; Anion Gap 18 mmol/L; Calcium 8.2 mg/dL (8.4-10.2); Carbon Dioxide 11 mmol/L (22-30); Chloride 100 mmol/L (98-107); Glucose 272 mg/dL (74-99); Magnesium 2.2 mg/dL (1.6-2.3); Potassium 5.2 mmol/L (3.5-5.1); Salicylate <1.0 mg/dL; Sodium 129 mmol/L (137-145)
[2019-11-05 18:54] LABS: African American GFR (CKD) 4 (>60 ml/min/1.73 sqM); Non-African American GFR(CKD) 4 (>60 ml/min/1.73 sqM)
[2019-11-05 19:01] LABS: Blood Urea Nitrogen 137 mg/dL (7-17); Phosphorus 9.3 mg/dL (2.5-4.5)
[2019-11-05] MEDS ORDERED: IPRATROPIUM-ALBUTEROL 3 ML NEB INHALATION PRN (22:09)
[2019-11-05] MEDS ORDERED: NALOXONE 0.4 MG/ML 1 ML VIAL IV PRN (22:09)
[2019-11-05] MEDS: DEXTROSE 5% IN WATER 1,000 ML with SODIUM BICARB (1 MEQ/ML) 150 ML IV SCH (23:38)
[2019-11-06 00:03] LABS: Glucose,Whole Blood 143 mg/dL (75-99)
[2019-11-06 00:52] LABS: Anisocytosis Slight; Basophils % (A) 0 %; Eosinophils % (A) 0 %; HCT 28.8 % (34.0-46.0); Lymphocytes # (A) 0.5 k/uL (1.0-4.8); Lymphocytes % (A) 3 %; MCHC 32.8 g/dL (31.0-37.0); MCV 88.4 fL (80.0-100.0); Mean Platelet Volume 7.3; Monocytes # (A) 0.8 k/uL (0-1.0); Monocytes % (A) 5 %; Neutrophils % (A) 91 %; Platelet Count 335 k/uL (150-450); RBC 3.25 m/uL (3.80-5.40); RDW 17.9 % (11.5-15.5); WBC 16.6 k/uL (3.8-10.6)
[2019-11-06 00:58] LABS: HGB 9.4 gm/dL (11.4-16.0)
[2019-11-06 01:13] LABS: Calcium 7.7 mg/dL (8.4-10.2); Magnesium 1.9 mg/dL (1.6-2.3); Prothrombin Time >130.0 sec (9.0-12.0); Total Bilirubin 0.5 mg/dL (0.2-1.3); Total Protein 6.1 g/dL (6.3-8.2)
[2019-11-06 01:15] LABS: INR >10.0 (<1.2)
[2019-11-06] MEDS: SODIUM CHLORIDE 0.9% 1,000 ML IV SCH ×3 (02:00→18:02)
[2019-11-06] MEDS ORDERED: HYDROmorphone 1 MG/ML 1 ML SYRINGE IVP PRN (02:10)
[2019-11-06] MEDS ORDERED: PHYTONADIONE 10 MG in SODIUM CHLORIDE 0.9% 50 ML IVPB STA (02:21)
[2019-11-06 04:31] LABS: Anisocytosis Slight; Basophils % (A) 0 %; Eosinophils # (A) 0.1 k/uL (0-0.7); Eosinophils % (A) 0 %; HGB 8.1 gm/dL (11.4-16.0); Hypochromasia Slight; Lymphocytes # (A) 0.5 k/uL (1.0-4.8); Lymphocytes % (A) 3 %; MCH 29.1 pg (25.0-35.0); MCHC 32.6 g/dL (31.0-37.0); MCV 89.1 fL (80.0-100.0); Mean Platelet Volume 7.4; Monocytes # (A) 0.7 k/uL (0-1.0); Monocytes % (A) 5 %; Neutrophils # (A) 13.4 k/uL (1.3-7.7); Neutrophils % (A) 90 %; Platelet Count 280 k/uL (150-450); RDW 17.8 % (11.5-15.5); WBC 14.8 k/uL (3.8-10.6)
[2019-11-06 04:47] LABS: Albumin 2.5 g/dL (3.5-5.0); Calcium 7.2 mg/dL (8.4-10.2); Magnesium 1.9 mg/dL (1.6-2.3); Phosphorus 7.9 mg/dL (2.5-4.5); Potassium 4.6 mmol/L (3.5-5.1); Total Bilirubin 0.5 mg/dL (0.2-1.3); Total Protein 5.4 g/dL (6.3-8.2)
[2019-11-06 04:50] LABS: Prothrombin Time 93.1 sec (9.0-12.0)
[2019-11-06 04:54] LABS: INR 8.9 (<1.2)
[2019-11-06] MEDS ORDERED: FUROSEMIDE 10 MG/ML 10 ML VIAL IV STA (06:02)
[2019-11-06 06:45] LABS: Glucose,Whole Blood 187 mg/dL (75-99)
--- NOTE | 2019-11-06 06:56 | XR ---
EXAMINATION TYPE: XR chest 1V DATE OF EXAM: 11/06/2019 HISTORY: SOB. REFERENCE: Previous study dated 11/05/2019. FINDINGS: Unfortunately, the patient's head projects over the upper chest. The patient has taken a poor aspiration. Heart size is obscured. There is vascular congestion withou t nixon edema. I could not exclude small, bilateral effusions. There is platelike atelectasis at the left lung base. IMPRESSION: 1. WORSENING APPEARANCE OF THE CHEST. CORRELATE TO EXCLUDE EARLY EDEMA. 2. DEVELOPING ATELECTASIS, BOTH LUNG BASES. 3. I SUSPECT SMALL, BILATERAL EFFUSIONS, GREATER ON THE LEFT THAN THE RIGHT.
[2019-11-06] MEDS: PANTOPRAZOLE 40 MG TABLET PO SCH (08:03)
[2019-11-06] MEDS ORDERED: ENOXAPARIN 40 MG/0.4 ML SYRINGE SQ SCH (09:00)
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
[2019-11-06] MEDS: DEXTROSE 5% IN WATER 1,000 ML with SODIUM BICARB (1 MEQ/ML) 150 ML IV SCH ×2 (10:52→23:39)
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
--- NOTE | 2019-11-06 13:19 | CONS ---
CONSULTATION REASON FOR CONSULT: Renal failure. HISTORY OF PRESENT ILLNESS: Patient is an 84-year-old female who was admitted to the hospital with nausea, vomiting, increased weakness, increased redness and pain in her left foot and lower leg. The patient did not have any fevers. Her blood pressure was on the lower side. When she came in, she was found to have a serum creatinine of 10.2 mg/dL. CO2 was 10. The patient had a previous creatinine of 1.24 on 05/20/2019. MMODL / IJN: [id number] /
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
[2019-11-06 13:59] LABS: Prothrombin Time 19.8 sec (9.0-12.0)
--- NOTE | 2019-11-06 14:44 | CT ---
EXAMINATION TYPE: CT brain wo con DATE OF EXAM: 11/06/2019 COMPARISON: 05/10/2011 HISTORY: 84-year-old female Encephalopathy, coagulopathy. TECHNIQUE: Examination was done in axial plane without intravenous contrast. Coronal and sagittal r econstructions performed. CT DLP: 1060.4 mGycm Automated exposure control for dose reduction was used. FINDINGS: There is no evidence of acute intracranial hemorrhage, acute ischemic changes, mass, mass-effect, or extra-axial fluid collection. There is no effacement of cerebral sulci or basal subarachnoid cister ns. There is no midline shift. Prieto-white matter distinction is preserved. Moderate generalized supratentorial volume loss with secondary mild ventricular prominence slightly p rogressed from 2011. Moderate patchy and confluent white matter hypodensities in both cerebral hemisp heres also progressed from 2011. Atherosclerotic calcifications within the carotid siphons. Partially empty sella. Visualized paranasal sinuses show moderate mucosal thickening with some frothy opacification left sph enoid sinus. Prior right-sided mastoidectomy. There is some opacification of the residual right-sided mastoid air cells noted. This appearance is unchanged from 2011. IMPRESSION: 1. As compared to 2011, slight progression in generalized cerebral atrophy and progressive moderate c hanges of chronic small vessel ischemic disease. No acute intracranial body seen. 2. Correlate for possible acute on chronic left sphenoid sinusitis. 3. Prior right-sided mastoidectomy redemonstrated. There is similar opacification of the residual rig ht-sided mastoid air cells as compared to 2011, possibly chronic. Correlate for any mastoid pain to e xclude mastoiditis.
[2019-11-06] MEDS ORDERED: HEPARIN SODIUM,PORCINE 5,000 UNIT/ML 1 ML VIAL ONE (16:00)
[2019-11-06] MEDS ORDERED: LIDOCAINE 1% INJ 10MG/ML (20 ML MDV) ONE (16:00)
[2019-11-06 17:05] LABS: Glucose,Whole Blood 140 mg/dL (75-99)
[2019-11-06] MEDS: MIDODRINE 5 MG TAB PO PRN (18:03)
--- NOTE | 2019-11-06 18:31 | PCN ---
PROCEDURE NOTE PREOP: Acute chronic renal failure. PROCEDURE: Ultrasound-guided triple-lumen dialysis catheter placed in the right femoral approach. DESCRIPTION OF PROCEDURE: The patient was seen in the intensive care unit. Right groin was prepped and draped in a sterile manner. 1% lidocaine infiltrated in the groin area. Ultrasound-guided micropuncture introduced right femoral vein. After micropuncture guidewire was passed and 4-Irish sheath was advanced on top of the guidewire. Then through the sheath we passed a regular guidewire without any resistance. After that dilator was advanced on top of the guidewire. Then we placed the triple-lumen catheter on top of the guidewire, flushed with heparin saline and hep-locked. Secured with 3-0 nylon. Dressing applied. Patient tolerated the procedure well. MMODL / VANDANAN: [id number] /
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
[2019-11-06 20:48] LABS: Glucose,Whole Blood 122 mg/dL (75-99)
[2019-11-06 23:37] LABS: Hepatitis B Surface AB- Quant 3.5 mIU/mL; Hepatitis B Surface Antibody Non-Reactive (Non-Reactive); Hepatitis B Surface Antigen Non-Reactive (Non-Reactive)
[2019-11-07] MEDS: SODIUM CHLORIDE 0.9% 1,000 ML IV SCH ×2 (01:47→08:49)
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
[2019-11-07 05:38] LABS: Anisocytosis Slight; Basophils % (A) 0 %; Eosinophils % (A) 1 %; Lymphocytes # (A) 0.5 k/uL (1.0-4.8); Lymphocytes % (A) 7 %; MCHC 33.5 g/dL (31.0-37.0); Monocytes # (A) 0.5 k/uL (0-1.0); Monocytes % (A) 6 %; Neutrophils # (A) 6.7 k/uL (1.3-7.7); Neutrophils % (A) 86 %; Platelet Count 211 k/uL (150-450); RBC 2.37 m/uL (3.80-5.40); RDW 17.8 % (11.5-15.5); WBC 7.9 k/uL (3.8-10.6)
[2019-11-07 05:45] LABS: HGB 6.7 gm/dL (11.4-16.0); MCV 83.6 fL (80.0-100.0)
[2019-11-07 05:48] LABS: HCT 19.9 % (34.0-46.0)
[2019-11-07 05:52] LABS: Potassium 3.5 mmol/L (3.5-5.1)
[2019-11-07 06:03] LABS: Calcium 6.4 mg/dL (8.4-10.2)
[2019-11-07 06:49] LABS: Glucose,Whole Blood 223 mg/dL (75-99)
[2019-11-07] MEDS ORDERED: CALCIUM CHLORIDE 100 MG/ML 10 ML SYRINGE IVP ONE (06:52)
[2019-11-07] MEDS ORDERED: LEVOFLOXACIN 250MG-D5W PMX 250 MG in DEXTROSE/WATER 1 50ML.BAG IVPB SCH (08:15)
[2019-11-07] MEDS: PANTOPRAZOLE 40 MG TABLET PO SCH (08:48)
[2019-11-07] MEDS: MIDODRINE 5 MG TAB PO PRN (08:48)
[2019-11-07] MEDS: HYDROmorphone 0.5 MG/0.5 ML SYRINGE IVP PRN (08:48)
[2019-11-07] MEDS: ENOXAPARIN 30 MG/0.3 ML SYRINGE SQ SCH (08:49)
--- NOTE | 2019-11-07 11:19 | PN ---
PROGRESS NOTE Patient is seen for followup for acute kidney injury. She was admitted with serum creatinine of about 10.2 mg/dL. Initially, patient did have some urine output and her creatinine had gone down to around 8.6, but then her urine output dropped to about 5 mL an hour for pretty much the whole day yesterday and therefore patient was started on dialysis. She had her first treatment yesterday. Blood pressure had dropped. We actually gave fluids. The serum creatinine today is down to 4.02. Patient remains oliguric with the urine output 5-10 mL an hour. Occasionally 10, mostly 5. The patient is currently maintained on aggressive IV hydration. She was volume depleted on admission with underlying urinary tract infection and left lower extremity cellulitis. PHYSICAL EXAMINATION: This morning, patient is awake. She is comfortable, not in any acute distress. Blood pressure was 116/83, heart rate 89 per minute, patient is afebrile. Examination shows patient is awake, alert, not in any acute distress. Breath sounds are heard. ABDOMEN: Soft, nontender. Examination of lower extremities shows left lower extremity cellulitis with chronic skin changes bilateral legs with scaling of the skin noted as well. BLOW MOLD TECHNICIAN exam grossly intact. LABS: Hemoglobin 6.7, sodium 134, potassium 3.5, BUN 55, creatinine 4.02, calcium 6.4. ASSESSMENT: 1. Acute kidney injury acute tubular necrosis secondary to NSAIDs, sepsis and hypotension and hypovolemia currently oliguric, started on dialysis. Patient has had one treatment yesterday. We will be plan to do another session of dialysis tomorrow if her urine output does not order picker/assembler. 2. Anion gap metabolic acidosis associated with renal failure, status post IV bicarb. 3. Hyponatremia associated with renal failure now improved. 4. Left lower extremity cellulitis, started on antibiotics. 5. Coagulopathy with supratherapeutic INR. 6. Chronic kidney disease. Previous creatinine 1.24. Etiology likely nephrosclerosis. 7. Anemia. No active bleeding noted. Hemoglobin dropped to 6.7 today. Recheck stool for occult blood. PLAN: Continue antibiotics. Continue IV fluids. DC bicarb drip add midodrine and hemodialysis in a.m. if patient remains oliguric. MMODL / IJN: [id number] /
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
[2019-11-07 12:26] LABS: Glucose,Whole Blood 129 mg/dL (75-99)
[2019-11-07 12:49] LABS: INR 1.4 (<1.2); Prothrombin Time 14.4 sec (9.0-12.0)
[2019-11-07] MEDS: MIDODRINE 5 MG TAB PO SCH ×2 (13:39→16:33)
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
[2019-11-07 16:58] LABS: Glucose,Whole Blood 113 mg/dL (75-99)
[2019-11-07] MEDS ORDERED: LEVOFLOXACIN 500MG-D5W PMX 500 MG in DEXTROSE/WATER 1 100ML.BAG IVPB SCH (17:00)
[2019-11-07 17:15] LABS: Glucose,Whole Blood 81 mg/dL (75-99)
--- NOTE | 2019-11-07 23:21 | PN ---
PROGRESS NOTE DATE OF SERVICE: 11/07/2019 REASON FOR FOLLOWUP: Left lower extremity cellulitis. INTERVAL HISTORY: The patient is currently afebrile. The patient is breathing comfortably. Denies having any chest pain or cough. No nausea, vomiting, abdominal pain, or any worsening pain to the left leg area. PHYSICAL EXAMINATION: Blood pressure 100/82 with a pulse of 63, temperature 98.5. She is 96% on room air. General description is an elderly female lying in bed in no distress. RESPIRATORY SYSTEM: Unlabored breathing, clear to auscultation anteriorly. HEART: S1, S2. Regular rate and rhythm. ABDOMEN: Soft, no tenderness. Left leg is currently dressed up. No obvious drainage on the dressing. LABS: Hemoglobin 6.7, white count 7.9, BUN of 55, creatinine 4.02. Left leg wound culture showing Enterococcus and gram-negative bacilli. Urine with Klebsiella. DIAGNOSTIC IMPRESSION AND PLAN: Patient with left lower extremity cellulitis. Culture now showing a gram- negative in addition to the Enterococcus. Patient is covered daptomycin. We will levaquin to cover for the gram-negative and monitor clinical course closely. MMODL / IJN: [id number] / MTDParisa
[2019-11-08 04:43] LABS: Calcium 6.8 mg/dL (8.4-10.2); INR 1.2 (<1.2); Prothrombin Time 12.5 sec (9.0-12.0)
[2019-11-08 04:51] LABS: Anisocytosis Slight; Basophils % (A) 0 %; Eosinophils # (A) 0.1 k/uL (0-0.7); Eosinophils % (A) 2 %; HCT 24.9 % (34.0-46.0); Hypochromasia Moderate; Lymphocytes # (A) 0.9 k/uL (1.0-4.8); Lymphocytes % (A) 11 %; MCH 28.8 pg (25.0-35.0); MCHC 32.2 g/dL (31.0-37.0); Mean Platelet Volume 7.8; Monocytes # (A) 0.5 k/uL (0-1.0); Monocytes % (A) 6 %; Neutrophils # (A) 6.4 k/uL (1.3-7.7); Neutrophils % (A) 79 %; Platelet Count 216 k/uL (150-450); RBC 2.79 m/uL (3.80-5.40); RDW 17.3 % (11.5-15.5); WBC 8.1 k/uL (3.8-10.6)
[2019-11-08 04:58] LABS: MCV 89.5 fL (80.0-100.0)
[2019-11-08] MEDS: SODIUM CHLORIDE 0.9% 1,000 ML IV SCH ×4 (05:00→20:07)
[2019-11-08 07:02] LABS: Glucose,Whole Blood 127 mg/dL (75-99)
[2019-11-08] MEDS: MIDODRINE 5 MG TAB PO SCH ×3 (08:25→19:19)
[2019-11-08] MEDS: ENOXAPARIN 30 MG/0.3 ML SYRINGE SQ SCH (08:25)
[2019-11-08] MEDS: PANTOPRAZOLE 40 MG TABLET PO SCH (08:25)
--- NOTE | 2019-11-08 09:09 | P.PN ---
Subjective Patient is seen in follow for acute kidney injury on chronic kidney disease. Started on hemodialysis on November 05. No significant improvement in renal function. She is receiving IV fluids. Urine output 5-10 mL an hour. Off vasopressors. Maintain on midodrine 3 times daily. Vital signs are stable. General: The patient appeared well nourished and normally developed. HEENT: Head exam is unremarkable. Neck is without jugular venous distension. LUNGS: Lungs are clear to auscultation and percussion. Breath sounds decreased. HEART: Rate and Rhythm are regular. ABDOMEN: Nontender nondistended. EXTREMITITES: 1+ edema. Erythema noted. Tender to touch. Objective - Vital Signs Vital signs: Vital Signs Temp 98.2 F 11/08/19 04:00 Pulse 62 11/08/19 06:00 Resp 17 11/08/19 06:00 BP 106/51 11/08/19 06:00 Pulse Ox 100 11/08/19 06:00 Intake & Output 11/07/19 11/08/19 11/08/19 18:59 06:59 18:59 Intake Total 2310 2030 Output Total 75 85 Balance 2235 1945 Weight 80.2 kg Intake: IV 1460 1560 0.9 NaCl- 1260 1560 Sodium Bicarbonate in D5W 200 Oral 240 470 Blood Product 610 Rc As-1 Unit 310 [id number] Output: Urine 75 85 Other: Voiding Method Indwelling Catheter Indwelling Catheter Indwelling Catheter - Labs CBC & Chem 7: 11/08/19 03:41 11/08/19 03:41 Labs: Abnormal Lab Results - Last 24 Hours (Table) 11/07/19 11/07/19 11/07/19 Range/Units 07:11 07:11 12:24 RBC (3.80-5.40) m/uL Hgb (11.4-16.0) gm/dL Hct (34.0-46.0) % RDW (11.5-15.5) % Lymphocytes # (1.0-4.8) k/uL PT 14.4 H (9.0-12.0) sec INR 1.4 H (<1.2) Sodium (137-145) mmol/L BUN (7-17) mg/dL Creatinine (0.52-1.04) mg/dL Glucose (74-99) mg/dL POC Glucose (mg/dL) 129 H (75-99) mg/dL Calcium (8.4-10.2) mg/dL Crossmatch See Detail 11/07/19 11/08/19 11/08/19 Range/Units 16:56 03:41 03:41 RBC 2.79 L (3.80-5.40) m/uL Hgb 8.0 L (11.4-16.0) gm/dL Hct 24.9 L (34.0-46.0) % RDW 17.3 H (11.5-15.5) % Lymphocytes # 0.9 L (1.0-4.8) k/uL PT (9.0-12.0) sec INR (<1.2) Sodium 132 L (137-145) mmol/L BUN 58 H (7-17) mg/dL Creatinine 4.14 H (0.52-1.04) mg/dL Glucose 152 H (74-99) mg/dL POC Glucose (mg/dL) 113 H (75-99) mg/dL Calcium 6.8 L (8.4-10.2) mg/dL Crossmatch 11/08/19 11/08/19 Range/Units 03:41 07:01 RBC (3.80-5.40) m/uL Hgb (11.4-16.0) gm/dL Hct (34.0-46.0) % RDW (11.5-15.5) % Lymphocytes # (1.0-4.8) k/uL PT 12.5 H (9.0-12.0) sec INR 1.2 H (<1.2) Sodium (137-145) mmol/L BUN (7-17) mg/dL Creatinine (0.52-1.04) mg/dL Glucose (74-99) mg/dL POC Glucose (mg/dL) 127 H (75-99) mg/dL Calcium (8.4-10.2) mg/dL Crossmatch Microbiology - Last 24 Hours (Table) 11/05/19 15:18 Blood Culture - Preliminary Blood No Growth after 48 hours 11/05/19 17:20 Urine Culture - Final Urine,Voided Klebsiella oxytoca 11/06/19 10:58 Gram Stain - Preliminary Leg - Left Wound Culture - Preliminary Gram Neg Bacilli Group D Enterococcus Assessment and Plan Plan: Assessment: 1. Acute kidney injury secondary to ATN secondary to sepsis and nonsteroidal use. Currently hemodialysis dependent. 2. Metabolic acidosis status post IV bicarb. Better. 3. Lower extremity cellulitis maintained on antibiotics. 4. Hyponatremia secondary to acute kidney injury. 5. UTI with urine culture positive for Klebsiella. 6. Hypotension maintained on midodrine. 7. Chronic kidney disease stage III with baseline creatinine in the range of 1- 1.3. Plan: Maintain normal saline at 75 mL an hour. Maintain midodrine. Second treatment of hemodialysis today. Continue to monitor renal function and urine output closely. Encouraged oral intake.
[2019-11-08 10:47] LABS: Folate, Serum 7.8 ng/mL
[2019-11-08 11:03] LABS: % Iron Saturation 26.95 (12.00-45.00); Ferritin 494.7 ng/mL (10.0-291.0)
[2019-11-08 11:27] LABS: Glucose,Whole Blood 124 mg/dL (75-99)
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
[2019-11-08 16:50] LABS: Glucose,Whole Blood 155 mg/dL (75-99)
--- NOTE | 2019-11-08 18:31 | P.PN ---
Progress Note - Text Progress Note Date: 11/08/19 Presenting complaint: Nausea vomiting Hospital course: This is a 84-year-old patient of Dr. Castro, who is a resident of [facility] [address]. Admitted with-acute UTI, bilateral lower extremity cellulitis more on the left side, severe sepsis, metabolic encephalopathy from above and, Coumadin co agulopathy,. Also acute kidney injury -felt to be from NSAIDs. Started on hemodialysis. Patient's underlying chronic kidney disease with a previous creatinine of 1.24. Today-feeling a bit tired. Getting hemodialysis. Oral intake limited. Review of systems: Was done for constitutional, cardiovascular, GI, pulmonary. relevant finding as above Active Medications Albuterol/Ipratropium (Duoneb 0.5 Mg-3 Mg/3 Ml Soln) 3 ml INHALATION RT-Q4H PRN PRN Reason: Shortness Of Breath Or Wheezing Enoxaparin Sodium (Lovenox) 30 mg SQ DAILY [facility] Last Admin: 11/08/19 08:25 Dose: 30 mg Documented by: Hydromorphone HCl (Dilaudid) 1 mg IVP Q2HR PRN PRN Reason: Pain Scale 6 to 7 Last Admin: 11/06/19 02:41 Dose: 1 mg Documented by: Hydromorphone HCl (Dilaudid) 0.5 mg IVP Q2HR PRN PRN Reason: Pain Last Admin: 11/07/19 08:48 Dose: 0.5 mg Documented by: Sodium Chloride (Saline 0.9%) 1,000 mls @ 75 mls/hr IV .[id number] [facility] Last Admin: 11/08/19 08:33 Dose: 75 mls/hr Documented by: Daptomycin 250 mg/ Sodium (Chloride) 50 mls @ 100 mls/hr IVPB Q48H [facility]; Protocol Last Admin: 11/08/19 07:18 Dose: 100 mls/hr Documented by: Levofloxacin 500 mg/ IV (Solution) 100 mls @ 100 mls/hr IVPB Q48H [facility] Last Admin: 11/07/19 16:32 Dose: 100 mls/hr Documented by: Midodrine (Proamatine) 10 mg PO DAILY PRN PRN Reason: Hypotension Last Admin: 11/07/19 08:48 Dose: 10 mg Documented by: Midodrine (Proamatine) 10 mg PO AC-TID [facility] Last Admin: 11/08/19 13:30 Dose: 10 mg Documented by: Naloxone HCl (Narcan) 0.2 mg IV Q2M PRN PRN Reason: Opioid Reversal Pantoprazole Sodium (Protonix) 40 mg PO AC-BRKFST [facility] Last Admin: 11/08/19 08:25 Dose: 40 mg Documented by: Physical examination: VITAL SIGNS: 97.9, 74, 16, 1506, 98% on room air GENERAL: Laying in bed, awake EYES: [Pupils equal. Conjunctiva pale HEENT: External appearance of nose and ears normal, oral cavity grossly normal. NECK: JVD not raised; masses not palpable. HEART: First and second heart sounds are normal; no edema. LUNGS: Respiratory rate normal; clear to auscultation. ABDOMEN: Soft, nontender, liver spleen not palpable, no masses palpable. PSYCH: Alert and oriented x3; mood and affect normal MUSCULOSKELETAL: Evidence of OA especially in the hands EXTREMITIES: Dressing over the left leg wound INVESTIGATIONS, reviewed in the clinical context: White count 8.1 hemoglobin 8 platelets 216 progression for bun 58 creatinine 4.14 Assessment: -Acute kidney injury, from acute tubular necrosis from underlying infection and also secondary to NSAIDs. Taking naproxen at home. -Anion gap metabolic acidosis from renal failure status post bicarbonate drip -Baseline chronic kidney disease stage III with a previous creatinine of 1.24 -Anemia possibly chronic kidney disease -Obesity BMI 32.6 -Essential hypertension -Primary osteoarthritis -Chronic urinary stress incontinence severe -GERD -Medical debility -using wheelchair -Hyponatremia likely from fluid overload -Left lower extremity cellulitis and wound with cultures growing enterococcus group D and Morganella morganii -Acute UTI from cystitis from Klebsiella oxytoca Plan: Patient was hemodialyzed today-second treatment.. Encourage oral intake.-On IV fluids and 75 mL an hour.
[2019-11-08 20:48] LABS: Glucose,Whole Blood 148 mg/dL (75-99)
--- NOTE | 2019-11-08 22:18 | PN ---
PROGRESS NOTE DATE OF SERVICE: 11/08/2019 REASON FOR FOLLOWUP: Left lower extremity cellulitis and UTI. INTERVAL HISTORY: The patient is currently afebrile. The patient is breathing comfortably. Denies having any chest pain or shortness of breath or cough. No nausea. No vomiting. No abdominal pain. Some pain to the left leg; no worsening. PHYSICAL EXAMINATION: Blood pressure 108/54, pulse of 74, temperature 98.3. She is 99% on room air. General description is an elderly female lying in bed in no distress. RESPIRATORY SYSTEM: Unlabored breathing. Clear to auscultation anteriorly. No wheeze or crackle. HEART: S1, S2. Regular rate and rhythm. ABDOMEN: Soft. No tenderness. Left leg is currently dressed up. Minimal drainage on the dressing. LABS: Hemoglobin 8, white count 8.1. BUN of 58, creatinine 4.14. DIAGNOSTIC IMPRESSION AND PLAN: Patient with left leg wound with secondary cellulitis. Culture with group D Enterococcus and Morganella which seem to have a [id number] pattern, though urine is sensitive pathogen. We will keep the patient on daptomycin and Invanz to cover for the Morganella. Local care to continue as ordered and monitor her clinical course closely. MMODL / IJN: [id number] / GUNNAR
[2019-11-09] MEDS: HYDROmorphone 0.5 MG/0.5 ML SYRINGE IVP PRN (01:19)
[2019-11-09] MEDS: SODIUM CHLORIDE 0.9% 1,000 ML IV SCH ×2 (05:35→20:09)
[2019-11-09 06:59] LABS: Glucose,Whole Blood 103 mg/dL (75-99)
[2019-11-09 07:30] LABS: Calcium 7.1 mg/dL (8.4-10.2); Magnesium 1.5 mg/dL (1.6-2.3); Phosphorus 2.8 mg/dL (2.5-4.5); Potassium 3.7 mmol/L (3.5-5.1)
[2019-11-09 07:45] LABS: Anisocytosis Slight; Basophils % (A) 0 %; Eosinophils # (A) 0.2 k/uL (0-0.7); Eosinophils % (A) 2 %; HCT 27.2 % (34.0-46.0); HGB 8.6 gm/dL (11.4-16.0); Hypochromasia Slight; Lymphocytes # (A) 1.3 k/uL (1.0-4.8); Lymphocytes % (A) 15 %; MCH 28.2 pg (25.0-35.0); MCHC 31.8 g/dL (31.0-37.0); MCV 88.5 fL (80.0-100.0); Mean Platelet Volume 7.8; Monocytes # (A) 0.5 k/uL (0-1.0); Monocytes % (A) 6 %; Neutrophils # (A) 6.4 k/uL (1.3-7.7); Neutrophils % (A) 75 %; Platelet Count 163 k/uL (150-450); RBC 3.07 m/uL (3.80-5.40); RDW 17.4 % (11.5-15.5); WBC 8.6 k/uL (3.8-10.6)
--- NOTE | 2019-11-09 09:07 | P.PN ---
Subjective Patient is seen in follow for acute kidney injury on chronic kidney disease. Started on hemodialysis on November 05. Last treatment November 07. Oral intake is fair. She has been voiding but accurate I's and O's are not documented. Vital signs are stable. General: The patient appeared well nourished and normally developed. HEENT: Head exam is unremarkable. Neck is without jugular venous distension. LUNGS: Lungs are clear to auscultation and percussion. Breath sounds decreased. HEART: Rate and Rhythm are regular. ABDOMEN: Nontender nondistended. EXTREMITITES: 1+ edema. Erythema noted. Tender to touch. Objective - Vital Signs Vital signs: Vital Signs Temp 98.2 F 11/09/19 07:00 Pulse 74 11/09/19 08:00 Resp 15 11/09/19 08:00 BP 100/52 11/09/19 07:00 Pulse Ox 99 11/09/19 07:00 Intake & Output 11/08/19 11/09/19 11/09/19 18:59 06:59 18:59 Intake Total 940 712.5 Output Total 1450 225 Balance -510 712.5 -225 Intake: Intake, IV Titration 600 712.5 Amount Sodium Chloride 0.9% 1, 600 712.5 000 ml @ 75 mls/hr IV . [id number] [facility] Rx#:[id number] Oral 340 Output: Urine 450 225 Hemodialysis 1000 Other: Voiding Method Indwelling Catheter Indwelling Catheter Indwelling Catheter - Labs CBC & Chem 7: 11/09/19 06:37 11/09/19 06:37 Labs: Abnormal Lab Results - Last 24 Hours (Table) 11/07/19 11/08/19 11/08/19 Range/Units 04:31 11:26 16:48 RBC (3.80-5.40) m/uL Hgb (11.4-16.0) gm/dL Hct (34.0-46.0) % RDW (11.5-15.5) % Sodium (137-145) mmol/L BUN (7-17) mg/dL Creatinine (0.52-1.04) mg/dL POC Glucose (mg/dL) 124 H 155 H (75-99) mg/dL Calcium (8.4-10.2) mg/dL Magnesium (1.6-2.3) mg/dL Iron 45 L (50-170) ug/dL TIBC 167 L (228-460) ug/dL Ferritin 494.7 H (10.0-291.0) ng/mL 11/08/19 11/09/19 11/09/19 Range/Units 20:47 06:37 06:37 RBC 3.07 L (3.80-5.40) m/uL Hgb 8.6 L (11.4-16.0) gm/dL Hct 27.2 L (34.0-46.0) % RDW 17.4 H (11.5-15.5) % Sodium 132 L (137-145) mmol/L BUN 36 H (7-17) mg/dL Creatinine 3.10 H (0.52-1.04) mg/dL POC Glucose (mg/dL) 148 H (75-99) mg/dL Calcium 7.1 L (8.4-10.2) mg/dL Magnesium 1.5 L (1.6-2.3) mg/dL Iron (50-170) ug/dL TIBC (228-460) ug/dL Ferritin (10.0-291.0) ng/mL 11/09/19 Range/Units 06:58 RBC (3.80-5.40) m/uL Hgb (11.4-16.0) gm/dL Hct (34.0-46.0) % RDW (11.5-15.5) % Sodium (137-145) mmol/L BUN (7-17) mg/dL Creatinine (0.52-1.04) mg/dL POC Glucose (mg/dL) 103 H (75-99) mg/dL Calcium (8.4-10.2) mg/dL Magnesium (1.6-2.3) mg/dL Iron (50-170) ug/dL TIBC (228-460) ug/dL Ferritin (10.0-291.0) ng/mL Microbiology - Last 24 Hours (Table) 11/05/19 15:18 Blood Culture - Preliminary Blood No Growth after 72 hours 11/06/19 10:58 Gram Stain - Preliminary Leg - Left Wound Culture - Preliminary Morganella morganii Group D Enterococcus Assessment and Plan Plan: Assessment: 1. Acute kidney injury secondary to ATN secondary to sepsis and nonsteroidal use. Currently hemodialysis dependent. 2. Metabolic acidosis status post IV bicarb. Better. 3. Lower extremity cellulitis maintained on antibiotics. 4. Hyponatremia secondary to acute kidney injury. 5. UTI with urine culture positive for Klebsiella. 6. Hypotension maintained on midodrine. 7. Chronic kidney disease stage III with baseline creatinine in the range of 1- 1.3. Plan: Decreased rate of IV fluids to 50 mL an hour. Maintain midodrine. Continue to monitor renal function and urine output closely. Encouraged oral intake. Hold hemodialysis today. Continue to assess on daily basis.
[2019-11-09] MEDS: PANTOPRAZOLE 40 MG TABLET PO SCH (09:27)
[2019-11-09] MEDS: MIDODRINE 5 MG TAB PO SCH ×3 (09:27→18:21)
[2019-11-09] MEDS: ENOXAPARIN 30 MG/0.3 ML SYRINGE SQ SCH (09:28)
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
[2019-11-09 12:03] LABS: Glucose,Whole Blood 117 mg/dL (75-99)
[2019-11-09] MEDS: ERTAPENEM 0.5 GM in SODIUM CHLORIDE 0.9% 50 ML IVPB SCH (13:36)
[2019-11-09 16:50] LABS: Glucose,Whole Blood 136 mg/dL (75-99)
--- NOTE | 2019-11-09 19:38 | P.PN ---
Progress Note - Text Progress Note Date: 11/09/19 Presenting complaint: Nausea vomiting Hospital course: This is a 84-year-old patient of Dr. Castro, [facility] [place]. Admitted with-acute UTI, bilateral lower extremity cellulitis more on the left side, severe sepsis, metabolic encephalopathy from above and, Coumadin coa gulopathy,. Also acute kidney injury -felt to be from NSAIDs. Started on hemodialysis. Patient's underlying chronic kidney disease with a previous creatinine of 1.24. Today-no new issues. Not eating too much. No hemodialysis today. IV fluids decreased to 50 mL an hour. Review of systems: Was done for constitutional, cardiovascular, GI, pulmonary. relevant finding as above Active Medications Albuterol/Ipratropium (Duoneb 0.5 Mg-3 Mg/3 Ml Soln) 3 ml INHALATION RT-Q4H PRN PRN Reason: Shortness Of Breath Or Wheezing Enoxaparin Sodium (Lovenox) 30 mg SQ DAILY FLY Last Admin: 11/09/19 09:28 Dose: 30 mg Documented by: Hydromorphone HCl (Dilaudid) 1 mg IVP Q2HR PRN PRN Reason: Pain Scale 6 to 7 Last Admin: 11/06/19 02:41 Dose: 1 mg Documented by: Hydromorphone HCl (Dilaudid) 0.5 mg IVP Q2HR PRN PRN Reason: Pain Last Admin: 11/09/19 01:19 Dose: 0.5 mg Documented by: Sodium Chloride (Saline 0.9%) 1,000 mls @ 50 mls/hr IV .Q20H FLY Last Admin: 11/09/19 05:35 Dose: Not Given Documented by: Daptomycin 250 mg/ Sodium (Chloride) 50 mls @ 100 mls/hr IVPB Q48H FLY; Protocol Last Admin: 11/08/19 07:18 Dose: 100 mls/hr Documented by: Ertapenem 0.5 gm/ Sodium (Chloride) 50 mls @ 100 mls/hr IVPB DAILY FLY; Protocol Last Admin: 11/09/19 13:36 Dose: 100 mls/hr Documented by: Midodrine (Proamatine) 10 mg PO DAILY PRN PRN Reason: Hypotension Last Admin: 11/07/19 08:48 Dose: 10 mg Documented by: Midodrine (Proamatine) 10 mg PO AC-TID [facility] Last Admin: 11/09/19 18:21 Dose: 10 mg Documented by: Naloxone HCl (Narcan) 0.2 mg IV Q2M PRN PRN Reason: Opioid Reversal Pantoprazole Sodium (Protonix) 40 mg PO AC-BRKFST [facility] Last Admin: 11/09/19 09:27 Dose: 40 mg Documented by: Physical examination: VITAL SIGNS: 98.4, 70, 17, 134/64, 99% on room air GENERAL: Sitting up,, awake EYES: [Pupils equal. Conjunctiva pale HEENT: External appearance of nose and ears normal, oral cavity grossly normal. NECK: JVD not raised; masses not palpable. HEART: First and second heart sounds are normal; some edema. LUNGS: Respiratory rate normal; clear to auscultation. ABDOMEN: Soft, nontender, liver spleen not palpable, no masses palpable. PSYCH: Alert and oriented x3; mood and affect normal MUSCULOSKELETAL: Evidence of OA especially in the hands EXTREMITIES: Dressing over the left leg wound INVESTIGATIONS, reviewed in the clinical context: White count 8.6 hemoglobin 8.6 platelets 163 bun 26 creatinine 3.10 Assessment: -Acute kidney injury, from acute tubular necrosis from underlying infection and also secondary to NSAIDs. Taking naproxen at home. -Anion gap metabolic acidosis from renal failure status post bicarbonate drip -Baseline chronic kidney disease stage III with a previous creatinine of 1.24 -Anemia possibly chronic kidney disease -Obesity BMI 32.6 -Essential hypertension -Primary osteoarthritis -Chronic urinary stress incontinence severe -GERD -Medical debility -using wheelchair -Hyponatremia likely from fluid overload -Left lower extremity cellulitis and wound with cultures growing enterococcus group D and Morganella morganii -Acute UTI from cystitis from Klebsiella oxytoca Plan: No hemodialysis today. IV fluids decreased to 50 mL hour. Other medications to continue. On IV daptomycin and IV ertapenem. Discussed the patient.
[2019-11-09 20:55] LABS: Glucose,Whole Blood 113 mg/dL (75-99)
--- NOTE | 2019-11-09 23:37 | PN ---
PROGRESS NOTE DATE OF SERVICE: 11/09/2019 REASON FOR FOLLOWUP: Left lower extremity wound and cellulitis and UTI. INTERVAL HISTORY: The patient is currently afebrile. The patient is breathing comfortably. The patient denies having any chest pain or shortness of breath or cough. No nausea, no vomiting. Left leg with some discomfort, but improving. Did have slight drainage. PHYSICAL EXAMINATION: Blood pressure 134/64 with a pulse of 70, temperature 98.4. She is 99% on room air. General description is an elderly female up in the chair in no distress. RESPIRATORY SYSTEM: Unlabored breathing, clear to auscultation anteriorly. HEART: S1, S2. Regular rate and rhythm. ABDOMEN: Soft, no tenderness. Left leg wound is currently dressed up. Minimal drainage on the dressing. LABS: Hemoglobin 8.6, white count 8.6, BUN of 36, creatinine 3.10. DIAGNOSTIC IMPRESSION AND PLAN: Patient with acute left lower extremity cellulitis. Culture has been positive with Morganella, Enterococcus also showing anaerobes. Patient is currently covered with Invanz and daptomycin because of multiple antibiotic allergies. To continue local wound care with dry Aquacel Silver dressing and monitor clinical course closely. MMODL / IJN: [id number] /
[2019-11-10 07:04] LABS: Glucose,Whole Blood 107 mg/dL (75-99)
[2019-11-10 08:02] LABS: Calcium 7.1 mg/dL (8.4-10.2); Magnesium 1.4 mg/dL (1.6-2.3); Potassium 3.7 mmol/L (3.5-5.1)
[2019-11-10] MEDS: ENOXAPARIN 30 MG/0.3 ML SYRINGE SQ SCH (08:12)
[2019-11-10] MEDS: ERTAPENEM 0.5 GM in SODIUM CHLORIDE 0.9% 50 ML IVPB SCH (08:12)
[2019-11-10] MEDS: MIDODRINE 5 MG TAB PO SCH ×3 (08:13→16:12)
[2019-11-10] MEDS: PANTOPRAZOLE 40 MG TABLET PO SCH (08:13)
[2019-11-10] MEDS ORDERED: FUROSEMIDE 10 MG/ML 10 ML VIAL IV STA (09:26)
--- NOTE | 2019-11-10 09:27 | P.PN ---
Subjective Patient is seen in follow for acute kidney injury on chronic kidney disease. Started on hemodialysis on November 05. Last treatment November 07. Urine output 300 mL overnight and about 580 mL in the last 24 hours. Currently resting in bed. Oral intake fair. Vital signs are stable. General: The patient appeared well nourished and normally developed. HEENT: Head exam is unremarkable. Neck is without jugular venous distension. LUNGS: Lungs are clear to auscultation and percussion. Breath sounds decreased. HEART: Rate and Rhythm are regular. ABDOMEN: Nontender nondistended. EXTREMITITES: 1+ edema. Erythema noted. Tender to touch. Objective - Vital Signs Vital signs: Vital Signs Temp 98.9 F 11/10/19 07:00 Pulse 70 11/10/19 07:00 Resp 18 11/10/19 07:00 BP 118/54 11/10/19 07:00 Pulse Ox 98 11/10/19 07:00 Intake & Output 11/09/19 11/10/19 11/10/19 18:59 06:59 18:59 Intake Total 680 700 Output Total 485 730 Balance 195 -30 Intake: Intake, IV Titration 200 700 Amount Sodium Chloride 0.9% 1, 200 700 000 ml @ 50 mls/hr IV . Q20H [facility] Rx#:[id number] Oral 480 Output: Urine 485 730 Uretheral (Slade) 300 Other: Voiding Method Indwelling Catheter Indwelling Catheter # Voids 1 # Bowel Movements 1 - Labs CBC & Chem 7: 11/09/19 06:37 11/10/19 07:18 Labs: Abnormal Lab Results - Last 24 Hours (Table) 11/09/19 11/09/19 11/09/19 Range/Units 12:02 16:46 20:54 Sodium (137-145) mmol/L Carbon Dioxide (22-30) mmol/L BUN (7-17) mg/dL Creatinine (0.52-1.04) mg/dL POC Glucose (mg/dL) 117 H 136 H 113 H (75-99) mg/dL Calcium (8.4-10.2) mg/dL Magnesium (1.6-2.3) mg/dL 11/10/19 11/10/19 Range/Units 07:02 07:18 Sodium 133 L (137-145) mmol/L Carbon Dioxide 21 L (22-30) mmol/L BUN 40 H (7-17) mg/dL Creatinine 3.44 H (0.52-1.04) mg/dL POC Glucose (mg/dL) 107 H (75-99) mg/dL Calcium 7.1 L (8.4-10.2) mg/dL Magnesium 1.4 L (1.6-2.3) mg/dL Microbiology - Last 24 Hours (Table) 11/05/19 15:18 Blood Culture - Preliminary Blood No Growth after 96 hours 11/06/19 10:58 Anaerobic Culture - Final Leg - Left Anaerobic Gm Negative Bacilli Anaerobic Gm Negative Bacilli#2 11/06/19 10:58 Gram Stain - Final Leg - Left Wound Culture - Final Morganella morganii Enterococcus faecalis Assessment and Plan Plan: Assessment: 1. Acute kidney injury secondary to ATN secondary to sepsis and nonsteroidal use. Currently hemodialysis dependent. Last hemodialysis November 07. Creatinine 3.44 today. 2. Metabolic acidosis secondary to acute kidney injury status post IV bicarb. 3. Lower extremity cellulitis maintained on antibiotics. 4. Hyponatremia secondary to acute kidney injury. 5. UTI with urine culture positive for Klebsiella. 6. Hypotension maintained on midodrine. Stable. 7. Chronic kidney disease stage III with baseline creatinine in the range of 1- 1.3. 8. Hypomagnesemia from poor oral intake. Plan: Maintain normal saline at 50 mL an hour. Lasix 80 mg IV once today. Maintain midodrine. Continue to monitor renal function and urine output closely. Encouraged oral intake. Hold hemodialysis today. Continue to assess on daily basis. Replace magnesium. 2 g IV today.
[2019-11-10] MEDS: MAGNESIUM SULFATE-D5W PMX 1 GM in DEXTROSE/WATER 1 100ML.BAG IVPB SCH ×2 (10:19→11:48)
[2019-11-10] MEDS: MAGNESIUM OXIDE 400 MG TAB PO SCH ×2 (11:47→20:44)
[2019-11-10 12:03] LABS: Glucose,Whole Blood 168 mg/dL (75-99)
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
[2019-11-10] MEDS: SODIUM CHLORIDE 0.9% 1,000 ML IV SCH (16:09)
[2019-11-10 16:58] LABS: Glucose,Whole Blood 132 mg/dL (75-99)
--- NOTE | 2019-11-10 17:13 | P.PN ---
Progress Note - Text Progress Note Date: 11/10/19 Presenting complaint: Nausea vomiting Hospital course: This is a 84-year-old patient of Dr. Castro, [facility] [place] Admitted with-acute UTI, bilateral lower extremity cellulitis more on the left side, severe sepsis, metabolic encephalopathy from above and, Coumadin coa gulopathy,. Also acute kidney injury -felt to be from NSAIDs. Started on hemodialysis. Patient's underlying chronic kidney disease with a previous creatinine of 1.24. Today-Feeling a bit better. Eating some. No hemodialysis today. IV fluids decreased to 50 mL an hour. Given a dose of IV Lasix per nephrology. Review of systems: Was done for constitutional, cardiovascular, GI, pulmonary. relevant finding as above Active Medications Albuterol/Ipratropium (Duoneb 0.5 Mg-3 Mg/3 Ml Soln) 3 ml INHALATION RT-Q4H PRN PRN Reason: Shortness Of Breath Or Wheezing Enoxaparin Sodium (Lovenox) 30 mg SQ DAILY [facility] Last Admin: 11/10/19 08:12 Dose: 30 mg Documented by: Hydromorphone HCl (Dilaudid) 1 mg IVP Q2HR PRN PRN Reason: Pain Scale 6 to 7 Last Admin: 11/06/19 02:41 Dose: 1 mg Documented by: Hydromorphone HCl (Dilaudid) 0.5 mg IVP Q2HR PRN PRN Reason: Pain Last Admin: 11/09/19 01:19 Dose: 0.5 mg Documented by: Sodium Chloride (Saline 0.9%) 1,000 mls @ 50 mls/hr IV .Q20H [facility] Last Admin: 11/10/19 16:09 Dose: 50 mls/hr Documented by: Daptomycin 250 mg/ Sodium (Chloride) 50 mls @ 100 mls/hr IVPB Q48H [facility]; Protocol Last Admin: 11/10/19 04:50 Dose: 100 mls/hr Documented by: Ertapenem 0.5 gm/ Sodium (Chloride) 50 mls @ 100 mls/hr IVPB DAILY [facility]; Protocol Last Admin: 11/10/19 08:12 Dose: 100 mls/hr Documented by: Magnesium Oxide (Mag-Ox) 400 mg PO BID [facility] Last Admin: 11/10/19 11:47 Dose: 400 mg Documented by: Midodrine (Proamatine) 10 mg PO DAILY PRN PRN Reason: Hypotension Last Admin: 11/07/19 08:48 Dose: 10 mg Documented by: Midodrine (Proamatine) 10 mg PO AC-TID [facility] Last Admin: 11/10/19 16:12 Dose: 10 mg Documented by: Naloxone HCl (Narcan) 0.2 mg IV Q2M PRN PRN Reason: Opioid Reversal Pantoprazole Sodium (Protonix) 40 mg PO AC-BRKFST [facility] Last Admin: 11/10/19 08:13 Dose: 40 mg Documented by: Physical examination: VITAL SIGNS: 98.9, 70, 18, 118/54, 98% on room air GENERAL: Sitting up,, awake EYES: [Pupils equal. Conjunctiva pale HEENT: External appearance of nose and ears normal, oral cavity grossly normal. NECK: JVD not raised; masses not palpable. HEART: First and second heart sounds are normal; some edema. LUNGS: Respiratory rate normal; clear to auscultation. ABDOMEN: Soft, nontender, liver spleen not palpable, no masses palpable. PSYCH: Alert and oriented x3; mood and affect normal MUSCULOSKELETAL: Evidence of OA especially in the hands EXTREMITIES: Dressing over the left leg wound INVESTIGATIONS, reviewed in the clinical context: Potassium 3.7 bun 40 creatinine 3.44 magnesium 1.4 Assessment: -Acute kidney injury, from acute tubular necrosis from underlying infection and also secondary to NSAIDs. Taking naproxen at home.-On renal replacement therapy -Anion gap metabolic acidosis from renal failure status post bicarbonate drip -Baseline chronic kidney disease stage III with a previous creatinine of 1.24 -Anemia possibly chronic kidney disease -Obesity BMI 32.6 -Essential hypertension -Primary osteoarthritis -Chronic urinary stress incontinence severe -GERD -Medical debility -using wheelchair -Hyponatremia likely from fluid overload -Left lower extremity cellulitis and wound with cultures growing enterococcus group D and Morganella morganii -Acute UTI from cystitis from Klebsiella oxytoca Plan: No hemodialysis today. IV fluids-50 mL hour. Other medications to continue. On IV daptomycin and IV ertapenem. Discussed the patient.
--- NOTE | 2019-11-11 02:24 | PN ---
PROGRESS NOTE DATE OF SERVICE: 11/10/2019. REASON FOR FOLLOW UP: Left leg wound cellulitis and UTI. INTERVAL HISTORY: The patient is currently afebrile. The patient was slightly sleepy and lethargic today. Did not provide any history. No vomiting or diarrhea has been reported. PHYSICAL EXAMINATION: Blood pressure 119/59 with a pulse of 59. Temperature 98. She is 99% on room air. General description: The patient is an elderly female up in the chair in no distress. Respiratory system: Unlabored breathing. Clear to auscultation. HEART: S1, S2. Regular rate and rhythm. ABDOMEN: Soft. No tenderness. Left leg wound is currently dressed. Minimal drainage on the dressing. No foul smelling. Redness has improved. LABS: BUN of 40, creatinine 3.44. DIAGNOSTIC IMPRESSION AND PLAN: Patient with left leg wound. Blood culture positive for multiple pathogens with Morganella Enterococcus faecalis and anaerobes. The patient is covered with daptomycin and in view of MULTIPLE ALLERGIES should cover her Klebsiella urinary tract infection as well local wound care to continue with dry Aquacel dressing. Monitor clinical course closely. MMODL / IJN: [id number] /
[2019-11-11] MEDS: HYDROmorphone 0.5 MG/0.5 ML SYRINGE IVP PRN ×2 (03:22→20:38)
[2019-11-11 06:49] LABS: Glucose,Whole Blood 172 mg/dL (75-99)
[2019-11-11] MEDS: MIDODRINE 5 MG TAB PO SCH ×3 (08:14→17:15)
[2019-11-11] MEDS: MAGNESIUM OXIDE 400 MG TAB PO SCH ×2 (08:14→20:38)
[2019-11-11] MEDS: ERTAPENEM 0.5 GM in SODIUM CHLORIDE 0.9% 50 ML IVPB SCH (08:14)
[2019-11-11] MEDS: ENOXAPARIN 30 MG/0.3 ML SYRINGE SQ SCH (08:14)
[2019-11-11] MEDS: PANTOPRAZOLE 40 MG TABLET PO SCH (08:14)
--- NOTE | 2019-11-11 09:17 | P.PN ---
Subjective Patient is seen in follow for acute kidney injury on chronic kidney disease. Started on hemodialysis on November 05. Last treatment November 07. She received a dose of 80 mg IV Lasix yesterday. Urine output over 1 L in the last 24 hours. Oral intake fair. No vomiting or diarrhea. Vital signs are stable. General: The patient appeared well nourished and normally developed. HEENT: Head exam is unremarkable. Neck is without jugular venous distension. LUNGS: Lungs are clear to auscultation and percussion. Breath sounds decreased. HEART: Rate and Rhythm are regular. ABDOMEN: Nontender nondistended. EXTREMITITES: 1+ edema. Erythema noted. Tender to touch. Objective - Vital Signs Vital signs: Vital Signs Temp 98.4 F 11/11/19 07:00 Pulse 80 11/11/19 07:00 Resp 16 11/11/19 07:00 BP 113/58 11/11/19 07:00 Pulse Ox 99 11/11/19 07:00 Intake & Output 11/10/19 11/11/19 11/11/19 18:59 06:59 18:59 Intake Total 350 Output Total 750 900 Balance -750 -550 Intake: Intake, IV Titration 150 Amount Sodium Chloride 0.9% 1, 150 000 ml @ 50 mls/hr IV . Q20H [facility] Rx#:[id number] Oral 200 Output: Urine 750 900 Other: Voiding Method Indwelling Catheter Indwelling Catheter Indwelling Catheter - Labs CBC & Chem 7: 11/09/19 06:37 11/10/19 07:18 Labs: Abnormal Lab Results - Last 24 Hours (Table) 11/10/19 11/10/19 11/11/19 Range/Units 12:01 16:54 06:47 POC Glucose (mg/dL) 168 H 132 H 172 H (75-99) mg/dL Microbiology - Last 24 Hours (Table) 11/05/19 15:18 Blood Culture - Preliminary Blood No Growth after 120 hours Assessment and Plan Plan: Assessment: 1. Acute kidney injury secondary to ATN secondary to sepsis and nonsteroidal use. Currently hemodialysis dependent. Last hemodialysis November 07. Creatinine 3.44 as of yesterday. Morning labs pending. 2. Metabolic acidosis secondary to acute kidney injury status post IV bicarb. 3. Lower extremity cellulitis maintained on antibiotics. 4. Hyponatremia secondary to acute kidney injury. 5. UTI with urine culture positive for Klebsiella. 6. Hypotension maintained on midodrine. Stable. 7. Chronic kidney disease stage III with baseline creatinine in the range of 1- 1.3. 8. Hypomagnesemia from poor oral intake. Status post replacement. Plan: Hep-Lock IV fluids. Add Lasix 60 mg IV twice daily. Maintain midodrine. Continue to monitor renal function and urine output closely. Encouraged oral intake. Follow-up morning labs. Continue to assess daily for further need for renal replacement therapy.
[2019-11-11 09:52] LABS: Calcium 7.5 mg/dL (8.4-10.2); Magnesium 1.9 mg/dL (1.6-2.3); Phosphorus 2.7 mg/dL (2.5-4.5); Potassium 3.8 mmol/L (3.5-5.1)
[2019-11-11] MEDS: SODIUM CHLORIDE 0.9% 1,000 ML IV SCH (11:19)
[2019-11-11 11:48] LABS: Glucose,Whole Blood 148 mg/dL (75-99)
[2019-11-11] MEDS: FUROSEMIDE 10 MG/ML 10 ML VIAL IV SCH ×2 (15:03→20:38)
--- NOTE | 2019-11-11 18:24 | PN ---
PROGRESS NOTE DATE OF SERVICE: 11/11/2019 REASON FOR FOLLOWUP: Left lower extremity wound and cellulitis and UTI. INTERVAL HISTORY: The patient is currently afebrile. The patient is breathing comfortably. Denies having any chest pain or cough. No nausea, no vomiting. No abdominal pain or any worsening pain in the left leg. PHYSICAL EXAMINATION: Blood pressure 131/68 with a pulse of 89, temperature 98.4. She is 100% on room air. General description is an elderly female up in the chair in no distress. RESPIRATORY SYSTEM: Unlabored breathing. Clear to auscultation anteriorly. HEART: S1, S2. Regular rate and rhythm. ABDOMEN: Soft. No tenderness. Left leg swelling and redness slightly decreased. LABS: BUN of 39, creatinine 3.38. White count 8.6. DIAGNOSTIC IMPRESSION AND PLAN: Patient with a left leg wound with secondary cellulitis in this patient who has MULTIPLE ANTIBIOTIC ALLERGIES; currently covered with daptomycin and Invanz; to continue for a short course, for which the patient may need a midline. Local wound care to continue with dry Aquacel Silver dressing. Continue with supportive care. MMODL / IJN: [id number] /
--- NOTE | 2019-11-11 20:44 | P.PN ---
Progress Note - Text Progress Note Date: 11/11/19 Presenting complaint: Nausea vomiting Hospital course: This is a 84-year-old patient of Dr. Castro, [facility] [place]. Admitted with-acute UTI, bilateral lower extremity cellulitis more on the left side, severe sepsis, metabolic encephalopathy from above and, Coumadin coa gulopathy,. Also acute kidney injury -felt to be from NSAIDs. Started on hemodialysis. Patient's underlying chronic kidney disease with a previous creatinine of 1.24. Today-tolerated diet. Edema present. IV was discontinued. IV Lasix increased per nephrology. Currently dialysis being held. Review of systems: Was done for constitutional, cardiovascular, GI, pulmonary. relevant finding as above Active Medications Albuterol/Ipratropium (Duoneb 0.5 Mg-3 Mg/3 Ml Soln) 3 ml INHALATION RT-Q4H PRN PRN Reason: Shortness Of Breath Or Wheezing Enoxaparin Sodium (Lovenox) 30 mg SQ DAILY [facility] Last Admin: 11/11/19 08:14 Dose: 30 mg Documented by: Furosemide (Lasix) 60 mg IV Q12HR [facility] Last Admin: 11/11/19 20:38 Dose: 60 mg Documented by: Hydromorphone HCl (Dilaudid) 1 mg IVP Q2HR PRN PRN Reason: Pain Scale 6 to 7 Last Admin: 11/06/19 02:41 Dose: 1 mg Documented by: Hydromorphone HCl (Dilaudid) 0.5 mg IVP Q2HR PRN PRN Reason: Pain Last Admin: 11/11/19 20:38 Dose: 0.5 mg Documented by: Daptomycin 250 mg/ Sodium (Chloride) 50 mls @ 100 mls/hr IVPB Q48H [facility]; Protocol Last Admin: 11/10/19 04:50 Dose: 100 mls/hr Documented by: Ertapenem 0.5 gm/ Sodium (Chloride) 50 mls @ 100 mls/hr IVPB DAILY [facility]; Protocol Last Admin: 11/11/19 08:14 Dose: 100 mls/hr Documented by: Magnesium Oxide (Mag-Ox) 400 mg PO BID [facility] Last Admin: 11/11/19 20:38 Dose: 400 mg Documented by: Midodrine (Proamatine) 10 mg PO DAILY PRN PRN Reason: Hypotension Last Admin: 11/07/19 08:48 Dose: 10 mg Documented by: Midodrine (Proamatine) 10 mg PO AC-TID [facility] Last Admin: 11/11/19 17:15 Dose: 10 mg Documented by: Naloxone HCl (Narcan) 0.2 mg IV Q2M PRN PRN Reason: Opioid Reversal Pantoprazole Sodium (Protonix) 40 mg PO AC-BRKFST [facility] Last Admin: 11/11/19 08:14 Dose: 40 mg Documented by: Physical examination: VITAL SIGNS: 98.4, 80, 16, 113/58, 99% on room air GENERAL: Sitting up, on chair, tired EYES: [Pupils equal. Conjunctiva pale HEENT: External appearance of nose and ears normal, oral cavity grossly normal. NECK: JVD not raised; masses not palpable. HEART: First and second heart sounds are normal; edema present LUNGS: Respiratory rate normal; clear to auscultation. ABDOMEN: Soft, nontender, liver spleen not palpable, no masses palpable. PSYCH: Alert and oriented x3; mood and affect normal MUSCULOSKELETAL: Evidence of OA especially in the hands EXTREMITIES: Dressing over the left leg wound INVESTIGATIONS, reviewed in the clinical context: Potassium 3.8 bun 39 creatinine 3.38 Assessment: -Acute kidney injury, from acute tubular necrosis from underlying infection and also secondary to NSAIDs. Taking naproxen at home.-On renal replacement therapy -Anion gap metabolic acidosis from renal failure status post bicarbonate drip -Baseline chronic kidney disease stage III with a previous creatinine of 1.24 -Anemia possibly chronic kidney disease -Obesity BMI 32.6 -Essential hypertension -Primary osteoarthritis -Chronic urinary stress incontinence severe -GERD -Medical debility -using wheelchair -Hyponatremia likely from fluid overload -Left lower extremity cellulitis and wound with cultures growing enterococcus group D and Morganella morganii -Acute UTI from cystitis from Klebsiella oxytoca Plan: IV fluids discontinued. Hemodialysis has been held. Patient put on Lasix 60 mg every 12 per nephrology. Continue with IV ertapenem and daptomycin. Aly wraps lower extremity ordered.
[2019-11-12 07:53] LABS: Glucose,Whole Blood 116 mg/dL (75-99)
[2019-11-12 07:54] LABS: Glucose,Whole Blood 135 mg/dL (75-99)
[2019-11-12 07:54] LABS: Glucose,Whole Blood 125 mg/dL (75-99)
[2019-11-12 09:01] LABS: Calcium 7.8 mg/dL (8.4-10.2); Magnesium 1.9 mg/dL (1.6-2.3); Potassium 3.8 mmol/L (3.5-5.1)
[2019-11-12] MEDS: PANTOPRAZOLE 40 MG TABLET PO SCH (09:25)
[2019-11-12] MEDS: ERTAPENEM 0.5 GM in SODIUM CHLORIDE 0.9% 50 ML IVPB SCH (09:25)
[2019-11-12] MEDS: ENOXAPARIN 30 MG/0.3 ML SYRINGE SQ SCH (09:25)
[2019-11-12] MEDS: FUROSEMIDE 10 MG/ML 10 ML VIAL IV SCH (09:25)
[2019-11-12] MEDS: MIDODRINE 5 MG TAB PO SCH ×3 (09:25→17:58)
[2019-11-12] MEDS: MAGNESIUM OXIDE 400 MG TAB PO SCH ×2 (09:26→21:27)
[2019-11-12 11:24] LABS: Glucose,Whole Blood 158 mg/dL (75-99)
[2019-11-12 11:34] VITALS: BMI 32.3
--- NOTE | 2019-11-12 12:34 | P.PN ---
Subjective Patient is seen in follow for acute kidney injury on chronic kidney disease. Started on hemodialysis on November 05. Last treatment November 07. She is currently maintained on IV Lasix 60 mg twice daily. Urine output over 1 L in the last 24 hours. Oral intake fair. No vomiting or diarrhea. Vital signs are stable. General: The patient appeared well nourished and normally developed. HEENT: Head exam is unremarkable. Neck is without jugular venous distension. LUNGS: Lungs are clear to auscultation and percussion. Breath sounds decreased. HEART: Rate and Rhythm are regular. ABDOMEN: Nontender nondistended. EXTREMITITES: 1+ edema. Erythema noted. Tender to touch. Objective - Vital Signs Vital signs: Vital Signs Temp 98.3 F 11/12/19 07:00 Pulse 74 11/12/19 07:51 Resp 18 11/12/19 07:51 BP 118/63 11/12/19 07:00 Pulse Ox 98 11/12/19 07:00 Intake & Output 11/11/19 11/12/19 11/12/19 18:59 06:59 18:59 Intake Total 175 Output Total 950 1200 1200 Balance -950 -1025 -1200 Weight 80.2 kg Intake: Intake, IV Titration 175 Amount Sodium Chloride 0.9% 1, 175 000 ml @ 50 mls/hr IV . Q20H [facility] Rx#:[id number] Output: Urine 950 1200 1200 Other: Voiding Method Indwelling Catheter Indwelling Catheter Indwelling Catheter # Voids 1 # Bowel Movements 1 - Labs CBC & Chem 7: 11/09/19 06:37 11/12/19 07:27 Labs: Abnormal Lab Results - Last 24 Hours (Table) 11/11/19 11/11/19 11/12/19 Range/Units 16:43 20:29 07:02 Sodium (137-145) mmol/L BUN (7-17) mg/dL Creatinine (0.52-1.04) mg/dL Glucose (74-99) mg/dL POC Glucose (mg/dL) 135 H 125 H 116 H (75-99) mg/dL Calcium (8.4-10.2) mg/dL 11/12/19 11/12/19 Range/Units 07:27 11:22 Sodium 135 L (137-145) mmol/L BUN 40 H (7-17) mg/dL Creatinine 3.39 H (0.52-1.04) mg/dL Glucose 114 H (74-99) mg/dL POC Glucose (mg/dL) 158 H (75-99) mg/dL Calcium 7.8 L (8.4-10.2) mg/dL Microbiology - Last 24 Hours (Table) 11/05/19 15:18 Blood Culture - Final Blood No Growth after 144 hours Assessment and Plan Plan: Assessment: 1. Acute kidney injury secondary to ATN secondary to sepsis and nonsteroidal use. Currently hemodialysis dependent. Last hemodialysis November 07. Renal function is starting to stabilize. Creatinine 3.39 today. 2. Metabolic acidosis secondary to acute kidney injury status post IV bicarb. 3. Lower extremity cellulitis maintained on antibiotics. 4. Hyponatremia secondary to acute kidney injury. Better. 5. UTI with urine culture positive for Klebsiella. 6. Hypotension maintained on midodrine. Stable. 7. Chronic kidney disease stage III with baseline creatinine in the range of 1- 1.3. 8. Hypomagnesemia from poor oral intake. Status post replacement. Better. Plan: Maintain Lasix 60 mg IV twice daily. Maintain midodrine. Continue to monitor renal function and urine output closely. Encouraged oral intake. Continue to hold off on dialysis. If renal function remained stable the next 24-48 hours, will discontinue femoral catheter.
[2019-11-12] MEDS: FUROSEMIDE 100 MG in SODIUM CHLORIDE 0.9% 90 ML IV SCH ×2 (13:08→21:27)
[2019-11-12 16:28] LABS: Glucose,Whole Blood 191 mg/dL (75-99)
--- NOTE | 2019-11-12 17:54 | P.PN ---
Progress Note - Text Progress Note Date: 11/12/19 Presenting complaint: Nausea vomiting Hospital course: This is a 84-year-old patient of Dr. Castro, [facility] [place] Admitted with-acute UTI, bilateral lower extremity cellulitis more on the left side, severe sepsis, metabolic encephalopathy from above and, Coumadin coa gulopathy,. Also acute kidney injury -felt to be from NSAIDs. Started on hemodialysis. Patient's underlying chronic kidney disease with a previous creatinine of 1.24. Today-Has been on IV Lasix 60 mg every 12. Breathing slowly improving. Diuresing. Edema still present. Aly wraps on lower extremity. Review of systems: Was done for constitutional, cardiovascular, GI, pulmonary. relevant finding as above Active Medications Albuterol/Ipratropium (Duoneb 0.5 Mg-3 Mg/3 Ml Soln) 3 ml INHALATION RT-Q4H PRN PRN Reason: Shortness Of Breath Or Wheezing Enoxaparin Sodium (Lovenox) 30 mg SQ DAILY [facility] Last Admin: 11/12/19 09:25 Dose: 30 mg Documented by: Hydromorphone HCl (Dilaudid) 1 mg IVP Q2HR PRN PRN Reason: Pain Scale 6 to 7 Last Admin: 11/06/19 02:41 Dose: 1 mg Documented by: Hydromorphone HCl (Dilaudid) 0.5 mg IVP Q2HR PRN PRN Reason: Pain Last Admin: 11/11/19 20:38 Dose: 0.5 mg Documented by: Daptomycin 250 mg/ Sodium (Chloride) 50 mls @ 100 mls/hr IVPB Q48H [facility]; Protocol Last Admin: 11/12/19 03:32 Dose: 100 mls/hr Documented by: Ertapenem 0.5 gm/ Sodium (Chloride) 50 mls @ 100 mls/hr IVPB DAILY [facility]; Protocol Last Admin: 11/12/19 09:25 Dose: 100 mls/hr Documented by: Furosemide 100 mg/ Sodium (Chloride) 100 mls @ 10 mls/hr IV .Q10H [facility] Last Admin: 11/12/19 13:08 Dose: 10 mg/hr, 10 mls/hr Documented by: Magnesium Oxide (Mag-Ox) 400 mg PO BID [facility] Last Admin: 11/12/19 09:26 Dose: 400 mg Documented by: Midodrine (Proamatine) 10 mg PO DAILY PRN PRN Reason: Hypotension Last Admin: 11/07/19 08:48 Dose: 10 mg Documented by: Midodrine (Proamatine) 10 mg PO AC-TID [facility] Last Admin: 11/12/19 12:50 Dose: 10 mg Documented by: Naloxone HCl (Narcan) 0.2 mg IV Q2M PRN PRN Reason: Opioid Reversal Pantoprazole Sodium (Protonix) 40 mg PO AC-BRKFST [facility] Last Admin: 11/12/19 09:25 Dose: 40 mg Documented by: Physical examination: VITAL SIGNS: 98.3, 74, 72, 18, 20314, 98% on room air GENERAL: Sitting upon a chair, awake EYES: [Pupils equal. Conjunctiva pale HEENT: External appearance of nose and ears normal, oral cavity grossly normal. NECK: JVD not raised; masses not palpable. HEART: First and second heart sounds are normal; edema present LUNGS: Respiratory rate normal; clear to auscultation. ABDOMEN: Soft, nontender, liver spleen not palpable, no masses palpable. PSYCH: Alert and oriented x3; mood and affect normal MUSCULOSKELETAL: Evidence of OA especially in the hands EXTREMITIES: Dressing over the left leg wound INVESTIGATIONS, reviewed in the clinical context: Potassium 3.8 creatinine 3.39 Assessment: -Acute kidney injury, from acute tubular necrosis from underlying infection and also secondary to NSAIDs. Taking naproxen at home.-On renal replacement therapy-currently on hold -Acute fluid overload-uncontrolled -Anion gap metabolic acidosis from renal failure status post bicarbonate drip -Baseline chronic kidney disease stage III with a previous creatinine of 1.24 -Anemia possibly chronic kidney disease -Obesity BMI 32.6 -Essential hypertension -Primary osteoarthritis -Chronic urinary stress incontinence severe -GERD -Medical debility -using wheelchair -Hyponatremia likely from fluid overload -Left lower extremity cellulitis and wound with cultures growing enterococcus group D and Morganella morganii -Acute UTI from cystitis from Klebsiella oxytoca Plan: Discussed with Dr. Ibarra from nephrology. We'll start the patient on Lasix drip. Strict I's and O's. Continue with wound care. Antibiotics to continue. Follow renal function closely.
[2019-11-12 19:53] LABS: Glucose,Whole Blood 152 mg/dL (75-99)
--- NOTE | 2019-11-13 03:03 | PN ---
PROGRESS NOTE DATE OF SERVICE: 11/12/2019 REASON FOR FOLLOWUP: Left leg wound and cellulitis, UTI. INTERVAL HISTORY: The patient was seen on rounds this afternoon. The patient was afebrile. She was ( ) lethargic though denies having any chest pain. No shortness of breath or cough. No abdominal pain or any worsening pain to the left leg area. PHYSICAL EXAMINATION: Blood pressure 135/63 with a pulse of 58, temperature of 98.5. She is 97% on room air. General description is an elderly female up in the chair in no distress. Respiratory system: Unlabored breathing, decreased breath sounds at the bases, no wheeze. Heart S1, S2. Regular rate and rhythm. Abdomen soft, no tenderness. LABS: BUN of 40, creatinine 3.39. DIAGNOSTIC IMPRESSION AND PLAN: Patient with left leg wound with multiple pathogens including Morganella, Enterococcus faecalis and anaerobes in this patient who did have multiple antibiotic allergies. All of the pathogen will be covered with Invanz which will be continued. Daptomycin discontinued and will monitor clinical course closely. Continue local wound care with Aquacel dressing and continue supportive care. MMODL / IJN: [id number] /
[2019-11-13 06:42] LABS: Glucose,Whole Blood 126 mg/dL (75-99)
[2019-11-13] MEDS: MIDODRINE 5 MG TAB PO SCH ×3 (08:06→17:23)
[2019-11-13] MEDS: ERTAPENEM 0.5 GM in SODIUM CHLORIDE 0.9% 50 ML IVPB SCH (08:06)
[2019-11-13] MEDS: ENOXAPARIN 30 MG/0.3 ML SYRINGE SQ SCH (08:07)
[2019-11-13] MEDS: MAGNESIUM OXIDE 400 MG TAB PO SCH ×2 (08:07→21:41)
[2019-11-13] MEDS: PANTOPRAZOLE 40 MG TABLET PO SCH (08:07)
[2019-11-13] MEDS: FUROSEMIDE 100 MG in SODIUM CHLORIDE 0.9% 90 ML IV SCH ×2 (08:41→19:30)
[2019-11-13 11:33] LABS: Glucose,Whole Blood 139 mg/dL (75-99)
--- NOTE | 2019-11-13 12:56 | P.PN ---
Subjective Progress Note Date: 11/13/19 Follow-up for acute kidney injury. Objective - Vital Signs Vital signs: Vital Signs Temp 98.6 F 11/13/19 07:00 Pulse 87 11/13/19 07:00 Resp 16 11/13/19 07:00 BP 113/63 11/13/19 07:00 Pulse Ox 98 11/13/19 07:00 Intake & Output 11/12/19 11/13/19 11/13/19 18:59 06:59 18:59 Intake Total 83.167 100 Output Total 2700 1900 Balance -2700 -1816.833 100 Weight 80.2 kg Intake: Intake, IV Titration 83.167 100 Amount Furosemide 100 mg In 83.167 100 Sodium Chloride 0.9% 90 ml @ 10 MG/HR 10 mls/hr IV .Q10H [facility] Rx#: [id number] Output: Urine 2700 1900 Other: Voiding Method Indwelling Catheter Indwelling Catheter Indwelling Catheter # Voids 1 # Bowel Movements 1 - Exam No acute distress Sitting comfortable Edema - Labs CBC & Chem 7: 11/09/19 06:37 11/12/19 07:27 Labs: Abnormal Lab Results - Last 24 Hours (Table) 11/12/19 11/12/19 11/13/19 Range/Units 16:26 19:52 06:41 POC Glucose (mg/dL) 191 H 152 H 126 H (75-99) mg/dL 11/13/19 Range/Units 11:32 POC Glucose (mg/dL) 139 H (75-99) mg/dL Assessment and Plan Assessment: #1 nonoliguric acute kidney injury secondary to ischemic ATN and NSAID use status post hemodialysis with last treatment on 11/08/2019. #2 chronic kidney disease stage III baseline 1.1-1.3 MG per DL. #3 volume overload on Lasix drip #4 lower extremity cellulitis on antibiotics #5 metabolic acidosis secondary to acute kidney injury, resolved. #6 hypertension with chronic kidney disease Plan: #1 renal function stable. On Lasix drip. #2 check labs in the morning. #3 monitor ins and outs.
[2019-11-13 13:00] LABS: Calcium 7.9 mg/dL (8.4-10.2); Potassium 3.5 mmol/L (3.5-5.1)
[2019-11-13 16:40] LABS: Glucose,Whole Blood 161 mg/dL (75-99)
--- NOTE | 2019-11-13 17:05 | P.PN ---
Progress Note - Text Progress Note Date: 11/13/19 Presenting complaint: Nausea vomiting Hospital course: This is a 84-year-old patient of Dr. Castro, who [facility] [place]. Admitted with-acute UTI, bilateral lower extremity cellulitis more on the left side, severe sepsis, metabolic encephalopathy from above and, Coumadin coa gulopathy,. Also acute kidney injury -felt to be from NSAIDs. Started on hemodialysis. Patient's underlying chronic kidney disease with a previous creatinine of 1.24. Today-started on Lasix drip yesterday. There is a rather well. Edema started to come down.. Over 3 L in negative fluid balance. Oral intake fluctuates Review of systems: Was done for constitutional, cardiovascular, GI, pulmonary. relevant finding as above Active Medications Albuterol/Ipratropium (Duoneb 0.5 Mg-3 Mg/3 Ml Soln) 3 ml INHALATION RT-Q4H PRN PRN Reason: Shortness Of Breath Or Wheezing Enoxaparin Sodium (Lovenox) 30 mg SQ DAILY [facility] Last Admin: 11/13/19 08:07 Dose: 30 mg Documented by: Hydromorphone HCl (Dilaudid) 1 mg IVP Q2HR PRN PRN Reason: Pain Scale 6 to 7 Last Admin: 11/06/19 02:41 Dose: 1 mg Documented by: Hydromorphone HCl (Dilaudid) 0.5 mg IVP Q2HR PRN PRN Reason: Pain Last Admin: 11/11/19 20:38 Dose: 0.5 mg Documented by: Ertapenem 0.5 gm/ Sodium (Chloride) 50 mls @ 100 mls/hr IVPB DAILY [facility]; Protocol Last Admin: 11/13/19 08:06 Dose: 100 mls/hr Documented by: Furosemide 100 mg/ Sodium (Chloride) 100 mls @ 10 mls/hr IV .Q10H [facility] Last Admin: 11/13/19 08:41 Dose: 10 mg/hr, 10 mls/hr Documented by: Magnesium Oxide (Mag-Ox) 400 mg PO BID [facility] Last Admin: 11/13/19 08:07 Dose: 400 mg Documented by: Midodrine (Proamatine) 10 mg PO DAILY PRN PRN Reason: Hypotension Last Admin: 11/07/19 08:48 Dose: 10 mg Documented by: Midodrine (Proamatine) 10 mg PO AC-TID [facility] Last Admin: 11/13/19 12:23 Dose: 10 mg Documented by: Naloxone HCl (Narcan) 0.2 mg IV Q2M PRN PRN Reason: Opioid Reversal Pantoprazole Sodium (Protonix) 40 mg PO AC-BRKFST [facility] Last Admin: 11/13/19 08:07 Dose: 40 mg Documented by: Physical examination: VITAL SIGNS: 98.6, 87, 16, 130/63, 98% on room air GENERAL: Sitting upon a chair, awake EYES: [Pupils equal. Conjunctiva pale HEENT: External appearance of nose and ears normal, oral cavity grossly normal. NECK: JVD not raised; masses not palpable. HEART: First and second heart sounds are normal; edema present LUNGS: Respiratory rate normal; clear to auscultation. ABDOMEN: Soft, nontender, liver spleen not palpable, no masses palpable. PSYCH: Alert and oriented x3; mood and affect normal MUSCULOSKELETAL: Evidence of OA especially in the hands EXTREMITIES: Dressing over the left leg wound INVESTIGATIONS, reviewed in the clinical context: Potassium 3.5 bun 41 and creatinine 3.25 Previous testing Potassium 3.8 creatinine 3.39 Assessment: -Acute kidney injury, from acute tubular necrosis from underlying infection and also secondary to NSAIDs. Taking naproxen at home.-On renal replacement therapy-currently on hold -Acute fluid overload-uncontrolled, on IV Lasix drip -Anion gap metabolic acidosis from renal failure status post bicarbonate drip -Baseline chronic kidney disease stage III with a previous creatinine of 1.24 -Anemia possibly chronic kidney disease -Obesity BMI 32.6 -Essential hypertension -Primary osteoarthritis -Chronic urinary stress incontinence severe -GERD -Medical debility -using wheelchair -Hyponatremia likely from fluid overload -Left lower extremity cellulitis and wound with cultures growing enterococcus group D and Morganella morganii -Acute UTI from cystitis from Klebsiella oxytoca Plan: -Patient diuresing well on IV Lasix drip. Over 3 L in negative fluid balance. Continue the same. Other medications to continue. Follow with nephrology. Discussed with patient. Encouraged oral intake.
[2019-11-13 20:10] LABS: Glucose,Whole Blood 156 mg/dL (75-99)
--- NOTE | 2019-11-13 22:07 | PN ---
PROGRESS NOTE DATE OF SERVICE: 11/13/2019 REASON FOR FOLLOWUP: Left leg wound cellulitis and UTI. INTERVAL HISTORY: The patient is currently afebrile. The patient is breathing comfortably. She denies having any chest pain or cough. Some abdominal discomfort but no vomiting and no pain to the left leg. PHYSICAL EXAMINATION: Blood pressure 126/62 with a pulse of 71, temperature 98.5. She is 96% on room air. General description: The patient is an elderly female lying in bed in no distress. Respiratory system: Unlabored breathing. Clear to auscultation anteriorly. Heart S1, S2. Regular rate and rhythm. Abdomen soft, no tenderness. Left legs are currently wrapped up. No obvious drainage on the dressing. LABS: BUN of 41, creatinine 3.25. DIAGNOSTIC IMPRESSION AND PLAN: Patient with left leg wound with secondary cellulitis, culture with multiple pathogens. Patient has multiple antibiotic allergies. She is covered with Invanz to continue local care with dry Aquacel Silver dressing. Monitor clinical course closely. MMODL / IJN: [id number] /
[2019-11-14] MEDS: FUROSEMIDE 100 MG in SODIUM CHLORIDE 0.9% 90 ML IV SCH ×2 (05:42→16:28)
[2019-11-14 06:48] LABS: Glucose,Whole Blood 154 mg/dL (75-99)
[2019-11-14 07:12] LABS: Calcium 7.7 mg/dL (8.4-10.2); Potassium 3.3 mmol/L (3.5-5.1)
[2019-11-14] MEDS: MIDODRINE 5 MG TAB PO SCH ×3 (07:46→16:28)
[2019-11-14] MEDS: ERTAPENEM 0.5 GM in SODIUM CHLORIDE 0.9% 50 ML IVPB SCH (07:46)
[2019-11-14] MEDS: PANTOPRAZOLE 40 MG TABLET PO SCH (07:46)
[2019-11-14] MEDS: ENOXAPARIN 30 MG/0.3 ML SYRINGE SQ SCH (07:46)
[2019-11-14] MEDS: MAGNESIUM OXIDE 400 MG TAB PO SCH ×2 (07:46→19:45)
[2019-11-14 12:05] LABS: Glucose,Whole Blood 141 mg/dL (75-99)
--- NOTE | 2019-11-14 13:55 | P.PN ---
Subjective Progress Note Date: 11/14/19 Follow-up for acute kidney injury. Objective - Vital Signs Vital signs: Vital Signs Temp 98.0 F 11/14/19 07:00 Pulse 94 11/14/19 07:00 Resp 16 11/14/19 07:00 BP 98/51 11/14/19 07:00 Pulse Ox 98 11/14/19 07:00 Intake & Output 11/13/19 11/14/19 11/14/19 18:59 06:59 18:59 Intake Total 100 200 Output Total 1000 1050 Balance -900 -850 Intake: Intake, IV Titration 100 200 Amount Furosemide 100 mg In 100 200 Sodium Chloride 0.9% 90 ml @ 10 MG/HR 10 mls/hr IV .Q10H [facility] Rx#: [id number] Output: Urine 1000 1050 Other: Voiding Method Indwelling Catheter Indwelling Catheter Indwelling Catheter # Voids 2 - Exam No acute distress Sitting comfortable Edema - Labs CBC & Chem 7: 11/09/19 06:37 11/14/19 06:12 Labs: Abnormal Lab Results - Last 24 Hours (Table) 11/13/19 11/13/19 11/14/19 Range/Units 16:38 20:07 06:12 Sodium 135 L (137-145) mmol/L Potassium 3.3 L (3.5-5.1) mmol/L Chloride 97 L (98-107) mmol/L Carbon Dioxide 31 H (22-30) mmol/L BUN 44 H (7-17) mg/dL Creatinine 3.16 H (0.52-1.04) mg/dL Glucose 118 H (74-99) mg/dL POC Glucose (mg/dL) 161 H 156 H (75-99) mg/dL Calcium 7.7 L (8.4-10.2) mg/dL 11/14/19 11/14/19 Range/Units 06:47 12:04 Sodium (137-145) mmol/L Potassium (3.5-5.1) mmol/L Chloride (98-107) mmol/L Carbon Dioxide (22-30) mmol/L BUN (7-17) mg/dL Creatinine (0.52-1.04) mg/dL Glucose (74-99) mg/dL POC Glucose (mg/dL) 154 H 141 H (75-99) mg/dL Calcium (8.4-10.2) mg/dL Assessment and Plan Assessment: #1 nonoliguric acute kidney injury secondary to ischemic ATN and NSAID use status post hemodialysis with last treatment on 11/08/2019. #2 chronic kidney disease stage III baseline 1.1-1.3 MG per DL. #3 volume overload on Lasix drip #4 lower extremity cellulitis on antibiotics #5 metabolic acidosis secondary to acute kidney injury, resolved. #6 hypertension with chronic kidney disease Plan: #1 renal function stable. On Lasix drip. #2 check labs in the morning. #3 monitor ins and outs.
[2019-11-14 16:43] LABS: Glucose,Whole Blood 132 mg/dL (75-99)
[2019-11-14] MEDS ORDERED: Potassium Replacement Protocol 1 EACH MISC MISCELLANE PRN (17:15)
[2019-11-14] MEDS: POTASSIUM CHLORIDE ER 20 MEQ TAB.ER PO SCH ×2 (17:40→19:45)
--- NOTE | 2019-11-14 19:15 | P.PN ---
Progress Note - Text Progress Note Date: 11/14/19 Presenting complaint: Nausea vomiting Hospital course: This is a 84-year-old patient of Dr. Castro, who is a resident of [facility] [place]. Admitted with-acute UTI, bilateral lower extremity cellulitis more on the left side, severe sepsis, metabolic encephalopathy from above and, Coumadin coa gulopathy,. Also acute kidney injury -felt to be from NSAIDs. Started on hemodialysis. Patient's underlying chronic kidney disease with a previous creatinine of 1.24. Started on Lasix drip. Currently 9 L in negative fluid balance Today-been on IV Lasix drip. About 9 L in negative fluid balance. Feels better. Edema going down. Eating some. Tired Review of systems: Was done for constitutional, cardiovascular, GI, pulmonary. relevant finding as above Active Medications Albuterol/Ipratropium (Duoneb 0.5 Mg-3 Mg/3 Ml Soln) 3 ml INHALATION RT-Q4H PRN PRN Reason: Shortness Of Breath Or Wheezing Enoxaparin Sodium (Lovenox) 30 mg SQ DAILY [facility] Last Admin: 11/14/19 07:46 Dose: 30 mg Documented by: Hydromorphone HCl (Dilaudid) 1 mg IVP Q2HR PRN PRN Reason: Pain Scale 6 to 7 Last Admin: 11/06/19 02:41 Dose: 1 mg Documented by: Hydromorphone HCl (Dilaudid) 0.5 mg IVP Q2HR PRN PRN Reason: Pain Last Admin: 11/11/19 20:38 Dose: 0.5 mg Documented by: Ertapenem 0.5 gm/ Sodium (Chloride) 50 mls @ 100 mls/hr IVPB DAILY [facility]; Protocol Last Admin: 11/14/19 07:46 Dose: 100 mls/hr Documented by: Furosemide 100 mg/ Sodium (Chloride) 100 mls @ 10 mls/hr IV .Q10H [facility] Last Admin: 11/14/19 16:28 Dose: 10 mg/hr, 10 mls/hr Documented by: Magnesium Oxide (Mag-Ox) 400 mg PO BID [facility] Last Admin: 11/14/19 07:46 Dose: 400 mg Documented by: Midodrine (Proamatine) 10 mg PO DAILY PRN PRN Reason: Hypotension Last Admin: 11/07/19 08:48 Dose: 10 mg Documented by: Midodrine (Proamatine) 10 mg PO AC-TID [facility] Last Admin: 11/14/19 16:28 Dose: 10 mg Documented by: Miscellaneous Information (Potassium Per Protocol) 1 each MISCELLANE DAILY PRN; Protocol PRN Reason: Per Protocol Naloxone HCl (Narcan) 0.2 mg IV Q2M PRN PRN Reason: Opioid Reversal Pantoprazole Sodium (Protonix) 40 mg PO AC-BRKFST [facility] Last Admin: 11/14/19 07:46 Dose: 40 mg Documented by: Physical examination: VITAL SIGNS: 98, 94, 16, 98/51, 98% on room air GENERAL: Sitting upon a chair, awake EYES: [Pupils equal. Conjunctiva pale HEENT: External appearance of nose and ears normal, oral cavity grossly normal. NECK: JVD not raised; masses not palpable. HEART: First and second heart sounds are normal; edema present LUNGS: Respiratory rate normal; clear to auscultation. ABDOMEN: Soft, nontender, liver spleen not palpable, no masses palpable. PSYCH: Alert and oriented x3; mood and affect normal MUSCULOSKELETAL: Evidence of OA especially in the hands EXTREMITIES: Dressing over the left leg wound INVESTIGATIONS, reviewed in the clinical context: Potassium 3.3 bun 44 creatinine 3.16 Previous testing Potassium 3.8 creatinine 3.39 Assessment: -Acute kidney injury, from acute tubular necrosis from underlying infection and also secondary to NSAIDs. Taking naproxen at home.-On renal replacement therapy-currently on hold -Acute fluid overload-uncontrolled, on IV Lasix drip-about 9 L negative fluid balance. -Anion gap metabolic acidosis from renal failure status post bicarbonate drip -Baseline chronic kidney disease stage III with a previous creatinine of 1.24 -Anemia possibly chronic kidney disease -Obesity BMI 32.6 -Essential hypertension -Primary osteoarthritis -Chronic urinary stress incontinence severe -GERD -Medical debility -using wheelchair -Hyponatremia likely from fluid overload -Left lower extremity cellulitis and wound with cultures growing enterococcus group D and Morganella morganii -Acute UTI from cystitis from Klebsiella oxytoca Plan: -Diuresing well on Lasix drip. About 9 L in negative fluid balance. We'll switch over to IV Lasix 80 every 12 starting tomorrow morning. Discussed with patient. Antibiotics to continue.
[2019-11-14 20:12] LABS: Glucose,Whole Blood 173 mg/dL (75-99)
--- NOTE | 2019-11-14 23:34 | PN ---
PROGRESS NOTE DATE OF SERVICE: 11/14/2019 REASON FOR FOLLOWUP: Left lower extremity cellulitis. INTERVAL HISTORY: The patient is currently afebrile. Patient is breathing comfortably. The patient denies having any chest pain or any cough and no pain to the left lower extremity. PHYSICAL EXAMINATION: On examination, her blood pressure is 132/66, pulse of 76 temperature 99.8. She is 97% on room air. General description is an elderly female up in the chair in no distress. RESPIRATORY SYSTEM: Unlabored breathing, clear to auscultation anteriorly. HEART: S1, S2. Regular rate and rhythm. ABDOMEN: Soft, no tenderness. Legs are currently wrapped up. No drainage on the dressing. LABS: BUN of 44, creatinine is 3.16. DIAGNOSTIC IMPRESSION AND PLAN: Patient with left leg wound with secondary cellulitis, culture with multiple pathogen. Patient is covered with Invanz to continue. May need a Midline to continue with the Invanz for short course in outpatient setting. Monitor clinical course closely. Local care with dry Aquacel Silver dressing and Aly wrap. MMINGRID / VANDANAN: [id number] /
[2019-11-15] MEDS: FUROSEMIDE 100 MG in SODIUM CHLORIDE 0.9% 90 ML IV SCH (02:17)
[2019-11-15] MEDS: HYDROmorphone 0.5 MG/0.5 ML SYRINGE IVP PRN (05:11)
[2019-11-15 06:37] LABS: Glucose,Whole Blood 163 mg/dL (75-99)
[2019-11-15 08:11] LABS: Calcium 7.7 mg/dL (8.4-10.2)
[2019-11-15] MEDS ORDERED: POTASSIUM CHLORIDE ER 20 MEQ TAB.ER PO STA (08:24)
[2019-11-15] MEDS: MIDODRINE 5 MG TAB PO SCH ×3 (08:27→17:41)
[2019-11-15] MEDS: FUROSEMIDE 10 MG/ML 10 ML VIAL IV SCH ×2 (08:27→20:36)
[2019-11-15] MEDS: PANTOPRAZOLE 40 MG TABLET PO SCH (08:27)
[2019-11-15] MEDS: ENOXAPARIN 30 MG/0.3 ML SYRINGE SQ SCH (08:27)
[2019-11-15] MEDS: MAGNESIUM OXIDE 400 MG TAB PO SCH ×2 (08:27→20:36)
[2019-11-15] MEDS: ERTAPENEM 0.5 GM in SODIUM CHLORIDE 0.9% 50 ML IVPB SCH (08:27)
[2019-11-15 11:33] LABS: Glucose,Whole Blood 174 mg/dL (75-99)
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
[2019-11-15 16:30] LABS: Glucose,Whole Blood 125 mg/dL (75-99)
--- NOTE | 2019-11-15 16:38 | PN ---
PROGRESS NOTE Patient is seen for followup for acute kidney injury. Patient was admitted with a creatinine of about 10.2 on initial admission. She did get dialyzed initially. Currently she has been off of dialysis. She has had good urine output. She has an indwelling Slade catheter with 24-hour urine output of about 2 L. PHYSICAL EXAMINATION: On examination today, blood pressure was 124/60, heart rate 105 per minute. She is afebrile. Examination shows bilateral lower extremity edema. Slade catheter is in place. Right femoral dialysis catheter also in place. Abdomen is Soft, obese, non- tender. [employer] exam grossly intact. LABS: Sodium 134, potassium 4.0, chloride 95, CO2 33, BUN 49, creatinine 2.96. ASSESSMENT: 1. Acute kidney injury, acute tubular necrosis on initial admission, currently improved. Patient is off of dialysis. 2. Volume overload, status post Lasix drip, maintained on IV push Lasix currently with good urine output. Weight is about the same for the last 3 readings. 3. Chronic kidney disease, stage III. Baseline creatinine 1.1 to 1.3. PLAN: Continue with IV Lasix. We can discontinue the femoral dialysis catheter tomorrow. Patient will need close followup as outpatient for adjustment of diuretics. MMODL / IJN: [id number] /
--- NOTE | 2019-11-15 19:08 | PN ---
PROGRESS NOTE DATE OF SERVICE: 11/15/2019 REASON FOR FOLLOWUP: Left leg wound and cellulitis. INTERVAL HISTORY: The patient is currently afebrile. The patient is breathing comfortably. Slightly lethargic. No chest pain or cough. No abdominal pain. Left leg mentioned; tender to touch. No other pain. PHYSICAL EXAMINATION: Blood pressure 116/63 with a pulse of 80, temperature 98.9. She is 94% on room air. General description is an elderly female in the bed in no distress. RESPIRATORY SYSTEM: Unlabored breathing. Clear to auscultation anteriorly. HEART: S1, S2. Regular rate and rhythm. ABDOMEN: Soft. No tenderness. Left leg is currently wrapped up. No obvious drainage on the dressing. LABS: BUN of 49, creatinine 2.96. DIAGNOSTIC IMPRESSION AND PLAN: Patient with left leg wound with secondary cellulitis. Culture has grown multiple pathogens. Patient is covered with Invanz; to continue for a short course. Local care with dry Aquacel Silver dressing and continue with supportive care. MMODL / IJN: [id number] /
--- NOTE | 2019-11-15 20:19 | P.PN ---
Progress Note - Text Progress Note Date: 11/15/19 Presenting complaint: Nausea vomiting Hospital course: This is a 84-year-old patient of Dr. Castro, who is a resident of [facility] [place]. Admitted with-acute UTI, bilateral lower extremity cellulitis more on the left side, severe sepsis, metabolic encephalopathy from above and, Coumadin coa gulopathy,. Also acute kidney injury -felt to be from NSAIDs. Started on hemodialysis. Patient's underlying chronic kidney disease with a previous creatinine of 1.24. Started on Lasix drip. Currently 9 L in negative fluid balance Today-patient started on IV Lasix bolus today. Make urine. Tolerating some diet. Tired. Review of systems: Was done for constitutional, cardiovascular, GI, pulmonary. relevant finding as above Active Medications Albuterol/Ipratropium (Duoneb 0.5 Mg-3 Mg/3 Ml Soln) 3 ml INHALATION RT-Q4H PRN PRN Reason: Shortness Of Breath Or Wheezing Enoxaparin Sodium (Lovenox) 30 mg SQ DAILY [facility] Last Admin: 11/15/19 08:27 Dose: 30 mg Documented by: Furosemide (Lasix) 60 mg IV Q12HR [facility] Last Admin: 11/15/19 08:27 Dose: 60 mg Documented by: Hydromorphone HCl (Dilaudid) 1 mg IVP Q2HR PRN PRN Reason: Pain Scale 6 to 7 Last Admin: 11/06/19 02:41 Dose: 1 mg Documented by: Hydromorphone HCl (Dilaudid) 0.5 mg IVP Q2HR PRN PRN Reason: Pain Last Admin: 11/15/19 05:11 Dose: 0.5 mg Documented by: Ertapenem 0.5 gm/ Sodium (Chloride) 50 mls @ 100 mls/hr IVPB DAILY [facility]; Protocol Last Admin: 11/15/19 08:27 Dose: 100 mls/hr Documented by: Magnesium Oxide (Mag-Ox) 400 mg PO BID [facility] Last Admin: 11/15/19 08:27 Dose: 400 mg Documented by: Midodrine (Proamatine) 10 mg PO DAILY PRN PRN Reason: Hypotension Last Admin: 11/07/19 08:48 Dose: 10 mg Documented by: Midodrine (Proamatine) 10 mg PO AC-TID [facility] Last Admin: 11/15/19 17:41 Dose: 10 mg Documented by: Miscellaneous Information (Potassium Per Protocol) 1 each MISCELLANE DAILY PRN; Protocol PRN Reason: Per Protocol Naloxone HCl (Narcan) 0.2 mg IV Q2M PRN PRN Reason: Opioid Reversal Pantoprazole Sodium (Protonix) 40 mg PO AC-BRKFST [facility] Last Admin: 11/15/19 08:27 Dose: 40 mg Documented by: Physical examination: VITAL SIGNS: 98.1, 70, 16, 120-67, 98% on room air GENERAL: Sitting upon a chair, awake EYES: [Pupils equal. Conjunctiva pale HEENT: External appearance of nose and ears normal, oral cavity grossly normal. NECK: JVD not raised; masses not palpable. HEART: First and second heart sounds are normal; edema present LUNGS: Respiratory rate normal; clear to auscultation. ABDOMEN: Soft, nontender, liver spleen not palpable, no masses palpable. PSYCH: Alert and oriented x3; mood and affect normal MUSCULOSKELETAL: Evidence of OA especially in the hands EXTREMITIES: Dressing over the left leg wound, with Aly wrap INVESTIGATIONS, reviewed in the clinical context: Potassium 4.49 creatinine 2.96 Previous testing Potassium 3.8 creatinine 3.39 Assessment: -Acute kidney injury, from acute tubular necrosis from underlying infection and also secondary to NSAIDs. Taking naproxen at home.-On renal replacement therapy-currently on hold -Acute fluid overload-uncontrolled, on IV Lasix drip-about 11 L negative fluid balance. -Anion gap metabolic acidosis from renal failure status post bicarbonate drip -Baseline chronic kidney disease stage III with a previous creatinine of 1.24 -Anemia possibly chronic kidney disease -Obesity BMI 32.6 -Essential hypertension -Primary osteoarthritis -Chronic urinary stress incontinence severe -GERD -Medical debility -using wheelchair -Hyponatremia likely from fluid overload -Left lower extremity cellulitis and wound with cultures growing enterococcus group D and Morganella morganii -Acute UTI from cystitis from Klebsiella oxytoca Plan: Continues to diurese well. Over 11 L in negative fluid balance. Not IV Lasix bolus. We'll see how she does over the next 24-48 hours. Discussed with nephrology. Continue I's and O's and electrolyte monitoring. Continue with Invanz per ID.
[2019-11-15 21:02] LABS: Glucose,Whole Blood 170 mg/dL (75-99)
[2019-11-16] MEDS: HYDROmorphone 0.5 MG/0.5 ML SYRINGE IVP PRN ×2 (00:28→10:11)
[2019-11-16 06:46] LABS: Calcium 7.9 mg/dL (8.4-10.2)
[2019-11-16 07:03] LABS: Glucose,Whole Blood 123 mg/dL (75-99)
[2019-11-16] MEDS: PANTOPRAZOLE 40 MG TABLET PO SCH (07:32)
[2019-11-16] MEDS: ENOXAPARIN 30 MG/0.3 ML SYRINGE SQ SCH (07:32)
[2019-11-16] MEDS: FUROSEMIDE 10 MG/ML 10 ML VIAL IV SCH ×2 (07:32→21:26)
[2019-11-16] MEDS: MIDODRINE 5 MG TAB PO SCH ×3 (07:33→16:15)
[2019-11-16] MEDS: ERTAPENEM 0.5 GM in SODIUM CHLORIDE 0.9% 50 ML IVPB SCH (07:33)
[2019-11-16] MEDS: MAGNESIUM OXIDE 400 MG TAB PO SCH ×2 (07:33→21:26)
[2019-11-16 11:24] LABS: Glucose,Whole Blood 154 mg/dL (75-99)
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
--- NOTE | 2019-11-16 15:44 | PN ---
PROGRESS NOTE Patient is seen for followup for acute kidney injury. Patient was initially started on dialysis. However, currently she has been off dialysis with renal function currently stable with good urine output. Creatinine staying at about 2.9 mg/dL. The patient has significant edema of lower extremities and she is maintained on IV Lasix. Good urine output documented at about 2 L for 24 hours. PHYSICAL EXAMINATION: Today, patient is comfortable. Blood pressure 111/67, heart rate 70 per minute, she is afebrile. Examination of the abdomen, soft, obese, nontender. Examination of the lower extremities shows bilateral extremities to be wrapped. Edema is noted. She has had a right femoral dialysis catheter. [employer] exam grossly intact. LABS: Show sodium 134, potassium 4.0, chloride 91, CO2 is 40, BUN 48, serum creatinine 2.94. ASSESSMENT: 1. Acute kidney injury, ATN currently improved, status post dialysis for a few treatments. 2. Volume overload, maintained on IV Lasix. 3. Metabolic alkalosis secondary to diuresis. Add Diamox. 4. Cellulitis lower extremities, left leg mainly. 5. Urinary tract infection with urine culture growing Klebsiella oxytoca. PLAN: Continue antibiotics, discontinue femoral dialysis catheter. Add Diamox. Continue IV Lasix. Repeat labs in a.m. MMODL / IJN: [id number] /
[2019-11-16 16:33] LABS: Glucose,Whole Blood 128 mg/dL (75-99)
--- NOTE | 2019-11-16 17:32 | PN ---
PROGRESS NOTE DATE OF SERVICE: 11/16/2019 REASON FOR FOLLOWUP: Left lower extremity cellulitis and wound. INTERVAL HISTORY: The patient is currently afebrile, patient is breathing comfortably. Denies having any chest pain or cough. No nausea, vomiting, abdominal pain. Overall pain discomfort to the left leg has improved. PHYSICAL EXAMINATION: Blood pressure 130/72, pulse of 71, temperature 98.7, she is 99% on room. General description is an elderly female, lying in bed in no distress. RESPIRATORY SYSTEM: Unlabored breathing, clear to auscultation anteriorly. HEART: S1, S2. Regular rate and rhythm. ABDOMEN: Soft, no tenderness. The left leg is currently wrapped up. No obvious drainage on the dressing. LABS: BUN of 48, creatinine is 2.94. DIAGNOSTIC IMPRESSION AND PLAN: Patient with left leg wound with secondary cellulitis. Culture with multiple pathogen. Patient did have multiple antibiotic allergies currently covered with Invanz to continue local care with Aquacel Silver dressing. Continue supportive care. MMODL / IJN: [id number] /
[2019-11-16 20:40] LABS: Glucose,Whole Blood 123 mg/dL (75-99)
[2019-11-16] MEDS: acetaZOLAMIDE 250 MG TAB PO SCH (21:26)
--- NOTE | 2019-11-16 21:31 | P.PN ---
Progress Note - Text Progress Note Date: 11/16/19 Presenting complaint: Nausea vomiting Hospital course: This is a 84-year-old patient of Dr. Castro, who is a resident of [facility] [place]. Admitted with-acute UTI, bilateral lower extremity cellulitis more on the left side, severe sepsis, metabolic encephalopathy from above and, Coumadin coa gulopathy,. Also acute kidney injury -felt to be from NSAIDs. Started on hemodialysis. Patient's underlying chronic kidney disease with a previous creatinine of 1.24. Started on Lasix drip. Currently, liters in negative fluid balance Today-Remains on IV Lasix 60 mg every 12. Making good urine. Edema is slowly coming down. Awake. Tired. Review of systems: Was done for constitutional, cardiovascular, GI, pulmonary. relevant finding as above Active Medications Acetazolamide (Diamox) 250 mg PO BID [facility] Last Admin: 11/16/19 21:26 Dose: 250 mg Documented by: Albuterol/Ipratropium (Duoneb 0.5 Mg-3 Mg/3 Ml Soln) 3 ml INHALATION RT-Q4H PRN PRN Reason: Shortness Of Breath Or Wheezing Enoxaparin Sodium (Lovenox) 30 mg SQ DAILY [facility] Last Admin: 11/16/19 07:32 Dose: 30 mg Documented by: Furosemide (Lasix) 60 mg IV Q12HR [facility] Last Admin: 11/16/19 21:26 Dose: 60 mg Documented by: Hydromorphone HCl (Dilaudid) 1 mg IVP Q2HR PRN PRN Reason: Pain Scale 6 to 7 Last Admin: 11/06/19 02:41 Dose: 1 mg Documented by: Hydromorphone HCl (Dilaudid) 0.5 mg IVP Q2HR PRN PRN Reason: Pain Last Admin: 11/16/19 10:11 Dose: 0.5 mg Documented by: Ertapenem 0.5 gm/ Sodium (Chloride) 50 mls @ 100 mls/hr IVPB DAILY [facility]; Protocol Last Admin: 11/16/19 07:33 Dose: 100 mls/hr Documented by: Magnesium Oxide (Mag-Ox) 400 mg PO BID [facility] Last Admin: 11/16/19 21:26 Dose: 400 mg Documented by: Midodrine (Proamatine) 10 mg PO DAILY PRN PRN Reason: Hypotension Last Admin: 11/07/19 08:48 Dose: 10 mg Documented by: Midodrine (Proamatine) 10 mg PO AC-TID [facility] Last Admin: 11/16/19 16:15 Dose: 10 mg Documented by: Miscellaneous Information (Potassium Per Protocol) 1 each MISCELLANE DAILY PRN; Protocol PRN Reason: Per Protocol Naloxone HCl (Narcan) 0.2 mg IV Q2M PRN PRN Reason: Opioid Reversal Pantoprazole Sodium (Protonix) 40 mg PO AC-BRKFST [facility] Last Admin: 11/16/19 07:32 Dose: 40 mg Documented by: Physical examination: VITAL SIGNS: 98.1, 70, 16, 111/67, 95% on room air GENERAL: Sitting upon a chair, awake EYES: [Pupils equal. Conjunctiva pale HEENT: External appearance of nose and ears normal, oral cavity grossly normal. NECK: JVD not raised; masses not palpable. HEART: First and second heart sounds are normal; edema present LUNGS: Respiratory rate normal; clear to auscultation. ABDOMEN: Soft, nontender, liver spleen not palpable, no masses palpable. PSYCH: Alert and oriented x3; mood and affect normal MUSCULOSKELETAL: Evidence of OA especially in the hands EXTREMITIES: Dressing over the left leg wound, with Aly wrap INVESTIGATIONS, reviewed in the clinical context: Potassium 4 creatinine 2.94 Previous testing Potassium 3.8 creatinine 3.39 Assessment: -Acute kidney injury, from acute tubular necrosis from underlying infection and also secondary to NSAIDs. Taking naproxen at home.-On renal replacement therapy-currently on hold -Acute fluid overload-uncontrolled, on IV Lasix drip-about 12 liters in negative fluid balance. -Anion gap metabolic acidosis from renal failure status post bicarbonate drip -Baseline chronic kidney disease stage III with a previous creatinine of 1.24 -Anemia possibly chronic kidney disease -Obesity BMI 32.6 -Essential hypertension -Primary osteoarthritis -Chronic urinary stress incontinence severe -GERD -Medical debility -using wheelchair -Hyponatremia likely from fluid overload -Left lower extremity cellulitis and wound with cultures growing enterococcus group D and Morganella morganii -Acute UTI from cystitis from Klebsiella oxytoca Plan: That is single with IV Lasix. Continue with the same. Dialysis catheter is being removed. Hopefully discharge in next 24-48 hours.
[2019-11-17 03:38] VITALS: RESP 18
[2019-11-17] MEDS: HYDROmorphone 0.5 MG/0.5 ML SYRINGE IVP PRN (06:26)
[2019-11-17 06:59] LABS: Glucose,Whole Blood 108 mg/dL (75-99)
[2019-11-17] MEDS: MIDODRINE 5 MG TAB PO SCH ×2 (08:28→12:19)
[2019-11-17] MEDS: ERTAPENEM 0.5 GM in SODIUM CHLORIDE 0.9% 50 ML IVPB SCH (08:28)
[2019-11-17] MEDS: MAGNESIUM OXIDE 400 MG TAB PO SCH (08:28)
[2019-11-17] MEDS: FUROSEMIDE 10 MG/ML 10 ML VIAL IV SCH (08:28)
[2019-11-17] MEDS: acetaZOLAMIDE 250 MG TAB PO SCH (08:28)
[2019-11-17] MEDS: PANTOPRAZOLE 40 MG TABLET PO SCH (08:28)
[2019-11-17] MEDS: ENOXAPARIN 30 MG/0.3 ML SYRINGE SQ SCH (08:29)
[2019-11-17 08:43] VITALS: BP 102/53; PULSE 83; TEMP 97.8
[2019-11-17 10:46] LABS: Albumin 2.7 g/dL (3.5-5.0); Calcium 8.1 mg/dL (8.4-10.2); Potassium 3.4 mmol/L (3.5-5.1); Total Bilirubin 0.5 mg/dL (0.2-1.3); Total Protein 5.6 g/dL (6.3-8.2)
[2019-11-17 12:13] LABS: Glucose,Whole Blood 137 mg/dL (75-99)
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
--- NOTE | 2019-11-17 14:56 | P.DS ---
Providers Date of admission: 11/05/19 22:09 Expected date of discharge: 11/17/19 Attending physician: Porfirio Lemus Consults: 11/05/19 22:09 Consult Physician Routine Consulting Provider: Jose Tolliver Consult Reason/Comments: icu Do you want consulting provider notified?: Yes Consult Physician Routine Consulting Provider: Meron Phelna Consult Reason/Comments: arf Do you want consulting provider notified?: Yes 11/06/19 06:00 Consult Physician Routine Consulting Provider: Eboni Diego Consult Reason/Comments: Cellulitis in (L) lower extremity and UTI Do you want consulting provider notified?: Yes, Notify in am Consult Physician Stat Consulting Provider: Eboni Diego Consult Reason/Comments: Lower extremity cellulitis and UTI Do you want consulting provider notified?: Yes, Notify in am 11/06/19 12:01 Consult Physician Routine Consulting Provider: Derek Flores Consult Reason/Comments: dialysis cath placement Do you want consulting provider notified?: Yes Primary care physician: Darin Castro Hospital Course: Presenting complaint: Nausea vomiting Hospital course: This is a 84-year-old patient of Dr. Castro, who [facility] a [facility] [place]. Admitted with-acute UTI, bilateral lower extremity cellulitis more on the left side, severe sepsis, metabolic encephalopathy from above and, Coumadin coagulopathy,. Also acute kidney injury -felt to be from NSAIDs. Started on hemodialysis. Patient's underlying chronic kidney disease with a previous creatinine of 1.24. Started on Lasix drip. Currently, liters in negative fluid balance Today-diffusing well on IV Lasix. He denies significant leak on down. Eating better. Discussed with Dr. Terry. Patient be discharged on IV Invanz. Cleared by nephrology.dialysis catheter removed. Discussion and discharge planning more than 35 minutes .consultation: Dr. Diego from ID Dr. Lau and colleagues from pulmonary Dr. Phelan and colleagues from nephrology Dr. Nolasco from vascular surgery Physical examination: VITAL SIGNS: condition 0.8, 83, 18, 100-53, 99% room air GENERAL: Sitting upon a chair, awake EYES: [Pupils equal. Conjunctiva pale HEENT: External appearance of nose and ears normal, oral cavity grossly normal. NECK: JVD not raised; masses not palpable. HEART: First and second heart sounds are normal; eedema much improved LUNGS: Respiratory rate normal; clear to auscultation. ABDOMEN: Soft, nontender, liver spleen not palpable, no masses palpable. PSYCH: Alert and oriented x3; mood and affect normal MUSCULOSKELETAL: Evidence of OA especially in the hands EXTREMITIES: Dressing over the left leg wound, with Aly wrap INVESTIGATIONS, reviewed in the clinical context: potassium 3.4 bun 45 creatinine 3.09 Previous testing Potassium 3.8 creatinine 3.39 Assessment: -Acute kidney injury, from acute tubular necrosis from underlying infection and also secondary to NSAIDs. Taking naproxen at home.-patient received a few hemodialysis. Stopped -Acute fluid overload-uncontrolled, on IV Lasix over12 liters in negative fluid balance. -Anion gap metabolic acidosis from renal failure status post bicarbonate drip -Baseline chronic kidney disease stage III with a previous creatinine of 1.24 -Anemia possibly chronic kidney disease -Obesity BMI 32.6 -Essential hypertension -Primary osteoarthritis -Chronic urinary stress incontinence severe -GERD -Medical debility -using wheelchair -Hyponatremia likely from fluid overload -Left lower extremity cellulitis and wound with cultures growing enterococcus group D and Morganella morganii -Acute UTI from cystitis from Klebsiella oxytoca disposition: [facility] Patient Condition at Discharge: Stable Plan - Discharge Summary Discharge Rx Participant: No New Discharge Prescriptions: New Ertapenem [INVanz] 0.5 gm IVPB Q24H #5 bag No Action Loratadine [Claritin] 10 mg PO DAILY Cholecalciferol [Vitamin D3 (25 Mcg = 1000 Iu)] 1,000 unit PO DAILY Warfarin [Coumadin] 2.5 mg PO DAILY Naproxen Sodium [Aleve] 220 mg PO DAILY PRN PRN Reason: Pain Furosemide [Lasix] 20 mg PO DAILY hydrOXYzine HCL 10 mg PO TID PRN PRN Reason: Itching Discharge Medication List Cholecalciferol [Vitamin D3 (25 Mcg = 1000 Iu)] 1,000 unit PO DAILY 11/05/19 [History] Furosemide [Lasix] 20 mg PO DAILY 11/05/19 [History] Loratadine [Claritin] 10 mg PO DAILY 11/05/19 [History] Naproxen Sodium [Aleve] 220 mg PO DAILY PRN 11/05/19 [History] Warfarin [Coumadin] 2.5 mg PO DAILY 11/05/19 [History] hydrOXYzine HCL 10 mg PO TID PRN 11/05/19 [History] Ertapenem [INVanz] 0.5 gm IVPB Q24H #5 bag 11/17/19 [Rx] Follow up Appointment(s)/Referral(s): Darin Castro DO [Primary Care Provider] - 1-2 days [facility] [place], [NON-STAFF] - As Needed
--- NOTE | 2019-11-17 14:57 | PN ---
PROGRESS NOTE Patient is seen for follow up for acute kidney injury on top of chronic kidney disease. Patient is currently sitting up in a bedside chair. She is comfortable. She denies any significant complaints. She had dialysis initially and has not had any dialysis for more than a week now. Her creatinine is seems to be staying around 2.9-3 mg/dL. The patient has a Slade catheter with good urine output. Her previous creatinine in May of 2019 was 1.24. She was admitted with a creatinine of 10.2 on this admission. PHYSICAL EXAMINATION: Today, patient is comfortable. Blood pressure of 102/53, heart rate 83 per minute, she is afebrile. Examination of the lower extremities shows trace edema bilaterally. Abdomen is soft, nontender. Right femoral dialysis catheter is in place. [employer] exam is grossly intact. LABS: Show sodium 135, potassium 3.4, chloride 92, CO2 is 36, BUN 45, creatinine 3.09. ASSESSMENT: 1. Acute kidney injury, status post hemodialysis initially. Patient has not had dialysis since 11/08/2019. I will discontinue the dialysis catheter. She has good urine output. Serum creatinine staying at about 3 mg/dL. Previous creatinine was 1.2 in May of 2019. 2. Volume overload slowly improving. 3. Left lower extremity cellulitis. 4. Metabolic acidosis on initial admission associated with acute kidney injury, now resolved. 5. Hypotension, maintained on midodrine. PLAN: Discontinue dialysis catheter. Continue with the midodrine. Replace potassium. I will discontinue the Diamox by tomorrow and we can switch the Lasix to p.o. tomorrow. MMALBINOL / IJN: [id number] /
--- NOTE | 2019-11-17 15:25 | PN ---
PROGRESS NOTE DATE OF SERVICE: 11/17/2019 REASON FOR FOLLOWUP: Left leg wound and cellulitis. INTERVAL HISTORY: The patient is currently afebrile. The patient has been feeling better, breathing comfortably. The patient's dialysis catheter has been discontinued. No chest pain or cough. No abdominal pain or pain to the left leg area. PHYSICAL EXAMINATION: Blood pressure 102/53 with a pulse of 83, temperature 97.8. She is 99% on room air. General description is an elderly female lying in bed in no distress. RESPIRATORY SYSTEM: Unlabored breathing. Clear to auscultation anteriorly. HEART: S1, S2. Regular rate and rhythm. ABDOMEN: Soft. No tenderness. Left leg overall swelling and redness much improved. Wound is almost healed except at the posterior leg area. LABS: BUN of 45, creatinine 3.09. DIAGNOSTIC IMPRESSION AND PLAN: Patient with left leg wound with secondary cellulitis with cultures showing multiple pathogens. Patient has shown overall clinical improvement on Invanz; to continue for another 5 days. Local care with dry Aquacel Silver dressing. Keep the area off pressure. MMODL / IJN: [id number] /
== END 2019-11-17 16:35 | DRG 871 ==
LOC: EC 14:02 → 2SICU 22:09 → 4SSUR 11-08 09:50
PROVIDERS: ADMIT Hospitalist; ATTEND Hospitalist
PROC: 06HY33Z Insertion of Infusion Device into Lower Vein, Percutaneous Approach (ICD-10-PCS; principal; 2019-11-06)
PROC: 5A1D70Z Performance of Urinary Filtration, Intermittent, Less than 6 Hours Per Day (ICD-10-PCS; 2019-11-06)
PROC: 30233N1 Transfusion of Nonautologous Red Blood Cells into Peripheral Vein, Percutaneous Approach (ICD-10-PCS; 2019-11-07)
PROC: 05HD33Z Insertion of Infusion Device into Right Cephalic Vein, Percutaneous Approach (ICD-10-PCS; 2019-11-09)
PROC: 05HD33Z Insertion of Infusion Device into Right Cephalic Vein, Percutaneous Approach (ICD-10-PCS; 2019-11-11)
DX: A41.9 Sepsis, unspecified organism (principal); N17.0 Acute kidney failure with tubular necrosis; G93.41 Metabolic encephalopathy; E87.4 Mixed disorder of acid-base balance; N30.00 Acute cystitis without hematuria; L03.116 Cellulitis of left lower limb; L03.115 Cellulitis of right lower limb; E87.1 Hypo-osmolality and hyponatremia; D68.9 Coagulation defect, unspecified; D63.1 Anemia in chronic kidney disease; N18.3 Chronic kidney disease, stage 3 (moderate); E11.22 Type 2 diabetes mellitus with diabetic chronic kidney disease; R65.20 Severe sepsis without septic shock; Z99.2 Dependence on renal dialysis; L89.899 Pressure ulcer of other site, unspecified stage; I12.9 Hypertensive chronic kidney disease with stage 1 through stage 4 chronic kidney disease, or unspecified chronic kidney disease; Z20.828 Contact with and (suspected) exposure to other viral communicable diseases; E87.5 Hyperkalemia; B96.1 Klebsiella pneumoniae [K. pneumoniae] as the cause of diseases classified elsewhere; B95.2 Enterococcus as the cause of diseases classified elsewhere; B96.89 Other specified bacterial agents as the cause of diseases classified elsewhere; E86.0 Dehydration; N39.3 Stress incontinence (female) (male); M19.91 Primary osteoarthritis, unspecified site; T39.395A Adverse effect of other nonsteroidal anti-inflammatory drugs [NSAID], initial encounter; T50.2X5A Adverse effect of carbonic-anhydrase inhibitors, benzothiadiazides and other diuretics, initial encounter; K21.0 Gastro-esophageal reflux disease with esophagitis; E87.70 Fluid overload, unspecified; E86.1 Hypovolemia; E83.42 Hypomagnesemia; G89.29 Other chronic pain; E66.9 Obesity, unspecified; Z68.32 Body mass index [BMI] 32.0-32.9, adult; T45.515A Adverse effect of anticoagulants, initial encounter; M41.9 Scoliosis, unspecified; K59.00 Constipation, unspecified; R26.9 Unspecified abnormalities of gait and mobility; Z79.01 Long term (current) use of anticoagulants; Z79.899 Other long term (current) drug therapy; Z86.718 Personal history of other venous thrombosis and embolism; Z85.841 Personal history of malignant neoplasm of brain; Z98.890 Other specified postprocedural states; Z87.820 Personal history of traumatic brain injury; Z87.440 Personal history of urinary (tract) infections; Z90.49 Acquired absence of other specified parts of digestive tract; Z96.651 Presence of right artificial knee joint; Z96.641 Presence of right artificial hip joint; Z87.891 Personal history of nicotine dependence; Z87.2 Personal history of diseases of the skin and subcutaneous tissue; Z88.6 Allergy status to analgesic agent; Z88.1 Allergy status to other antibiotic agents; Z91.040 Latex allergy status; Z88.5 Allergy status to narcotic agent; Z88.0 Allergy status to penicillin; Z88.2 Allergy status to sulfonamides; Z88.8 Allergy status to other drugs, medicaments and biological substances; Z91.048 Other nonmedicinal substance allergy status; Z83.3 Family history of diabetes mellitus; Z80.49 Family history of malignant neoplasm of other genital organs; Z83.518 Family history of other specified eye disorder
CPT/HCPCS: 36410; 36415; 70450; 71045; 71046; 76937; 80048; 80053; 80329; 81001; 82553; 82607; 82728; 82746; 82803; 83520; 83540; 83550; 83605; 83735; 83930; 83935; 84100; 85025; 85610; 85652; 85730; 86140; 86704; 86706; 86850; 86900; 86901; 86920; 87040; 87070; 87075; 87077; 87086; 87186; 87205; 87340; 87635; 90935; 93005; 94640; 96361; 96365; 96366; 96368; 96374; 96375; 99291

== ENCOUNTER 2019-12-18 15:42 | Inpatient (IN) | payer MEDICARE ==
[2019-12-18] MEDS ORDERED: SODIUM CHLORIDE 0.9% 1,000 ML IV STA (15:47)
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
[2019-12-18 16:41] LABS: Anisocytosis Slight; HCT 34.1 % (34.0-46.0); HGB 10.3 gm/dL (11.4-16.0); Hypochromasia Marked; MCH 29.2 pg (25.0-35.0); MCHC 30.2 g/dL (31.0-37.0); MCV 96.6 fL (80.0-100.0); Macrocytosis Slight; Platelet Count 395 k/uL (150-450); RBC 3.53 m/uL (3.80-5.40); RDW 17.1 % (11.5-15.5)
[2019-12-18 16:53] LABS: Albumin 4.3 g/dL (3.5-5.0); Calcium 9.3 mg/dL (8.4-10.2); Magnesium 2.4 mg/dL (1.6-2.3); Phosphorus 5.8 mg/dL (2.5-4.5); Total Bilirubin 0.4 mg/dL (0.2-1.3); Total Protein 8.5 g/dL (6.3-8.2)
[2019-12-18 16:56] LABS: Potassium 5.2 mmol/L (3.5-5.1)
[2019-12-18 17:20] LABS: Eosinophils # (M) 0.11 k/uL (0-0.7); Lymphocytes # (M) 4.07 k/uL (1.0-4.8); Monocytes # (M) 0.55 k/uL (0-1.0); Neutrophils # (M) 6.27 k/uL (1.3-7.7); Neutrophils % (M) 57 %; Nucleated Red Blood Cells 0 /100 WBC (0-0); Total Cells Counted 100
[2019-12-18 17:39] LABS: INR 2.3 (<1.2); Partial Thromboplastin Time 33.9 sec (22.0-30.0)
--- NOTE | 2019-12-18 17:41 | XR ---
EXAMINATION TYPE: XR chest 2V DATE OF EXAM: 12/18/2019 COMPARISON: 11/06/2019 HISTORY: Short of breath TECHNIQUE: 2 views FINDINGS: There is some linear density at the lung bases. Heart size is normal. There is no heart eleanor lure. There are no hilar masses. There are chest leads. There is no evidence of pleural effusion. The re is osteopenia. IMPRESSION: Mild subsegmental atelectasis at the lung bases with significant improvement compared to old exam. No heart failure.
[2019-12-18 17:53] LABS: Appearance,Urine Clear (Clear); Bacteria,Urine Occasional /hpf; Bilirubin,Urine Negative (Negative); Blood,Urine Negative (Negative); Color,Urine Yellow; Glucose,Urine (UA) Negative (Negative); Hyaline Casts,Urine 7 /lpf (0-2); Ketones,Urine Negative (Negative); Leukocyte Esterase,Urine Moderate (Negative); Mucus,Urine Rare /hpf; Nitrite,Urine Negative (Negative); Protein,Urine Trace (Negative); Specific Gravity,Urine 1.016 (1.001-1.035); Squamous Epithelial Cell,Urine <1 /hpf (0-4); Urobilinogen,Urine <2.0 mg/dL (<2.0); WBC,Urine 16 /hpf (0-5)
[2019-12-18] MEDS ORDERED: VANCOMYCIN IV PER PHARMACY 1 EACH MISC MISCELLANE PRN (18:29)
[2019-12-18] MEDS ORDERED: MEROPENEM 2 GM in SODIUM CHLORIDE 0.9% 100 ML IVPB STA (18:32)
[2019-12-18] MEDS: SODIUM CHLORIDE 0.9% 1,000 ML IV SCH (19:41)
[2019-12-19] MEDS: WARFARIN 2.5 MG TAB PO SCH ×2 (00:47→18:36)
[2019-12-19] MEDS: SODIUM CHLORIDE 0.9% 1,000 ML IV SCH ×3 (03:19→18:27)
[2019-12-19 07:46] LABS: Glucose,Whole Blood 110 mg/dL (75-99)
[2019-12-19] MEDS: MIDODRINE 5 MG TAB PO SCH ×3 (08:23→17:22)
[2019-12-19] MEDS ORDERED: ENOXAPARIN 40 MG/0.4 ML SYRINGE SQ SCH (09:00)
[2019-12-19] MEDS ORDERED: MEROPENEM 1 GM in SODIUM CHLORIDE 0.9% 100 ML IVPB SCH (09:00)
[2019-12-19] MEDS: FUROSEMIDE 40 MG TAB PO SCH (09:08)
[2019-12-19] MEDS: POTASSIUM CHLORIDE ER 20 MEQ TAB.ER PO SCH ×2 (09:08→20:43)
[2019-12-19] MEDS: acetaZOLAMIDE 250 MG TAB PO SCH ×2 (09:08→20:43)
[2019-12-19 11:35] LABS: Glucose,Whole Blood 106 mg/dL (75-99)
[2019-12-19] MEDS ORDERED: WARFARIN 5 MG TAB PO SCH ×2 (18:02→18:45)
[2019-12-19] MEDS: MEROPENEM 500 MG in SODIUM CHLORIDE 0.9% 100 ML IVPB SCH (20:43)
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
[2019-12-20] MEDS: SODIUM CHLORIDE 0.9% 1,000 ML IV SCH ×3 (02:00→16:48)
[2019-12-20] MEDS: MIDODRINE 5 MG TAB PO SCH ×3 (05:19→18:21)
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
[2019-12-20] MEDS: FUROSEMIDE 40 MG TAB PO SCH (09:37)
[2019-12-20] MEDS: acetaZOLAMIDE 250 MG TAB PO SCH ×2 (09:38→20:18)
[2019-12-20] MEDS: POTASSIUM CHLORIDE ER 20 MEQ TAB.ER PO SCH ×2 (09:38→20:18)
[2019-12-20] MEDS: MEROPENEM 500 MG in SODIUM CHLORIDE 0.9% 100 ML IVPB SCH ×2 (09:43→20:18)
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
[2019-12-20 12:54] LABS: INR 2.5 (<1.2); Prothrombin Time 24.3 sec (9.0-12.0)
[2019-12-20] MEDS ORDERED: PHYTONADIONE 2 MG in SODIUM CHLORIDE 0.9% 50 ML IVPB ONE (13:00)
--- NOTE | 2019-12-20 13:55 | CDI ---
Documentation Clarification Form Date: 12/20/2019 01:41:46 PM From: Dali Lunsford RN CCDS Admit Date: 12/18/2019 06:30:00 PM Patient Name: Patrizia Davalos Visit Number: [id number] Discharge Date: ATTENTION: The Clinical Documentation Specialists (CDI) and [facility] Coding Staff appreciate your assistance in clarifying documentation. Please respond to the clarification below the line at the bottom and electronically sign. The CDI & [facility] Coding staff will review the response and follow-up if needed. Please note: Queries are made part of the Legal Health Record. If you have any questions, please contact the author of this message via ITS. Dr. Derek Clancy pressure ulcer was documented in the nursing wound assessment 12/19 Wound Buttock pressure injury stage 2 Per H&P 12/18 - Small decubitus sacral area History/Risk Factors: 84-year-old female presents to the ED for weakness discharged from [facility] three days ago. Medical history - Recent fall, DVT, HTN, Renal disease and Cancer. Clinical Indicators: Per Nursing Wound assessment 12/19 -Location: Buttock. Wound description: Stage 2 pressure injury; genaro-wound moist, genaro-wound color Erythema. Treatment: Barrier cream Elements for accurate and compliant documentation of an ulcer: *The location/laterality of the ulcer *Etiology (decubitus/pressure, diabetic, PVD) *Stage I-IV, Unstageable, Suspected Deep Tissue Injury (To the deepest stage) *If the ulcer was present at admission (POA) or occurred after admission In your professional opinion, can you please clarify the diagnosis, location, laterality and whether present on admission (POA): Stage 1 Pressure/Decubitus Ulcer (intact skin, non-blanching redness of local area) Stage 2 Pressure/Decubitus Ulcer (Partial thickness, loss of dermis, pink wound bed) Other condition, please specify i was__i was not consulted for buttock ulcer____ Unable to determine Please indicate etiology of pressure ulcer (if known). (Last Revision: April 2017) JOSUÉD
--- NOTE | 2019-12-20 14:20 | CDI ---
Documentation Clarification Form Date: 12/20/2019 01:57:31 PM From: Dali Lunsford RN CCDS Admit Date: 12/18/2019 06:30:00 PM Patient Name: Patrizia Davalos Visit Number: [id number] Discharge Date: ATTENTION: The Clinical Documentation Specialists (CDI) and [facility] Coding Staff appreciate your assistance in clarifying documentation. Please respond to the clarification below the line at the bottom and electronically sign. The CDI & [facility] Coding staff will review the response and follow-up if needed. Please note: Queries are made part of the Legal Health Record. If you have any questions, please contact the author of this message via ITS. Dr. Derek Flores Left heel wound is documented Per your consult 12/19 History/Risk Factors: 84-year-old female presents to the ED for weakness discharged from [facility] three days ago. Medical history - Small decubitus sacral area, DVT, HTN, Renal disease and Clinical Indicators: Per your consult 12/19 - Location: Left Heel. Wound description: 2 x 2cm with eschar with some fluctuation noted. Treatment: Debridement scheduled Elements for accurate and compliant documentation of an ulcer: *The location/laterality of the ulcer *Etiology (decubitus/pressure, diabetic, PVD) *Stage I-IV, Unstageable, Suspected Deep Tissue Injury (To the deepest stage) *If the ulcer was present at admission (POA) or occurred after admission In your professional opinion, can you please clarify the diagnosis, location, laterality and whether present on admission (POA): Stage 2 Pressure/Decubitus Ulcer (Partial thickness, loss of dermis, pink wound bed) Stage 3 Pressure/Decubitus Ulcer (Full thickness tissue loss) Stage 4 Pressure/Decubitus Ulcer (Full thickness tissue loss with exposed bone, tendon, or muscle. May have slough or eschar present) Unstageable Other condition, please specify Unable to determine Please indicate etiology of pressure ulcer (if known). (Last Revision: April 2017) JOSUÉD
--- NOTE | 2019-12-20 14:34 | CDI ---
Documentation Clarification Form Date: 12/20/2019 02:20:53 PM From: Dali Lunsford RN CCDS Admit Date: 12/18/2019 06:30:00 PM Patient Name: Patrizia Davalos Visit Number: [id number] Discharge Date: ATTENTION: The Clinical Documentation Specialists (CDI) and [facility] Coding Staff appreciate your assistance in clarifying documentation. Please respond to the clarification below the line at the bottom and electronically sign. The CDI & [facility] Coding staff will review the response and follow-up if needed. Please note: Queries are made part of the Legal Health Record. If you have any questions, please contact the author of this message via ITS. Dr. Derek Flores Decubitus ulcer and eschar of right calf was documented in the H&P 12/18 History/Risk Factors: 84-year-old female presents to the ED for weakness discharged from [facility] three days ago. Medical history - Small decubitus sacral area, DVT, HTN, Renal disease and Clinical Indicators: Per your consult 12/19 - Location: Right lower extremity. Wound description: 7 x 2 cm with eschar formation also base of wound clinic is infected. Treatment: Wound debridement and IV antibiotic Elements for accurate and compliant documentation of an ulcer: *The location/laterality of the ulcer *Etiology (decubitus/pressure, diabetic, PVD) *Stage I-IV, Unstageable, Suspected Deep Tissue Injury (To the deepest stage) *If the ulcer was present at admission (POA) or occurred after admission In your professional opinion, can you please clarify the diagnosis, location, laterality and whether present on admission (POA): Stage 2 Pressure/Decubitus Ulcer (Partial thickness, loss of dermis, pink wound bed) Stage 3 Pressure/Decubitus Ulcer (Full thickness tissue loss) Stage 4 Pressure/Decubitus Ulcer (Full thickness tissue loss with exposed bone, tendon, or muscle. May have slough or eschar present) Unstageable Other condition, please specify Unable to determine Please indicate etiology of pressure ulcer (if known). (Last Revision: April 2017) MTDD
--- NOTE | 2019-12-20 16:40 | P.PN ---
Progress Note - Text Progress Note Date: 12/20/19 Chief Complaint: Weakness This is a 84-year-old patient of Dr. Castro, chronic stable medical conditions include chronic kidney disease, essential hypertension, primary osteoarthritis, urinary stress incontinence, GERD, medical debility,. Patient was discharged her from [facility] and went into rehab admitted large reviewed. Was then admitted with acute UTI, bilateral lower external recent mellitus more so on the left side, sepsis, Coumadin coagulopathy and was started on hemodialysis. Admitted with-acute UTI, bilateral lower extremity cellulitis more on the left side, severe sepsis, metabolic encephalopathy from above and, Coumadin coagulopathy,. Patient was discharged home from the [facility] more to 3 days. Brought back to the ER by the daughter stated that patient is rather weak. Patient does feel weak and tired. Decreased appetite. Patient is dark eschar on the right heel in the back of the right calf. Also a small decubitus sacral area. Breathing is stable. Just tired and rundown. Admitted with acute UTI and cystitis, decubitus ulcer and black eschar on the right calf and right heel. Started and IV meropenem. Today-laying in bed. Decreased appetite. To have debridement done tomorrow by Dr. Nolasco. Review of systems: Was done for constitutional, cardiovascular, GI, pulmonary. relevant finding as above Active Medications Acetazolamide (Diamox) 250 mg PO BID [facility] Last Admin: 12/20/19 09:38 Dose: 250 mg Documented by: Furosemide (Lasix) 40 mg PO DAILY [facility] Last Admin: 12/20/19 09:37 Dose: 40 mg Documented by: Sodium Chloride (Saline 0.9%) 1,000 mls @ 130 mls/hr IV .Q7H42M [facility] Last Admin: 12/20/19 09:38 Dose: 130 mls/hr Documented by: Meropenem 500 mg/ Sodium (Chloride) 100 mls @ 200 mls/hr IVPB Q12HR [facility] Last Admin: 12/20/19 09:43 Dose: 200 mls/hr Documented by: Midodrine (Proamatine) 5 mg PO AC-TID [facility] Last Admin: 12/20/19 12:59 Dose: 5 mg Documented by: Potassium Chloride (K-Dur 20) 20 meq PO BID [facility] Last Admin: 12/20/19 09:38 Dose: 20 meq Documented by: Warfarin Sodium (Coumadin) 2.5 mg PO MoTuWeTh@1800 FLY; Protocol Warfarin Sodium (Coumadin) 5 mg PO SuFrSa@1800 FLY; Protocol Last Admin: 12/19/19 18:46 Dose: 5 mg Documented by: Physical examination: VITAL SIGNS: 97.9, 90, 16, 180/56, 100% on room air GENERAL: Laying in bed, tired EYES: [Pupils equal. Conjunctiva pale HEENT: External appearance of nose and ears normal, oral cavity grossly normal. NECK: JVD not raised; masses not palpable. HEART: First and second heart sounds are normal; minimal edema LUNGS: Respiratory rate normal; clear to auscultation. ABDOMEN: Soft, nontender, liver spleen not palpable, no masses palpable. PSYCH: Alert and oriented x3; mood and affect tired MUSCULOSKELETAL: Evidence of OA especially in the hands EXTREMITIES: Area of eschar on the right calf posteriorly, and in the right heel INVESTIGATIONS, reviewed in the clinical context: INR 2.5 Previous testing White count 11 hemoglobin 10.3 platelets 395 INR 2.3 potassium 5.2.51 creatinine 2.77 Troponin I 0.066 UA positive for leukoesterase, WBC COVID 19-PCR-not detected Assessment: -Acute UTI and cystitis -Medical asthenia debility patient is using wheelchair. Just discharged from [facility] -chronic kidney disease stage III with a previous creatinine of 1.24 -Anemia possibly chronic kidney disease -Obesity BMI 32.6 -Essential hypertension -Primary osteoarthritis -Chronic urinary stress incontinence severe -GERD -Medical debility -using wheelchair -Acute UTI from cystitis from Klebsiella oxytoca -Decubitus ulcer and eschar both the right heel and right calf. -Coumadin monitoring Plan: Coumadin to be held. Since INR is 2.5 we'll give 2 mg of vitamin K. Repeat INR in the morning. If need be in the morning patient can receive fresh frozen plasma for the procedure. Discussed with Dr. Nolasco or the phone.
[2019-12-20] MEDS: WARFARIN 2.5 MG TAB PO SCH (18:21)
--- NOTE | 2019-12-21 03:06 | PN ---
PROGRESS NOTE DATE OF SERVICE: 12/20/2019 REASON FOR FOLLOWUP: 1. Left heel and right leg wound. 2. UTI. INTERVAL HISTORY: The patient is currently afebrile. The patient is breathing comfortably. The patient denies having any chest pain or shortness of breath or cough. No nausea or vomiting. No abdominal pain. No diarrhea. Pain to the wound area is currently controlled. PHYSICAL EXAMINATION: Blood pressure 123/59 with a pulse of 123, temperature 96.9. She is 100% on room air. General description is an elderly female lying in bed in no distress. RESPIRATORY SYSTEM: Unlabored breathing, clear to auscultation anteriorly. HEART: S1, S2. Regular rate and rhythm. ABDOMEN: Soft, no tenderness. This wounds are currently dressed up. No obvious drainage on the dressing. LABS: Urine is showing yeast species. DIAGNOSTIC IMPRESSION AND PLAN: 1. Patient with right posterior leg wound as well as left heel wound with surgical debridement and deep cultures for which vascular surgery has been consulted. 2. Patient with urinary tract infection. Urine is showing yeast. Antibiotic was switched over to Diflucan and discontinue the meropenem. Monitor clinical course closely. MMODL / IJN: [id number] /
[2019-12-21] MEDS: SODIUM CHLORIDE 0.9% 1,000 ML IV SCH ×3 (04:09→18:09)
[2019-12-21] MEDS: MIDODRINE 5 MG TAB PO SCH ×3 (06:46→18:09)
[2019-12-21 07:28] LABS: INR 1.3 (<1.2)
[2019-12-21 11:34] LABS: Glucose,Whole Blood 105 mg/dL (75-99)
[2019-12-21] MEDS ORDERED: IV FLUID CONTINUATION 1,000 ML IV ONE (13:09)
[2019-12-21] MEDS ORDERED: ONDANSETRON 4 MG/2 ML VIAL IVP ONE (13:20)
[2019-12-21] MEDS ORDERED: MIDAZOLAM 2 MG/2 ML VIAL ONE (13:39)
[2019-12-21] MEDS ORDERED: KETAMINE 10 MG/ML 20 ML VIAL ONE (13:39)
[2019-12-21] MEDS ORDERED: fentaNYL (PF) 50 MCG/ML 2 ML AMP ONE (13:39)
[2019-12-21] MEDS ORDERED: LACTATED RINGERS 1,000 ML IV ONE (14:00)
[2019-12-21] MEDS ORDERED: LIDOCAINE 1% INJ 10MG/ML (20 ML MDV) SQ ONE (14:31)
[2019-12-21] MEDS ORDERED: HYDROmorphone 0.5 MG/0.5 ML SYRINGE IVP ONE (14:52)
--- NOTE | 2019-12-21 15:20 | PN ---
PROGRESS NOTE DATE OF SERVICE: 12/21/2019 REASON FOR FOLLOWUP: Right and left heel wound, sacral pressure ulcer and UTI. INTERVAL HISTORY: The patient is currently afebrile, the patient is breathing comfortably. He denies having any chest pain. No shortness of breath. No abdominal pain or pain to the wound area. PHYSICAL EXAMINATION: Blood pressure 104/47 with a pulse of 98, temperature is 97.6. She is 97% on room air. General description is an elderly female, lying in bed in no distress. RESPIRATORY SYSTEM: Unlabored breathing, clear to auscultation anteriorly. HEART: S1, S2. Regular rate and rhythm. ABDOMEN: Soft, no tenderness. LABS: No new labs have been obtained today. Urine with yeast suspicious. DIAGNOSTIC IMPRESSION/PLAN: 1. Patient with right posterior leg and left heel wound, pressure ulcer awaiting surgical debridement and culture with new purulence. 2. Sacral pressure ulcer local care with Calmoseptine lotion, keep the area dry and off the pressure. 3. UTI, urine showing yeast on Diflucan and monitor clinical course closely. MMODL / IJN: [id number] /
[2019-12-21] MEDS: FUROSEMIDE 40 MG TAB PO SCH (16:07)
[2019-12-21] MEDS: acetaZOLAMIDE 250 MG TAB PO SCH ×2 (16:07→21:07)
[2019-12-21] MEDS: FLUCONAZOLE 100 MG TAB PO SCH (16:07)
[2019-12-21] MEDS: POTASSIUM CHLORIDE ER 20 MEQ TAB.ER PO SCH ×2 (16:08→21:07)
[2019-12-21 16:40] LABS: Glucose,Whole Blood 108 mg/dL (75-99)
--- NOTE | 2019-12-21 16:53 | PCN ---
PROCEDURE NOTE PREOPERATIVE DIAGNOSES: 1. Traumatic wound right lower extremity. Measurement is 8 x 4 cm with flap necrosis and devitalized tissue. 2. Wound on the left heel, measurement is 2 x 2 cm. PROCEDURE: Excision of the wound and eschar formation down to subcutaneous tissue. PROCEDURE IN DETAIL: This patient had a history of trauma to the right and left lower extremity. The patient developed large wound on the lateral aspect of the right leg. The patient also had a wound on the left heel. Under IV sedation and local anesthesia, 1% lidocaine plain infiltrated after prepped and drapes applied in a sterile manner to right lower extremity. Using a sharp knife, we excised the scar tissue from the wound down to subcutaneous tissue and fat. The fascia was intact. No muscle involvement was noted. All the devitalized tissue was excised with sharp knife. No active bleeding was noted. Wound was covered with irrigated and after that, attention was paid to the left heel. Left heel also had an infected eschar, 1% lidocaine was infiltrated and using knife, we excised the scar down to subcutaneous tissue. Everything was removed. Devitalized tissue was removed which we sent the necrotic tissue for the culture and sensitivity. The wound was irrigated with saline and silver soft was applied to the wound with pressure dressing applied. Patient tolerated the procedure well. The patient was transferred to recovery room in satisfactory condition. MMODL / IJN: [id number] /
[2019-12-21] MEDS: WARFARIN 2.5 MG TAB PO SCH (21:07)
--- NOTE | 2019-12-21 21:47 | P.PN ---
Progress Note - Text Progress Note Date: 12/21/19 Chief Complaint: Weakness This is a 84-year-old patient of Dr. Castro, chronic stable medical conditions include chronic kidney disease, essential hypertension, primary osteoarthritis, urinary stress incontinence, GERD, medical debility,. Patient was discharged her from [facility] and went into rehab admitted large reviewed. Was then admitted with acute UTI, bilateral lower external recent mellitus more so on the left side, sepsis, Coumadin coagulopathy and was started on hemodialysis. Admitted with-acute UTI, bilateral lower extremity cellulitis more on the left side, severe sepsis, metabolic encephalopathy from above and, Coumadin coagulopathy,. Patient was discharged home from the [facility] more to 3 days. Brought back to the ER by the daughter stated that patient is rather weak. Patient does feel weak and tired. Decreased appetite. Patient is dark eschar on the right heel in the back of the right calf. Also a small decubitus sacral area. Breathing is stable. Just tired and rundown. Admitted with acute UTI and cystitis, decubitus ulcer and black eschar on the right calf and right heel. Started and IV meropenem. Today-so the patient this morning. Due to go down for debridement this afternoon. I notice come down with vitamin K given yesterday. Discussed with the patient. Review of systems: Was done for constitutional, cardiovascular, GI, pulmonary. relevant finding as above Active Medications Acetazolamide (Diamox) 250 mg PO BID [facility] Last Admin: 12/21/19 21:07 Dose: 250 mg Documented by: Fluconazole (Diflucan) 100 mg PO DAILY [facility] Last Admin: 12/21/19 16:07 Dose: 100 mg Documented by: Furosemide (Lasix) 40 mg PO DAILY [facility] Last Admin: 12/21/19 16:07 Dose: 40 mg Documented by: Sodium Chloride (Saline 0.9%) 1,000 mls @ 130 mls/hr IV .Q7H42M [facility] Last Admin: 12/21/19 18:09 Dose: 130 mls/hr Documented by: Midodrine (Proamatine) 5 mg PO AC-TID [facility] Last Admin: 12/21/19 18:09 Dose: Not Given Documented by: Potassium Chloride (K-Dur 20) 20 meq PO BID [facility] Last Admin: 12/21/19 21:07 Dose: 20 meq Documented by: Warfarin Sodium (Coumadin) 2.5 mg PO MoTuWeTh@1800 FLY; Protocol Last Admin: 12/21/19 21:07 Dose: 2.5 mg Documented by: Warfarin Sodium (Coumadin) 5 mg PO SuFrSa@1800 FLY; Protocol Last Admin: 12/19/19 18:46 Dose: 5 mg Documented by: Physical examination: VITAL SIGNS: 98, 93, 18, 133/64, 96% on 2 L GENERAL: Laying in bed, tired EYES: [Pupils equal. Conjunctiva pale HEENT: External appearance of nose and ears normal, oral cavity grossly normal. NECK: JVD not raised; masses not palpable. HEART: First and second heart sounds are normal; minimal edema LUNGS: Respiratory rate normal; clear to auscultation. ABDOMEN: Soft, nontender, liver spleen not palpable, no masses palpable. PSYCH: Alert and oriented x3; mood and affect tired MUSCULOSKELETAL: Evidence of OA especially in the hands EXTREMITIES: Area of eschar on the right calf posteriorly, and in the right heel INVESTIGATIONS, reviewed in the clinical context: INR 2.5 Previous testing White count 11 hemoglobin 10.3 platelets 395 INR 2.3 potassium 5.2.51 creatinine 2.77 Troponin I 0.066 UA positive for leukoesterase, WBC COVID 19-PCR-not detected Urine culture-Streptococcus agalactiae. Assessment: -Acute UTI and cystitis from Streptococcus agalactiae. -Medical asthenia debility patient is using wheelchair. Just discharged from [facility] -chronic kidney disease stage III with a previous creatinine of 1.24 -Anemia possibly chronic kidney disease -Obesity BMI 32.6 -Essential hypertension -Primary osteoarthritis -Chronic urinary stress incontinence severe -GERD -Medical debility -using wheelchair -Acute UTI from cystitis from Klebsiella oxytoca -Decubitus ulcer and eschar both the right heel and right calf.-For debridement today. -Coumadin monitoring received vitamin K 2 mg yesterday evening. Plan: -Patient to go down to debridement later this afternoon. Coumadin will then be resumed. Discussed with patient.
[2019-12-21] MEDS ORDERED: CEPHALEXIN 250 MG CAP PO SCH (22:00)
[2019-12-22] MEDS: ACETAMINOPHEN TAB 325 MG TAB PO PRN ×2 (05:08→15:20)
[2019-12-22] MEDS: MIDODRINE 5 MG TAB PO SCH ×3 (06:22→17:33)
[2019-12-22] MEDS: SODIUM CHLORIDE 0.9% 1,000 ML IV SCH ×3 (06:23→15:23)
[2019-12-22] MEDS: POTASSIUM CHLORIDE ER 20 MEQ TAB.ER PO SCH ×2 (08:47→22:04)
[2019-12-22] MEDS: FLUCONAZOLE 100 MG TAB PO SCH (08:48)
[2019-12-22] MEDS: acetaZOLAMIDE 250 MG TAB PO SCH ×2 (08:48→22:04)
[2019-12-22] MEDS: FUROSEMIDE 40 MG TAB PO SCH (08:48)
[2019-12-22 14:31] VITALS: BMI 27.3
[2019-12-22] MEDS: WARFARIN 2.5 MG TAB PO SCH (18:51)
--- NOTE | 2019-12-22 19:48 | P.PN ---
Progress Note - Text Progress Note Date: 12/22/19 Chief Complaint: Weakness This is a 84-year-old patient of Dr. Castro, chronic stable medical conditions include chronic kidney disease, essential hypertension, primary osteoarthritis, urinary stress incontinence, GERD, medical debility,. Patient was discharged her from [facility] and went into rehab admitted large reviewed. Was then admitted with acute UTI, bilateral lower external recent mellitus more so on the left side, sepsis, Coumadin coagulopathy and was started on hemodialysis. Admitted with-acute UTI, bilateral lower extremity cellulitis more on the left side, severe sepsis, metabolic encephalopathy from above and, Coumadin coagulopathy,. Patient was discharged home from the [facility] more to 3 days. Brought back to the ER by the daughter stated that patient is rather weak. Patient does feel weak and tired. Decreased appetite. Patient is dark eschar on the right heel in the back of the right calf. Also a small decubitus sacral area. Breathing is stable. Just tired and rundown. Admitted with acute UTI and cystitis, decubitus ulcer and black eschar on the right calf and right heel. Started and IV meropenem. Debridement was done by Dr. Nolasco on December 20 Today-Coumadin resumed. Did tolerate some diet. Does feel a bit tired. Decreased appetite. t. Review of systems: Was done for constitutional, cardiovascular, GI, pulmonary. relevant finding as above Active Medications Acetaminophen (Tylenol Tab) 650 mg PO Q6HR PRN PRN Reason: Fever and/ or Pain Last Admin: 12/22/19 15:20 Dose: 650 mg Documented by: Acetazolamide (Diamox) 250 mg PO BID [facility] Last Admin: 12/22/19 08:48 Dose: 250 mg Documented by: Fluconazole (Diflucan) 100 mg PO DAILY [facility] Last Admin: 12/22/19 08:48 Dose: 100 mg Documented by: Furosemide (Lasix) 40 mg PO DAILY [facility] Last Admin: 12/22/19 08:48 Dose: 40 mg Documented by: Sodium Chloride (Saline 0.9%) 1,000 mls @ 130 mls/hr IV .Q7H42M [facility] Last Admin: 12/22/19 15:23 Dose: 130 mls/hr Documented by: Midodrine (Proamatine) 5 mg PO AC-TID [facility] Last Admin: 12/22/19 17:33 Dose: 5 mg Documented by: Potassium Chloride (K-Dur 20) 20 meq PO BID [facility] Last Admin: 12/22/19 08:47 Dose: 20 meq Documented by: Warfarin Sodium (Coumadin) 2.5 mg PO MoTuWeTh@1800 FLY; Protocol Last Admin: 12/22/19 18:51 Dose: 2.5 mg Documented by: Warfarin Sodium (Coumadin) 5 mg PO SuFrSa@1800 FLY; Protocol Last Admin: 12/19/19 18:46 Dose: 5 mg Documented by: Physical examination: VITAL SIGNS: 98, 102, 18, 134/63, 100% on room air GENERAL: Laying in bed, tired EYES: [Pupils equal. Conjunctiva pale HEENT: External appearance of nose and ears normal, oral cavity grossly normal. NECK: JVD not raised; masses not palpable. HEART: First and second heart sounds are normal; minimal edema LUNGS: Respiratory rate normal; clear to auscultation. ABDOMEN: Soft, nontender, liver spleen not palpable, no masses palpable. PSYCH: Alert and oriented x3; mood and affect tired MUSCULOSKELETAL: Evidence of OA especially in the hands EXTREMITIES: Dressing over the right calf INVESTIGATIONS, reviewed in the clinical context: INR 2.5 Previous testing White count 11 hemoglobin 10.3 platelets 395 INR 2.3 potassium 5.2.51 creatinine 2.77 Troponin I 0.066 UA positive for leukoesterase, WBC COVID 19-PCR-not detected Urine culture-Streptococcus agalactiae. Assessment: -Acute UTI and cystitis from Streptococcus agalactiae. -Medical asthenia debility patient is using wheelchair. Just discharged from [facility] -chronic kidney disease stage III with a previous creatinine of 1.24 -Anemia possibly chronic kidney disease -Obesity BMI 32.6 -Essential hypertension -Primary osteoarthritis -Chronic urinary stress incontinence severe -GERD -Medical debility -using wheelchair -Acute UTI from cystitis from Klebsiella oxytoca -Decubitus ulcer and eschar both the right heel and right calf.-For debridement today. -Coumadin monitoring received vitamin K 2 mg yesterday evening. Plan: -Wound care and antibiotics to continue. Follow INR and labs. Check tomorrow.
--- NOTE | 2019-12-23 03:45 | PN ---
PROGRESS NOTE DATE OF SERVICE: 12/22/2019 REASON FOR FOLLOWUP: 1. Right posterior leg and left heel wound. 2. UTI. INTERVAL HISTORY: The patient is currently afebrile. The patient is status post surgical debridement of the right leg and left heel wound. The patient tolerated the procedure. Pain is currently controlled. No chest pain, shortness of breath or cough. No abdominal pain. No diarrhea. PHYSICAL EXAMINATION: Blood pressure is 153/75 with a pulse of 76, temperature is 97.8. She is 100% on room air. General description is an elderly female lying in bed in no distress. RESPIRATORY SYSTEM: Unlabored breathing, clear to auscultation anteriorly. HEART: S1, S2. Regular rate and rhythm. ABDOMEN: Soft, no tenderness. Her wounds are currently dressed up. No obvious drainage on the dressing. LABS: No new labs have been obtained today. cultures currently pending. DIAGNOSTIC IMPRESSION AND PLAN: 1. Patient with right posterior leg wound, traumatic, with left heel pressure ulcer, status post debridement with significant cellulitis. Will wait for the culture to finalize. Continue local wound care as ordered. 2. The patient with positive UA showing yeast, question of colonizer versus urinary tract infection. We will repeat UA as well as blood work and continue with supportive care. MMODL / IJN: [id number] /
[2019-12-23] MEDS: ACETAMINOPHEN TAB 325 MG TAB PO PRN ×3 (06:18→19:36)
[2019-12-23] MEDS: SODIUM CHLORIDE 0.9% 1,000 ML IV SCH ×4 (07:33→20:24)
[2019-12-23 07:54] LABS: INR 1.4 (<1.2); Prothrombin Time 13.8 sec (9.0-12.0)
[2019-12-23 08:04] LABS: Calcium 8.4 mg/dL (8.4-10.2); Potassium 4.1 mmol/L (3.5-5.1)
[2019-12-23] MEDS: FLUCONAZOLE 100 MG TAB PO SCH (08:12)
[2019-12-23] MEDS: POTASSIUM CHLORIDE ER 20 MEQ TAB.ER PO SCH ×2 (08:12→20:06)
[2019-12-23] MEDS: FUROSEMIDE 40 MG TAB PO SCH (08:13)
[2019-12-23] MEDS: MIDODRINE 5 MG TAB PO SCH ×3 (08:13→18:24)
[2019-12-23] MEDS: acetaZOLAMIDE 250 MG TAB PO SCH ×2 (09:22→20:06)
[2019-12-23 10:06] LABS: Anisocytosis Slight; HCT 26.6 % (34.0-46.0); Hypochromasia Marked; MCH 31.2 pg (25.0-35.0); MCHC 31.2 g/dL (31.0-37.0); MCV 99.9 fL (80.0-100.0); Macrocytosis Slight; Mean Platelet Volume 8.3; Platelet Count 268 k/uL (150-450); RBC 2.67 m/uL (3.80-5.40); RDW 17.1 % (11.5-15.5); WBC 7.9 k/uL (3.8-10.6)
[2019-12-23 10:13] LABS: HGB 8.3 gm/dL (11.4-16.0)
--- NOTE | 2019-12-23 10:44 | PN ---
PROGRESS NOTE An 84-year-old female patient, history of fall. She developed a wound on the right lower extremity and also left heel. Patient went for debridement of the wound. We will be using the Medihoney gel for the wound and the patient is on IV antibiotic under care of Infectious Disease. Discussed with Dr. Lemus if the patient goes home this week. I will see her Friday in the Wound Clinic. Continue with Medihoney and antibiotic. MMODL / IJN: [id number] /
--- NOTE | 2019-12-23 12:50 | PN ---
PROGRESS NOTE DATE OF SERVICE: 12/23/2019 REASON FOR FOLLOWUP: Right leg wound and left heel pressure ulcer and a question of UTI. INTERVAL HISTORY: The patient is currently afebrile. The patient is feeling better. Breathing comfortably. Denies having any chest pain. No cough. No nausea, no vomiting. No abdominal pain or any pain to the wound area. PHYSICAL EXAMINATION: Blood pressure 120/64 with a pulse of 83, temperature 98.3, she is 100% on room air. General description is an elderly female, lying in bed in no distress. RESPIRATORY SYSTEM: Unlabored breathing, clear to auscultation anteriorly. HEART: S1, S2. Regular rate and rhythm. ABDOMEN: Soft, no tenderness. Leg wounds look some slough tissue but no cellulitis. LABS: Hemoglobin 8.8, white count 7.9, BUN of 15, creatinine 1.29. DIAGNOSTIC IMPRESSION AND PLAN: 1. Patient with right posterior and left heel wound with some slough tissue but no evidence of any secondary cellulitis recommend local wound care with Medihoney or Santyl followed by moist dressing. There is no need for antibiotic on discharge. 2. Positive UA. No significant symptoms, no need for any antifungal on discharge. MMODL / IJN: [id number] /
[2019-12-23] MEDS ORDERED: WARFARIN 2.5 MG TAB PO SCH (18:00)
[2019-12-23] MEDS: METOPROLOL TARTRATE 25 MG TAB PO SCH (18:24)
--- NOTE | 2019-12-23 20:51 | P.PN ---
Progress Note - Text Progress Note Date: 12/23/19 Chief Complaint: Weakness This is a 84-year-old patient of Dr. Castro, chronic stable medical conditions include chronic kidney disease, essential hypertension, primary osteoarthritis, urinary stress incontinence, GERD, medical debility,. Patient was discharged her from [facility] and went into rehab admitted large reviewed. Was then admitted with acute UTI, bilateral lower external recent mellitus more so on the left side, sepsis, Coumadin coagulopathy and was started on hemodialysis. Admitted with-acute UTI, bilateral lower extremity cellulitis more on the left side, severe sepsis, metabolic encephalopathy from above and, Coumadin coagulopathy,. Patient was discharged home from the [facility] more to 3 days. Brought back to the ER by the daughter stated that patient is rather weak. Patient does feel weak and tired. Decreased appetite. Patient is dark eschar on the right heel in the back of the right calf. Also a small decubitus sacral area. Breathing is stable. Just tired and rundown. Admitted with acute UTI and cystitis, decubitus ulcer and black eschar on the right calf and right heel. Started and IV meropenem. Debridement was done by Dr. Nolasco on December 20 Today-laying in bed. Starting some diet. Wound cultures are pending. Admitted now from patient has some chest pain. I ordered a troponin. Came back as 0.042. EKG was ordered. Review of systems: Was done for constitutional, cardiovascular, GI, pulmonary. relevant finding as above Active Medications Acetaminophen (Tylenol Tab) 650 mg PO Q6HR PRN PRN Reason: Fever and/ or Pain Last Admin: 12/23/19 19:36 Dose: 650 mg Documented by: Acetazolamide (Diamox) 250 mg PO BID [facility] Last Admin: 12/23/19 20:06 Dose: 250 mg Documented by: Fluconazole (Diflucan) 100 mg PO DAILY [facility] Last Admin: 12/23/19 08:12 Dose: 100 mg Documented by: Furosemide (Lasix) 40 mg PO DAILY [facility] Last Admin: 12/23/19 08:13 Dose: 40 mg Documented by: Heparin Sodium (Porcine) (Heparin) 5,000 unit SQ Q12HR [facility] Last Admin: 12/23/19 20:06 Dose: 5,000 unit Documented by: Sodium Chloride (Saline 0.9%) 1,000 mls @ 130 mls/hr IV .[id number] [facility] Last Admin: 12/23/19 20:24 Dose: Not Given Documented by: Metoprolol Tartrate (Lopressor) 25 mg PO BID [facility] Last Admin: 12/23/19 18:24 Dose: 25 mg Documented by: Midodrine (Proamatine) 5 mg PO AC-TID [facility] Last Admin: 12/23/19 18:24 Dose: 5 mg Documented by: Miscellaneous Information (Coumadin Per Pharmacy) 0 each MISCELLANE DIRECTED PRN PRN Reason: PHARMACY DOSING WARFARIN Potassium Chloride (K-Dur 20) 20 meq PO BID [facility] Last Admin: 12/23/19 20:06 Dose: 20 meq Documented by: Warfarin Sodium (Coumadin) 5 mg PO SuFrSa@1800 FLY; Protocol Last Admin: 12/19/19 18:46 Dose: 5 mg Documented by: Warfarin Sodium (Coumadin) 2.5 mg PO MoTuWeTh@1800 FLY; Protocol Last Admin: 12/23/19 18:24 Dose: 2.5 mg Documented by: Physical examination: VITAL SIGNS: 98.3, 83, 18, 123/64, 100% on room air GENERAL: Laying in bed, awake EYES: [Pupils equal. Conjunctiva pale HEENT: External appearance of nose and ears normal, oral cavity grossly normal. NECK: JVD not raised; masses not palpable. HEART: First and second heart sounds are normal; minimal edema LUNGS: Respiratory rate normal; clear to auscultation. ABDOMEN: Soft, nontender, liver spleen not palpable, no masses palpable. PSYCH: Alert and oriented x3; mood and affect tired MUSCULOSKELETAL: Evidence of OA especially in the hands EXTREMITIES: Dressing over the right calf INVESTIGATIONS, reviewed in the clinical context: White count 7.9-8.3 potassium 4.1 creatinine 1.29 troponin 0.04 to Previous testing White count 11 hemoglobin 10.3 platelets 395 INR 2.3 potassium 5.2.51 creatinine 2.77 Troponin I 0.066 UA positive for leukoesterase, WBC COVID 19-PCR-not detected Urine culture-Streptococcus agalactiae. Assessment: -Acute UTI and cystitis from Streptococcus agalactiae. -Medical asthenia debility patient is using wheelchair. Just discharged from [facility] -chronic kidney disease stage III with a previous creatinine of 1.24 -Anemia possibly chronic kidney disease -Obesity BMI 32.6 -Essential hypertension -Primary osteoarthritis -Chronic urinary stress incontinence severe -GERD -Medical debility -using wheelchair -Acute UTI from cystitis from Klebsiella oxytoca -Decubitus ulcer and eschar both the right heel and right calf.-For debridement today. -Coumadin monitoring received vitamin K 2 mg yesterday evening. -Chest pain, new onset today. Troponin EKG, cardiology, consultation ordered Plan: -Wound cultures are pending. Troponin came back as 0.042. Serial cardiac enzymes and place. Patient is ALLERGIC to aspirin. We will give Plavix. Add Pepcid
[2019-12-23] MEDS: FAMOTIDINE 20 MG TAB PO SCH (21:00)
[2019-12-23] MEDS ORDERED: HEPARIN SODIUM,PORCINE 5,000 UNIT/ML 1 ML VIAL SQ SCH (21:00)
[2019-12-23] MEDS ORDERED: CLOPIDOGREL 75 MG TAB PO SCH (21:00)
[2019-12-23] MEDS: LACTATED RINGERS 1,000 ML IV SCH (21:00)
[2019-12-24] MEDS: POTASSIUM CHLORIDE ER 20 MEQ TAB.ER PO SCH (07:58)
[2019-12-24] MEDS: FLUCONAZOLE 100 MG TAB PO SCH (07:59)
[2019-12-24] MEDS: MIDODRINE 5 MG TAB PO SCH ×2 (07:59→12:23)
[2019-12-24] MEDS: FAMOTIDINE 20 MG TAB PO SCH (08:00)
[2019-12-24] MEDS: acetaZOLAMIDE 250 MG TAB PO SCH (08:00)
[2019-12-24] MEDS: METOPROLOL TARTRATE 25 MG TAB PO SCH (08:00)
[2019-12-24] MEDS: FUROSEMIDE 40 MG TAB PO SCH (08:00)
[2019-12-24 08:03] LABS: INR 2.1 (<1.2); Prothrombin Time 20.3 sec (9.0-12.0)
[2019-12-24 08:04] LABS: Calcium 8.7 mg/dL (8.4-10.2); Potassium 4.3 mmol/L (3.5-5.1)
[2019-12-24 08:24] VITALS: RESP 18
--- NOTE | 2019-12-24 11:00 | ECHOF ---
Referral Reason:Chest chest pain MEASUREMENTS -------- HEIGHT: 157.5 cm WEIGHT: 67.6 kg BP: 128/56 RVIDd: 2.8 cm (< 3.3) IVSd: 1.1 cm (0.6 - 1.1) LVIDd: 3.7 cm (3.9 - 5.3) LVPWd: 1.1 cm (0.6 - 1.1) IVSs: 1.6 cm LVIDs: 2.5 cm LVPWs: 1.4 cm LA Diam: 3.5 cm (2.7 - 3.8) LAESV Index (A-L): 27.04 ml/m Ao Diam: 3.2 cm (2.0 - 3.7) AV Cusp: 1.9 cm (1.5 - 2.6) MV EXCURSION: 15.618 mm (> 18.000) MV EF SLOPE: 35 mm/s (70 - 150) EPSS: 1.0 cm MV E Paul: 0.97 m/s MV DecT: 266 ms MV A Paul: 1.44 m/s MV E/A Ratio: 0.68 RAP: 5.00 mmHg RVSP: 23.88 mmHg FINDINGS -------- This was a technically adequate study. The left ventricular size is normal. Left ventricular wall thickness is normal. Overall left vent ricular systolic function is normal with, an EF between 60 - 65 %. The right ventricle is normal in size. Normal LA size by volume 22+/-6 ml/m2. The right atrium is normal in size. Lipomatous Hypertrophy of the atrial septum is present There is mild aortic valve sclerosis. Trace to mild aortic regurgitation. The mitral valve leaflets are mildly thickened. Mild mitral annular calcification present. Mild m itral regurgitation is present. Mild tricuspid regurgitation present. Right ventricular systolic pressure is normal at < 35 mmHg. Trace/mild (physiologic) pulmonic regurgitation. The aortic root size is normal. Normal inferior vena cava with normal inspiratory collapse consistent with estimated right atrial pre ssure of 5 mmHg. There is no pericardial effusion. CONCLUSIONS -------- 1. This was a technically adequate study. 2. The left ventricular size is normal. 3. Left ventricular wall thickness is normal. 4. Overall left ventricular systolic function is normal with, an EF between 60 - 65 %. 5. The right ventricle is normal in size. 6. Normal LA size by volume 22+/-6 ml/m2. 7. The right atrium is normal in size. 8. Lipomatous Hypertrophy of the atrial septum is present 9. There is mild aortic valve sclerosis. 10. Trace to mild aortic regurgitation. 11. The mitral valve leaflets are mildly thickened. 12. Mild mitral annular calcification present. 13. Mild mitral regurgitation is present. 14. Mild tricuspid regurgitation present. 15. Right ventricular systolic pressure is normal at < 35 mmHg. 16. Trace/mild (physiologic) pulmonic regurgitation. 17. The aortic root size is normal. 18. Normal inferior vena cava with normal inspiratory collapse consistent with estimated right atrial pressure of 5 mmHg. 19. There is no pericardial effusion. MD PHYSICIAN DERMATOLOGIST: Dania Benedict RDCS
[2019-12-24] MEDS: LACTATED RINGERS 1,000 ML IV SCH (11:28)
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
[2019-12-24] MEDS ORDERED: SODIUM BICARBONATE TAB 650 MG TAB PO SCH (11:45)
[2019-12-24 13:52] VITALS: BP 130/68; PULSE 63; TEMP 98.2
--- NOTE | 2019-12-24 14:26 | P.DS ---
Providers Date of admission: 12/18/19 18:30 Expected date of discharge: 12/24/19 Attending physician: Porfirio Lemus Consults: 12/19/19 14:02 Consult Physician Routine Consulting Provider: Eboni Diego Consult Reason/Comments: sacral wound Do you want consulting provider notified?: Yes 12/20/19 07:23 Consult Physician Routine Consulting Provider: Derek Flores Consult Reason/Comments: wound debridment Do you want consulting provider notified?: Yes 12/23/19 17:40 Consult Physician Routine Consulting Provider: [facility] Consult Reason/Comments: elevated trop Do you want consulting provider notified?: Yes Primary care physician: [facility] Course: Chief Complaint: Weakness This is a 84-year-old patient of Dr. Castro, chronic stable medical conditions include chronic kidney disease, essential hypertension, primary osteoarthritis, urinary stress incontinence, GERD, medical debility,. Patient was discharged her from [facility] and went into rehab admitted large reviewed. Was then admitted with acute UTI, bilateral lower external recent mellitus more so on the left side, sepsis, Coumadin coagulopathy and was started on hemodialysis. Admitted with-acute UTI, bilateral lower extremity cellulitis more on the left side, severe sepsis, metabolic encephalopathy from above and, Coumadin coagulopathy,. Patient was discharged home from the [facility] more to 3 days. Brought back to the ER by the daughter stated that patient is rather weak. Patient does feel weak and tired. Decreased appetite. Patient is dark eschar on the right heel in the back of the right calf. Also a small decubitus sacral area. Breathing is stable. Just tired and rundown. Admitted with acute UTI and cystitis, decubitus ulcer and black eschar on the right calf and right heel. Started and IV meropenem. Debridement was done by Dr. Nolasco on December 20. Nonspecific chest pain. Slight bump in troponin felt to be from renal dysfunction. Seen by oncology. No further workup. Today-comfortable. Laying in bed. No chest pain. Per Dr. Diego from ID. No need for any further antibiotics. Consultation: Dr. Diego from ID Dr. Nolasco from vascular Dr. Sherry Millan from cardiology Physical examination: VITAL SIGNS: 98.2, 63, 18, 130/68, 100% on room air GENERAL: Laying in bed, comfortable EYES: [Pupils equal. Conjunctiva pale HEENT: External appearance of nose and ears normal, oral cavity grossly normal. NECK: JVD not raised; masses not palpable. HEART: First and second heart sounds are normal; minimal edema LUNGS: Respiratory rate normal; clear to auscultation. ABDOMEN: Soft, nontender, liver spleen not palpable, no masses palpable. PSYCH: Alert and oriented x3; mood and affect tired MUSCULOSKELETAL: Evidence of OA especially in the hands EXTREMITIES: Dressing over the right calf INVESTIGATIONS, reviewed in the clinical context: INR 2.1 potassium 4.3 creatinine 1.29 bicarb 12 Previous testing White count 11 hemoglobin 10.3 platelets 395 INR 2.3 potassium 5.2.51 creatinine 2.77 Troponin I 0.066 UA positive for leukoesterase, WBC COVID 19-PCR-not detected Assessment: -Acute UTI and cystitis -Medical asthenia debility patient is using wheelchair. Just discharged from [facility] -chronic kidney disease stage III with a previous creatinine of 1.24 -Anemia possibly chronic kidney disease -Obesity BMI 32.6 -Essential hypertension -Primary osteoarthritis -Chronic urinary stress incontinence severe -GERD -Medical debility -using wheelchair -Decubitus ulcer and eschar both the right heel and right calf.-Patient did have debridement. -Coumadin monitoring received vitamin K 2 mg yesterday evening. -Chest pain,-possibly musculoskeletal. Disposition: [facility] Patient Condition at Discharge: Stable Plan - Discharge Summary Discharge Rx Participant: Yes New Discharge Prescriptions: New Fluconazole [Diflucan] 100 mg PO DAILY #5 tab Metoprolol Tartrate [Lopressor] 25 mg PO BID tab Famotidine [Pepcid] 20 mg PO BID tab Sodium Bicarbonate Tab 650 mg PO TID tab Acetaminophen Tab [Tylenol] 650 mg PO Q6HR PRN tab PRN Reason: Fever And/ Or Pain Continue Midodrine [ProAmatine] 5 mg PO AC-TID tab Potassium Chloride ER [K-Dur 20] 20 meq PO BID Furosemide [Lasix] 40 mg PO DAILY Changed Warfarin Sodium 2.5 mg PO DAILY #0 Discontinued acetaZOLAMIDE [Diamox] 250 mg PO BID #10 tab Warfarin S[facility].5 [facility] Medication List Midodrine [ProAmatine] 5 mg PO AC-TID tab 11/17/19 [Rx] Furosemide [Lasix] 40 mg PO DAILY 12/18/19 [History] Potassium Chloride ER [K-Dur 20] 20 meq PO BID 12/18/19 [History] Acetaminophen Tab [Tylenol] 650 mg PO Q6HR PRN tab 12/24/19 [Rx] Famotidine [Pepcid] 20 mg PO BID tab 12/24/19 [Rx] Fluconazole [Diflucan] 100 mg PO DAILY #5 tab 12/24/19 [Rx] Metoprolol Tartrate [Lopressor] 25 mg PO BID tab 12/24/19 [Rx] Sodium Bicarbonate Tab 650 mg PO TID tab 12/24/19 [Rx] Warfarin Sodium 2.5 mg PO DAILY #0 12/24/19 [Rx] Follow up Appointment(s)/Referral(s): Darin Castro DO [Primary Care Provider] - 1-2 days Derek Flores MD [STAFF PHYSICIAN] - 1 Week Daniel Millan MD [STAFF PHYSICIAN] - 01/25/20 9:00 am Activity/Diet/Wound Care/Special Instructions: Dr. Flores wants to see patient in wound clinic on 12/27/2019. WOUND CARE INSTRUCTIONS LEFT HEEL- medihoney, wet to dry gauze, kerlix RIGHT CALF- medihoney, wet to dry gauze, kerlix.
--- NOTE | 2019-12-24 14:59 | PN ---
PROGRESS NOTE DATE OF SERVICE: 12/24/2019. REASON FOR FOLLOWUP: 1. Right posterior leg and left heel wounds. 2. UTI. INTERVAL HISTORY: The patient is currently afebrile. Not feeling as good today. Denies having any chest pain or cough. Has been complaining of mostly urinary symptoms, though. Not able to control it. No worsening pain to the wound area and no diarrhea. PHYSICAL EXAMINATION: Blood pressure 122/71 with a pulse of 84, temperature 98.4, she is 100% on room air. General description is an elderly female, lying in bed in no distress. RESPIRATORY SYSTEM: Unlabored breathing, clear to auscultation anteriorly. HEART S1, S2. Regular rate and rhythm. ABDOMEN: Soft, no tenderness. LABS: No new labs have been obtained today. DIAGNOSTIC IMPRESSION AND PLAN: 1. Patient with right leg wound, status post debridement. Cultures show multiple pathogen. However, there is no evidence of any cellulitis. On examination, recommend local wound care with Medihoney and systemic antibiotic. 2. Patient with persistent urinary symptoms. We will go ahead and check a UA culture and adjust the medication for the condition. MMODL / IJN: [id number] /
--- NOTE | 2019-12-29 09:19 | CDI ---
Documentation Clarification Form Date: 12/20/2019 02:20:53 PM From: Dali Lunsford RN CCDS Admit Date: 12/18/2019 06:30:00 PM Patient Name: Patrizia Davalos Visit Number: [id number] Discharge Date: ATTENTION: The Clinical Documentation Specialists (CDI) and [facility] Coding Staff appreciate your assistance in clarifying documentation. Please respond to the clarification below the line at the bottom and electronically sign. The CDI & [facility] Coding staff will review the response and follow-up if needed. Please note: Queries are made part of the Legal Health Record. If you have any questions, please contact the author of this message via ITS. Dr. Derek Flores Decubitus ulcer and eschar of right calf was documented in the H&P 12/18 History/Risk Factors: 84-year-old female presents to the ED for weakness discharged from [facility] three days ago. Medical history - Small decubitus sacral area, DVT, HTN, Renal disease and Clinical Indicators: Per your consult 12/19 - Location: Right lower extremity. Wound description: 7 x 2 cm with eschar formation also base of wound clinic is infected. Treatment: Wound debridement and IV antibiotic Elements for accurate and compliant documentation of an ulcer: *The location/laterality of the ulcer *Etiology (decubitus/pressure, diabetic, PVD) *Stage I-IV, Unstageable, Suspected Deep Tissue Injury (To the deepest stage) *If the ulcer was present at admission (POA) or occurred after admission In your professional opinion, can you please clarify the diagnosis, location, laterality and whether present on admission (POA): Stage 2 Pressure/Decubitus Ulcer (Partial thickness, loss of dermis, pink wound bed) Stage 3 Pressure/Decubitus Ulcer (Full thickness tissue loss) Stage 4 Pressure/Decubitus Ulcer (Full thickness tissue loss with exposed bone, tendon, or muscle. May have slough or eschar present) Unstageable Other condition, please specify Unable to determine Please indicate etiology of pressure ulcer (if known). (Last Revision: April 2017) Full thickness traumatic wound to the right calf, present on admission MTDD
--- NOTE | 2019-12-29 09:21 | CDI ---
Documentation Clarification Form Date: 12/20/2019 01:57:31 PM From: Dali Lunsford RN CCDS Admit Date: 12/18/2019 06:30:00 PM Patient Name: Patrizia Davalos Visit Number: [id number] Discharge Date: ATTENTION: The Clinical Documentation Specialists (CDI) and [facility] [facility] [facility] [employer] Coding Staff appreciate your assistance in clarifying documentation. Please respond to the clarification below the line at the bottom and electronically sign. The CDI & [facility] [facility] [employer] Coding staff will review the response and follow-up if needed. Please note: Queries are made part of the Legal Health Record. If you have any questions, please contact the author of this message via ITS. Dr. Derek Flores Left heel wound is documented Per your consult 12/19 History/Risk Factors: 84-year-old female presents to the ED for weakness discharged from [facility] three days ago. Medical history - Small decubitus sacral area, DVT, HTN, Renal disease and Clinical Indicators: Per your consult 12/19 - Location: Left Heel. Wound description: 2 x 2cm with eschar with some fluctuation noted. Treatment: Debridement scheduled Elements for accurate and compliant documentation of an ulcer: *The location/laterality of the ulcer *Etiology (decubitus/pressure, diabetic, PVD) *Stage I-IV, Unstageable, Suspected Deep Tissue Injury (To the deepest stage) *If the ulcer was present at admission (POA) or occurred after admission In your professional opinion, can you please clarify the diagnosis, location, laterality and whether present on admission (POA): Stage 2 Pressure/Decubitus Ulcer (Partial thickness, loss of dermis, pink wound bed) Stage 3 Pressure/Decubitus Ulcer (Full thickness tissue loss) Stage 4 Pressure/Decubitus Ulcer (Full thickness tissue loss with exposed bone, tendon, or muscle. May have slough or eschar present) Unstageable Other condition, please specify Unable to determine Please indicate etiology of pressure ulcer (if known). (Last Revision: April 2017) Left heel pressure ulcer stage 3, present on admission MTDD
== END 2019-12-24 15:42 | DRG 571 ==
LOC: EC 15:42 → 3SCARD 18:30 → 4SSUR 12-22 19:48
PROVIDERS: ADMIT Hospitalist; ATTEND Hospitalist
PROC: 0JBR0ZZ Excision of Left Foot Subcutaneous Tissue and Fascia, Open Approach (ICD-10-PCS; 2019-12-21)
PROC: 0JBN0ZZ Excision of Right Lower Leg Subcutaneous Tissue and Fascia, Open Approach (ICD-10-PCS; principal; 2019-12-21 13:00)
DX: L89.623 Pressure ulcer of left heel, stage 3 (principal); J98.11 Atelectasis; L97.929 Non-pressure chronic ulcer of unspecified part of left lower leg with unspecified severity; N17.9 Acute kidney failure, unspecified; L89.619 Pressure ulcer of right heel, unspecified stage; L89.159 Pressure ulcer of sacral region, unspecified stage; L89.302 Pressure ulcer of unspecified buttock, stage 2; S81.801A Unspecified open wound, right lower leg, initial encounter; X58.XXXA Exposure to other specified factors, initial encounter; E66.9 Obesity, unspecified; R79.89 Other specified abnormal findings of blood chemistry; D64.9 Anemia, unspecified; E86.0 Dehydration; E87.5 Hyperkalemia; I12.9 Hypertensive chronic kidney disease with stage 1 through stage 4 chronic kidney disease, or unspecified chronic kidney disease; K21.9 Gastro-esophageal reflux disease without esophagitis; M19.91 Primary osteoarthritis, unspecified site; N18.3 Chronic kidney disease, stage 3 (moderate); N30.90 Cystitis, unspecified without hematuria; N39.3 Stress incontinence (female) (male); R79.1 Abnormal coagulation profile; Z11.59 Encounter for screening for other viral diseases; T45.515A Adverse effect of anticoagulants, initial encounter; Z68.32 Body mass index [BMI] 32.0-32.9, adult; Z79.01 Long term (current) use of anticoagulants; Z79.899 Other long term (current) drug therapy; Z80.49 Family history of malignant neoplasm of other genital organs; Z83.3 Family history of diabetes mellitus; Z85.841 Personal history of malignant neoplasm of brain; Z86.718 Personal history of other venous thrombosis and embolism; Z87.440 Personal history of urinary (tract) infections; Z87.891 Personal history of nicotine dependence; Z88.1 Allergy status to other antibiotic agents; Z96.651 Presence of right artificial knee joint; Z96.641 Presence of right artificial hip joint; Z88.5 Allergy status to narcotic agent; Z88.0 Allergy status to penicillin; Z88.2 Allergy status to sulfonamides; Z88.8 Allergy status to other drugs, medicaments and biological substances; Z88.6 Allergy status to analgesic agent; Z91.040 Latex allergy status; Z90.49 Acquired absence of other specified parts of digestive tract; K59.00 Constipation, unspecified; R53.81 Other malaise
CPT/HCPCS: 36415; 71046; 80048; 80053; 81001; 83605; 83735; 84100; 84484; 85025; 85027; 85610; 85730; 87040; 87070; 87075; 87077; 87086; 87186; 87205; 93005; 93306; 96361; 96365; 99285

== ENCOUNTER 2020-03-31 16:29 | Emergency (ER) | payer MEDICARE, OTHER ==
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
[2020-03-31 17:53] LABS: Basophils % (A) 1 %; Eosinophils # (A) 0.2 k/uL (0-0.7); Eosinophils % (A) 3 %; HCT 29.3 % (34.0-46.0); HGB 9.4 gm/dL (11.4-16.0); Lymphocytes # (A) 1.3 k/uL (1.0-4.8); Lymphocytes % (A) 27 %; MCH 30.3 pg (25.0-35.0); MCHC 31.9 g/dL (31.0-37.0); MCV 94.9 fL (80.0-100.0); Mean Platelet Volume 7.4; Monocytes # (A) 0.4 k/uL (0-1.0); Monocytes % (A) 8 %; Neutrophils # (A) 2.7 k/uL (1.3-7.7); Neutrophils % (A) 57 %; Platelet Count 218 k/uL (150-450); RBC 3.09 m/uL (3.80-5.40); RDW 13.6 % (11.5-15.5); WBC 4.7 k/uL (3.8-10.6)
[2020-03-31 18:01] LABS: Albumin 3.7 g/dL (3.5-5.0); Calcium 9.4 mg/dL (8.4-10.2); Magnesium 2.1 mg/dL (1.6-2.3); Potassium 4.7 mmol/L (3.5-5.1); Total Bilirubin 0.3 mg/dL (0.2-1.3); Total Protein 6.9 g/dL (6.3-8.2)
[2020-03-31 18:21] LABS: Appearance,Urine Cloudy (Clear); Bacteria,Urine Rare /hpf; Bilirubin,Urine Negative (Negative); Blood,Urine Negative (Negative); Color,Urine Light Yellow; Glucose,Urine (UA) Negative (Negative); Ketones,Urine Negative (Negative); Leukocyte Esterase,Urine Large (Negative); Nitrite,Urine Negative (Negative); Protein,Urine Negative (Negative); RBC,Urine 1 /hpf (0-5); Specific Gravity,Urine 1.008 (1.001-1.035); Urobilinogen,Urine <2.0 mg/dL (<2.0); WBC,Urine 151 /hpf (0-5)
[2020-03-31] MEDS ORDERED: NITROFURANTOIN MONOHYD/M-CRYST 100 MG CAP PO STA (18:57)
[2020-03-31 19:15] VITALS: BP 130/74; PULSE 70; RESP 16; TEMP 98
== END 2020-03-31 19:38 | disposition home or self-care (01) ==
LOC: EC 16:29
DX: N39.0 Urinary tract infection, site not specified (principal); S81.801D Unspecified open wound, right lower leg, subsequent encounter; I12.9 Hypertensive chronic kidney disease with stage 1 through stage 4 chronic kidney disease, or unspecified chronic kidney disease; N18.3 Chronic kidney disease, stage 3 (moderate); Z79.899 Other long term (current) drug therapy; Z79.01 Long term (current) use of anticoagulants; Z88.0 Allergy status to penicillin; Z88.2 Allergy status to sulfonamides; Z88.5 Allergy status to narcotic agent; Z88.8 Allergy status to other drugs, medicaments and biological substances; Z85.841 Personal history of malignant neoplasm of brain; Z86.718 Personal history of other venous thrombosis and embolism; Z96.651 Presence of right artificial knee joint; Z96.641 Presence of right artificial hip joint; Z80.8 Family history of malignant neoplasm of other organs or systems
CPT/HCPCS: 36415; 80053; 81001; 82075; 82550; 83735; 85025; 87086; 99285

== ENCOUNTER 2020-09-04 17:46 | Emergency (ER) | payer MEDICARE, OTHER ==
[2020-09-04] MEDS ORDERED: LORazepam 2 MG/ML INJ IM STA (18:14)
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
[2020-09-04 19:53] LABS: Basophils % (A) 1 %; Eosinophils # (A) 0.1 k/uL (0-0.7); Eosinophils % (A) 2 %; HCT 33.8 % (34.0-46.0); HGB 11.1 gm/dL (11.4-16.0); Lymphocytes # (A) 1.3 k/uL (1.0-4.8); Lymphocytes % (A) 29 %; MCH 30.5 pg (25.0-35.0); MCHC 32.9 g/dL (31.0-37.0); MCV 92.6 fL (80.0-100.0); Mean Platelet Volume 7.8; Monocytes # (A) 0.3 k/uL (0-1.0); Monocytes % (A) 7 %; Neutrophils # (A) 2.5 k/uL (1.3-7.7); Neutrophils % (A) 57 %; Platelet Count 170 k/uL (150-450); RBC 3.65 m/uL (3.80-5.40); RDW 14.1 % (11.5-15.5); WBC 4.3 k/uL (3.8-10.6)
[2020-09-04 20:11] LABS: African American GFR (CKD) 31 (>60 ml/min/1.73 sqM); Alcohol <10 mg/dL; Anion Gap 9 mmol/L; Blood Urea Nitrogen 28 mg/dL (7-17); Calcium 9.4 mg/dL (8.4-10.2); Carbon Dioxide 23 mmol/L (22-30); Chloride 109 mmol/L (98-107); Glucose 124 mg/dL (74-99); Non-African American GFR(CKD) 27 (>60 ml/min/1.73 sqM); Potassium 4.4 mmol/L (3.5-5.1); Sodium 141 mmol/L (137-145)
[2020-09-04 20:53] LABS: Amorphous Sediment,Urine Rare /hpf; Appearance,Urine Turbid (Clear); Bacteria,Urine Few /hpf; Bilirubin,Urine Negative (Negative); Blood,Urine Small (Negative); Color,Urine Light Yellow; Glucose,Urine (UA) Negative (Negative); Ketones,Urine Negative (Negative); Leukocyte Esterase,Urine Large (Negative); Nitrite,Urine Negative (Negative); Protein,Urine 1+ (Negative); RBC,Urine 113 /hpf (0-5); Urobilinogen,Urine <2.0 mg/dL (<2.0); WBC,Urine >182 /hpf (0-5)
[2020-09-04 20:59] LABS: Amphetamine Screen,Urine Not Detected (NotDetected); Barbiturate Screen,Urine Not Detected (NotDetected); Benzodiazepines Screen,Urine Not Detected (NotDetected); Cocaine Screen,Urine Not Detected (NotDetected); Methadone Screen, Urine Not Detected (NotDetected); Opiate Screen,Urine Not Detected (NotDetected); Oxycodone Screen, Urine Not Detected (NotDetected); Phencyclidine Screen,Urine Not Detected (NotDetected); Tricyclic Antidepressant,Urine Not Detected (NotDetected); Urn Cannabinoid Scrn Not Detected (NotDetected)
[2020-09-04] MEDS ORDERED: NITROFURANTOIN MONOHYD/M-CRYST 100 MG CAP PO STA (22:05)
--- NOTE | 2020-09-05 10:09 | P.CON ---
Consult Note - . Consult date: 09/05/20 Assessment/Plan:: Clinical Problems: Major neurocognitive disorder unspecified with behavioral disturbances Interim history: I reviewed the medical record, discussed the case with the EPS nurse and attempted to interview the patient. She is 85-year-old female transferred from [facility] with a history of agitation and aggressive behavior. According to the accompanying information she has a history of a dementia. The transfer documentation including a petition and the clinical certificate. I attempted to interview her to determine whether she requires transfer to a psychiatric unit. Mental status exam: She was resting casually in bed. She would not make eye contact and would not answer questions. Assessment: I am unable to fully evaluate her to exclude the need for psychiatric services. Due to her level of her nursing care she is not appropriate for our inpatient psychiatric unit. She would need the services of a general psychiatric unit. Plan: Pursue admission to a geropsychiatric unit.
[2020-09-05] MEDS: NITROFURANTOIN MONOHYD/M-CRYST 100 MG CAP PO SCH (21:22)
[2020-09-06] MEDS: NITROFURANTOIN MONOHYD/M-CRYST 100 MG CAP PO SCH (09:33)
[2020-09-06 14:08] VITALS: BP 122/65; PULSE 70; RESP 18; TEMP 98.9
== END 2020-09-06 14:25 | disposition home or self-care (01) ==
LOC: EEVIPCON 17:46 → EC 17:46
DX: R45.1 Restlessness and agitation (principal); N39.0 Urinary tract infection, site not specified; Z88.0 Allergy status to penicillin; Z88.1 Allergy status to other antibiotic agents; Z88.2 Allergy status to sulfonamides; Z88.5 Allergy status to narcotic agent; Z88.6 Allergy status to analgesic agent; Z88.8 Allergy status to other drugs, medicaments and biological substances; Z91.040 Latex allergy status; Z91.048 Other nonmedicinal substance allergy status; Z90.49 Acquired absence of other specified parts of digestive tract; Z96.651 Presence of right artificial knee joint; Z96.641 Presence of right artificial hip joint; Z85.841 Personal history of malignant neoplasm of brain
CPT/HCPCS: 36415; 80048; 85025; 81001; 80306; 87086; 87077; 87186; 99285; G0480; J2060; 80320

== ENCOUNTER 2023-01-03 13:12 | Inpatient (IN) | payer MEDICARE, OTHER ==
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
[2023-01-03 14:13] LABS: Basophils % (A) 0 %; Eosinophils # (A) 0.1 k/uL (0-0.7); Eosinophils % (A) 2 %; HCT 34.8 % (34.0-46.0); HGB 11.4 gm/dL (11.4-16.0); Lymphocytes # (A) 2.1 k/uL (1.0-4.8); Lymphocytes % (A) 29 %; MCH 31.3 pg (25.0-35.0); MCHC 32.6 g/dL (31.0-37.0); MCV 95.8 fL (80.0-100.0); Mean Platelet Volume 8.9; Monocytes # (A) 0.3 k/uL (0-1.0); Monocytes % (A) 4 %; Neutrophils # (A) 4.4 k/uL (1.3-7.7); Neutrophils % (A) 62 %; Platelet Count 147 k/uL (150-450); RBC 3.63 m/uL (3.80-5.40); RDW 13.5 % (11.5-15.5); WBC 7.2 k/uL (3.8-10.6)
--- NOTE | 2023-01-03 14:14 | CT ---
EXAMINATION TYPE: CT brain wo con DATE OF EXAM: 01/03/2023 COMPARISON: 11/06/2019 HISTORY: weakness CT DLP: 1099.[address] of the brain was performed. The ventricles, basal cisterns and sulci overlying the cerebral convexities demonstrate mild enlargem ent. There is no evidence for intracranial hemorrhage or sulcal effacement. There is decreased attenuation about the periventricular white matter and deep white matter of both c erebral hemispheres, compatible with chronic small vessel ischemia. Differential diagnosis does inclu de demyelination. No mass effects are seen.No midline shift. Osseous calvarium is intact. If symptoms persist consider MRI. IMPRESSION: 1. Age related atrophic and chronic small vessel ischemic change without acute intracranial process s een at this time.
[2023-01-03 14:23] LABS: ALT 13 U/L (4-34); AST 20 U/L (14-36); African American GFR (CKD) 34 (>60 ml/min/1.73 sqM); Albumin 3.5 g/dL (3.5-5.0); Alkaline Phosphatase 77 U/L (38-126); Anion Gap 7 mmol/L; Blood Urea Nitrogen 23 mg/dL (7-17); Calcium 8.8 mg/dL (8.4-10.2); Carbon Dioxide 25 mmol/L (22-30); Chloride 109 mmol/L (98-107); Glucose 123 mg/dL (74-99); Non-African American GFR(CKD) 30 (>60 ml/min/1.73 sqM); Potassium 4.1 mmol/L (3.5-5.1); Sodium 141 mmol/L (137-145); Total Bilirubin 0.3 mg/dL (0.2-1.3); Total Protein 6.5 g/dL (6.3-8.2)
[2023-01-03 14:24] LABS: INR 0.9 (<1.2); Partial Thromboplastin Time 22.2 sec (22.0-30.0); Prothrombin Time 10.1 sec (9.0-12.0)
--- NOTE | 2023-01-03 14:40 | XR ---
EXAMINATION TYPE: XR chest 2V DATE OF EXAM: 01/03/2023 COMPARISON: 12/18/2019 HISTORY: 87-year-old female with weakness TECHNIQUE: AP and lateral views FINDINGS: Heart mildly enlarged. Small Bochdalek hernia posterior lung base on the lateral view. Accentuated mi d thoracic kyphosis. Interstitial prominence has a chronic appearance. No nixon consolidation or pleu ral effusion. There is a retrocardiac lucency as well. IMPRESSION: Mild cardiomegaly and chronic appearing changes. Suspect a moderate sized underlying hiatal hernia. A ccentuated midthoracic kyphosis. No definite acute process.
[2023-01-03] MEDS: SODIUM CHLORIDE 0.9% 1,000 ML IV SCH (15:41)
--- NOTE | 2023-01-03 16:46 | US ---
EXAMINATION TYPE: US carotid duplex BILAT DATE OF EXAM: 01/03/2023 COMPARISON: NONE CLINICAL INDICATION: Female, 87 years old with history of Stenosis; TECHNIQUE: Carotid duplex ultrasound examination. Indirect Doppler criteria was utilized. FINDINGS: EXAM MEASUREMENTS: RIGHT: Peak Systolic Velocity (PSV) cm/sec ----- Right CCA: 44.8 ----- Right ICA: 109.7 ----- Right ECA: 93.5 ICA/CCA ratio: 2.4 RIGHT: End Diastole cm/sec ----- Right CCA: 12.0 ----- Right ICA: 27.3 ----- Right ECA: 0.0 LEFT: Peak Systolic Velocity (PSV) cm/sec ----- Left CCA: 44.0 ----- Left ICA: 73.2 ----- Left ECA: 105.0 ICA/CCA ratio: 1.7 LEFT: End Diastole cm/sec ----- Left CCA: 3.9 ----- Left ICA: 7.8 ----- Left ECA: 7.0 VERTEBRALS (direction of flow): Right Vertebral: Antegrade Left Vertebral: Antegrade Rhythm: Normal Right ICA/CCA ratio: 2.4 IMPRESSION: Less than 50% stenosis of the bilateral carotid bifurcations. Criteria for Assigning % of Stenosis / Diameter reduction (Estimation based on the indirect measurements of the internal carotid artery velocities (ICA PSV). 1. Normal (no stenosis)=ICA PSV < 125 cm/s: ratio < 2.0: ICA EDV<40 cm/s. 2. Less than 50% stenosis=ICA PSV < 125 cm/s: ratio < 2.0: ICA EDV<40 cm/s. 3. 50 to 69% stenosis=ICA PSV of 125 to 230 cm/s: ration 2.0 ? 4.0: ICA EDV 40-100 cm/s. 4. Greater than 70% stenosis to near occlusion= ICA PSV > 230 cm/s: ratio > 4.0: ICA EDV > 100 cm/s. 5. Near occlusion= ICA PSV velocities may be low or undetectable: variable ratio and ICA EDV. 6. Total occlusion=unable to detect flow.
[2023-01-03] MEDS ORDERED: HALOPERIDOL LACTATE 5 MG/ML 1 ML VIAL IM PRN (20:21)
[2023-01-03] MEDS ORDERED: ALBUTEROL NEBULIZED 2.5 MG/3 ML INHALATION PRN (21:04)
[2023-01-03] MEDS ORDERED: ACETAMINOPHEN TAB 325 MG TAB PO PRN (21:04)
[2023-01-03] MEDS: HEPARIN SODIUM,PORCINE/PF 5,000 UNIT/0.5 ML SYRINGE SQ SCH (23:13)
[2023-01-03] MEDS: QUEtiapine 25 MG TAB PO SCH (23:13)
[2023-01-04] MEDS: SODIUM CHLORIDE 0.9% 1,000 ML IV SCH (06:23)
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
--- NOTE | 2023-01-04 08:44 | US ---
EXAMINATION TYPE: US venous doppler duplex LE LT DATE OF EXAM: 01/04/2023 8:23 AM COMPARISON: US CLINICAL INDICATION: Female, 87 years old with history of swollen; Swelling left leg SIDE PERFORMED: Left TECHNIQUE: The lower extremity deep venous system is examined utilizing real time linear array sonog tawana with graded compression, doppler sonography and color-flow sonography. VESSELS IMAGED: Common Femoral Vein Deep Femoral Vein Femoral Vein Popliteal Vein Small Saphenous Vein * Proximal Calf Veins (* superficial vessels) Left Leg: Negative for DVT IMPRESSION: Grayscale, color doppler, spectral doppler imaging performed of the deep veins of the lo wer extremities. There is normal flow, compressibility, vascular waveforms.
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
[2023-01-04] MEDS: CLINDAMYCIN 150 MG CAP PO SCH ×3 (11:59→23:09)
[2023-01-04] MEDS: CLOPIDOGREL 75 MG TAB PO SCH (12:00)
[2023-01-04] MEDS: HEPARIN SODIUM,PORCINE/PF 5,000 UNIT/0.5 ML SYRINGE SQ SCH ×2 (12:01→23:09)
[2023-01-04] MEDS: CHOLECALCIFEROL 25 MCG (1000 IU) TABLET PO SCH (12:03)
[2023-01-04 13:36] LABS: Chol/HDL Ratio 3.47 Ratio; LDL Cholesterol,Calculated 107.9 mg/dL (0.0-131.0)
[2023-01-04] MEDS: QUEtiapine 25 MG TAB PO SCH (20:37)
[2023-01-04] MEDS ORDERED: hydrALAZINE HCL 25 MG TAB PO PRN (23:00)
[2023-01-04] MEDS: amLODIPine 5 MG TAB PO SCH (23:09)
[2023-01-05] MEDS: SODIUM CHLORIDE 0.9% 1,000 ML IV SCH ×3 (06:03→23:48)
[2023-01-05] MEDS: CLINDAMYCIN 150 MG CAP PO SCH ×3 (10:59→20:36)
[2023-01-05] MEDS: HEPARIN SODIUM,PORCINE/PF 5,000 UNIT/0.5 ML SYRINGE SQ SCH ×2 (10:59→20:37)
[2023-01-05] MEDS: amLODIPine 5 MG TAB PO SCH (10:59)
[2023-01-05] MEDS: CHOLECALCIFEROL 25 MCG (1000 IU) TABLET PO SCH (10:59)
[2023-01-05] MEDS: CLOPIDOGREL 75 MG TAB PO SCH (10:59)
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
--- NOTE | 2023-01-05 12:58 | CA ---
Transthoracic Echo Report Name: Patrizia Davalos Age: 87 Gender: F : 1935 Exam Date: 01/04/2023 13:27 Exam Location: [facility] Ht (in): 63 Wt (lb): 160 Ordering Physician: Alonso Muhammad DO Attending/Referring Phys: Information Technology Specialist Khushbu Duenas RDCS Procedure CPT: Indications: Thrombus Cardiac Hx: Technical Quality: Fair Contrast 1: Total Dose (mL): Contrast 2: Total Dose (mL): MEASUREMENTS (Male / Female) Normal Values 2D ECHO LV Diastolic Diameter PLAX 4.0 cm 4.2 - 5.9 / 3.9 - 5.3 cm LV Systolic Diameter PLAX 2.6 cm IVS Diastolic Thickness 1.4 cm 0.6 - 1.0 / 0.6 - 0.9 cm LVPW Diastolic Thickness 1.2 cm 0.6 - 1.0 / 0.6 - 0.9 cm LV Relative Wall Thickness 0.7 RV Internal Dim ED PLAX 2.7 cm LA Volume 70.2 cm??? 18 - 58 / 22 - 52 cm??? M-MODE Aortic Root Diameter MM 3.1 cm LA Systolic Diameter MM 5.4 cm LA Ao Ratio MM 1.7 AV Cusp Separation MM 1.4 cm DOPPLER AV Peak Velocity 164.2 cm/s AV Peak Gradient 10.8 mmHg AV Mean Velocity 109.5 cm/s AV Mean Gradient 5.5 mmHg AV Velocity Time Integral 31.7 cm LVOT Peak Velocity 90.9 cm/s LVOT Peak Gradient 3.3 mmHg LVOT Velocity Time Integral 21.8 cm MV Area PHT 3.0 cm??? Mitral E Point Velocity 94.5 cm/s Mitral A Point Velocity 157.6 cm/s Mitral E to A Ratio 0.6 MV Deceleration Time 255.0 ms MV E' Velocity 3.3 cm/s Mitral E to MV E' Ratio 28.6 TR Peak Velocity 193.7 cm/s TR Peak Gradient 15.0 mmHg Right Ventricular Systolic Press 20.0 mmHg FINDINGS Left Ventricle Moderately increased left ventricular wall thickness. Left ventricular cavity size normal. Normal left ventricular systolic function with no obvious regional wall motion abnormalities. Left ventricular ejection fraction is estimated at 55-60 %. Right Ventricle Normal right ventricular size and function. Right ventricular systolic pressure within normal limits. Right Atrium Normal right atrial size. Left Atrium Moderately increased left atrial volume. Mildly increased left atrial area. Mitral Valve Structurally normal mitral valve. Mitral valve thickened. Moderate mitral annular calcification. [id number] mitral regurgitation. Posteriorly directed mitral regurgitation jet. Aortic Valve Trileaflet aortic valve. Aortic valve sclerosis. Trace aortic regurgitation. Tricuspid Valve Structurally normal tricuspid valve. Mild tricuspid regurgitation. Pulmonic Valve Trace pulmonic regurgitation. Pericardium No pericardial effusion. Aorta Normal size aortic root and proximal ascending aorta. CONCLUSIONS Preserved LV systolic function Septal bulge Left atrial enlargement 2-3+ eccentric mitral regurgitation, Pistilli directed Previewed by: Dr. Saul Zacarias MD (Electronically Signed) Final Date: 05 January 2023 12:57
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
[2023-01-05] MEDS: QUEtiapine 25 MG TAB PO SCH (20:37)
[2023-01-06 09:18] LABS: BUN/Creat Ratio 12.14 Ratio (12.00-20.00); Calcium 8.1 mg/dL (8.7-10.3); Carbon Dioxide 19.6 mmol/L (21.6-31.8); Chloride 113 mmol/L (96-109); Glucose 90 mg/dL (70-110); Potassium 4.2 mmol/L (3.5-5.5); Sodium 144 mmol/L (135-145)
[2023-01-06 09:27] LABS: Basophils # (A) 0.07 X 10*3/uL (0.00-0.10); Basophils % (A) 1.3 %; Eosinophils # (A) 0.26 X 10*3/uL (0.04-0.35); Eosinophils % (A) 4.8 %; HCT 33.9 % (37.2-46.3); HGB 10.2 d/dL (12.0-15.0); Lymphocytes # (A) 1.93 X 10*3/uL (0.90-5.00); Lymphocytes % (A) 35.7 %; MCH 30.8 pg (27.0-32.0); MCHC 30.1 d/dL (32.0-37.0); MCV 102.4 FL (80.0-97.0); Mean Platelet Volume 10.6 FL (9.5-12.2); Monocytes # (A) 0.38 X 10*3/uL (0.20-1.00); NRBC Per 100 WBC 0 X 10*3/uL (0.00-0.01); Neutrophils # (A) 2.75 X 10*3/uL (1.80-7.70); Platelet Count 145 X 10*3/uL (140-440); RBC 3.31 X 10*6/uL (4.10-5.20); RDW 13.8 % (11.5-14.5)
[2023-01-06] MEDS: amLODIPine 5 MG TAB PO SCH (09:43)
[2023-01-06] MEDS: CLOPIDOGREL 75 MG TAB PO SCH (09:43)
[2023-01-06] MEDS: CHOLECALCIFEROL 25 MCG (1000 IU) TABLET PO SCH (09:43)
[2023-01-06] MEDS: CLINDAMYCIN 150 MG CAP PO SCH (09:44)
[2023-01-06] MEDS: HEPARIN SODIUM,PORCINE/PF 5,000 UNIT/0.5 ML SYRINGE SQ SCH (09:44)
--- NOTE | 2023-01-06 10:56 | MR ---
EXAMINATION TYPE: MR brain wo con DATE OF EXAM: 01/06/2023 COMPARISON: CT brain 3 days ago HISTORY: Stroke. Acute onset left-sided weakness 3 days earlier. TECHNIQUE: Multiplanar, multisequence imaging of the brain and brainstem is performed without IV cont rast. FINDINGS: Diffusion weighted images demonstrate multifocal areas of increased signal on diffusion-weighted imag ing with diminished signal on ADC mapping showing T2 hyperintensity involving the superficial and alicia p white matter through the right-sided frontal along with parietal and occipital lobes. There is background fairly moderate ventricular and sulcal prominence. There are focal and confluent areas of T2 hyperintensity throughout the deep and periventricular white matter. Midline structures demonstrate empty sella morphology. The craniocervical junction appears within no rmal limits. Scoliosis and multilevel spondylolisthesis in the visualized upper cervical spine is pre sent . Normal vascular flow voids are present. Increased fluid signal bilateral mastoid air cells is redemonstrated. There is moderate mucosal thickening and some patchy fluid in the left sphenoid sinus on current study. Globes are intact bilaterally. IMPRESSION: 1. Multifocal evolving acute right sided infarcts with relative sparing of the cerebellum and tempora l lobe. 2. Background moderate diffuse cerebral atrophy and moderately advanced chronic small vessel ischemic change redemonstrated. 3. Possible bilateral mastoiditis versus retained secretions, correlate clinically. 4. Possible acute on chronic left sphenoid sinus disease. Correlate clinically. Ordering neurologist texted with results at time of dictation
[2023-01-06] MEDS: CLINDAMYCIN 600 MG in DEXTROSE 5% IN WATER 50 ML IVPB SCH ×4 (13:18→18:33)
[2023-01-06 14:28] VITALS: BMI 28.3
[2023-01-06] MEDS ORDERED: QUEtiapine 25 MG TAB PO STA (16:57)
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
[2023-01-06] MEDS ORDERED: QUEtiapine 25 MG TAB PO PRN (19:45)
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
[2023-01-06] MEDS: QUEtiapine 25 MG TAB PO SCH (21:59)
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
[2023-01-07] MEDS: CLINDAMYCIN 600 MG in DEXTROSE 5% IN WATER 50 ML IVPB SCH ×4 (00:49→05:51)
[2023-01-07] MEDS: HEPARIN SODIUM,PORCINE/PF 5,000 UNIT/0.5 ML SYRINGE SQ SCH ×3 (00:50→20:21)
[2023-01-07] MEDS: SODIUM CHLORIDE 0.9% 1,000 ML IV SCH ×2 (05:53→20:21)
[2023-01-07] MEDS: CHOLECALCIFEROL 25 MCG (1000 IU) TABLET PO SCH (09:01)
[2023-01-07] MEDS: amLODIPine 5 MG TAB PO SCH (09:01)
[2023-01-07] MEDS: CLOPIDOGREL 75 MG TAB PO SCH (09:01)
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
--- NOTE | 2023-01-07 12:45 | P.PN ---
Subjective Progress Note Date: 01/07/23 Principal diagnosis: Left leg cellulitis Patient is a 87-year-old female presenting to the hospital for evaluation of left-sided weakness patient was concerned dropping things on the left side, patient CT was evidence of multifocal infarct in managed by neurology patient also noticed to have left lower extremity cellulitis patient did have Penicillin cephalexin ALLERGY On today's evaluation and that is 01/07/2023, the patient has been complaining of feeling cold and weak patient denies having any chest pain shortness of breath or cough no abdominal pain no diarrhea, still have erythema to the left lower extremity Objective - Vital Signs Vital signs: Vital Signs Temp 97.4 F L 01/07/23 07:29 Pulse 67 01/07/23 07:29 Resp 15 01/07/23 07:29 BP 152/70 01/07/23 07:29 Pulse Ox 94 L 01/07/23 07:29 FiO2 Intake & Output 01/06/23 01/07/23 01/07/23 18:59 06:59 18:59 Weight 72.575 kg Other: # Voids 2 1 - Exam GENERAL DESCRIPTION: An elderly female lying in bed in no distress RESPIRATORY SYSTEM: Unlabored breathing , decreased breath sounds at bases HEART: S1 S2 regular rate and rhythm , ABDOMEN: Soft , no tenderness EXTREMITIES: Left leg erythema about the same - Labs CBC & Chem 7: 01/06/23 05:25 01/06/23 05:25 Assessment and Plan (1) Left leg cellulitis Current Visit: Yes Status: Acute Code(s): L03.116 - CELLULITIS OF LEFT LOWER LIMB SNOMED Code(s): 036597314 (2) Allergy to multiple antibiotics Current Visit: Yes Status: Acute Code(s): Z88.1 - ALLERGY STATUS TO OTHER ANTIBIOTIC AGENTS SNOMED Code(s): 116777992 Plan: 1patient with left lower extremity cellulitis with mild swelling and redness no evidence of any skin breakdown abscess likely from gram-positive skin brandee. 2patient with a penicillin cephalexin allergy that would limit the number of antibiotics safe to use 3-patient did not show any improvement with the clindamycin we will switch her over to daptomycin and monitor clinical course Time with Patient: Less than 30
[2023-01-07] MEDS: QUEtiapine 25 MG TAB PO SCH (20:21)
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
[2023-01-08] MEDS: amLODIPine 5 MG TAB PO SCH (09:05)
[2023-01-08] MEDS: CHOLECALCIFEROL 25 MCG (1000 IU) TABLET PO SCH (09:05)
[2023-01-08] MEDS: HEPARIN SODIUM,PORCINE/PF 5,000 UNIT/0.5 ML SYRINGE SQ SCH ×4 (09:05→22:20)
[2023-01-08] MEDS: CLOPIDOGREL 75 MG TAB PO SCH (09:05)
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
--- NOTE | 2023-01-08 12:03 | P.PN ---
Subjective Progress Note Date: 01/08/23 Principal diagnosis: Left leg cellulitis Patient is a 87-year-old female presenting to the hospital for evaluation of left-sided weakness patient was concerned dropping things on the left side, patient CT was evidence of multifocal infarct in managed by neurology patient also noticed to have left lower extremity cellulitis patient did have Penicillin cephalexin ALLERGY On today's evaluation and that is 01/08/2023, the patient remains to be afebrile, patient denies having any chest pain shortness of breath or cough, the patient denies having any abdominal pain no diarrhea, erythema to the left lower extremity has decreased patient was complaining of some drainage from it this morning however none was noticed today Objective - Vital Signs Vital signs: Vital Signs Temp 98.3 F 01/08/23 08:05 Pulse 73 01/08/23 08:05 Resp 16 01/08/23 08:05 BP 153/70 01/08/23 08:05 Pulse Ox 94 L 01/08/23 08:30 FiO2 Intake & Output 01/07/23 01/08/23 01/08/23 18:59 06:59 18:59 Intake Total 120 Balance 120 Intake: Oral 120 Other: # Voids 1 2 - Exam GENERAL DESCRIPTION: An elderly female lying in bed in no distress RESPIRATORY SYSTEM: Unlabored breathing , decreased breath sounds at bases HEART: S1 S2 regular rate and rhythm , ABDOMEN: Soft , no tenderness EXTREMITIES: Left leg erythema redness has slightly decreased some superficial ulceration but no slough tissue or drainage was noticed - Labs CBC & Chem 7: 01/06/23 05:25 01/06/23 05:25 Assessment and Plan (1) Left leg cellulitis Current Visit: Yes Status: Acute Code(s): L03.116 - CELLULITIS OF LEFT LOWER LIMB SNOMED Code(s): 040283985 (2) Allergy to multiple antibiotics Current Visit: Yes Status: Acute Code(s): Z88.1 - ALLERGY STATUS TO OTHER ANTIBIOTIC AGENTS SNOMED Code(s): 807485132 Plan: 1patient with left lower extremity cellulitis with mild swelling and redness no evidence of any skin breakdown abscess likely from gram-positive skin brandee. 2patient with a penicillin cephalexin allergy that would limit the number of antibiotics safe to use 3-patient left lower extremity redness has decreased with daptomycin to continue, hopefully finishing therapy with the doxycycline Time with Patient: Less than 30
[2023-01-08 12:46] LABS: HCT 42.8 % (34.0-46.0); Hypochromasia Marked; MCH 31.7 pg (25.0-35.0); MCHC 30.4 g/dL (31.0-37.0); Macrocytosis Slight; Mean Platelet Volume 8.2; Platelet Count 165 k/uL (150-450); RBC 4.11 m/uL (3.80-5.40); RDW 13.5 % (11.5-15.5); WBC 6.8 k/uL (3.8-10.6)
[2023-01-08 12:53] LABS: MCV 104.1 fL (80.0-100.0)
[2023-01-08 12:59] LABS: African American GFR (CKD) 44 (>60 ml/min/1.73 sqM); Anion Gap 5 mmol/L; Blood Urea Nitrogen 15 mg/dL (7-17); Calcium 8.9 mg/dL (8.4-10.2); Carbon Dioxide 22 mmol/L (22-30); Chloride 111 mmol/L (98-107); Glucose 85 mg/dL (74-99); Non-African American GFR(CKD) 38 (>60 ml/min/1.73 sqM); Sodium 138 mmol/L (137-145)
[2023-01-08 13:22] LABS: Potassium 4.7 mmol/L (3.5-5.1)
[2023-01-08] MEDS: SODIUM CHLORIDE 0.9% 1,000 ML IV SCH (21:01)
[2023-01-08] MEDS: QUEtiapine 25 MG TAB PO SCH (22:20)
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
[2023-01-09] MEDS: BENZOCAINE SPRAY 1 CAN MUCOUS MEM ONE ×2 (10:50→10:56)
[2023-01-09] MEDS ORDERED: fentaNYL (PF) 50 MCG/ML 2 ML AMP ONE (10:52)
[2023-01-09] MEDS ORDERED: MIDAZOLAM 2 MG/2 ML VIAL IVP ONE (10:56)
[2023-01-09] MEDS ORDERED: fentaNYL (PF) 50 MCG/1 ML VIAL IVP ONE (10:56)
[2023-01-09] MEDS ORDERED: IV FLUID CONTINUATION 1,000 ML IV ONE (10:59)
--- NOTE | 2023-01-09 11:23 | ECHOT ---
TRANSESOPHAGEAL ECHOCARDIOGRAM INDICATION: CVA, rule out cardiac source of thromboembolic phenomenon. PROCEDURE NOTE: After obtaining informed consent, transesophageal echocardiogram was performed in left lateral position using an Omniplane probe. Local and IV sedation were obtained using Xylocaine spray, 2 mg of Versed and 25 mcg of fentanyl. The patient tolerated the procedure well without any obvious immediate complications, received moderate conscious sedation. Total sedation time was 10 minutes. FINDINGS: 1. There is no intracardiac thrombus within the left atrial appendage, left atrium, right atrium, right ventricle, or left ventricle. 2. Left ventricle has normal size and systolic function. 3. Left atrium appears enlarged. Right atrium and right ventricle seen within normal limits. 4. Mitral valve is anatomically normal. There is mild central mitral regurgitation noted. 5. Aortic valve is free of stenosis or regurgitation. 6. Aortic root measures within normal limits. Aorta shows [id number] atherosclerotic changes. Tricuspid valve shows mild tricuspid regurgitation. Interatrial septum, there is no evidence of euco-ya-talew shunt by color-flow Doppler or [id number] shunt by agitated saline contrast study. CONCLUSIONS: 1. No intracardiac thrombus. 2. No evidence of shunting across the interatrial septum. PLAN: The patient will continue with the current management plans. MMODL / IJN: [id number] /
[2023-01-09] MEDS: HEPARIN SODIUM,PORCINE/PF 5,000 UNIT/0.5 ML SYRINGE SQ SCH ×2 (11:43→21:33)
[2023-01-09] MEDS: amLODIPine 5 MG TAB PO SCH (11:44)
[2023-01-09] MEDS: CLOPIDOGREL 75 MG TAB PO SCH (11:44)
[2023-01-09] MEDS: CHOLECALCIFEROL 25 MCG (1000 IU) TABLET PO SCH (11:44)
[2023-01-09] MEDS: QUEtiapine 25 MG TAB PO ONE ×2 (15:07→15:33)
[2023-01-09] MEDS ORDERED: HALOPERIDOL LACTATE 5 MG/ML 1 ML VIAL IM STA (15:17)
[2023-01-09] MEDS ORDERED: LORazepam 2 MG/ML INJ IV STA (15:54)
[2023-01-09] MEDS: SODIUM CHLORIDE 0.9% 1,000 ML IV SCH (17:32)
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
--- NOTE | 2023-01-09 20:27 | P.PN ---
Subjective Progress Note Date: 01/09/23 Principal diagnosis: Left leg cellulitis Patient is a 87-year-old female presenting to the hospital for evaluation of left-sided weakness patient was concerned dropping things on the left side, patient CT was evidence of multifocal infarct in managed by neurology patient also noticed to have left lower extremity cellulitis patient did have Penicillin cephalexin ALLERGY On today's evaluation and that is 01/09/2023, the patient remains to be afebrile the patient is more awake and alert the patient is feeling better breathing comfortably no chest pain shortness of breath, abdominal pain left leg swelling redness has decreased Objective - Vital Signs Vital signs: Vital Signs Temp 98.2 F 01/09/23 07:45 Pulse 101 H 01/09/23 11:01 Resp 16 01/09/23 11:01 BP 210/110 01/09/23 11:01 Pulse Ox 100 01/09/23 11:01 FiO2 Intake & Output 01/08/23 01/09/23 01/09/23 18:59 06:59 18:59 Intake Total 0 50 Balance 0 50 Intake: IV 50 Oral 0 Other: # Voids 2 1 - Exam GENERAL DESCRIPTION: An elderly female lying in bed in no distress RESPIRATORY SYSTEM: Unlabored breathing , decreased breath sounds at bases HEART: S1 S2 regular rate and rhythm , ABDOMEN: Soft , no tenderness EXTREMITIES: Left leg erythema redness has slightly decreased some superficial ulceration but no slough tissue or drainage was noticed - Labs CBC & Chem 7: 01/08/23 12:13 01/08/23 12:13 Assessment and Plan (1) Left leg cellulitis Current Visit: Yes Status: Acute Code(s): L03.116 - CELLULITIS OF LEFT LOWER LIMB SNOMED Code(s): 829701476 (2) Allergy to multiple antibiotics Current Visit: Yes Status: Acute Code(s): Z88.1 - ALLERGY STATUS TO OTHER ANTIBIOTIC AGENTS SNOMED Code(s): 735216578 Plan: 1patient with left lower extremity cellulitis with mild swelling and redness no evidence of any skin breakdown abscess likely from gram-positive skin brandee. 2patient with a penicillin cephalexin allergy that would limit the number of antibiotics safe to use 3-patient left lower extremity redness has decreased with daptomycin, which will be continued and paln to finish therapy with the doxycycline Time with Patient: Less than 30
[2023-01-09] MEDS: QUEtiapine 25 MG TAB PO SCH (21:33)
[2023-01-10 08:06] VITALS: TEMP 98.9
[2023-01-10] MEDS: amLODIPine 5 MG TAB PO SCH (09:53)
[2023-01-10] MEDS: CHOLECALCIFEROL 25 MCG (1000 IU) TABLET PO SCH (09:53)
[2023-01-10] MEDS: CLOPIDOGREL 75 MG TAB PO SCH (09:54)
[2023-01-10] MEDS: HEPARIN SODIUM,PORCINE/PF 5,000 UNIT/0.5 ML SYRINGE SQ SCH (09:54)
[2023-01-10 10:35] VITALS: RESP 16
[2023-01-10 11:04] VITALS: BP 139/76; PULSE 96
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
[2023-01-10] MEDS: SODIUM CHLORIDE 0.9% 1,000 ML IV SCH (13:43)
== END 2023-01-10 13:55 | DRG 65 ==
LOC: EC 13:12 → SUPCPDRO 13:12 → 4SSUR 15:31 → 3SCARD 01-04 12:28 → 4SSUR 01-04 16:53 → 5NMEDONC 01-04 19:48
PROVIDERS: ADMIT Internal Medicine; ATTEND Internal Medicine
PROC: B24BZZ4 Ultrasonography of Heart with Aorta, Transesophageal (ICD-10-PCS; principal; 2023-01-09 11:05)
DX: I63.89 Other cerebral infarction (principal); F03.911 Unspecified dementia, unspecified severity, with agitation; F05 Delirium due to known physiological condition; G81.94 Hemiplegia, unspecified affecting left nondominant side; L03.116 Cellulitis of left lower limb; S81.812A Laceration without foreign body, left lower leg, initial encounter; E11.22 Type 2 diabetes mellitus with diabetic chronic kidney disease; I13.10 Hypertensive heart and chronic kidney disease without heart failure, with stage 1 through stage 4 chronic kidney disease, or unspecified chronic kidney disease; G31.9 Degenerative disease of nervous system, unspecified; N18.30 Chronic kidney disease, stage 3 unspecified; F20.9 Schizophrenia, unspecified; I08.1 Rheumatic disorders of both mitral and tricuspid valves; G89.29 Other chronic pain; M19.90 Unspecified osteoarthritis, unspecified site; R32 Unspecified urinary incontinence; R27.8 Other lack of coordination; Z53.20 Procedure and treatment not carried out because of patient's decision for unspecified reasons; T50.916A Underdosing of multiple unspecified drugs, medicaments and biological substances, initial encounter; Z96.651 Presence of right artificial knee joint; Z96.641 Presence of right artificial hip joint; Z91.138 Patient's unintentional underdosing of medication regimen for other reason; Z79.02 Long term (current) use of antithrombotics/antiplatelets; Z86.718 Personal history of other venous thrombosis and embolism; Z87.820 Personal history of traumatic brain injury; Z85.841 Personal history of malignant neoplasm of brain; Z87.891 Personal history of nicotine dependence; R27.0 Ataxia, unspecified; R22.42 Localized swelling, mass and lump, left lower limb; R47.81 Slurred speech; Z91.040 Latex allergy status; Z88.6 Allergy status to analgesic agent; Z88.8 Allergy status to other drugs, medicaments and biological substances; Z88.0 Allergy status to penicillin; Z88.1 Allergy status to other antibiotic agents; Z79.899 Other long term (current) drug therapy; Z28.310 Unvaccinated for COVID-19; Z88.5 Allergy status to narcotic agent; Z91.041 Radiographic dye allergy status; Z91.048 Other nonmedicinal substance allergy status; Z91.011 Allergy to milk products; Z80.49 Family history of malignant neoplasm of other genital organs
CPT/HCPCS: 36415; 70450; 70551; 71046; 80048; 80053; 80061; 83036; 83605; 83735; 84443; 85025; 85027; 85610; 85730; 93005; 93306; 93312; 93320; 93325; 93880; 94760; 96361; 96374; 96375; 96376; 99285

== ENCOUNTER 2023-01-12 17:07 | Emergency (ER) | payer MEDICARE, OTHER ==
[2023-01-12] MEDS ORDERED: ONDANSETRON 4 MG/2 ML VIAL IVP STA (17:13)
[2023-01-12] MEDS ORDERED: SODIUM CHLORIDE 0.9% 1,000 ML IV STA (17:13)
[2023-01-12] MEDS ORDERED: HYDROmorphone 0.5 MG/0.5 ML SYRINGE IVP STA (17:15)
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
[2023-01-12 17:44] LABS: Basophils % (A) 0 %; Eosinophils # (A) 0.2 k/uL (0-0.7); Eosinophils % (A) 4 %; HGB 12.7 gm/dL (11.4-16.0); Lymphocytes # (A) 1.3 k/uL (1.0-4.8); Lymphocytes % (A) 22 %; MCH 31.7 pg (25.0-35.0); MCHC 32.7 g/dL (31.0-37.0); Mean Platelet Volume 8.2; Monocytes # (A) 0.4 k/uL (0-1.0); Monocytes % (A) 7 %; Neutrophils # (A) 3.7 k/uL (1.3-7.7); Neutrophils % (A) 64 %; Platelet Count 208 k/uL (150-450); RBC 4.02 m/uL (3.80-5.40); RDW 13.3 % (11.5-15.5); WBC 5.9 k/uL (3.8-10.6)
[2023-01-12 17:48] LABS: MCV 97.1 fL (80.0-100.0)
[2023-01-12 17:56] LABS: ALT 20 U/L (4-34); AST 26 U/L (14-36); African American GFR (CKD) 44 (>60 ml/min/1.73 sqM); Albumin 3.8 g/dL (3.5-5.0); Alkaline Phosphatase 93 U/L (38-126); Anion Gap 6 mmol/L; Blood Urea Nitrogen 18 mg/dL (7-17); Calcium 9.1 mg/dL (8.4-10.2); Carbon Dioxide 26 mmol/L (22-30); Chloride 107 mmol/L (98-107); Glucose 111 mg/dL (74-99); Non-African American GFR(CKD) 38 (>60 ml/min/1.73 sqM); Potassium 4.7 mmol/L (3.5-5.1); Sodium 139 mmol/L (137-145); Total Bilirubin 0.4 mg/dL (0.2-1.3); Total Protein 7.2 g/dL (6.3-8.2)
[2023-01-12 18:02] LABS: INR 0.9 (<1.2); Prothrombin Time 9.8 sec (9.0-12.0)
[2023-01-12 18:04] LABS: Partial Thromboplastin Time 21.5 sec (22.0-30.0)
--- NOTE | 2023-01-12 18:07 | CT ---
EXAMINATION TYPE: CT abdomen pelvis wo con DATE OF EXAM: 01/12/2023 COMPARISON: None HISTORY: Ventral hernia. Vomiting. CT DLP: 509.2 mGycm Automated exposure control for dose reduction was used. TECHNIQUE: Helical acquisition of images was performed from the lung bases through the pelvis. FINDINGS: There are small focal opacities in the lung bases bilaterally which could represent early pneumonic i nfiltrate or atelectasis. Clinical correlation recommended. There is a large hiatal hernia with a par tially intrathoracic stomach. Gallbladder is normal and there are no gallstones There few scattered pancreatic calcifications. There is no organomegaly involving the solid visceral organs of the upper abdomen. There are no renal calcifications or hydronephrosis. There is mild renal atrophy. Graft caliber the a bdominal aorta is normal. There is a large midline ventral hernia containing large bowel loops but there is no evidence of micah l obstruction or strangulation. There is no free intraperitoneal air or fluid. There is no pelvic mass, free fluid, abscess or adenopathy. There is a right hip prosthesis. IMPRESSION: 1. Small bibasilar infiltrates consistent with atelectasis or pneumonic infiltrates. 2. Large midline ventral hernia containing large bowel loops but no evidence of bowel obstruction or strangulation. 3. Mild renal atrophy. 4. Right hip prosthesis 5. mild pancreatic calcifications. 6. large hiatal hernia with partially intrathoracic stomach
[2023-01-12 19:37] VITALS: BP 143/84; PULSE 80; RESP 16; TEMP 97.2
== END 2023-01-12 19:55 | disposition home or self-care (01) ==
LOC: EC 17:07
DX: K43.9 Ventral hernia without obstruction or gangrene (principal); I12.9 Hypertensive chronic kidney disease with stage 1 through stage 4 chronic kidney disease, or unspecified chronic kidney disease; N18.30 Chronic kidney disease, stage 3 unspecified; Z87.891 Personal history of nicotine dependence; Z79.899 Other long term (current) drug therapy; Z88.0 Allergy status to penicillin; Z88.1 Allergy status to other antibiotic agents; Z88.2 Allergy status to sulfonamides; Z88.5 Allergy status to narcotic agent; Z88.6 Allergy status to analgesic agent; Z88.8 Allergy status to other drugs, medicaments and biological substances; Z91.040 Latex allergy status; Z91.09 Other allergy status, other than to drugs and biological substances; Z90.49 Acquired absence of other specified parts of digestive tract
CPT/HCPCS: 36415; 80053; 83605; 85025; 85610; 85730; 74176; 99285; 96374; 96375; 96361 ×2; J2405; J1170

== ENCOUNTER 2023-01-13 20:56 | Emergency (ER) | payer MEDICARE, OTHER ==
[2023-01-13 21:00] VITALS: RESP 18
[2023-01-13 22:02] LABS: Basophils % (A) 1 %; Eosinophils # (A) 0.2 k/uL (0-0.7); Eosinophils % (A) 4 %; HCT 34.6 % (34.0-46.0); HGB 11.3 gm/dL (11.4-16.0); Lymphocytes # (A) 1.5 k/uL (1.0-4.8); Lymphocytes % (A) 25 %; MCH 31.6 pg (25.0-35.0); MCHC 32.5 g/dL (31.0-37.0); Mean Platelet Volume 8.1; Monocytes # (A) 0.4 k/uL (0-1.0); Monocytes % (A) 7 %; Neutrophils # (A) 3.5 k/uL (1.3-7.7); Neutrophils % (A) 60 %; Platelet Count 221 k/uL (150-450); RBC 3.57 m/uL (3.80-5.40); RDW 13.5 % (11.5-15.5); WBC 5.9 k/uL (3.8-10.6)
[2023-01-13 22:09] LABS: ALT 18 U/L (4-34); AST 22 U/L (14-36); African American GFR (CKD) 41 (>60 ml/min/1.73 sqM); Albumin 3.7 g/dL (3.5-5.0); Alkaline Phosphatase 77 U/L (38-126); Amylase 81 U/L (30-110); Anion Gap 9 mmol/L; Blood Urea Nitrogen 21 mg/dL (7-17); Calcium 9.2 mg/dL (8.4-10.2); Carbon Dioxide 21 mmol/L (22-30); Chloride 106 mmol/L (98-107); Glucose 133 mg/dL (74-99); Lipase 164 U/L (23-300); Non-African American GFR(CKD) 36 (>60 ml/min/1.73 sqM); Potassium 4.6 mmol/L (3.5-5.1); Sodium 136 mmol/L (137-145); Total Bilirubin 0.3 mg/dL (0.2-1.3); Total Protein 6.8 g/dL (6.3-8.2)
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
[2023-01-14 01:46] VITALS: BP 117/84; PULSE 82; TEMP 98.1
== END 2023-01-14 02:00 | disposition home or self-care (01) ==
LOC: EC 20:56
DX: K46.9 Unspecified abdominal hernia without obstruction or gangrene (principal); R11.10 Vomiting, unspecified; I12.9 Hypertensive chronic kidney disease with stage 1 through stage 4 chronic kidney disease, or unspecified chronic kidney disease; N18.30 Chronic kidney disease, stage 3 unspecified; M19.90 Unspecified osteoarthritis, unspecified site; Z87.891 Personal history of nicotine dependence; Z79.1 Long term (current) use of non-steroidal anti-inflammatories (NSAID); Z79.899 Other long term (current) drug therapy; Z91.040 Latex allergy status; Z88.6 Allergy status to analgesic agent; Z88.0 Allergy status to penicillin; Z88.2 Allergy status to sulfonamides; Z88.5 Allergy status to narcotic agent; Z91.041 Radiographic dye allergy status; Z88.1 Allergy status to other antibiotic agents; Z88.8 Allergy status to other drugs, medicaments and biological substances
CPT/HCPCS: 36415; 80053; 82150; 83605; 83690; 85025; 99284

== ENCOUNTER 2023-10-09 15:39 | Emergency (ER) | payer MEDICARE, OTHER ==
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
[2023-10-09 16:07] LABS: Glucose,Whole Blood 121 mg/dL (70-110)
--- NOTE | 2023-10-09 16:23 | CT ---
EXAMINATION TYPE: CT brain wo con CT DLP: 1190.4 mGycm, Automated exposure control for dose reduction was used. DATE OF EXAM: 10/09/2023 4:00 PM COMPARISON: 01/03/2023. CLINICAL INDICATION:Female, 88 years old with history of Altered mental status, Altered mental status . Patient does have dementia. TECHNIQUE: Brain: Axial CT images of the brain were obtained with coronal and sagittal reformats created and rev iewed. Contrast used: None. Oral contrast used: None. FINDINGS: Brain: Extra-axial spaces: No abnormal extra-axial fluid collections. Ventricular system: Prominent ventricles and sulci are suggested involutional change. Cerebral parenchyma: No attenuation right occipital lobe is identified which is new. However this a ppears fairly evolved and I suspect this is encephalomalacia of chronic infarct . No acute intrapar enchymal hemorrhage or mass effect. The cazares-white junction is otherwise well differentiated. Scatte red hypoattenuating areas are seen within the white matter. Cerebellum: Unremarkable. Mass effect: No evidence of midline shift. Intracranial vasculature: unremarkable Soft tissues: Normal. Calvarium/osseous structures: No depressed skull fracture. Paranasal sinuses and mastoid air cells: Mild scattered paranasal sinus disease. Visualized orbits: Orbital contents are intact. IMPRESSION: No acute intracranial process. New since prior study. 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 Age-related involution and chronic microangiopathy
[2023-10-09 16:24] LABS: Basophils # (A) 0.1 k/uL (0-0.2); Basophils % (A) 1 %; Eosinophils # (A) 0.2 k/uL (0-0.7); Eosinophils % (A) 2 %; HCT 35.8 % (34.0-46.0); HGB 11.2 gm/dL (11.4-16.0); Hypochromasia Slight; Lymphocytes # (A) 2.5 k/uL (1.0-4.8); Lymphocytes % (A) 32 %; MCHC 31.2 g/dL (31.0-37.0); MCV 99.6 fL (80.0-100.0); Mean Platelet Volume 9.2; Monocytes # (A) 0.4 k/uL (0-1.0); Monocytes % (A) 5 %; Neutrophils # (A) 4.3 k/uL (1.3-7.7); Neutrophils % (A) 55 %; Platelet Count 194 k/uL (150-450); RDW 13.5 % (11.5-15.5); WBC 7.8 k/uL (3.8-10.6)
[2023-10-09 16:41] VITALS: TEMP 98.4
--- NOTE | 2023-10-09 17:01 | XR ---
EXAMINATION TYPE: XR chest 1V portable DATE OF EXAM: 10/09/2023 4:48 PM CLINICAL INDICATION:Female, 88 years old with history of altered mental status; [facility] COMPARISON: Chest radiographs from 01/03/2023 TECHNIQUE: XR chest 1V portable Frontal view of the chest. FINDINGS: Lungs/Pleura: There is no evidence of pleural effusion, focal consolidation, or pneumothorax. Subseg mental atelectasis and scarring noted in the lung bases. Pulmonary vascularity: Unremarkable. Heart/mediastinum: Cardiomediastinal silhouette is unremarkable. Atherosclerotic calcifications are seen in the aorta. Musculoskeletal: No acute osseous pathology. IMPRESSION: No acute cardiopulmonary disease/process.
[2023-10-09 17:04] LABS: INR 0.9 (<1.2); Prothrombin Time 10.5 sec (10.0-12.5)
[2023-10-09 17:05] LABS: Partial Thromboplastin Time 21.4 sec (22.0-30.0)
[2023-10-09] MEDS: LABETALOL 5 MG/ML VIAL MDV IVP STA (17:15)
[2023-10-09 17:47] LABS: ALT 9 U/L (4-34); AST 21 U/L (14-36); African American GFR (CKD) 36 (>60 ml/min/1.73 sqM); Albumin 3.9 g/dL (3.5-5.0); Alkaline Phosphatase 90 U/L (38-126); Anion Gap 8 mmol/L; Blood Urea Nitrogen 26 mg/dL (7-17); Calcium 8.8 mg/dL (8.4-10.2); Carbon Dioxide 20 mmol/L (22-30); Chloride 111 mmol/L (98-107); Glucose 113 mg/dL (74-99); Non-African American GFR(CKD) 31 (>60 ml/min/1.73 sqM); Potassium 4.9 mmol/L (3.5-5.1); Sodium 139 mmol/L (137-145); Total Bilirubin 0.5 mg/dL (0.2-1.3); Total Protein 7.3 g/dL (6.3-8.2)
[2023-10-09 19:58] VITALS: RESP 16
[2023-10-09 20:31] VITALS: BP 204/92; PULSE 72
== END 2023-10-09 20:50 | disposition home or self-care (01) ==
LOC: EC 15:39
DX: G45.9 Transient cerebral ischemic attack, unspecified (principal); Z88.0 Allergy status to penicillin; Z88.1 Allergy status to other antibiotic agents; Z88.2 Allergy status to sulfonamides; Z88.5 Allergy status to narcotic agent; Z88.6 Allergy status to analgesic agent; Z88.8 Allergy status to other drugs, medicaments and biological substances; Z91.041 Radiographic dye allergy status; Z91.040 Latex allergy status; Z87.891 Personal history of nicotine dependence
CPT/HCPCS: 36415; 93005; 80053; 84484; 85025; 85610; 85730; 71045; 70450; 99285; 96374; J1920

== ENCOUNTER 2024-01-09 08:50 | Emergency (ER) | payer MEDICARE, OTHER ==
[2024-01-09] MEDS: DIPH,PERTUS(ACELL)TETVAC-LF 0.5 ML VIAL IM ONE (08:59)
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
[2024-01-09] MEDS: LIDOCAINE 1%-EPI 1:100,000 20 ML VIAL SQ STA (09:35)
--- NOTE | 2024-01-09 09:50 | CT ---
EXAMINATION TYPE: CT brain cspine wo con CT DLP: 1263.7 mGycm, Automated exposure control for dose reduction was used. DATE OF EXAM: 01/09/2024 9:25 AM COMPARISON: 10/01/2023. CLINICAL INDICATION:Female, 88 years old with history of Fall; Fall TECHNIQUE: Brain: Multiple axial CT images of the brain were obtained without IV contrast. Cspine: Axial CT images from the skull base to the inferior aspect of T2 we obtained without intraven ous contrast. Coronal and sagittal reformatted images were also reviewed. . FINDINGS: Brain: Extra-axial spaces: No abnormal extra-axial fluid collections. Ventricular system: Dilatation in proportion to cerebral atrophy. Cerebral parenchyma: Encephalomalacia the right occipital lobe from prior injury. Cerebral atrophy. N o acute intraparenchymal hemorrhage or mass effect. The cazares-white junction is well differentiated. Scattered hypoattenuating areas are seen within the white matter. Cerebellum: Unremarkable. Mass effect: No evidence of midline shift. Intracranial vasculature: Atherosclerotic calcifications of the intracranial vessels. Soft tissues: Normal. Calvarium/osseous structures: No depressed skull fracture. Paranasal sinuses and mastoid air cells: Clear. Visualized orbits: Orbital contents are intact. Cervical spine: Fracture: None. Osseous structures: Multilevel degenerative disc disease changes with endplate spurring and disc oste ophyte complex's. Ankylosis of the lateral processes of C2-C3 on the left. Vertebral alignment: Within normal limits. Spinal canal/Neural Foramina: No evidence of significant spinal canal narrowing. No evidence for sign ificant neural foraminal stenosis. Neck soft tissues: Prevertebral soft tissues are within normal limits. Other: The airway is patent. The lung apices are clear. IMPRESSION: 1. No acute intracranial process. 2. Nonspecific white matter changes, likely secondary to chronic small vessel ischemic disease. 3. Remote injury to the right occipital lobe. 4. Generalized atrophy changes. 5. No evidence of cervical spine fracture. 6. Moderate multilevel degenerative disc disease. 7. Atlanto-occipital assimilation and partial fusion of the left lateral processes of C2-C3.
--- NOTE | 2024-01-09 10:05 | XR ---
EXAMINATION TYPE: XR shoulder complete RT DATE OF EXAM: 01/09/2024 9:40 AM CLINICAL INDICATION:Female, 88 years old with history of Fall; [facility] COMPARISON: None TECHNIQUE: XR shoulder complete RT; examined in AP, internally rotated and scapular Y projections. FINDINGS: No evidence of acute osseous pathology, joint dislocation, or soft tissue swelling. The remaining po rtions of the visualized chest are unremarkable. Degeneration changes of the acromion, distal clavic le with osteophyte formation. There is osteophyte formation of the glenoid and humeral head. There is joint space narrowing of glenohumeral joint. IMPRESSION: 1. No acute osseous pathology. 2. 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
--- NOTE | 2024-01-09 10:06 | XR ---
EXAMINATION TYPE: XR chest 2V DATE OF EXAM: 01/09/2024 9:40 AM CLINICAL INDICATION:Female, 88 years old with history of Fall; COMPARISON: Chest radiographs from 10/01/2023 TECHNIQUE: XR chest 2V Frontal and lateral views of the chest. FINDINGS: Lungs/Pleura: There is flattening of the diaphragm with increased lucency of the lungs. No evidence o f pneumothorax, pleural effusion or focal consolidation. Pulmonary vascularity: Unremarkable. Heart/mediastinum: Cardiomediastinal silhouette is unremarkable. Musculoskeletal: No acute osseous pathology. IMPRESSION: 1. No acute cardiopulmonary disease process. 2. COPD changes.
--- NOTE | 2024-01-09 10:07 | XR ---
EXAMINATION TYPE: XR knee complete RT DATE OF EXAM: 01/09/2024 9:40 AM CLINICAL INDICATION:Female, 88 years old with history of Fall; [facility] COMPARISON: 06/07/2023. TECHNIQUE: XR knee complete RT; examined in Frontal, lateral and oblique projections. FINDINGS: Status post total knee arthroplasty changes with hardware in appropriate alignment and in tact. No evidence of fracture. IMPRESSION: Status post total knee arthroplasty changes with hardware intact and appropriate alignment. No fractu res identified.
--- NOTE | 2024-01-09 10:08 | XR ---
EXAMINATION TYPE: XR pelvis AP view DATE OF EXAM: 01/09/2024 9:40 AM CLINICAL INDICATION:Female, 88 years old with history of Fall; [facility] COMPARISON: None TECHNIQUE: XR pelvis AP view, examined in a single projection. FINDINGS: Right hip arthroplasty with hardware intact. Severe degeneration changes of the left hip wi th superior migration of the left femur into the acetabulum with erosive changes. There is no evidenc e of fracture or dislocation. There is no soft tissue abnormality. No abnormal calcifications are pr esent. The spine appears intact. The hips appear intact. No significant degeneration. IMPRESSION: 1. No acute osseous pathology. 2. Right hip arthroplasty appears intact. 3. End-stage left hip osteoarthrosis with deformity to the acetabulum and femoral head with superior migration of the femoral head into the acetabulum.
[2024-01-09] MEDS: HALOPERIDOL LACTATE 5 MG/ML 1 ML VIAL IM STA (11:04)
[2024-01-09] MEDS: LORazepam 2 MG/ML INJ IM STA ×2 (11:31→12:25)
[2024-01-09 14:08] VITALS: BP 185/107; PULSE 111; TEMP 97.3
[2024-01-09 14:11] VITALS: RESP 20
[2024-01-09] MEDS: METOPROLOL TARTRATE 50 MG TAB PO STA (14:21)
== END 2024-01-09 16:00 | disposition home or self-care (01) ==
LOC: EC 08:50
DX: S81.011A Laceration without foreign body, right knee, initial encounter (principal); M19.90 Unspecified osteoarthritis, unspecified site; F03.90 Unspecified dementia, unspecified severity, without behavioral disturbance, psychotic disturbance, mood disturbance, and anxiety; F99 Mental disorder, not otherwise specified; Z87.891 Personal history of nicotine dependence; Z86.73 Personal history of transient ischemic attack (TIA), and cerebral infarction without residual deficits; Z91.040 Latex allergy status; Z88.6 Allergy status to analgesic agent; Z88.8 Allergy status to other drugs, medicaments and biological substances; Z88.0 Allergy status to penicillin; Z88.1 Allergy status to other antibiotic agents; Z88.2 Allergy status to sulfonamides; Z88.5 Allergy status to narcotic agent; Z91.041 Radiographic dye allergy status; W05.0XXA Fall from non-moving wheelchair, initial encounter
CPT/HCPCS: 72170; 73030; 73562; 71046; 72125; 70450; 12002; 99284; 96372 ×3; J2060; J1630

== ENCOUNTER 2024-01-19 09:16 | Emergency (ER) | payer MEDICARE, OTHER ==
[2024-01-19 09:25] VITALS: RESP 18; TEMP 97.1
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
[2024-01-19] MEDS: CLINDAMYCIN 150 MG CAP PO STA (09:56)
[2024-01-19] MEDS: CALCIUM CARBONATE 500 MG CHEWABLE PO STA (09:56)
--- NOTE | 2024-01-19 10:01 | XR ---
EXAMINATION TYPE: XR knee complete RT DATE OF EXAM: 01/19/2024 9:53 AM CLINICAL INDICATION:Female, 88 years old with history of Redness and swelling; [facility] COMPARISON: None. TECHNIQUE: XR knee complete RT; examined in Frontal, lateral and oblique projections. FINDINGS: Status post total knee arthroplasty changes with hardware in appropriate alignment and in tact. No evidence of fracture. Diffuse soft tissue swelling throughout the soft tissues, no subcutane ous gas visualized osseous erosion. IMPRESSION: 1. Status post total knee arthroplasty changes with hardware intact and appropriate alignment. No fr actures identified. Diffuse soft tissue swelling possibly secondary to cellulitis given patient h istory..
[2024-01-19] MEDS: LIDOCAINE 4% CREAM 5 GM TUBE TOPICAL ONE (10:19)
[2024-01-19 10:24] LABS: Basophils # (A) 0.1 k/uL (0-0.2); Basophils % (A) 1 %; Eosinophils # (A) 0.1 k/uL (0-0.7); Eosinophils % (A) 2 %; HCT 34.6 % (34.0-46.0); HGB 10.9 gm/dL (11.4-16.0); Lymphocytes # (A) 1.9 k/uL (1.0-4.8); Lymphocytes % (A) 26 %; MCH 30.3 pg (25.0-35.0); MCHC 31.5 g/dL (31.0-37.0); MCV 96.4 fL (80.0-100.0); Monocytes # (A) 0.4 k/uL (0-1.0); Monocytes % (A) 6 %; Neutrophils # (A) 4.5 k/uL (1.3-7.7); Neutrophils % (A) 62 %; Platelet Count 220 k/uL (150-450); RBC 3.59 m/uL (3.80-5.40); RDW 13.5 % (11.5-15.5); WBC 7.3 k/uL (3.8-10.6)
[2024-01-19 10:37] LABS: ALT 9 U/L (4-34); AST 16 U/L (14-36); African American GFR (CKD) 39 (>60 ml/min/1.73 sqM); Albumin 3.8 g/dL (3.5-5.0); Alkaline Phosphatase 80 U/L (38-126); Anion Gap 8 mmol/L; Blood Urea Nitrogen 16 mg/dL (7-17); Calcium 9.1 mg/dL (8.4-10.2); Carbon Dioxide 23 mmol/L (22-30); Chloride 107 mmol/L (98-107); Glucose 152 mg/dL (74-99); Non-African American GFR(CKD) 34 (>60 ml/min/1.73 sqM); Potassium 4.5 mmol/L (3.5-5.1); Sodium 138 mmol/L (137-145); Total Bilirubin 0.4 mg/dL (0.2-1.3); Total Protein 7.2 g/dL (6.3-8.2)
[2024-01-19 11:05] LABS: C Reactive Protein 2.2 mg/dL (<1.0)
[2024-01-19 11:27] VITALS: BP 124/78; PULSE 66
[2024-01-19 21:03] LABS: Erythrocyte Sedimentation Rate 76 mm/Hr (0-30)
== END 2024-01-19 11:55 | disposition home or self-care (01) ==
LOC: EC 09:16
DX: L03.115 Cellulitis of right lower limb (principal); Z87.891 Personal history of nicotine dependence; Z88.0 Allergy status to penicillin; Z88.2 Allergy status to sulfonamides; Z88.5 Allergy status to narcotic agent; Z88.1 Allergy status to other antibiotic agents; Z88.8 Allergy status to other drugs, medicaments and biological substances; Z88.6 Allergy status to analgesic agent; Z91.040 Latex allergy status; Z91.041 Radiographic dye allergy status
CPT/HCPCS: 36415; 80053; 85025; 85652; 86140; 99283

== ENCOUNTER 2025-01-27 21:14 | Inpatient (IN) | payer MEDICARE, OTHER ==
[2025-01-27 21:19] LABS: Glucose,Whole Blood 160 mg/dL (70-110)
[2025-01-27] MEDS: FAMOTIDINE 20 MG/2 ML VIAL IV STA (21:29)
[2025-01-27] MEDS: diphenhydrAMINE 50 MG/ML 1 ML VIAL IVP STA (21:29)
[2025-01-27] MEDS: methylPREDNISolone SOD SUCCI 125 MG/2 ML VIAL IV STA (21:29)
--- NOTE | 2025-01-27 21:37 | CT ---
EXAMINATION TYPE: CODE STROKE: CT brain wo contr CT DLP: 1160.8 mGycm, Automated exposure control for dose reduction was used. DATE OF EXAM: 01/27/2025 9:33 PM COMPARISON: CT brain C-spine 01/09/2024 CLINICAL INDICATION:Female, 89 years old with history of Neuro deficit, acute, stroke suspected, Code stroke. TECHNIQUE: Brain: Multiple axial CT images of the brain were obtained without IV contrast. . Coronal and sagitta l reformats reviewed. FINDINGS: Brain: Extra-axial spaces: No abnormal extra-axial fluid collections. Ventricular system: Dilatation in proportion to cerebral atrophy. Cerebral parenchyma: Cerebral atrophy. No acute intraparenchymal hemorrhage or mass effect. The anne ining cazares-white junction is well differentiated. Scattered hypoattenuating areas are seen within the periventricular white matter. Encephalomalacia involving the right parietal and occipital lobes fro m prior injuries. Empty sella morphology. Cerebellum: Unremarkable. Mass effect: No evidence of midline shift. Intracranial vasculature: Atherosclerotic calcifications of the intracranial vessels. Soft tissues: Normal. Calvarium/osseous structures: No depressed skull fracture. Paranasal sinuses and mastoid air cells: Postsurgical changes of the right mastoid. The left mastoid air cells are clear. The paranasal sinuses are clear. Visualized orbits: Orbital contents are intact. IMPRESSION: 1. No acute intracranial process. 2. Nonspecific white matter changes, likely secondary to chronic small vessel ischemic disease. 3. Remote injuries to the right parietal and occipital lobes with encephalomalacia. [facility], , 01/27/2025 9:35 PM
[2025-01-27 21:41] LABS: Basophils # (A) 0.07 10*3/uL (0.00-0.10); Basophils % (A) 1.0 %; Eosinophils # (A) 0.22 10*3/uL (0.04-0.35); Eosinophils % (A) 3.1 %; HCT 34.4 % (37.2-46.3); HGB 11.1 g/dL (12.0-15.0); Lymphocytes # (A) 2.31 10*3/uL (0.90-5.00); Lymphocytes % (A) 32.4 %; MCH 31.0 pg (27.0-32.0); MCHC 32.3 g/dL (32.0-37.0); MCV 96.1 fL (80.0-97.0); Monocytes # (A) 0.59 10*3/uL (0.20-1.00); Monocytes % (A) 8.3 %; Neutrophils # (A) 3.93 10*3/uL (1.80-7.70); Neutrophils % (A) 55.1 %; Platelet Count 193 10*3/uL (140-440); RBC 3.58 10*6/uL (4.10-5.20); RDW 14.7 % (11.5-14.5); WBC 7.13 10*3/uL (4.50-10.00)
--- NOTE | 2025-01-27 21:44 | XR ---
EXAMINATION TYPE: XR chest 1V DATE OF EXAM: 01/27/2025 9:40 PM COMPARISON: Chest radiographs from 01/09/2024 TECHNIQUE: XR chest 1V Portable AP radiograph of the chest. CLINICAL INDICATION:Female, 89 years old with history of altered mental status; FINDINGS: Patient is rotated which was evaluation. Lungs/Pleura: There is no evidence of pleural effusion, focal consolidation, or pneumothorax. Left m id and lower lung linear atelectasis. Pulmonary vascularity: Unremarkable. Heart/mediastinum: Cardiomediastinal silhouette is enlarged and stable. Musculoskeletal: No acute osseous pathology. IMPRESSION: No acute cardiopulmonary disease/process. [facility], , 01/27/2025 9:42 PM
--- NOTE | 2025-01-27 21:52 | CT ---
EXAMINATION TYPE: CT angio head neck CT DLP: 1535.2 mGycm, Automated exposure control for dose reduction was used. DATE OF EXAM: 01/27/2025 9:42 PM COMPARISON: CT brain 01/27/2025. CLINICAL INDICATION:Female, 89 years old with history of Neuro deficit, acute, stroke suspected; PHH, code thrombolitic TECHNIQUE: Axially acquired helical CT angiogram of the head and neck was obtained with contrast util izing 75 cc of Isovue-370 administered intravenously. Axial images are supplemented with 3D reconstru ctions which were post-processed at an independent workstation. NASCET criteria used. MIP imaging performed on a separate workstation and submitted for review. FINDINGS: CTA HEAD: No evidence of acute intracranial hemorrhage, mass effect, or midline shift. The ventricles, sulci, a nd cisterns are unremarkable. The visualized portions of the internal carotid arteries, middle cerebral arteries, anterior cerebral arteries, and posterior cerebral arteries are patent. There is mild stenosis involving the M1 segmen t of the right MCA (series 406, image 37. The basilar and vertebral arteries are patent. CTA NECK: Right Carotid System: The common carotid artery and external carotid artery are patent. Approximately 50 % stenosis at the origin of the internal carotid artery secondary to calcified and noncalcified plaque. The remaining p ortions of the internal carotid artery demonstrate normal size without significant narrowing. Left Carotid System: The common carotid artery and external carotid artery are patent. Approximately 25% stenosis at the o rigin of the internal carotid artery secondary to calcified and noncalcified plaque. The remaining po rtions of the internal carotid artery demonstrate normal size without significant narrowing. Vertebral arteries are patent without evidence hemodynamically significant stenosis. Vertebral arteri es are codominant. There is a three-vessel aortic arch. The origins of the great vessels are patent. No evidence of hemo dynamically significant stenosis. Cardiomegaly. Dilated main pulmonary artery measuring 3.1 cm in [place]ist[place] meter which can be seen with pulmonary arterial hypertension. Subsegmental atelectasis within the jose gula. Postsurgical changes of the right mastoid. Multilevel degenerative changes of the cervical spine. Ank ylosis of the lateral process of the C2-C3 on the left. IMPRESSION: 1. No evidence of dissection of the cervical internal carotid arteries or vertebral arteries. Approxi mately 50% stenosis of the origin of the right internal carotid artery secondary to calcified and non calcified plaque. Approximately 25% stenosis at the origin of the left internal carotid artery second nigel to calcified and noncalcified plaque. 2. Mild stenosis involving the right MCA M2 segment. 3. No evidence of intracranial aneurysm. [facility], , 01/27/2025 9:50 PM
[2025-01-27 21:53] LABS: INR 1.0 (<1.2); Partial Thromboplastin Time 23.5 sec (22.0-30.0); Prothrombin Time 10.9 sec (10.0-12.5)
[2025-01-27 22:02] LABS: ALT 10 U/L (4-34); AST 19 U/L (14-36); African American GFR (CKD) 40 (>60 ml/min/1.73 sqM); Albumin 3.9 g/dL (3.5-5.0); Alkaline Phosphatase 96 U/L (38-126); Anion Gap 10 mmol/L; Blood Urea Nitrogen 36 mg/dL (7-17); Calcium 9.1 mg/dL (8.4-10.2); Carbon Dioxide 22 mmol/L (22-30); Chloride 106 mmol/L (98-107); Creatine Kinase 40 U/L (30-135); Glucose 140 mg/dL (74-99); Non-African American GFR(CKD) 35 (>60 ml/min/1.73 sqM); Potassium 5.5 mmol/L (3.5-5.1); Sodium 138 mmol/L (137-145); Total Protein 7.4 g/dL (6.3-8.2)
[2025-01-27] MEDS ORDERED: NALOXONE 0.4 MG/ML 1 ML VIAL IV PRN (22:18)
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
[2025-01-28 07:04] LABS: Basophils # (A) 0.02 10*3/uL (0.00-0.10); Basophils % (A) 0.3 %; Eosinophils # (A) 0.00 10*3/uL (0.04-0.35); Eosinophils % (A) 0.0 %; HCT 38.3 % (37.2-46.3); HGB 12.5 g/dL (12.0-15.0); Lymphocytes # (A) 0.74 10*3/uL (0.90-5.00); Lymphocytes % (A) 11.7 %; MCH 30.9 pg (27.0-32.0); MCHC 32.6 g/dL (32.0-37.0); MCV 94.8 fL (80.0-97.0); Monocytes # (A) 0.04 10*3/uL (0.20-1.00); Monocytes % (A) 0.6 %; Neutrophils # (A) 5.51 10*3/uL (1.80-7.70); Neutrophils % (A) 86.8 %; Platelet Count 202 10*3/uL (140-440); RBC 4.04 10*6/uL (4.10-5.20); RDW 14.8 % (11.5-14.5); WBC 6.35 10*3/uL (4.50-10.00)
[2025-01-28 07:27] LABS: African American GFR (CKD) 42 (>60 ml/min/1.73 sqM); Anion Gap 11 mmol/L; Blood Urea Nitrogen 30 mg/dL (7-17); Calcium 9.4 mg/dL (8.4-10.2); Carbon Dioxide 22 mmol/L (22-30); Chloride 108 mmol/L (98-107); Glucose 210 mg/dL (74-99); Non-African American GFR(CKD) 36 (>60 ml/min/1.73 sqM); Potassium 4.9 mmol/L (3.5-5.1); Sodium 141 mmol/L (137-145)
[2025-01-28 10:32] LABS: Cholesterol 238.00 mg/dL (0.00-200.00); HDL Cholesterol 61.20 mg/dL (40.00-60.00); LDL Cholesterol,Calculated 169.2 mg/dL (0.0-131.0); Triglycerides 38.10 mg/dL (0.00-149.00); VLDL Calculation 7.62 mg/dL (5.00-40.00)
[2025-01-28] MEDS: CLOPIDOGREL 75 MG TAB PO SCH (12:04)
[2025-01-28] MEDS: amLODIPine 2.5 MG TAB PO SCH (12:04)
[2025-01-28] MEDS: METOPROLOL TARTRATE 25 MG TAB PO SCH (12:05)
[2025-01-28] MEDS: CHOLECALCIFEROL 25 MCG (1000 IU) TABLET PO SCH (12:10)
[2025-01-28] MEDS: ENOXAPARIN 30 MG/0.3 ML SYRINGE SQ SCH (12:10)
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
--- NOTE | 2025-01-28 16:56 | CA ---
Transthoracic Echo Report Name: Patrizia Davalos Age: 89 Gender: F : 1935 Exam Date: 01/28/2025 13:40 Exam Location: [facility] Ht (in): 60 Wt (lb): 179 Ordering Physician: Gilberto Tolliver MD Attending/Referring Phys: Bakery Sales Clerk Jose Stanford RDCS Procedure CPT: Indications: stroke Cardiac Hx: Technical Quality: Fair Contrast 1: Agitated Saline Total Dose (mL): 7 Contrast 2: Total Dose (mL): MEASUREMENTS (Male / Female) Normal Values 2D ECHO LV Diastolic Diameter PLAX 5.3 cm 4.2 - 5.9 / 3.9 - 5.3 cm LV Systolic Diameter PLAX 4.0 cm IVS Diastolic Thickness 1.5 cm 0.6 - 1.0 / 0.6 - 0.9 cm LVPW Diastolic Thickness 1.5 cm 0.6 - 1.0 / 0.6 - 0.9 cm LV Relative Wall Thickness 0.6 RV Internal Dim ED PLAX 2.1 cm LVOT Diameter 1.7 cm LA Systolic Diameter LX 4.1 cm 3.0 - 4.0 / 2.7 - 3.8 cm LV Diastolic Volume MOD BP 73.6 cm??? 67 - 155 / 56 - 104 cm??? LV Systolic Volume MOD BP 40.5 cm??? - / 19 - 49 cm??? LV Ejection Fraction MOD BP 44.9 % >= 55 % LV Cardiac Index MOD BP 1379.2 cm???/min???m??? LV Diastolic Volume MOD 4C 86.7 cm??? LV Systolic Volume MOD 4C 42.8 cm??? LV Ejection Fraction MOD 4C 50.7 % LV Cardiac Index MOD 4C 1832.8 cm???/min???m??? LV Diastolic Length 4C 7.6 cm LV Systolic Length 4C 6.4 cm LV Diastolic Volume MOD 2C 57.0 cm??? LV Systolic Volume MOD 2C 35.0 cm??? LV Ejection Fraction MOD 2C 38.7 % LV Cardiac Index MOD 2C 920.1 cm???/min???m??? LV Diastolic Length 2C 6.9 cm LV Systolic Length 2C 5.7 cm LA Volume 77.2 cm??? - 58 / 22 - 52 cm??? LA Volume Index 40.8 cm???/m??? 16 - 28 cm???/m??? M-MODE Aortic Root Diameter MM 3.2 cm LA Systolic Diameter MM 4.1 cm LA Ao Ratio MM 1.3 AV Cusp Separation MM 1.4 cm DOPPLER AV Peak Velocity 152.0 cm/s AV Peak Gradient 9.2 mmHg AV Mean Velocity 98.9 cm/s AV Mean Gradient 4.4 mmHg AV Velocity Time Integral 32.0 cm LVOT Peak Velocity 81.0 cm/s LVOT Peak Gradient 2.6 mmHg LVOT Velocity Time Integral 15.0 cm LVOT Stroke Volume 33.9 cm??? LVOT Stroke Volume Index 19.0 ml/m??? LVOT Cardiac Index 1414.0 cm???/min???m??? AV Area Cont Eq vti 1.1 cm??? AV Area Cont Eq pk 1.2 cm??? MV Peak Velocity 173.0 cm/s MV Peak Gradient 12.0 mmHg MV Mean Velocity 106.9 cm/s MV Mean Gradient 5.4 mmHg MV Velocity Time Integral 35.5 cm MV Area PHT 5.8 cm??? MR Peak Velocity 619.2 cm/s MR Peak Gradient 153.3 mmHg Mitral E Point Velocity 144.8 cm/s Mitral A Point Velocity 158.0 cm/s Mitral E to A Ratio 0.9 MV Deceleration Time 131.6 ms TR Peak Velocity 248.5 cm/s TR Peak Gradient 24.7 mmHg FINDINGS Left Ventricle Left ventricular ejection fraction is estimated at 50 %. No obvious regional wall motion abnormalities. left ventricular cavity size normal. Moderately increased septal wall thickness. Moderately increased posterior wall thickness. Moderately decreased left ventricular ejection fraction. Right Ventricle Normal right ventricular size and function. Right Atrium Normal right atrial size. No right atrial thrombus or mass seen. Negative agitated saline bubble study for right to left shunt. Left Atrium Mildly increased left atrial diameter. Severely increased left atrial volume. Mitral Valve No mitral stenosis. Moderate mitral regurgitation. Moderate mitral annular calcification. Aortic Valve Aortic sclerosis. Possible bicuspid aortic valve Tricuspid Valve No tricuspid stenosis. Mild tricuspid regurgitation. Pulmonic Valve Pulmonic valve not well visualized. Pericardium Normal pericardium. No pericardial or pleural effusion. Aorta Normal size aortic root and proximal ascending aorta. CONCLUSIONS Normal LV systolic function Aortic sclerosis. Possible bicuspid aortic valve. No significant gradient was identified Thickened mitral valve leaflets with moderate MR Previewed by: Dr. Henry Gonzalez MD (Electronically Signed) Final Date: 28 January 2025 16:55
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
[2025-01-28] MEDS: amLODIPine 10 MG TAB PO SCH (23:44)
[2025-01-28] MEDS: METOPROLOL TARTRATE 50 MG TAB PO SCH (23:44)
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
[2025-01-29 20:47] VITALS: RESP 16
[2025-01-29] MEDS: EZETIMIBE 10 MG TAB PO SCH (21:29)
--- NOTE | 2025-01-30 13:35 | P.PN ---
Subjective Progress Note Date: 01/30/25 I am following up with the patient and she seems more cooperative today according to the nurse. According to the nurse a family member notified her that she did have a history of cancer in the remote past in the 1960s and had metal placed. Cannot have clearance for MRI at this time. Objective - Vital Signs Vital signs: Vital Signs Temp 98.1 F 01/30/25 10:00 Pulse 51 L 01/30/25 11:50 Resp 16 01/30/25 11:50 BP 136/65 01/30/25 11:50 Pulse Ox 96 01/30/25 11:50 FiO2 Intake & Output 01/29/25 01/30/25 01/30/25 18:59 06:59 18:59 Intake Total 240 600 246 Output Total 0 Balance 240 600 246 Weight 81.5 kg Intake: IV 10 Invasive Line 2 10 Oral 240 600 236 Output: Gastric Drainage 0 Urine 0 Stool 0 Urine/Stool Mix 0 Emesis 0 Oral Regurgitation 0 Other 0 Other: Voiding Method Toilet Toilet Toilet Diaper Diaper Diaper # Voids 1 # Bowel Movements 0 - Exam General: Sitting on side of bed and is not in acute distress. Neuro: Patient is calmer and more cooperative today compared to to my initial examination 2 days ago. She is oriented to self place and she correctly stated that the current year. Is following simple commands. No aphasia Pupils are round about 3 mm bilaterally and reactive to light. Unable to assess visual dumont because of her cooperation. Patient does have right lower facial droop. She has subtle dysarthria. Motor: Is lifting all extremities above gravity equally. Some of the work-up during this hospital visit consisted of: Lipid panel: TG 38, cholestrol 238, LDL 169 and HDL 61 Creatnine 1.35, Potassium 5.5 that normalized. TSH: 0.990 CT of the head is reported as no acute intracranial process. Remote injury to the right parietal and occipital lobe with encephalomalacia I personally reviewed the CT of the head and agree there is no acute intracranial process and agree with an old encephalomalacia. CT angiography of the head and neck is reported as no evidence of dissection of cervical internal carotid artery or vertebral artery. Approximately 50% stenosis of the origin of the right internal carotid artery secondary due to calcified and noncalcified plaque. Approximately 25% stenosis at the origin of the left internal carotid artery secondary to calcified and noncalcified plaque. Mild stenosis involving the right MCA M2 segment. No evidence of intracranial aneurysm. EKG is reported as sinus rhythm. Minimal ST depression. In the ED the patient NIH stroke scale was a 4 and a stroke code was activated and the ED team spoke with the stroke attending (Dr. Resendiz) and it was felt no IV TNK since the risk outweighed the benefit because of her advanced age. The ED team spoke with the patient guardian. 2D echo: Normal ventricular systolic function. Aortic sclerosis. Possible bicuspid aortic valve. No significant gradient was identified. Thickened mitral valve leaflet with moderate mitral regurgitation. - Labs CBC & Chem 7: 01/28/25 06:13 01/28/25 06:13 Assessment and Plan Assessment: This is an 89-year-old woman with history of dementia, strokes, TIAs, medication noncompliance who presents emergency department because of right facial droop as well as dysarthria. NIH stroke scale in the ED was a 4 and no IV TNKase since the risk outweigh the benefit that was felt by the stroke attending on-call seems that she had dysarthria, mild expressive aphasia and facial droop on presentation. Right lower facial droop with expressive aphasia, dysarthria on presentation is likely acute ischemic stroke--currently improved but currently right lower facial droop with subtle dysarthria. Dyslipidemia History of strokes History of TIAs History of closed head injury History of brain tumor History of seizure Chronic kidney disease Medication noncompliance Plan: Patient started on Plavix 75 mg daily. Will avoid dual antiplatelet because of increased risk for bleed. Will avoid statins since patient is allergic to statin MRI of the brain but cannot obtain clearance because of ?metal after her brain surgery Therefore, will obtain a repeat CT head. Continue neurochecks Cardiac monitoring PT OT and FORMING MACHINE TENDER are consulted Recommend permissive hypertension for an additional 24 hours For DVT prophylaxis the patient is on Lovenox Will defer the rest of the medical management to the primary team The plan is discussed with her nurse. Dr. Esteban will resume neurology service tomorrow A.M. Time with Patient: Less than 30
--- NOTE | 2025-01-30 15:53 | CT ---
EXAMINATION TYPE: CT brain wo con DATE OF EXAM: 01/30/2025 3:38 PM COMPARISON: Recent CT study 01/27/2025. CLINICAL INDICATION: Female, 89 years old with history of right facial droop, right facial droop TECHNIQUE: Brain: Axial CT images of the brain were obtained with coronal and sagittal reformats created and rev iewed. Contrast used: None. Oral contrast used: None. CT DLP: 1096.4 mGycm, Automated exposure control for dose reduction was used. FINDINGS: Brain: Extra-axial spaces: No abnormal extra-axial fluid collections. Ventricular system: Dilatation in proportion to cerebral atrophy. Cerebral parenchyma: No acute intraparenchymal hemorrhage or mass effect. Old infarct in the right o ccipital lobe. Scattered hypoattenuating areas are seen within the white matter. Cerebellum: Unremarkable. Mass effect: No evidence of midline shift. Intracranial vasculature: Atherosclerotic calcifications of the intracranial vessels. Soft tissues: Normal. Calvarium/osseous structures: No depressed skull fracture. Paranasal sinuses and mastoid air cells: Mild scattered paranasal sinus disease. Visualized orbits: Orbital contents are intact. IMPRESSION: No acute intracranial process. [facility], , 01/30/2025 3:50 PM
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
[2025-01-31 13:17] VITALS: BMI 34.9
--- NOTE | 2025-01-31 16:01 | CDI ---
Documentation Clarification Form Date: 01/31/2025 03:34:48 PM From: Nayeli Dejesus RN, CCDS Email: [email or web address] Admit Date: 01/27/2025 10:18:00 PM Patient Name: Patrizia Davalos Visit Number: [id number] Discharge Date: ATTENTION: The Clinical Documentation Specialists (CDI) and [facility] Coding Staff appreciate your assistance in clarifying documentation. Please respond to the clarification below the line at the bottom and electronically sign. The CDI & [facility] Coding staff will review the response and follow-up if needed. Please note: Queries are made part of the Legal Health Record. If you have any questions, please contact the author of this message via ITS. Doctor Porfirio Lemus Conflicting documentation has been found in the medical record. As attending physician, please provide clarification. IM Attending: "Possible TIA." Neurology: "likely acute ischemic stroke--currently improved." History/Risk Factors: Dementia, stroke, TIA. Presents with right facial droop and dysarthria. Clinical Indicators: 01/[address]: No acute intracranial process 01/28 H&P: "Right lower facial droop with expressive aphasia some dysarthria possible acute ischemic stroke." 01/28 Neurology consult: "Right lower facial droop with expressive aphasia, dysarthria on presentation is likely acute ischemic stroke--currently improved to right lower facial droop." 01/30 IM: " Right lower facial droop with expressive aphasia some dysarthria now resolved. Possible TIA." 01/[address]: No acute intracranial process Treatment: Plavix 75mg po daily 01/28-current; neurochecks; PT/OT/ELECTROPHYSIOLOGY TECHNICIAN consults Please clarify which diagnosis is most appropriate: [ ] TIA [ + ] Acute ischemic stroke [ ] Other (please specify) [ ] Unable to determine MTDD
--- NOTE | 2025-01-31 16:10 | P.DS ---
Providers Date of admission: 01/27/25 22:18 Expected date of discharge: 01/31/25 Attending physician: Porfirio Lemus Consults: 01/27/25 22:18 Consult Physician Urgent Consulting Provider: Gilberto Tolliver Consult Reason/Comments: right sided facial droop, dysarthria, suspected cva Do you want consulting provider notified?: Yes Primary care physician: Darin Castro [facility] Course: Final diagnosis - Right lower facial droop with expressive aphasia some dysarthria now resolved. Likely TIA -Possible UTI, present on admission, ruled out -chronic kidney disease stage III likely from nephrosclerosis -Anemia likely secondary to chronic kidney disease -Obesity BMI 35.1 - Left lower extremity cellulitis, present on admission, improved and maintained on Silvadene cream - Hypercholesteremia -Essential hypertension, uncontrolled, initially: Now controlled -Primary osteoarthritis -Chronic urinary stress incontinence, severe -Medical debility -using wheelchair -Moderate to severe cognitive impairment - DNR Discharge disposition Patient is being discharged in a stable condition with guarded prognosis to [facility]. Patient will follow-up with Dr. Castro in the outpatient setting upon discharge. Patient is to continue with current medications and outpatient follow-up with neurology as scheduled. Recommend outpatient follow-up with wound care regarding chronic lower extremity heel wound and ongoing cellulitis. Total time taken is greater than 35 minutes. Hospital course This is a 89-year-old patient of Dr. Castro, chronic medical conditions include chronic kidney disease, essential hypertension, primary osteoarthritis, urinary stress incontinence, GERD, medical debility,. Per EMS: Patient is having a headache and having some trouble speaking. Around 715 last night. Patient has a mild droop to the right corner of her mouth. Speech was noted to be slurred. Patient was following commands.. Because of cognitive impairment patient herself not able to give much of a history. Denies any weakness in the arms or legs. Per the daughter to the ER physician has had multiple TIAs strokes close head surgery injury and seizures in the past. Earlier patient was refusing to get examined and also refusing her medications. In the ER patient had an NIH score of 4. And spoke to the stroke attending Dr. Resendiz. Decided against giving TNK. January 29: No neurodeficits. Sitting at edge of the bed. Some redness in the left lower extremity. Could be mild cellulitis. No tenderness. No fever. Will use topical Silvadene with Kerlix and Aly wrap. Pending MRI per neurology. Patient had all her lunch. January 30: Pending MRI of the brain. Eating some. Comfortable. Dressing of the left lower extremity with Silvadene for cellulitis. Per the nurse redness is gone down. January 31, 2025 Patient is seen and evaluated today in follow-up did undergo CT and likely TIA per neurology. Patient was scheduled to undergo MRI although there is a plate in her head and she is unable to have an MRI. Patient is maintained on Plavix and will continue. Patient on admission was having some left lower extremity concerns of cellulitis maintained on Silvadene cream showing improvements and recommend outpatient follow-up with wound care center. Continue with Aly wrapping as well and swelling has improved. Social history: At [facility]. Former smoker Physical examination: GENERAL: Laying in bed comfortable EYES: [Pupils equal. Conjunctiva pale HEENT: External appearance of nose and ears normal, oral cavity grossly normal. NECK: JVD not raised; masses not palpable. HEART: First and second heart sounds are normal; minimal edema LUNGS: Respiratory rate normal; clear to auscultation. ABDOMEN: Soft, nontender, liver spleen not palpable, no masses palpable. PSYCH: Patient is to hold simple conversation. But otherwise confused cannot give any much details. MUSCULOSKELETAL: Evidence of OA especially in the hands Dermatological: Some redness left lower extremity from just above the ankle to one third way down below the knee. No tenderness.: Better INVESTIGATIONS, reviewed in the clinical context: January 28: White count 6.3 hemoglobin 12.5 platelets 202 potassium 4.9 BUN 30 creatinine 1.31 LDL was 169.2 EKG tracing personally reviewed by me-normal sinus rhythm. Minimal ST depression. CT brain: Nonspecific white matter changes. Remote injury to the right parietal and occipital lobe with encephalomalacia. Chest x-ray film personally reviewed by me-cardiomegaly CT angio of the head and neck: No significant stenosis. Please refer to medication reconciliation sheet for a list of medications. The impression and plan of care has been dictated by Paola Vargas, Nurse Practitioner as directed. Dr. Sam MD I have performed a history and examination and MDM of this patient, discussed the same with the dictator, and agree with the dictator's assessment and plan as written ,documented as a scribe. Based on total visit time, I have performed more than 50% of the visit. Patient Condition at Discharge: Fair Plan - Discharge Summary Discharge Rx Participant: No New Discharge Prescriptions: New Enoxaparin [Lovenox] 30 mg SQ DAILY each Metoprolol Tartrate [Lopressor] 100 mg PO BID tab amLODIPine [Norvasc] 10 mg PO HS tab SILVER sulfADIAZINE CREAM [Silvadene Cream] 1 applic TOPICAL BID each Ezetimibe [Zetia] 10 mg PO DAILY tab Continue Acetaminophen Tab [Tylenol] 650 mg PO Q6H PRN PRN Reason: Pain Cholecalciferol [Vitamin D3 (25 Mcg = 1000 Iu)] 50 mcg PO DAILY Clopidogrel [Plavix] 75 mg PO DAILY Discontinued amLODIPine [Norvasc] 7.5 mg PO DAILY Metoprolol Tartrate [Lopressor] 75 mg PO TID Discharge Medication List Cholecalciferol [Vitamin D3 (25 Mcg = 1000 Iu)] 50 mcg PO DAILY 01/03/23 [History] Clopidogrel [Plavix] 75 mg PO DAILY 01/12/23 [History] Acetaminophen Tab [Tylenol] 650 mg PO Q6H PRN 01/28/25 [History] Enoxaparin [Lovenox] 30 mg SQ DAILY each 01/31/25 [Rx] Ezetimibe [Zetia] 10 mg PO DAILY tab 01/31/25 [Rx] Metoprolol Tartrate [Lopressor] 100 mg PO BID tab 01/31/25 [Rx] SILVER sulfADIAZINE CREAM [Silvadene Cream] 1 applic TOPICAL BID each 01/31/25 [Rx] amLODIPine [Norvasc] 10 mg PO HS tab 01/31/25 [Rx] Follow up Appointment(s)/Referral(s): Darin Castro DO [Primary Care Provider] - 1-2 days Kiley Manuel MD [Medical Doctor] - 1 Week Activity/Diet/Wound Care/Special Instructions: Patient is returning to [facility] Activity as tolerated Follow-up with primary care provider on discharge Follow-up with neurology outpatient Continue taking medications as prescribed Continue with Silvadene cream twice daily to the left lower extremity Recommend wound care clinic evaluation outpatient Discharge Disposition: TRANSFER TO SNF/F
[2025-01-31 16:19] VITALS: BP 145/64; PULSE 59; TEMP 98.3
--- NOTE | 2025-01-31 16:30 | P.PN ---
Subjective Progress Note Date: 01/31/25 Patient was initially seen by Dr. Gilberto Tolliver. Please refer to his note for details. Patient is a 89-year-old female with right facial droop. Patient present is laying in the bed. She is asleep. The nurse reports that patient is mostly alert and oriented, sometimes says "off things". There is possible plan for discharge to [facility]. Patient states she is doing better than yesterday. Patient denies any headache. She states she is not hungry and wants some Ensure. She believes her right side of the face is still an issue, although I do not see any obvious facial droop. She states her legs and arms are doing well. She states she feels comfortable. Some of the work-up during this hospital visit consisted of: Lipid panel: TG 38, cholestrol 238, LDL 169 and HDL 61 Creatnine 1.35, Potassium 5.5 that normalized. TSH: 0.990 CT of the head is reported as no acute intracranial process. Remote injury to the right parietal and occipital lobe with encephalomalacia I personally reviewed the CT of the head and agree there is no acute intracranial process and agree with an old encephalomalacia. CT angiography of the head and neck is reported as no evidence of dissection of cervical internal carotid artery or vertebral artery. Approximately 50% stenosis of the origin of the right internal carotid artery secondary due to calcified and noncalcified plaque. Approximately 25% stenosis at the origin of the left internal carotid artery secondary to calcified and noncalcified plaque. Mild stenosis involving the right MCA M2 segment. No evidence of intracranial aneurysm. EKG is reported as sinus rhythm. Minimal ST depression. In the ED the patient NIH stroke scale was a 4 and a stroke code was activated and the ED team spoke with the stroke attending (Dr. Resendiz) and it was felt no IV TNK since the risk outweighed the benefit because of her advanced age. The ED team spoke with the patient guardian. 2D echo: Normal ventricular systolic function. Aortic sclerosis. Possible bicuspid aortic valve. No significant gradient was identified. Thickened jozef ral valve leaflet with moderate mitral regurgitation. Objective - Vital Signs Vital signs: Vital Signs Temp 98.1 F 01/31/25 11:27 Pulse 45 L 01/31/25 11:27 Resp 16 01/31/25 11:27 BP 164/62 01/31/25 11:27 Pulse Ox 95 01/31/25 11:27 FiO2 Intake & Output 01/30/25 01/31/25 01/31/25 18:59 06:59 18:59 Intake Total 256 20 Balance 256 20 Weight 81 kg 81 kg Intake: IV 20 20 Invasive Line 2 20 20 Oral 236 0 Other: Voiding Method Toilet Toilet Toilet Diaper Diaper Diaper # Voids 1 1 1 - Exam On examination patient is alert and awake. Speech and language functions appears normal. Her face is grossly symmetric. Tongue protrudes midline. Visual dumont are full. Muscle strength is normal in the arms and moves her legs both equally bilaterally. Sensory to touch is equal. - Labs CBC & Chem 7: 01/28/25 06:13 01/28/25 06:13 Assessment and Plan Assessment: This is an 89-year-old woman with history of dementia, strokes, TIAs, medication noncompliance who presents emergency department because of right facial droop as well as dysarthria. NIH stroke scale in the ED was a 4 and no IV TNKase since the risk outweigh the benefit that was felt by the stroke attending on-call seems that she had dysarthria, mild expressive aphasia and facial droop on presentation. Right lower facial droop with expressive aphasia, dysarthria on presentation is likely acute ischemic stroke--currently improved but currently right lower facial droop with subtle dysarthria. Dyslipidemia History of strokes History of TIAs History of closed head injury History of brain tumor History of seizure Chronic kidney disease Medication noncompliance Plan: Patient started on Plavix 75 mg daily. Will avoid dual antiplatelet because of increased risk for bleed. Will avoid statins since patient is allergic to statin MRI of the brain but cannot obtain clearance because of ?metal after her brain surgery Repeat CT head 01/30/2025 revealed no acute intracranial process. I personally r ashliewed CT head agree with the findings. Continue neurochecks Cardiac monitoring PT OT and EMERY WHEEL WORKER are consulted Recommend permissive hypertension for an additional 24 hours For DVT prophylaxis the patient is on Lovenox Will defer the rest of the medical management to the primary team
== END 2025-01-31 17:29 | DRG 65 ==
LOC: EC 21:14 → 3SCARD 22:18
PROVIDERS: ADMIT Hospitalist; ATTEND Hospitalist
DX: I63.9 Cerebral infarction, unspecified (principal); L03.116 Cellulitis of left lower limb; Z66 Do not resuscitate; D63.1 Anemia in chronic kidney disease; F03.90 Unspecified dementia, unspecified severity, without behavioral disturbance, psychotic disturbance, mood disturbance, and anxiety; N18.30 Chronic kidney disease, stage 3 unspecified; I66.01 Occlusion and stenosis of right middle cerebral artery; G93.89 Other specified disorders of brain; I12.9 Hypertensive chronic kidney disease with stage 1 through stage 4 chronic kidney disease, or unspecified chronic kidney disease; E66.9 Obesity, unspecified; I34.0 Nonrheumatic mitral (valve) insufficiency; R47.01 Aphasia; I65.23 Occlusion and stenosis of bilateral carotid arteries; Z68.35 Body mass index [BMI] 35.0-35.9, adult; R29.810 Facial weakness; R47.1 Dysarthria and anarthria; K21.9 Gastro-esophageal reflux disease without esophagitis; E78.00 Pure hypercholesterolemia, unspecified; R29.704 NIHSS score 4; R41.89 Other symptoms and signs involving cognitive functions and awareness; N39.3 Stress incontinence (female) (male); Z91.148 Patient's other noncompliance with medication regimen for other reason; Z79.02 Long term (current) use of antithrombotics/antiplatelets; Z79.899 Other long term (current) drug therapy; Z86.73 Personal history of transient ischemic attack (TIA), and cerebral infarction without residual deficits; Z87.891 Personal history of nicotine dependence; Z96.651 Presence of right artificial knee joint; Z85.841 Personal history of malignant neoplasm of brain; Z86.718 Personal history of other venous thrombosis and embolism; Z71.3 Dietary counseling and surveillance; Z99.3 Dependence on wheelchair; Z88.0 Allergy status to penicillin; Z88.2 Allergy status to sulfonamides; Z88.6 Allergy status to analgesic agent; Z88.1 Allergy status to other antibiotic agents; Z91.040 Latex allergy status; Z88.8 Allergy status to other drugs, medicaments and biological substances
CPT/HCPCS: 36415; 70450; 70496; 70498; 71045; 80048; 80053; 80061; 82550; 84443; 84484; 85025; 85610; 85730; 93005; 93306; 96374; 96375; 99291